=== PATIENT | male | born 1955 | race Two or more races ===

== ENCOUNTER → 2022-03-05 | Outpatient (CLI) | payer MEDICARE ==
--- NOTE | 2022-03-05 19:29 | CONS ---
CONSULTATION DATE OF SERVICE: 03/05/2022 This 66-year-old gentleman has been evaluated in [facility] for obstructive sleep apnea-hypopnea syndrome. HISTORY OF PRESENT ILLNESS/SLEEP-WAKE EVALUATION: Patient has a history of obstructive sleep apnea for more than 25 years, but results of his diagnostic sleep study and titration have been lost. At present his sleep schedule is from about 11 p.m. until 6:30 a.m. Usually no problems with falling asleep. He has loud snoring and multiple episodes of awakenings from sleep; up to 4 times. His CPAP equipment has been broken. His weight has increased by about 50 pounds compared with previous sleep testing. In the morning he wakes up tired, falling asleep during the day, has problems with concentration and irritability. Some nights he tries to use his son's CPAP unit. [place] Sleepiness Scale is around 3. He does not take any naps. PAST MEDICAL HISTORY: Positive for hypertension, diabetes mellitus, hyperlipidemia. PAST SURGICAL HISTORY: Hernia repair. MEDICATIONS: 1. Ozempic 1 mg once a week. 2. Ramipril 2.5 mg once a day. 3. Atorvastatin 20 mg once a day. 4. Metoprolol 100 mg twice a day. 5. Glyburide metformin 5/500 mg two tablets 2 times a day. 6. Levemir 20 units. 7. 1 mg once a day. SOCIAL HISTORY: Positive for smoking in the past. Alcohol consumption occasional. REVIEW OF SYSTEMS: Multiple awakenings from sleep with snoring and episodes of stopped breathing during sleep. No fevers. No double vision. No recent chest pain. No shortness of breath. No abdominal pain. No bleeding episodes. No blood in the urine. No seizure episodes. PHYSICAL EXAMINATION: GENERAL: Pleasant gentleman without distress. VITAL SIGNS: BP 146/82, HR 81, RR 18, height 5 feet 10-1/2 inches, weight 394, body mass index 41.1, temperature 97.8, oxygen saturation room air 92%. HEENT: PERRLA, EOMI, evaluation of oropharynx showed tongue protrudes midline. Extremely low position of soft palate; Mallampati IV. NECK: Supple, no JVD. Thyroid is not palpable. Neck is wide; 20 inches in circumference. LUNGS: Clear to percussion and to auscultation. Good air exchange. No wheezing or rhonchi. HEART: S1, S2 regular. No murmurs, gallops, or rubs. ABDOMEN: Obese. EXTREMITIES: No clubbing or cyanosis. VIBRATION ANALYST: Awake, alert, and oriented X3. Cranial nerves 2 to 7 intact. There is no fasciculation or atrophy. noted. No focal deficits observed. IMPRESSION: 1. Loud snoring, history of obstructive sleep apnea for 25 years, extremely low position of soft palate, Mallampati IV, wide neck, 20 inches in circumference. CPAP equipment broken. Results of diagnostic sleep study not available. Obstructive sleep apnea-hypopnea syndrome. 2. Obesity; body mass index 41.5. The patient's weight increased by more than 50 pounds compared with his weight when he did the previous sleep studies. 3. Hypertension. 4. Diabetes mellitus. 5. Hyperlipidemia. 6. Status post hernia repair. PLAN: 1. Polysomnography for evaluation of patient's breathing during sleep. 2. CPAP/BiPAP titration if sleep study confirms obstructive sleep apnea-hypopnea syndrome. 3. Preferable position during sleep on the side. 4. No driving if patient feels any sleepiness. 5. I will see patient for follow up visit to explain results of testing and following plan. Thank you very much for referring this patient for consultation. Sincerely, Colton Rodriguez MD, PhD, FAASM Diplomat of [place] [employer] Sleep Medicine Board of [place] [employer] Product Development Consultant of [facility] [place] MMODL / CURLYN: [id number] /
== END | disposition home or self-care (01) ==
LOC: SLEEP 13:52
PROVIDERS: ATTEND Internal Medicine
DX: G47.33 Obstructive sleep apnea (adult) (pediatric) (principal); E66.9 Obesity, unspecified; Z68.41 Body mass index [BMI] 40.0-44.9, adult; I10 Essential (primary) hypertension; E11.9 Type 2 diabetes mellitus without complications; E78.5 Hyperlipidemia, unspecified; Z98.890 Other specified postprocedural states
CPT/HCPCS: 99202

== ENCOUNTER → 2022-06-19 | Outpatient (CLI) | payer MEDICARE ==
--- NOTE | 2022-06-19 17:26 | P.PN ---
Subjective DATE: [] FOLLOW UP VISIT. Patient with obstructive sleep apnea hypopnea syndrome return to sleep center for follow-up visit. Recently patient had sleep study which documented obstructive sleep apnea hypopnea syndrome. Patient patient received new CPAP unit. Today is first visit after treatment with the new Pap equipment was started. Patient was able to use PAP equipment every night for the whole night. The patient does not have significant problems with the mask, PAP pressure and humidification. [place] sleepiness scale is 0. I checked information from BiPAP unit. PAP unit pressure maximal inspiratory pressure 24, minimal expiratory pressure 8, pressure support 4cm H2O. Usage is 100 % for more then 4 hours, average 8 hours per night. Leak is 15.6 l/m, which is in acceptable range. Apnea Hypopnea Index is 5.9, which is borderline. MEDICATIONS:1. Ozempic 1 mg once a week 2. Ramipril 2.5 mg once a day 3. Atorvastatin 20 mg once a day 4. Metoprolol 100 mg twice a day 5. Glyburide metformin 5500 milligrams 2 tablets twice a day 6. Levemir During physical exam: GENERAL: A pleasant patient without any distress. VITAL SIGNS: BP 142/74 [], heart rate 52[] , respiratory rate 18i, weight 292.4, temperature 97oxygen saturation at room air 92 HEENT: PERRLA, EOMI.low position of soft palate, Mallapati[4. NECK: Supple. No JVD. LUNGS: Clear to percussion and to auscultation. Good air exchange. No wheezing or rhonchi. HEART: S1, S2 regular. ABDOMEN: Soft and nontender.[] EXTREMITIES: No clubbing or cyanosis. MANUFACTURING ASSOCIATE: Awake, alert, and oriented x3. No focal deficit. Impressions: 1. Obstructive sleep apnea-hypopnea syndrome. Patient demonstrated great compliance with treatment, benefiting from treatment. 2. [ obesity 3. Hypertension 4. []. Diabetes mellitus 5. []. Hyperlipidemia 6. []. Status post hernia repair Plan: 1. Continue using PAP equipment every night for the whole night. 2. To change air filter at least 1-2 times per month. 3. PAP unit should stay lower then position of the head. 4. Advised patient to remove all remaining water from humidifier canister daily and make it dry after each usage. Refill canister with fresh distilled water before each usage. 5. Sleep hygiene with regular time in bed for at least 8 hours. 6. Precautions related to driving. No driving if feel any sleepiness. 7. I will maintain prescription for PAP supplies including mask, tube, filters. 8. Follow up visit in 6 months or earlier if patient has any problems. 9. Watching weight. Thank you very much for allowing me to participate in the management of your patient. Colton Rodriguez MD, PhD, FAASM. Diplomat of [place] [employer], Sleep Medicine Board by [place] [employer] Supervisor [employer] [facility] [place]
== END | disposition home or self-care (01) ==
LOC: SLEEP 15:55
PROVIDERS: ATTEND Internal Medicine
DX: G47.33 Obstructive sleep apnea (adult) (pediatric) (principal); E66.9 Obesity, unspecified; I10 Essential (primary) hypertension; E11.9 Type 2 diabetes mellitus without complications; E78.5 Hyperlipidemia, unspecified; Z98.890 Other specified postprocedural states
CPT/HCPCS: 99212

== ENCOUNTER 2023-07-16 11:02 | Inpatient (IN) | payer MEDICARE ==
[2023-07-16] MEDS ORDERED: methylPREDNISolone SOD SUCCI 125 MG/2 ML VIAL IV STA (11:11)
[2023-07-16 11:24] LABS: ABG Base Excess -7.1 mmol/L; ABG HCO3 21 mmol/L (21-25); ABG Oxygen Saturation 99.2 % (94-97); ABG PCO2 53 mmHg (35-45); ABG PO2 334 mmHg (83-108); ABG TCO2 22 mmol/L (19-24); Allen Test Performed? Yes
--- NOTE | 2023-07-16 11:33 | XR ---
EXAMINATION TYPE: XR chest 1V portable DATE OF EXAM: 07/16/2023 HISTORY: Shortness of breath. COMPARISON: 05/07/2023 TECHNIQUE: Single view of the chest is submitted. FINDINGS: Endotracheal tube is approximately 4.9 cm from the mary. NG tube is seen coursing into the stomach. Elevation right hemidiaphragm and right basilar opacity appear to be chronic in nature. The heart is stable. Hilar and mediastinal structures are within normal limits. Degenerative changes are seen of the dorsal spine. IMPRESSION: 1. Endotracheal tube is approximately 4.9 cm from the mary. NG tube is seen coursing into the stom ach.
[2023-07-16] MEDS ORDERED: NALOXONE 0.4 MG/ML 1 ML VIAL IV PRN (12:30)
--- NOTE | 2023-07-16 12:30 | ED ---
General Adult HPI - General Chief complaint: Cardiac Arrest/CPR Stated complaint: Cardiac Arrest Time Seen by Provider: 07/16/23 11:02 Source: EMS Mode of arrival: EMS Limitations: altered mental status, physical limitation - Related Data Home Medications Medication Instructions Recorded Confirmed Ipratropium/Albuterol Sulfate 2 puff INHALATION RT-QID PRN 03/30/15 07/16/23 [Combivent Respimat Inhaler] Pioglitazone [Actos] 45 mg PO DAILY 03/30/15 07/16/23 Rivaroxaban [Xarelto] 20 mg PO DAILY 03/30/15 07/16/23 Ipratropium-Albuterol Nebulize 1 inhalation INHALATION RT-TID 05/22/15 07/16/23 [Duoneb 0.5 mg-3 mg/3 ml Soln] Atorvastatin [Lipitor] 20 mg PO DAILY 05/02/23 07/16/23 Metoprolol Tartrate [Lopressor] 100 mg PO BID 05/02/23 07/16/23 Tirzepatide [Mounjaro] 5 mg SQ TU 05/02/23 07/16/23 glyBURIDE/METFORMIN HCL 1 tab PO BID 05/02/23 07/16/23 [Glucovance 5-500 mg] Fluticasone/Vilanterol [Breo 1 puff INHALATION RT-DAILY 07/16/23 07/16/23 Ellipta 200-25 Mcg Inhaler] Furosemide [Lasix] 20 mg PO DAILY 07/16/23 07/16/23 Potassium Chloride [Klor-Con M10] 10 meq PO DAILY 07/16/23 07/16/23 Allergies Allergy/AdvReac Type Severity Reaction Status Date / Time No Known Allergies Allergy Unverified 07/16/23 12:41 Review of Systems ROS Statement: Those systems with pertinent positive or pertinent negative responses have been documented in the HPI. ROS Other: All systems not noted in ROS Statement are negative. Past Medical History Past Medical History: Atrial Fibrillation, Asthma, Diabetes Mellitus, Hypertension, Sleep Apnea/CPAP/BIPAP Additional Past Medical History / Comment(s): Tachycardia History of Any Multi-Drug Resistant Organisms: None Reported Past Surgical History: Hernia Repair Additional Past Surgical History / Comment(s): CARDIOVERSION,YANIRA Past Anesthesia/Blood Transfusion Reactions: No Reported Reaction Past Alcohol Use History: None Reported, Rare - Past Family History Father Additional Family Medical History / Comment(s): HEART MURMUR Mother Family Medical History: No Reported History General Exam Limitations: altered mental status, physical limitation Course Vital Signs 07/16/23 07/16/23 07/16/23 11:02 11:06 11:16 Temperature 95.0 F L 95.0 F L Pulse Rate 70 Respiratory 14 Rate Blood Pressure 112/72 O2 Sat by Pulse 98 Oximetry Fraction of 100 100 Inspired Oxygen (FIO2) 07/16/23 11:38 Temperature Pulse Rate Respiratory Rate Blood Pressure O2 Sat by Pulse Oximetry Fraction of 50 Inspired Oxygen (FIO2) - Reevaluation(s) Reevaluation #1: 07/16/23 12:26 2 charts were updated on this patient. Please see previous visit also from today if charts are not completely merged together Medical Decision Making - Medical Decision Making Was pt. sent in by a medical professional or institution (, PA, CONTINUITY PERSON, urgent care, hospital, or penitentiary...) When possible be specific @ - Did you speak to anyone other than the patient for history (EMS, parent, family, police, friend...)? What history was obtained from this source @ -EMS provides history as patient is unresponsive Did you review nursing and triage notes (agree or disagree)? Why? @ -I reviewed and agree with nursing and triage notes Were old charts reviewed (outside hosp., previous admission, EMS record, old EKG, old radiological studies, urgent care reports/EKG's, penitentiary records)? Report findings @ -Previous chart reviewed previous admission with Dr. Wan Differential Diagnosis (chest pain, altered mental status, abdominal pain women, abdominal pain men, vaginal bleeding, weakness, fever, dyspnea, syncope, headache, dizziness, GI bleed, back pain, seizure, CVA, palpatations, mental health, musculoskeletal)? @ -Differential Altered Mental Status: Hypoglycemia, DKA, hypercapnia, ETOH, overdose, CO poisoning, trauma, myxedema coma, HTN encephalopathy, infection, encephalitis, psychosis, intercranial hemorrhage, hepatic encephalopathy, meningitis, CVA, this is not meant to be an all-inclusive listDifferential Dyspnea: Coronary syndrome, arrhythmia, tamponade, asthma, COPD, pulmonary embolism, pneumonia, pneumothorax, pulmonary effusion, anaphylaxis, diabetic ketoacidosis, flailed chest, pulmonary contusion, diaphragmatic rupture, anemia, neuromuscular, this is not meant to be an all-inclusive list. EKG interpreted by me (3pts min.). @ -As above X-rays interpreted by me (1pt min.). @ -Chest x-ray shows endotracheal tube and gastric tube in appropriate position CT interpreted by me (1pt min.). @ -None done U/S interpreted by me (1pt. min.). @ -None done What testing was considered but not performed or refused? (CT, X-rays, U/S, labs)? Why? @ -None What meds were considered but not given or refused? Why? @ -None Did you discuss the management of the patient with other professionals (professionals i.e. , PA, CONTINUITY PERSON, lab, RT, psych nurse, licensed social worker, hairspring setter, teacher, chief analytics officer, ed case manager)? Give summary @ -Case was discussed with Dr. Plasencia, who will consult Was smoking cessation discussed for >3mins.? @ -No Was critical care preformed (if so, how long)? @ -31 minute critical care Were there social determinants of health that impacted care today? How? (Homelessness, low income, unemployed, alcoholism, drug addiction, transportation, low edu. Level, literacy, decrease access to med. care, usp, rehab)? @ -No Was there de-escalation of care discussed even if they declined (Discuss DNR or withdrawal of care, Hospice)? DNR status @ -No What co-morbidities impacted this encounter? (DM, HTN, Smoking, COPD, CAD, Cancer, CVA, ARF, Chemo, Hep., AIDS, mental health diagnosis, sleep apnea, morbid obesity)? @ -History of asthma. History of A. fib Was patient admitted / discharged? Hospital course, mention meds given and route, prescriptions, significant lab abnormalities, going to OR and other pertinent info. @ -Patient reevaluated and on ventilator tolerating well. Vital signs have remained stable otherwise. Family is now present and is updated. They do confirm previous history. Patient will be admitted to intensive care unit on the ventilator. Patient does have history of asthma with COVID-19 infection. Undiagnosed new problem with uncertain prognosis? @ -No Drug Therapy requiring intensive monitoring for toxicity (Heparin, Nitro, Insulin, Cardizem)? @ -No Were any procedures done? @ -No Diagnosis/symptom? @ -Asthma, COVID-19, respiratory failure Acute, or Chronic, or Acute on Chronic? @ -Acute on chronic, acute, acute Uncomplicated (without systemic symptoms) or Complicated (systemic symptoms)? @ -default Side effects of treatment? @ -No Exacerbation, Progression, or Severe Exacerbation? @ -No Poses a threat to life or bodily function? How? (Chest pain, [place], [place], pneumonia, PE, COPD, DKA, ARF, appy, cholecystitis, CVA, Diverticulitis, Homicidal, Suicidal, threat to staff... and all critical care pts) @ -No - Lab Data Lab Results 07/16/23 Range/Units 11:18 Sample Site r rad ABG pH 7.20 L (7.35-7.45) ABG pCO2 53 H (35-45) mmHg ABG pO2 334 H (83-108) mmHg ABG HCO3 21 (21-25) mmol/L ABG Total CO2 22 (19-24) mmol/L ABG O2 Saturation 99.2 H (94-97) % ABG Base Excess -7.1 mmol/L John Test Yes FiO2 100 % Critical Care Time Critical Care Time: Yes Total Critical Care Time: 31 Disposition Clinical Impression: Acute respiratory failure, Asthma, COVID-19 Disposition: ADMITTED IP TO THIS HOSP Is patient prescribed a controlled substance at d/c from ED?: No Time of Disposition: 12:29
[2023-07-16] MEDS ORDERED: DEXTROSE 50% SYRINGE 50 ML IVP PRN ×4 (19:53→22:06)
[2023-07-16] MEDS ORDERED: IPRATROPIUM-ALBUTEROL 3 ML NEB INHALATION SCH (20:00)
[2023-07-16] MEDS ORDERED: METFORMIN HCL PO SCH (21:00)
[2023-07-16] MEDS ORDERED: GLYBURIDE PO SCH (21:00)
[2023-07-16 21:14] LABS: Glucose,Whole Blood 207 mg/dL (70-110)
[2023-07-16 21:15] LABS: ABG Base Excess -5.2 mmol/L; ABG HCO3 21 mmol/L (21-25); ABG Oxygen Saturation 95.3 % (94-97); ABG PCO2 42 mmHg (35-45); ABG PH 7.31 (7.35-7.45); ABG PO2 84 mmHg (83-108); ABG TCO2 22 mmol/L (19-24); Allen Test Performed? Yes
--- NOTE | 2023-07-16 21:25 | P.PCN ---
Date of Procedure: 07/16/23 Description of Procedure: Preoperative Diagnosis: cardiac arrest Postoperative Diagnosis: cardiac arrest Procedure(s) Performed: Central line, arterial line Anesthesia: local Surgeon: Aura Plasencia Estimated Blood Loss (ml): 0 Condition: critical Disposition: ICU Operative Findings: Indication: Hemodynamic monitoring. Indication: Hemodynamic monitoring/Intravenous access. A time-out was completed verifying correct patient, procedure, site, positioning, and implant(s) or special equipment if applicable. The patient was placed in a dependent position appropriate for central line placement based on the vein to be cannulated. The patients left chest was prepped and draped in sterile fashion. 1% Lidocaine was used to anesthetize the surrounding skin area. A triple lumen 9F Cordis catheter was introduced into the left subclavian vein using Seldinger technique. The catheter was threaded smoothly over the guide wire and appropriate blood return was obtained. Each lumen of the catheter was evacuated of air and flushed with sterile saline. The catheter was then sutured in place to the skin and a sterile dressing applied. Perfusion to the extremity distal to the point of catheter insertion was checked and found to be adequate. The patient tolerated the procedure well and there were no complications.
--- NOTE | 2023-07-16 21:25 | P.CNPUL ---
History of Present Illness Consult date: 07/16/23 Chief complaint: Cardiac arrest History of present illness: 68-year-old male patient, morbidly obese, known history of obstructive sleep apnea, chronic atrial fibrillation maintained on long-term and the coagulation with Xarelto in addition to history of diabetes mellitus type 2, hypertension and obesity. The patient was brought into the emergency department with cardiac arrest. The patient was at home and he was complaining of some shortness of breath. He was supposed to see his primary care physician, however he acutely became unresponsive. The patient's was there and she activated EMS. The downtime reported was approximately 7 minutes before EMS arrival. The patient was found to be in asystole and CPR was initiated. The patient was intubated. The patient received epinephrine based on the ACLS protocol. The CPR time was around 10-12 minutes and following that there was return of spontaneous circulation. Following that, the patient was brought into the emergency department. The patient EKG was consistent with A. fib with RVR. The patient's BP was 120/94. The patient was given a chest x-ray that showed no acute abnormalities. He was started on propofol which is currently running at 50 mcg/kg/m. No seizure activity has been noted. CAT scan of the brain is not done. CT angiogram of the chest has not been done. Cardiac enzymes showed a troponin of 0.136. Initial blood gas showed a pH of 7.2 with episodes of 53 and pO2 of 336. His current vent settings with an assist control of 24 with a tidal volume of 500, FiO2 is 50% with a PEEP of 5. Urine operas in order of 40-50 mL an hour. He is afebrile. He is on no pressors. No reported aspiration. The donor is currently 11.2, hemoglobin is 15 with a platelet count of 218. Normal coagulation profile. BUN is at 24 with a creatinine of 1.1. Initial lactic acid level is at 7.6. ProBNP level was 1250. Serum bicarb is at 22. Glucose at 157. Review of Systems ROS unobtainable: due to endotracheal tube Past Medical History Past Medical History: Atrial Fibrillation, Asthma, Diabetes Mellitus, Hypertension, Sleep Apnea/CPAP/BIPAP Additional Past Medical History / Comment(s): Tachycardia History of Any Multi-Drug Resistant Organisms: None Reported Past Surgical History: Hernia Repair Additional Past Surgical History / Comment(s): CARDIOVERSION,YANIRA Past Anesthesia/Blood Transfusion Reactions: No Reported Reaction Past Alcohol Use History: None Reported, Rare - Past Family History Father Additional Family Medical History / Comment(s): HEART MURMUR Mother Family Medical History: No Reported History Medications and Allergies Home Medications Medication Instructions Recorded Confirmed Type Ipratropium/Albuterol Sulfate 2 puff INHALATION RT-QID PRN 03/30/15 07/16/23 History [Combivent Respimat Inhaler] Pioglitazone [Actos] 45 mg PO DAILY 03/30/15 07/16/23 History Rivaroxaban [Xarelto] 20 mg PO DAILY 03/30/15 07/16/23 History Ipratropium-Albuterol Nebulize 1 inhalation INHALATION RT-TID 05/22/15 07/16/23 History [Duoneb 0.5 mg-3 mg/3 ml Soln] Atorvastatin [Lipitor] 20 mg PO DAILY 05/02/23 07/16/23 History Metoprolol Tartrate [Lopressor] 100 mg PO BID 05/02/23 07/16/23 History Tirzepatide [Mounjaro] 5 mg SQ TU 05/02/23 07/16/23 History glyBURIDE/METFORMIN HCL 1 tab PO BID 05/02/23 07/16/23 History [Glucovance 5-500 mg] Fluticasone/Vilanterol [Breo 1 puff INHALATION RT-DAILY 07/16/23 07/16/23 History Ellipta 200-25 Mcg Inhaler] Furosemide [Lasix] 20 mg PO DAILY 07/16/23 07/16/23 History Potassium Chloride [Klor-Con M10] 10 meq PO DAILY 07/16/23 07/16/23 History Allergies Allergy/AdvReac Type Severity Reaction Status Date / Time No Known Allergies Allergy Unverified 07/16/23 12:41 Physical Exam Vitals: Vital Signs Temp Pulse Resp BP Pulse Ox FiO2 07/16/23 19:33 90 07/16/23 19:26 50 07/16/23 19:25 88 07/16/23 19:00 98.8 F 89 22 128/91 99 07/16/23 18:00 98.8 F 88 23 108/72 99 07/16/23 17:00 98.8 F 84 22 107/64 97 07/16/23 16:00 99.0 F 85 22 119/82 99 07/16/23 15:00 98.8 F 89 24 122/80 98 50 07/16/23 14:57 50 07/16/23 14:00 98.1 F 91 12 111/74 97 07/16/23 13:45 90 12 122/74 96 07/16/23 13:30 96.1 F L 91 16 114/80 96 07/16/23 13:15 89 16 113/70 96 07/16/23 13:00 87 16 105/75 96 07/16/23 12:45 83 16 99/63 95 07/16/23 12:30 82 16 105/61 95 07/16/23 12:15 82 16 99/77 95 07/16/23 12:00 84 16 121/69 96 07/16/23 11:45 79 16 119/85 100 07/16/23 11:38 50 07/16/23 11:30 71 16 122/88 100 07/16/23 11:15 70 16 120/81 100 07/16/23 11:14 70 16 120/81 100 07/16/23 11:06 95.0 F L 07/16/23 11:02 95.0 F L 70 14 112/72 98 100 Intake and Output 07/16/23 07/16/23 07/16/23 06:59 14:59 22:59 Intake Total 6.940 147.987 Balance 6.940 147.987 Intake: Intake, IV Titration 6.940 147.987 Amount propofoL 1,000 mg In 6.940 147.987 Empty Bag 1 bag @ 15 MCG/ KG/MIN 12.247 mls/hr IV . [facility] Rx#:[id number] Other: Weight 136.078 kg Obese, body mass index of 40.7., Comfortable. No acute arrest or distress. Currently on propofol Head exam was generally normal. There was no scleral icterus or corneal arcus. Mucous membranes were moist. Neck was supple and without jugular venous distension, thyromegaly, or carotid bruits. Carotids were easily palpable bilaterally. There was no adenopathy. Lungs although the medicine the patient has scattered rhonchi heard bilaterally. Otherwise breath sounds are equal and symmetrical Heart sounds are irregular, consistent with atrial fibrillation, the heart sounds are distant, positive S1-S2 there is no significant murmurs appreciated Abdominal exam revealed normal bowel sounds. The abdomen was soft, non-tender, and without masses, organomegaly, or appreciable enlargement of the abdominal aorta. Examination of the extremities revealed easily palpable radial, femoral and pedal pulses. There was no cyanosis, clubbing or edema. Examination of the skin revealed no evidence of significant rashes, suspicious appearing nevi or other concerning lesions. Neurologically, the patient is unresponsive. Pupils are round 56 cm in size and slightly reactive to light. No nystagmus. Positive coughing reflex. Motor function cannot be assessed. Sensory cannot be assessed. Reflexes are diminished bilaterally. There are present. No Babinski. No clonus. Results - Laboratory Findings ABG ABG pH 7.20 (7.35-7.45) L 07/16/23 11:18 ABG pCO2 53 mmHg (35-45) H 07/16/23 11:18 ABG pO2 334 mmHg (83-108) H 07/16/23 11:18 ABG O2 Saturation 99.2 % (94-97) H 07/16/23 11:18 Abnormal lab findings: Abnormal Labs 07/16/23 07/16/23 11:18 15:57 ABG pH 7.20 L ABG pCO2 53 H ABG pO2 334 H ABG O2 Saturation 99.2 H Troponin I 0.136 H* - Diagnostic Findings Chest x-ray: image reviewed Assessment and Plan Plan: Acute cardiopulmonary arrest. The patient was found to be in asystole. The down time is estimated to be more than 17 minutes at least. There was return of spontaneous circulation after successful resuscitation. The patient received CPR, epinephrine and the patient was intubated on the field and was brought to the emergency department. Exact cause is not clear. Acute hypoxic/hypercapnic respiratory failure secondary to cardiac arrest Acute Covid 19 infection. The patient tested positive for Covid 19. This is his first infection and the patient has been vaccinated the past. Acute lactic acidosis secondary to above Unresponsiveness currently on sedation. Rule out underlying hypoxic encephalopathy Chronic atrial maintained on anticoagulation with xarelto, the patient receiving metoprolol for rate control on outpatient basis Morbid obesity with BMI of 40.7 Diabetes mellitus type 2 Obstructive sleep apnea, severe with a AHI of 90 and the patient has been utilizing a on auto BiPAP on outpatient basis Recent hospitalization for bilateral pneumonia, April 2023, treated and recovered Chronic bronchial asthma, maintain on Breo Ellipta on outpatient basis in addition to albuterol rescue inhaler Hypertension Plan Condition is critical at this point in time Continue vent support Repeat the blood gas Triple-lumen catheter was inserted We'll need a CAT scan of the brain without contrast Will recommend a CT angiogram of the chest Recommended to the echocardiogram Treat the patient with Decadron 6 mg IV every 24 hours Insulin sliding scale coverage Resume anti-cognition with Xarelto Albuterol neb treatments treatments [id number] Cardiology consult Neurologic consult Keep propofol Monitor troponins Monitor lactic acid level Condition is critical. We'll continue to follow. Time with Patient: Greater than 30
[2023-07-16] MEDS ORDERED: TIOTROPIUM 2.5 MCG INHALER INHALATION SCH (22:00)
[2023-07-16] MEDS: DEXAMETHASONE SOD PHOSPHATE 10 MG/ML 1 ML VIAL IVP SCH (22:02)
[2023-07-16] MEDS: ATORVASTATIN 20 MG TAB PO SCH (22:02)
--- NOTE | 2023-07-16 22:07 | CT ---
EXAMINATION TYPE: CT brain wo con CT DLP: 1179.4 mGycm, Automated exposure control for dose reduction was used. DATE OF EXAM: 07/16/2023 9:02 PM COMPARISON: CT brain 05/02/2023 CLINICAL INDICATION:Male, 68 years old with history of cardiac arrest, cardiac arrest TECHNIQUE: Brain: Multiple axial CT images of the brain were obtained without IV contrast. Coronal and sagittal reformats reviewed. FINDINGS: Brain: Extra-axial spaces: No abnormal extra-axial fluid collections. Ventricular system: Within normal limits Cerebral parenchyma: No acute intraparenchymal hemorrhage or mass effect. The horton-white junction is well differentiated. Scattered hypoattenuating areas are seen within the white matter. Cerebellum: Unremarkable. Mass effect: No evidence of midline shift. Intracranial vasculature: unremarkable Soft tissues: Normal. Calvarium/osseous structures: No depressed skull fracture. Paranasal sinuses and mastoid air cells: Mild scattered paranasal sinus disease. The mastoid air cell s are clear. Visualized orbits: Orbital contents are intact. IMPRESSION: 1. No acute intracranial process. 2. Nonspecific white matter changes, likely secondary to chronic small vessel ischemic disease.
--- NOTE | 2023-07-16 22:16 | CT ---
EXAMINATION TYPE: CT angio chest CT DLP: 1050.3 mGycm, Automated exposure control for dose reduction was used. DATE OF EXAM: 07/16/2023 9:01 PM COMPARISON: Chest radiograph 07/16/2023 CLINICAL INDICATION:Male, 68 years old with history of cardiac arrest; cardiac arrest TECHNIQUE/CONTRAST: CTA scan of the thorax is performed with IV Contrast, patient injected with 100 mL of Isovue 370, pul monary embolism protocol. MIP images are created and reviewed. FINDINGS: Pulmonary Artery: There is no evidence for a filling defect within the pulmonary vasculature to sugge st acute pulmonary embolism. The pulmonary artery is of normal size. Lungs/Pleura: No evidence of focal consolidation, pleural effusion or pneumothorax. Linear atelectasi s within the right upper lobe and right lower lobe. There are 2 nodules within the right lung base wi th the larger one measuring 2.0 cm with some punctate calcifications identified ( series 401, image 9 1). Additional 1.6 cm adjacent nodule with central coarse calcification (series 401, image 92). Right upper lobe 0.6 cm pulmonary nodule (series 406, image 36). Airway: Endotracheal tube terminates at the mary. Trace secretions identified within the distal tra eulalio. Heart: Mildly enlarged. Mild coronary artery calcifications. No pericardial effusion.. Vasculature: No evidence of aortic aneurysm. Mediastinum: No mediastinal adenopathy greater than 1 cm short axis. Calcified subcarinal lymph node. Musculoskeletal: No acute osseous abnormalities. Findings compatible with DISH. Soft Tissues: Diffuse anasarca. Lower neck: No significant findings. Upper Abdomen: Enteric tube terminates probably within the stomach.. Cholelithiasis. Mild enlarged no nspecific peripancreatic head lymph node measuring 1.0 cm. IMPRESSION: 1. No evidence of pulmonary embolism. 2. Endotracheal tube at the mary. Recommend retraction of 2 cm. 3. There are 2 adjacent nodules within the right lung base demonstrating calcifications measuring up to 2.0 cm and may represent hamartomas. Additional right upper lobe 0.6 cm pulmonary nodule. Short-te rm CT chest in 3 months is recommended. 4. Cholelithiasis. 5. Mildly enlarged nonspecific peripancreatic lymph node.
[2023-07-16 23:54] LABS: Glucose,Whole Blood 204 mg/dL (70-110)
[2023-07-16] MEDS: INSULIN ASPART (NovoLOG) 100 UNIT/ML VIAL SQ SCH (23:55)
[2023-07-16] MEDS: IPRATROPIUM-ALBUTEROL 3 ML NEB INHALATION SCH (23:57)
[2023-07-17] MEDS ORDERED: ALBUTEROL HFA INHALER INHALATION SCH
[2023-07-17] MEDS ORDERED: SODIUM CHLORIDE 0.9% 1,000 ML IV ONE ×2 (01:27→19:03)
[2023-07-17] MEDS: SODIUM CHLORIDE 0.9% 1,000 ML IV SCH ×3 (01:30→20:58)
--- NOTE | 2023-07-17 04:08 | P.PCN ---
Date of Procedure: 07/16/23 Preoperative Diagnosis: Cardiopulmonary arrest, hypotension Postoperative Diagnosis: Cardiopulmonary arrest, hypotension Procedure(s) Performed: Insertion of a right brachial arterial line Indications for Procedure: Continuous blood pressure monitoring and frequent blood draws Description of Procedure: Informed consent was obtained, and a procedural timeout was performed . The patient was placed in supine position. The right brachial region was prepared in a sterile fashion, and a sterile drape was applied. The right brachial artery was palpated, easily cannulated, and a guidewire was placed. A Cook catheter was inserted over the guidewire, and the guidewire was removed. There was good arterial blood flow, good arterial waveform, and no complications. The line was secured with using a 3-0 silk suture. This is a joint evaluation. I was present and scrubbed throughout the procedure.
[2023-07-17] MEDS: IPRATROPIUM-ALBUTEROL 3 ML NEB INHALATION SCH (04:27)
[2023-07-17 04:45] LABS: Glucose,Whole Blood 206 mg/dL (70-110)
[2023-07-17] MEDS: INSULIN ASPART (NovoLOG) 100 UNIT/ML VIAL SQ SCH ×4 (05:13→19:07)
[2023-07-17 05:45] LABS: ALT 47 U/L (4-49); AST 118 U/L (17-59); African American GFR (CKD) 30 (>60 ml/min/1.73 sqM); Albumin 3.2 g/dL (3.5-5.0); Alkaline Phosphatase 82 U/L (38-126); Anion Gap 15 mmol/L; Blood Urea Nitrogen 49 mg/dL (9-20); Calcium 8.5 mg/dL (8.4-10.2); Carbon Dioxide 21 mmol/L (22-30); Chloride 101 mmol/L (98-107); Glucose 212 mg/dL (74-99); Non-African American GFR(CKD) 26 (>60 ml/min/1.73 sqM); Sodium 137 mmol/L (137-145); Total Bilirubin 1.7 mg/dL (0.2-1.3); Total Protein 6.1 g/dL (6.3-8.2)
[2023-07-17 07:03] LABS: ABG PCO2 35 mmHg (35-45); ABG PH 7.42 (7.35-7.45); ABG PO2 88 mmHg (83-108); Allen Test Performed? Yes
[2023-07-17 07:03] LABS: Basophils % (A) 0 %; Eosinophils % (A) 0 %; HCT 44.3 % (39.0-53.0); HGB 14.4 gm/dL (13.0-17.5); Lymphocytes % (A) 6 %; MCH 31.9 pg (25.0-35.0); MCHC 32.5 g/dL (31.0-37.0); Macrocytosis Slight; Monocytes # (A) 0.7 k/uL (0-1.0); Monocytes % (A) 5 %; Neutrophils # (A) 13.8 k/uL (1.3-7.7); Neutrophils % (A) 88 %; Platelet Count 209 k/uL (150-450); RDW 15.5 % (11.5-15.5); WBC 15.7 k/uL (3.8-10.6)
[2023-07-17 07:04] LABS: ABG Base Excess -2.3 mmol/L; ABG HCO3 22 mmol/L (21-25); ABG TCO2 23 mmol/L (19-24)
[2023-07-17] MEDS ORDERED: metFORMIN 500 MG TAB PO SCH (07:30)
[2023-07-17] MEDS ORDERED: glipiZIDE 5 MG TAB PO SCH (07:30)
[2023-07-17 07:31] LABS: MCV 98.3 fL (80.0-100.0)
[2023-07-17] MEDS ORDERED: IPRATROPIUM-ALBUTEROL 3 ML NEB INHALATION SCH (08:00)
[2023-07-17] MEDS ORDERED: FORMOTEROL FUMARATE 20 MCG/2 ML NEBU INHALATION SCH (08:00)
[2023-07-17] MEDS ORDERED: BUDESONIDE 1 MG/2 ML NEBU INHALATION SCH (08:00)
--- NOTE | 2023-07-17 08:41 | XR ---
EXAMINATION TYPE: XR chest 1V DATE OF EXAM: 07/17/2023 5:41 AM COMPARISON: Chest radiographs from 07/16/2023 TECHNIQUE: XR chest 1V Frontal view of the chest. CLINICAL INDICATION:Male, 68 years old with history of dyspnea; FINDINGS: Lungs/Pleura: Airspace opacities are now projecting over the heart in the left lower aspect. There is no evidence of pleural effusion, right focal consolidation, or pneumothorax. Pulmonary vascularity: Unremarkable. Heart/mediastinum: Cardiomediastinal silhouette is unremarkable. Musculoskeletal: No acute osseous pathology. Other findings: None Lines/Tubes: Endotracheal tube with distal tip 3.3 cm above the mary. Nasogastric tube with its distal tip and side-port projecting under the diaphragm. Left internal jugular central venous catheter with distal tip at the cavoatrial junction. IMPRESSION: Left lower lung airspace opacities correlate for developing pneumonia. Stable support line and tubes.
[2023-07-17] MEDS ORDERED: PANTOPRAZOLE 40 MG/10 ML VIAL IVP SCH (09:00)
[2023-07-17] MEDS ORDERED: SODIUM CHLORIDE 0.9% 2,000 ML IV ONE (10:12)
--- NOTE | 2023-07-17 10:15 | P.PN ---
Subjective Progress Note Date: 07/17/23 68-year-old male patient, morbidly obese, known history of obstructive sleep apnea, chronic atrial fibrillation maintained on long-term and the coagulation with Xarelto in addition to history of diabetes mellitus type 2, hypertension and obesity. The patient was brought into the emergency department with cardiac arrest. The patient was at home and he was complaining of some shortness of breath. He was supposed to see his primary care physician, however he acutely became unresponsive. The patient's was there and she activated EMS. The downtime reported was approximately 7 minutes before EMS arrival. The patient was found to be in asystole and CPR was initiated. The patient was intubated. The patient received epinephrine based on the ACLS protocol. The CPR time was around 10-12 minutes and following that there was return of spontaneous circulation. Following that, the patient was brought into the emergency department. The patient EKG was consistent with A. fib with RVR. The patient's BP was 120/94. The patient was given a chest x-ray that showed no acute abnormalities. He was started on propofol which is currently running at 50 mcg/kg/m. No seizure activity has been noted. CAT scan of the brain is not done. CT angiogram of the chest has not been done. Cardiac enzy mes showed a troponin of 0.136. Initial blood gas showed a pH of 7.2 with episodes of 53 and pO2 of 336. His current vent settings with an assist control of 24 with a tidal volume of 500, FiO2 is 50% with a PEEP of 5. Urine operas in order of 40-50 mL an hour. He is afebrile. He is on no pressors. No reported aspiration. The donor is currently 11.2, hemoglobin is 15 with a platelet count of 218. Normal coagulation profile. BUN is at 24 with a creatinine of 1.1. Initial lactic acid level is at 7.6. ProBNP level was 1250. Serum bicarb is at 22. Glucose at 157. On today's evaluation of 07/17/2023, the patient is being seen in follow-up in the intensive care unit. He is post cardiac arrest. Currently is on propofol which is running at 40 mcg/kg/m. His calm and comfortable and suggests a mechanical ventilator. Neurologically, the patient underwent a CAT scan of the brain yesterday and the CAT scan of the brain showed no acute abnormalities. There was some nonspecific white matter changes likely secondary to chronic vessel ischemic change. No seizure activity has been noted. He was able to sense some painful stimulation with eye opening and leg with those. No Babins ki. No clonus no seizure activity. Pupils are round 4 mm in size, sluggishly reactive to light and the patient has a occasional cough. Repeat chest x-ray from today shows left basilar atelectasis. Orotracheal tube is in a good location. The patient also has a or G-tube in place. A CT angiogram of the chest was done yesterday and it showed no evidence of any pulmonary embolism. No evidence of any dissection. There was some nonspecific to adjacent home a nodules in the right lung base demonstrating calcification measuring up to 2 cm in size may represent a hematoma. Additional nodule measuring 6 mm in size in the right upper lobe. At this point in time, the patient is on assist-control mode of mechanical ventilation at the rate of 24, tidal volume of 500, FiO2 to 50% with a PEEP of 5. Blood gas showed a pH of 7.42 with a pCO2 of 35 and pO2 of 88. The patient has sustained an acute kidney injury. Creatinine today is at 2.41 with a BUN of 49. The patient also has a sodium level of 137, potassium is at 4, bicarb is at 21. The white cell cause of 15.7 with a hemoglobin of 14 .4. Cardiac rhythm is sinus. He is currently afebrile. He is on Decadron and this was given to him regarding his Covid 19 infection that was an incidental finding. Noted the patient has been vaccinated. This is his first infection with Covid 19. He remains on long-term and coagulation with Xarelto. Objective - Vital Signs Vital signs: Vital Signs Temp 99.1 F 07/17/23 04:00 Pulse 98 07/17/23 07:00 Resp 19 07/17/23 07:00 BP 99/54 07/17/23 07:00 Pulse Ox 97 07/17/23 07:00 FiO2 50 07/17/23 08:43 Intake & Output 07/16/23 07/17/23 07/17/23 18:59 06:59 18:59 Intake Total 90.969 1794.957 Output Total 320 Balance 90.969 1474.957 Weight 136.078 kg Intake: Intake, IV Titration 90.969 1794.957 Amount Sodium Chloride 0.9% 1, 450 000 ml @ 75 mls/hr IV . [id number] [facility] Rx#:[id number] Sodium Chloride 0.9% 1, 1000 000 ml @ 999 mls/hr IV . Q1H1M ONE Rx#:[id number] propofoL 1,000 mg In 90.969 344.957 Empty Bag 1 bag @ 15 MCG/ KG/MIN 12.247 mls/hr IV . Q8H10M [facility] Rx#:[id number] Output: Urine 320 Other: Voiding Method Indwelling Catheter ABP, PAP, CO, CI - Last Documented Arterial Blood Pressure 93/52 - Exam Obese, body mass index of 40.7., Comfortable. No acute arrest or distress. Currently on propofol Head exam was generally normal. There was no scleral icterus or corneal arcus. Mucous membranes were moist. Neck was supple and without jugular venous distension, thyromegaly, or carotid bruits. Carotids were easily palpable bilaterally. There was no adenopathy. Lungs although the medicine the patient has scattered rhonchi heard bilaterally. Otherwise breath sounds are equal and symmetrical Heart sounds are irregular, consistent with atrial fibrillation, the heart sounds are distant, positive S1-S2 there is no significant murmurs appreciated Abdominal exam revealed normal bowel sounds. The abdomen was soft, non-tender, and without masses, organomegaly, or appreciable enlargement of the abdominal aorta. Examination of the extremities revealed easily palpable radial, femoral and pedal pulses. There was no cyanosis, clubbing or edema. Examination of the skin revealed no evidence of significant rashes, suspicious appearing nevi or other concerning lesions. Neurologically, the patient is unresponsive. Pupils are round 4-5 cm in size and slightly reactive to light. No nystagmus. Positive coughing reflex. Motor function cannot be assessed. Sensory cannot be assessed. Reflexes are diminished bilaterally. There are present. No Babinski. No clonus. On karen anderson's evaluation, he is sensing painful stimulation by withdrawal. He'll occasionally open up his eyes upon stimulation. - Labs CBC & Chem 7: 07/17/23 05:03 07/17/23 05:03 Labs: Abnormal Lab Results - Last 24 Hours (Table) 07/16/23 07/16/23 07/16/23 Range/Units 11:18 15:57 21:12 WBC (3.8-10.6) k/uL Neutrophils # (1.3-7.7) k/uL ABG pH 7.20 L (7.35-7.45) ABG pCO2 53 H (35-45) mmHg ABG pO2 334 H (83-108) mmHg ABG O2 Saturation 99.2 H (94-97) % Carbon Dioxide (22-30) mmol/L BUN (9-20) mg/dL Creatinine (0.66-1.25) mg/dL Glucose (74-99) mg/dL POC Glucose (mg/dL) 207 H (70-110) mg/dL Total Bilirubin (0.2-1.3) mg/dL AST (17-59) U/L Troponin I 0.136 H* (0.000-0.034) ng/mL Total Protein (6.3-8.2) g/dL Albumin (3.5-5.0) g/dL 07/16/23 07/16/23 07/17/23 Range/Units 21:13 23:52 04:44 WBC (3.8-10.6) k/uL Neutrophils # (1.3-7.7) k/uL ABG pH 7.31 L (7.35-7.45) ABG pCO2 (35-45) mmHg ABG pO2 (83-108) mmHg ABG O2 Saturation (94-97) % Carbon Dioxide (22-30) mmol/L BUN (9-20) mg/dL Creatinine (0.66-1.25) mg/dL Glucose (74-99) mg/dL POC Glucose (mg/dL) 204 H 206 H (70-110) mg/dL Total Bilirubin (0.2-1.3) mg/dL AST (17-59) U/L Troponin I (0.000-0.034) ng/mL Total Protein (6.3-8.2) g/dL Albumin (3.5-5.0) g/dL 07/17/23 07/17/23 Range/Units 05:03 05:03 WBC 15.7 H (3.8-10.6) k/uL Neutrophils # 13.8 H (1.3-7.7) k/uL ABG pH (7.35-7.45) ABG pCO2 (35-45) mmHg ABG pO2 (83-108) mmHg ABG O2 Saturation (94-97) % Carbon Dioxide 21 L (22-30) mmol/L BUN 49 H (9-20) mg/dL Creatinine 2.41 H (0.66-1.25) mg/dL Glucose 212 H (74-99) mg/dL POC Glucose (mg/dL) (70-110) mg/dL Total Bilirubin 1.7 H (0.2-1.3) mg/dL AST 118 H (17-59) U/L Troponin I (0.000-0.034) ng/mL Total Protein 6.1 L (6.3-8.2) g/dL Albumin 3.2 L (3.5-5.0) g/dL Assessment and Plan Plan: Acute cardiopulmonary arrest. The patient was found to be in asystole. The down time is estimated to be more than 17 minutes at least. There was return of spontaneous circulation after successful resuscitation. The patient received CPR, epinephrine and the patient was intubated on the field and was brought to the emergency department. Exact cause is not clear. Acute hypoxic/hypercapnic respiratory failure secondary to cardiac arrest, chest x-ray from today showing a left basilar atelectasis/infiltrate. Acute Covid 19 infection. The patient tested positive for Covid 19. This is his first infection and the patient has been vaccinated the past. Acute lactic acidosis secondary to above, improved and there is improvement in the acid base status on the most recent blood gas Unresponsiveness currently on sedation. Rule out underlying hypoxic encephalopathy Chronic atrial maintained on anticoagulation with xarelto, the patient receiving metoprolol for rate control on outpatient basis, current cardiac rhythm is sinus Morbid obesity with BMI of 40.7 Diabetes mellitus type 2, currently on insulin sliding scale coverage Obstructive sleep apnea, severe with a AHI of 90 and the patient has been utilizing a on auto BiPAP on outpatient basis Recent hospitalization for bilateral pneumonia, April 2023, treated and recovered Chronic bronchial asthma, maintain on Breo Ellipta on outpatient basis in addition to albuterol rescue inhaler Acute kidney injury secondary to cardiac arrest and the patient's creatinine is up to 2.41 Hypertension Pulmonary nodules right upper lobe, 6 mm, 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 Check a CVP Triple-lumen catheter was inserted We'll need a CAT scan of the brain without contrast, no acute abnormalities Will recommend a CT angiogram of the chest, done yesterday showed no specific pulmonary nodules right upper lobe and a 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 Recommended to the echocardiogram Continue Decadron 6 mg IV every 24 hours Insulin sliding scale coverage IV fluids are currently running at 75 mL an hour normal saline. The patient is oliguric and he has sustained an acute kidney injury. Recommend given the pa tient 2 L of bolus of normal saline Continue Xarelto Albuterol neb treatments treatments [id number] Cardiology consult Neurologic consult Keep propofol Monitor troponins, peaked at 0.136, probably related to his cardiac arrest and CPR. Monitor lactic acid level and a most recent lactic acid level is 1.2. Condition is critical. We'll continue to follow. May potentially try to cut down the sedation and assess his mental status and later stage. Awaiting neurology evaluation. Awaiting cardiology evaluation. I noticed that the patient has increased output from his NG. Obtain flat some of the abdomen. Hold on tube feeds for now. Critical care evaluation that was done in more than 30 minutes. Time with Patient: Greater than 30
[2023-07-17] MEDS: PANTOPRAZOLE 40 MG/10 ML VIAL IV SCH (10:33)
[2023-07-17] MEDS: DEXAMETHASONE SOD PHOSPHATE 10 MG/ML 1 ML VIAL IVP SCH (10:33)
[2023-07-17] MEDS: ATORVASTATIN 20 MG TAB PO SCH (10:34)
[2023-07-17] MEDS: RIVAROXABAN 20 MG TAB PO SCH (10:34)
[2023-07-17 10:47] LABS: Glucose,Whole Blood 172 mg/dL (70-110)
[2023-07-17] MEDS: ALBUTEROL HFA INHALER INHALATION SCH ×4 (11:29→20:08)
[2023-07-17] MEDS: SYMBICORT 160-4.5 MCG INHALER INHALATION SCH ×2 (11:30→20:08)
[2023-07-17 12:24] LABS: Glucose,Whole Blood 208 mg/dL (70-110)
--- NOTE | 2023-07-17 14:57 | P.CRDCN ---
History of Present Illness Consult date: 07/17/23 History of present illness: HISTORY OF PRESENTING ILLNESS 67-year-old with PMH of type 2 diabetes, obstructive sleep apnea, hypertension, some reported history of arrhythmia. He was last seen in Hospital in May 2023 for weakness and altered mental status. This was activated to his hypoglycemia. On last admission his EKG showed atrial fibrillation and was started on Xarelto. Patient was at home complaining of some shortness of breath. He was supposed to see his primary care physician but he acutely became unresponsive and patient's called the EMS. Down time reported was approximately 7 minutes before EMS arrived. Patient was found to be in asystole and CPR was performed and patient was intubated at the scene. Patient received epinephrine based on the ACS protocol. CPR was performed for 10-12 minutes with return of spontaneous circulation. Off of that his ECG showed atrial fibrillation with RVR. On admission his troponin was 0.13, BNP was 1250, creatinine 1.1 lactate 7.6 DIAGNOSTICS EKG reveals atrial fibrillation with rapid ventricular response, no significant ST changes. CTA showed no evidence of dissection or pulmonary embolism. Chest x-ray did not show significant pulmonary congestion Home cardiac medications include Lasix 20 mg, Xarelto 20 mg, Actos 45 mg, metoprolol 100 mg twice a day, atorvastatin. PRIOR CARDIAC TESTING Echocardiogram April 2023 EF 50-55%, no major valvular abnormality REVIEW OF SYSTEMS 14 point review of system is negative except what is mentioned above in HPI. PHYSICAL EXAMINATION Vital signs reviewed. Head: Normocephalic. Eyes: Sclerae nonicteric. Neck: Brisk carotid upstroke, no jugular venous distention. Lungs: Intubated recommend support Heart: Irregularly irregular, no murmurs appreciated Abdomen: Soft nontender, positive bowel sounds no organomegaly. Extremities: No edema, intact distal pulses. Neurological: Intubated and sedated ASSESSMENT [id number] cardiac arrest Ventilatory dependent respiratory failure Acute COVID-19 infection Chronic atrial fibrillation Morbid obesity Type 2 diabetes obstructive sleep apnea PLAN Continue anticoagulation with Xarelto Continue metoprolol 100 mg twice a day as blood pressure tolerates ICU management for vent support No indication for cardiac catheterization at this time Repeat limited echocardiogram for LV function Past Medical History Past Medical History: Atrial Fibrillation, Asthma, Diabetes Mellitus, Hyperten destiny, Sleep Apnea/CPAP/BIPAP Additional Past Medical History / Comment(s): Tachycardia History of Any Multi-Drug Resistant Organisms: None Reported Past Surgical History: Hernia Repair Additional Past Surgical History / Comment(s): CARDIOVERSION,YANIRA Past Anesthesia/Blood Transfusion Reactions: No Reported Reaction Past Alcohol Use History: None Reported, Rare - Past Family History Father Additional Family Medical History / Comment(s): HEART MURMUR Mother Family Medical History: No Reported History Medications and Allergies Home Medications Medication Instructions Recorded Confirmed Type Ipratropium/Albuterol Sulfate 2 puff INHALATION RT-QID PRN 03/30/15 07/16/23 History [Combivent Respimat Inhaler] Pioglitazone [Actos] 45 mg PO DAILY 03/30/15 07/16/23 History Rivaroxaban [Xarelto] 20 mg PO DAILY 03/30/15 07/16/23 History Ipratropium-Albuterol Nebulize 1 inhalation INHALATION RT-TID 05/22/15 07/16/23 History [Duoneb 0.5 mg-3 mg/3 ml Soln] Atorvastatin [Lipitor] 20 mg PO DAILY 05/02/23 07/16/23 History Metoprolol Tartrate [Lopressor] 100 mg PO BID 05/02/23 07/16/23 History Tirzepatide [Mounjaro] 5 mg SQ TU 05/02/23 07/16/23 History glyBURIDE/METFORMIN HCL 1 tab PO BID 05/02/23 07/16/23 History [Glucovance 5-500 mg] Fluticasone/Vilanterol [Breo 1 puff INHALATION RT-DAILY 07/16/23 07/16/23 History Ellipta 200-25 Mcg Inhaler] Furosemide [Lasix] 20 mg PO DAILY 07/16/23 07/16/23 History Potassium Chloride [Klor-Con M10] 10 meq PO DAILY 07/16/23 07/16/23 History Allergies Allergy/AdvReac Type Severity Reaction Status Date / Time No Known Allergies Allergy Unverified 07/16/23 12:41 Physical Exam Vitals: Vital Signs Temp Pulse Resp BP Pulse Ox FiO2 07/17/23 12:00 100 16 91/61 99 07/17/23 11:31 50 07/17/23 11:00 95 24 83/69 100 07/17/23 10:00 92 24 97/55 100 07/17/23 09:00 93 24 91/55 99 07/17/23 08:43 50 07/17/23 08:00 98.6 F 97 24 86/52 97 50 07/17/23 07:00 98 19 99/54 97 07/17/23 06:00 95 24 123/68 99 07/17/23 05:00 93 24 113/63 97 07/17/23 04:43 93 07/17/23 04:28 50 07/17/23 04:27 92 07/17/23 04:00 99.1 F 93 24 106/62 98 50 07/17/23 03:00 92 24 108/60 99 07/17/23 02:00 88 24 109/53 98 07/17/23 01:00 101 H 24 97/56 97 07/17/23 00:21 89 07/17/23 00:05 95 07/17/23 00:00 97.5 F L 90 24 113/64 97 50 07/16/23 23:58 50 07/16/23 23:25 20 121/76 97 07/16/23 23:00 87 13 109/69 99 07/16/23 22:00 96.4 F L 90 24 109/78 98 50 07/16/23 21:45 24 50 07/16/23 21:05 50 07/16/23 20:00 90 21 132/80 100 07/16/23 19:33 90 07/16/23 19:26 50 07/16/23 19:25 88 07/16/23 19:00 98.8 F 89 22 128/91 99 07/16/23 18:00 98.8 F 88 23 108/72 99 07/16/23 17:00 98.8 F 84 22 107/64 97 07/16/23 16:00 99.0 F 85 22 119/82 99 07/16/23 15:00 98.8 F 89 24 122/80 98 50 Intake and Output 07/16/23 07/17/23 07/17/23 22:59 06:59 14:59 Intake Total 015.810 5575.549 535.513 Output Total 935 734 2952 Balance 76.437 1482.549 -824.487 Intake: IV 320 Invasive Line 2 10 Invasive Line 3 10 Sodium Chloride 0.9% 1, 300 000 ml @ 75 mls/hr IV . [id number] [facility] Rx#:[id number] Intake, IV Titration 518.494 5968.549 215.513 Amount Sodium Chloride 0.9% 1, 450 000 ml @ 75 mls/hr IV . [id number] [facility] Rx#:[id number] Sodium Chloride 0.9% 1, 1000 000 ml @ 999 mls/hr IV . Q1H1M [facility] Rx#:[id number] propofoL 1,000 mg In 236.437 192.549 215.513 Empty Bag 1 bag @ 15 MCG/ KG/MIN 12.247 mls/hr IV . Q8H10M [facility] Rx#:[id number] Oral 0 Output: Gastric Drainage 1300 Urine 160 160 60 Other: Voiding Method Indwelling Catheter Indwelling Catheter Indwelling Catheter Weight 136.078 kg ABP, PAP, CO, CI - Last 8 Hours Arterial Blood Pressure 110/53 Arterial Blood Pressure 122/55 Arterial Blood Pressure 104/50 Arterial Blood Pressure 111/52 Arterial Blood Pressure 98/54 Arterial Blood Pressure 93/52 Results 07/17/23 05:03 07/17/23 05:03 Cardiac Enzymes 07/16/23 07/17/23 Range/Units 15:57 05:03 AST 118 H (17-59) U/L Troponin I 0.136 H* (0.000-0.034) ng/mL CBC 07/17/23 Range/Units 05:03 WBC 15.7 H (3.8-10.6) k/uL RBC 4.50 (4.30-5.90) m/uL Hgb 14.4 (13.0-17.5) gm/dL Hct 44.3 (39.0-53.0) % Plt Count 209 (150-450) k/uL Comprehensive Metabolic Panel 07/17/23 Range/Units 05:03 Sodium 137 (137-145) mmol/L Potassium 4.0 (3.5-5.1) mmol/L Chloride 101 (98-107) mmol/L Carbon Dioxide 21 L (22-30) mmol/L BUN 49 H (9-20) mg/dL Creatinine 2.41 H (0.66-1.25) mg/dL Glucose 212 H (74-99) mg/dL Calcium 8.5 (8.4-10.2) mg/dL AST 118 H (17-59) U/L ALT 47 (4-49) U/L Alkaline Phosphatase 82 (38-126) U/L Total Protein 6.1 L (6.3-8.2) g/dL Albumin 3.2 L (3.5-5.0) g/dL Current Medications Generic Name Dose Route Start Last Admin Trade Name Freq PRN Reason Stop Dose Admin Albuterol Sulfate 2 puff 07/17/23 08:00 07/17/23 11:30 Albuterol Hfa Inhaler INHALATION 2 puff RT-Q4H ELIEZER Administration Atorvastatin Calcium 20 mg 07/16/23 20:00 07/17/23 10:34 Atorvastatin 20 Mg Tab PO 20 mg DAILY ELIEZER Administration Budesonide/Formoterol Fumarate 2 puff 07/17/23 08:00 07/17/23 11:30 Symbicort 160-4.5 Mcg Inhaler INHALATION 2 puff RT-BID ELIEZER Administration Dexamethasone Sodium Phosphate 6 mg 07/16/23 20:00 07/17/23 10:33 Dexamethasone Sod Phosphate 10 Mg/Ml 1 Ml Vial IVP 6 mg DAILY ELIEZER Administration Dextrose/Water 25 ml 07/16/23 22:06 Dextrose 50% Syringe 50 Ml IVP PER PROTOCOL PRN Hypoglycemia Protocol Dextrose/Water 50 ml 07/16/23 22:06 Dextrose 50% Syringe 50 Ml IVP PER PROTOCOL PRN Hypoglycemia Protocol Propofol 1,000 mg/ IV Solution 100 mls @ 12.247 mls/hr 07/16/23 11:15 07/17/23 11:58 IV 25 mcg/kg/min .Q8H10M ELIEZER 20.412 mls/hr Titration Protocol 15 MCG/KG/MIN Sodium Chloride 1,000 mls @ 75 mls/hr 07/16/23 23:00 07/17/23 10:34 Saline 0.9% IV 75 mls/hr .[id number] ELIEZER Administration Insulin Aspart 0 unit 07/16/23 22:15 07/17/23 11:21 Insulin Aspart (Novolog) 100 Unit/Ml Vial SQ 2 unit Q6H ELIEZER Administration Protocol Naloxone HCl 0.2 mg 07/16/23 12:30 Naloxone 0.4 Mg/Ml 1 Ml Vial IV Q2M PRN Opioid Reversal Pantoprazole Sodium 40 mg 07/17/23 09:00 07/17/23 10:33 Pantoprazole 40 Mg/10 Ml Vial IV 40 mg DAILY ELIEZER Administration Rivaroxaban 20 mg 07/17/23 09:00 07/17/23 10:34 Rivaroxaban 20 Mg Tab PO 20 mg DAILY ELIEZER Administration Protocol Intake and Output 07/16/23 07/17/23 07/17/23 22:59 06:59 14:59 Intake Total 076.022 8808.549 535.513 Output Total 794 019 6357 Balance 76.437 1482.549 -824.487 Intake: IV 320 Invasive Line 2 10 Invasive Line 3 10 Sodium Chloride 0.9% 1, 300 000 ml @ 75 mls/hr IV . [id number] [facility] Rx#:[id number] Intake, IV Titration 640.433 7393.549 215.513 Amount Sodium Chloride 0.9% 1, 450 000 ml @ 75 mls/hr IV . [id number] [facility] Rx#:[id number] Sodium Chloride 0.9% 1, 1000 000 ml @ 999 mls/hr IV . Q1H1M [facility] Rx#:[id number] propofoL 1,000 mg In 236.437 192.549 215.513 Empty Bag 1 bag @ 15 MCG/ KG/MIN 12.247 mls/hr IV . Q8H10M [facility] Rx#:[id number] Oral 0 Output: Gastric Drainage 1300 Urine 160 160 60 Other: Voiding Method Indwelling Catheter Indwelling Catheter Indwelling Catheter Weight 136.078 kg Patient Weight 07/18/23 06:59 Weight 136.078 kg 07/17/23 05:03 07/17/23 05:03
[2023-07-17 18:13] LABS: Glucose,Whole Blood 177 mg/dL (70-110)
[2023-07-17] MEDS: CHLORHEXIDINE GLUCONATE 15 ML CUP MUCOUS MEM SCH (20:58)
--- NOTE | 2023-07-17 23:04 | P.HPIM ---
History of Present Illness H&P Date: 07/17/23 Chief Complaint: cardiac arrest Anthony Grijalva is a 68-year-old male with PMH of atrial fibrillation, T2DM, DANE, morbid obesity who was brought to the ED with cardiac arrest. The patient was at home and he was complaining of some shortness of breath when he became unresponsive. His was present and called EMS. The downtime reported was approximately 7 minutes before EMS arrival. The patient was found to be in asystole and CPR was initiated. The patient was intubated. The patient received epinephrine based on the ACLS protocol. The CPR time was around 10-12 minutes and following that there was return of spontaneous circulation. Following that, the patient was brought into the emergency department. The patient EKG was consistent with A. fib with RVR. The patient's BP was 120/94. CXR no acute process. Cardiac enzymes showed a troponin of 0.136. Initial blood gas showed a pH of 7.2 with episodes of 53 and pO2 of 336. His WBC on admission was 11.2, hemoglobin is 15 with a platelet count of 218. Normal coagulation profile. BUN is at 24 with a creatinine of 1.1. Initial lactic acid level is at 7.6. ProBNP level was 1250. Glucose at 157. Review of Systems ROS unobtainable: due to endotracheal tube Past Medical History Past Medical History: Atrial Fibrillation, Asthma, Diabetes Mellitus, Hypertension, Sleep Apnea/CPAP/BIPAP Additional Past Medical History / Comment(s): Tachycardia History of Any Multi-Drug Resistant Organisms: None Reported Past Surgical History: Hernia Repair Additional Past Surgical History / Comment(s): CARDIOVERSION,YANIRA Past Anesthesia/Blood Transfusion Reactions: No Reported Reaction Past Alcohol Use History: None Reported, Rare - Past Family History Father Additional Family Medical History / Comment(s): HEART MURMUR Mother Family Medical History: No Reported History Medications and Allergies Home Medications Medication Instructions Recorded Confirmed Type Ipratropium/Albuterol Sulfate 2 puff INHALATION RT-QID PRN 03/30/15 07/16/23 History [Combivent Respimat Inhaler] Pioglitazone [Actos] 45 mg PO DAILY 03/30/15 07/16/23 History Rivaroxaban [Xarelto] 20 mg PO DAILY 03/30/15 07/16/23 History Ipratropium-Albuterol Nebulize 1 inhalation INHALATION RT-TID 05/22/15 07/16/23 History [Duoneb 0.5 mg-3 mg/3 ml Soln] Atorvastatin [Lipitor] 20 mg PO DAILY 05/02/23 07/16/23 History Metoprolol Tartrate [Lopressor] 100 mg PO BID 05/02/23 07/16/23 History Tirzepatide [Mounjaro] 5 mg SQ TU 05/02/23 07/16/23 History glyBURIDE/METFORMIN HCL 1 tab PO BID 05/02/23 07/16/23 History [Glucovance 5-500 mg] Fluticasone/Vilanterol [Breo 1 puff INHALATION RT-DAILY 07/16/23 07/16/23 History Ellipta 200-25 Mcg Inhaler] Furosemide [Lasix] 20 mg PO DAILY 07/16/23 07/16/23 History Potassium Chloride [Klor-Con M10] 10 meq PO DAILY 07/16/23 07/16/23 History Allergies Allergy/AdvReac Type Severity Reaction Status Date / Time No Known Allergies Allergy Unverified 07/16/23 12:41 Physical Exam Vitals: Vital Signs Temp Pulse Resp BP Pulse Ox FiO2 07/17/23 21:00 91 19 109/60 99 07/17/23 20:11 50 07/17/23 20:00 98.1 F 96 19 122/66 98 50 07/17/23 19:00 98 24 110/60 97 07/17/23 18:00 98 24 99 07/17/23 17:00 95 24 112/61 98 07/17/23 16:16 50 07/17/23 16:01 98.9 F 07/17/23 16:00 97 24 111/60 98 50 07/17/23 15:34 50 07/17/23 15:00 98 24 119/59 99 07/17/23 14:00 90 24 113/61 99 07/17/23 13:00 98 19 129/66 99 07/17/23 12:15 50 07/17/23 12:00 98.8 F 100 24 91/61 99 07/17/23 11:31 50 07/17/23 11:00 95 24 83/69 100 07/17/23 10:00 92 24 97/55 100 08/25/23 09:00 93 24 91/55 99 07/17/23 08:43 50 07/17/23 08:00 98.6 F 97 24 86/52 97 50 07/17/23 07:00 98 19 99/54 97 07/17/23 06:00 95 24 123/68 99 07/17/23 05:00 93 24 113/63 97 07/17/23 04:43 93 07/17/23 04:28 50 07/17/23 04:27 92 07/17/23 04:00 99.1 F 93 24 106/62 98 50 07/17/23 03:00 92 24 108/60 99 07/17/23 02:00 88 24 109/53 98 07/17/23 01:00 101 H 24 97/56 97 07/17/23 00:21 89 07/17/23 00:05 95 07/17/23 00:00 97.5 F L 90 24 113/64 97 50 07/16/23 23:58 50 07/16/23 23:25 20 121/76 97 07/16/23 23:00 87 13 109/69 99 07/16/23 22:00 96.4 F L 90 24 109/78 98 50 Intake and Output 07/17/23 07/17/23 07/17/23 06:59 14:59 22:59 Intake Total 2305.334 2696.794 750.297 Output Total 160 1560 355 Balance 7766.971 7166.794 395.297 Intake: IV 2586 586 .9 3cc/hr 21 21 Invasive Line 2 20 20 Invasive Line 3 20 20 Sodium Chloride 0.9% 1, 525 525 000 ml @ 75 mls/hr IV . [id number] [facility] Rx#:[id number] Sodium Chloride 0.9% 2, 2000 000 ml @ 999 mls/hr IV . Q2H1M [facility] Rx#:[id number] Intake, IV Titration 1642.549 222.794 164.297 Amount Sodium Chloride 0.9% 1, 450 000 ml @ 75 mls/hr IV . [id number] [facility] Rx#:[id number] Sodium Chloride 0.9% 1, 1000 000 ml @ 999 mls/hr IV . Q1H1M [facility] Rx#:[id number] propofoL 1,000 mg In 192.549 222.794 164.297 Empty Bag 1 bag @ 15 MCG/ KG/MIN 12.247 mls/hr IV . Q8H10M [facility] Rx#:[id number] Oral 0 Output: Gastric Drainage 1300 Urine 160 260 355 Other: Voiding Method Indwelling Catheter Indwelling Catheter Indwelling Catheter Weight 136.078 kg ABP, PAP, CO, CI - Last 8 Hours Arterial Blood Pressure 112/47 Arterial Blood Pressure 122/50 Arterial Blood Pressure 129/66 Arterial Blood Pressure 118/46 Arterial Blood Pressure 112/43 Arterial Blood Pressure 114/52 Arterial Blood Pressure 121/51 Arterial Blood Pressure 112/48 General: Intubated, sedated, elderly male HEENT: NC,AT, mmm Neck: supple, no JVD or cardiomegaly CV: Irregular, no murmur. Pulses 1+ Lungs: No wheezes or rales, intubated Abd: soft, bs+ Skin: warm and dry Neuro: sedated on propofol Results CBC & Chem 7: 07/17/23 05:03 07/17/23 05:03 Labs: Abnormal Lab Results - Last 24 Hours (Table) 07/16/23 07/17/23 07/17/23 Range/Units 23:52 04:44 05:03 WBC 15.7 H (3.8-10.6) k/uL Neutrophils # 13.8 H (1.3-7.7) k/uL Carbon Dioxide (22-30) mmol/L BUN (9-20) mg/dL Creatinine (0.66-1.25) mg/dL Glucose (74-99) mg/dL POC Glucose (mg/dL) 204 H 206 H (70-110) mg/dL Total Bilirubin (0.2-1.3) mg/dL AST (17-59) U/L Total Protein (6.3-8.2) g/dL Albumin (3.5-5.0) g/dL 07/17/23 07/17/23 07/17/23 Range/Units 05:03 10:46 12:23 WBC (3.8-10.6) k/uL Neutrophils # (1.3-7.7) k/uL Carbon Dioxide 21 L (22-30) mmol/L BUN 49 H (9-20) mg/dL Creatinine 2.41 H (0.66-1.25) mg/dL Glucose 212 H (74-99) mg/dL POC Glucose (mg/dL) 172 H 208 H (70-110) mg/dL Total Bilirubin 1.7 H (0.2-1.3) mg/dL AST 118 H (17-59) U/L Total Protein 6.1 L (6.3-8.2) g/dL Albumin 3.2 L (3.5-5.0) g/dL 07/17/23 Range/Units 18:11 WBC (3.8-10.6) k/uL Neutrophils # (1.3-7.7) k/uL Carbon Dioxide (22-30) mmol/L BUN (9-20) mg/dL Creatinine (0.66-1.25) mg/dL Glucose (74-99) mg/dL POC Glucose (mg/dL) 177 H (70-110) mg/dL Total Bilirubin (0.2-1.3) mg/dL AST (17-59) U/L Total Protein (6.3-8.2) g/dL Albumin (3.5-5.0) g/dL Microbiology - Last 24 Hours (Table) 07/16/23 11:05 Gram Stain - Preliminary Sputum Sputum Culture - Preliminary Thrombosis Risk Factor Assmnt - Choose All That Apply Each Factor Represents 1 point: Medical pt on bed rest, Obesity (BMI >25) Each Risk Factor Represents 2 Points: Age 61-74 years Thrombosis Risk Factor Assessment Total Risk Factor Score: 4 Thrombosis Risk Factor Assessment Level: Moderate Risk Assessment and Plan Plan: 1. Cardiac arrest. Continue current ICU care. Cardiology following 2. Ventilator dependent respiratory failure. Management per pulmonology 3. COVID 19. Dexamethasone 6 mg daily 4. Atrial fibrillation. Continue with metoprolol and xarelto
[2023-07-17 23:31] LABS: Glucose,Whole Blood 187 mg/dL (70-110)
--- NOTE | 2023-07-17 23:38 | EEG ---
ELECTROENCEPHALOGRAM REPORT PREAMBLE: This is a 68-year-old male with cardiac arrest. This study is performed to evaluate for encephalopathy, rule out seizures. EEG FINDINGS: This is a 21-channel digital EEG recorded with video component, utilizing 10/20 international system with referential and bipolar montages. Background consists of moderately well-developed and well regulated, mixed frequencies of 9 to 10 hertz alpha, mixed with some theta and delta activity in bihemispheric region. Background does not seem to be clearly reactive to eye opening or closing. Different stages of sleep were not seen. No focal or generalized epileptiform activity was seen. IMPRESSION: Abnormal EEG due to background slowing of moderate degree, suggestive of generalized cerebral dysfunction as can be seen with toxic metabolic encephalopathy or related to diffuse structural brain abnormality. Clinical correlation is recommended. No obvious epileptiform activity was seen. MMODL / IJN: [id number] / MTDD
[2023-07-18] MEDS: ALBUTEROL HFA INHALER INHALATION SCH ×6 (00:03→20:28)
[2023-07-18] MEDS: INSULIN ASPART (NovoLOG) 100 UNIT/ML VIAL SQ SCH ×4 (00:03→18:18)
[2023-07-18 04:24] LABS: Basophils % (A) 0 %; Eosinophils % (A) 0 %; HCT 40.1 % (39.0-53.0); HGB 13.3 gm/dL (13.0-17.5); Lymphocytes # (A) 1.1 k/uL (1.0-4.8); Lymphocytes % (A) 8 %; MCH 31.5 pg (25.0-35.0); MCHC 33.1 g/dL (31.0-37.0); MCV 95.1 fL (80.0-100.0); Monocytes # (A) 1.1 k/uL (0-1.0); Monocytes % (A) 8 %; Neutrophils # (A) 11.8 k/uL (1.3-7.7); Neutrophils % (A) 83 %; Platelet Count 180 k/uL (150-450); RBC 4.22 m/uL (4.30-5.90); RDW 15.7 % (11.5-15.5); WBC 14.2 k/uL (3.8-10.6)
[2023-07-18 04:36] LABS: African American GFR (CKD) 24 (>60 ml/min/1.73 sqM); Anion Gap 10 mmol/L; Blood Urea Nitrogen 55 mg/dL (9-20); Calcium 8.2 mg/dL (8.4-10.2); Carbon Dioxide 22 mmol/L (22-30); Chloride 106 mmol/L (98-107); Glucose 138 mg/dL (74-99); Non-African American GFR(CKD) 21 (>60 ml/min/1.73 sqM); Potassium 3.5 mmol/L (3.5-5.1); Sodium 138 mmol/L (137-145)
[2023-07-18 06:01] LABS: Glucose,Whole Blood 127 mg/dL (70-110)
[2023-07-18 06:07] LABS: ABG Base Excess 1.1 mmol/L; ABG HCO3 25 mmol/L (21-25); ABG Oxygen Saturation 96.8 % (94-97); ABG PCO2 34 mmHg (35-45); ABG PH 7.47 (7.35-7.45); ABG PO2 90 mmHg (83-108); ABG TCO2 26 mmol/L (19-24); Allen Test Performed? Yes
--- NOTE | 2023-07-18 08:46 | P.CNNES ---
History of Present Illness Consult date: 07/17/23 Requesting physician: Aura Plasencia Reason for Consult: Post cardiac arrest History of Present Illness: Patient is a 68-year-old male who was brought to the hospital by ambulance yesterday at 11:02 AM for cardiac arrest. Patient at present is intubated, sedated, not able to provide any history. As per EMS flow sheet, when they arrive patient was seated in the front passenger side of the car in cardiac arrest. EMS was called at 9:44 AM, and the estimated time of cardiac arrest was 9:40 AM. They arrived at the scene at 9:52 AM. Family mentioned that patient was having a difficult time breathing throughout the morning and they were going to take him to be seen by . Family stated that patient certainly stated that he did not feel well. They said his head fell back and he stopped breathing. 911 was called and attempted compressions with the patient in sitting position. Compressions were still being performed when EMS arrived. Patient was put in the ambulance and CPR was continued with a BVM. Frandy been put in place. Patient was in asystole on the teletypesetter monitor. Epinephrine was infused. Some clumping vomit was extracted from the tube and bagging became easily. The patient's skin color was also normalized from being cyanotic. Glucose was 95. ROSC obtained at 10:[address] head revealed no acute intracranial process. Nonspecific white matter changes, likely secondary to chronic small vessel ischemic disease. I personally reviewed CT head, agree with the findings. CTA of the chest revealed no evidence of pulmonary embolism. 2 adjacent nodules within the right lung base demonstrating calcification measuring up to 2 cm and may represent hamartomas. Additional right upper lobe 0.6 cm pulmonary nodule. Pulmonary to address this issue. Chest x-ray revealed left lower lung airspace opacities correlate for developing pneumonia. Stable support lines and tubes. EKG shows atrial fibrillation with rapid ventricular rate. Review of Systems Patient's nurse's report any more details about review of systems, and family not available. ROS unobtainable: due to endotracheal tube, due to mental status Past Medical History Past Medical History: Atrial Fibrillation, Asthma, Diabetes Mellitus, Hypertension, Sleep Apnea/CPAP/BIPAP Additional Past Medical History / Comment(s): Tachycardia History of Any Multi-Drug Resistant Organisms: None Reported Past Surgical History: Hernia Repair Additional Past Surgical History / Comment(s): CARDIOVERSION,YANIRA Past Anesthesia/Blood Transfusion Reactions: No Reported Reaction Past Alcohol Use History: None Reported, Rare - Past Family History Father Additional Family Medical History / Comment(s): HEART MURMUR Mother Family Medical History: No Reported History Medications and Allergies Home Medications Medication Instructions Recorded Confirmed Type Ipratropium/Albuterol Sulfate 2 puff INHALATION RT-QID PRN 03/30/15 07/16/23 History [Combivent Respimat Inhaler] Pioglitazone [Actos] 45 mg PO DAILY 03/30/15 07/16/23 History Rivaroxaban [Xarelto] 20 mg PO DAILY 03/30/15 07/16/23 History Ipratropium-Albuterol Nebulize 1 inhalation INHALATION RT-TID 05/22/15 07/16/23 History [Duoneb 0.5 mg-3 mg/3 ml Soln] Atorvastatin [Lipitor] 20 mg PO DAILY 05/02/23 07/16/23 History Metoprolol Tartrate [Lopressor] 100 mg PO BID 05/02/23 07/16/23 History Tirzepatide [Mounjaro] 5 mg SQ TU 05/02/23 07/16/23 History glyBURIDE/METFORMIN HCL 1 tab PO BID 05/02/23 07/16/23 History [Glucovance 5-500 mg] Fluticasone/Vilanterol [Breo 1 puff INHALATION RT-DAILY 07/16/23 07/16/23 History Ellipta 200-25 Mcg Inhaler] Furosemide [Lasix] 20 mg PO DAILY 07/16/23 07/16/23 History Potassium Chloride [Klor-Con M10] 10 meq PO DAILY 07/16/23 07/16/23 History Allergies Allergy/AdvReac Type Severity Reaction Status Date / Time No Known Allergies Allergy Unverified 07/16/23 12:41 Physical Examination - Vital Signs Vital Signs: Vital Signs Temp Pulse Resp BP Pulse Ox FiO2 07/17/23 20:11 50 07/17/23 20:00 98.1 F 96 24 122/66 98 50 07/17/23 19:00 98 24 110/60 97 07/17/23 18:00 98 24 99 07/17/23 17:00 95 24 112/61 98 08/25/23 16:16 50 07/17/23 16:01 98.9 F 07/17/23 16:00 97 24 111/60 98 50 07/17/23 15:34 50 07/17/23 15:00 98 24 119/59 99 07/17/23 14:00 90 24 113/61 99 07/17/23 13:00 98 19 129/66 99 07/17/23 12:15 50 07/17/23 12:00 98.8 F 100 24 91/61 99 07/17/23 11:31 50 07/17/23 11:00 95 24 83/69 100 07/17/23 10:00 92 24 97/55 100 07/17/23 09:00 93 24 91/55 99 07/17/23 08:43 50 07/17/23 08:00 98.6 F 97 24 86/52 97 50 07/17/23 07:00 98 19 99/54 97 07/17/23 06:00 95 24 123/68 99 07/17/23 05:00 93 24 113/63 97 07/17/23 04:43 93 07/17/23 04:28 50 07/17/23 04:27 92 07/17/23 04:00 99.1 F 93 24 106/62 98 50 07/17/23 03:00 92 24 108/60 99 07/17/23 02:00 88 24 109/53 98 07/17/23 01:00 101 H 24 97/56 97 07/17/23 00:21 89 07/17/23 00:05 95 07/17/23 00:00 97.5 F L 90 24 113/64 97 50 07/16/23 23:58 50 07/16/23 23:25 20 121/76 97 07/16/23 23:00 87 13 109/69 99 07/16/23 22:00 96.4 F L 90 24 109/78 98 50 07/16/23 21:45 24 50 07/16/23 21:05 50 Intake and Output 07/17/23 07/17/23 07/17/23 06:59 14:59 22:59 Intake Total 3189.281 1911.794 672.297 Output Total 160 1560 255 Balance 7046.215 8079.794 417.297 Intake: IV 2586 508 .9 3cc/hr 21 18 Invasive Line 2 20 20 Invasive Line 3 20 20 Sodium Chloride 0.9% 1, 525 450 000 ml @ 75 mls/hr IV . [id number] [facility] Rx#:[id number] Sodium Chloride 0.9% 2, 2000 000 ml @ 999 mls/hr IV . Q2H1M [facility] Rx#:[id number] Intake, IV Titration 1642.549 222.794 164.297 Amount Sodium Chloride 0.9% 1, 450 000 ml @ 75 mls/hr IV . [id number] [facility] Rx#:[id number] Sodium Chloride 0.9% 1, 1000 000 ml @ 999 mls/hr IV . Q1H1M [facility] Rx#:[id number] propofoL 1,000 mg In 192.549 222.794 164.297 Empty Bag 1 bag @ 15 MCG/ KG/MIN 12.247 mls/hr IV . Q8H10M [facility] Rx#:[id number] Oral 0 Output: Gastric Drainage 1300 Urine 160 260 255 Other: Voiding Method Indwelling Catheter Indwelling Catheter Indwelling Catheter Weight 136.078 kg ABP, PAP, CO, CI - Last 8 Hours Arterial Blood Pressure 122/50 Arterial Blood Pressure 129/66 Arterial Blood Pressure 118/46 Arterial Blood Pressure 112/43 Arterial Blood Pressure 114/52 Arterial Blood Pressure 121/51 Arterial Blood Pressure 112/48 Patient is a middle aged male, who is intubated, sedated. Patient on propofol 25 mcg/kg per minute. Patient is does not respond to calling his name. He does inconsistently opens his eyes to painful stimuli, but does not track. His pupils are equal, round and reactive to light, round 4 mm. Patient has conjunctival injection. Oculocephalics are absent. Corneals absent. Patient does have a gag and cough reflexes. Patient does breathe over the ventilator. On muscle strength testing, patient does not respond to painful stimuli with motor activity. Deep tendon reflexes are symmetric and almost absent and plantars are nicely withdrawal bilaterally. Sensory to touch has no response, but with painful stimuli as mentioned above. Cerebellar function cannot be assessed. Tone and bulk of muscles normal. No seizure-like activity noted. Gait deferred.. On general examination, cannot assess for carotid bruit. No murmur, S1-S2 audible. Chest is clear on consultation. Abdomen is soft nontender. No organomegaly, bowel sounds present. Patient has mild to moderate peripheral edema. Patient has hyperpigmentation of the skin and very dry skin of the legs. Per nursing report, when the sedation was held earlier during the day, patient had no clinical change. Results - Laboratory Findings CBC and BMP: 07/18/23 03:45 07/18/23 03:45 Abnormal Lab Findings: Abnormal Labs 07/16/23 07/16/23 07/16/23 11:18 15:57 21:12 WBC Neutrophils # ABG pH 7.20 L ABG pCO2 53 H ABG pO2 334 H ABG O2 Saturation 99.2 H Carbon Dioxide BUN Creatinine Glucose POC Glucose (mg/dL) 207 H Total Bilirubin AST Troponin I 0.136 H* Total Protein Albumin 07/16/23 07/16/23 07/17/23 21:13 23:52 04:44 WBC Neutrophils # ABG pH 7.31 L ABG pCO2 ABG pO2 ABG O2 Saturation Carbon Dioxide BUN Creatinine Glucose POC Glucose (mg/dL) 204 H 206 H Total Bilirubin AST Troponin I Total Protein Albumin 07/17/23 07/17/23 07/17/23 05:03 05:03 10:46 WBC 15.7 H Neutrophils # 13.8 H ABG pH ABG pCO2 ABG pO2 ABG O2 Saturation Carbon Dioxide 21 L BUN 49 H Creatinine 2.41 H Glucose 212 H POC Glucose (mg/dL) 172 H Total Bilirubin 1.7 H AST 118 H Troponin I Total Protein 6.1 L Albumin 3.2 L 07/17/23 07/17/23 12:23 18:11 WBC Neutrophils # ABG pH ABG pCO2 ABG pO2 ABG O2 Saturation Carbon Dioxide BUN Creatinine Glucose POC Glucose (mg/dL) 208 H 177 H Total Bilirubin AST Troponin I Total Protein Albumin Assessment and Plan Assessment: * Status post cardiac arrest with prolonged downtime of 30 minutes as per EMS flow sheet documentation. Patient was in asystole. * Ventilator-dependent respiratory failure due to cardiac arrest, on mechanical ventilation. * Atrial fibrillation with rapid ventricular rate * Probable aspiration pneumonia * Lactic acidosis * Acute renal failure * Diabetes type 2 * Morbid obesity * Hypertension * Pulmonary nodules. Plan: * Stat EEG was performed, which was abnormal due to background slowing of moderate degree, suggestive of generalized cerebral dysfunction as can be seen with toxic metabolic encephalopathy. Clinical correlation is recommended. No obvious epileptiform activity was seen. * Initial CT head showed no acute process. Nonspecific white matter changes. * We will perform repeat neurologic examination the morning with sedation holiday. * Patient currently on Xarelto for atrial fibrillation. * Other medical management as per IM and critical care. * Neurology will follow. Thank you for the consult.
[2023-07-18] MEDS: SYMBICORT 160-4.5 MCG INHALER INHALATION SCH ×2 (08:57→20:28)
--- NOTE | 2023-07-18 09:05 | XR ---
EXAMINATION TYPE: XR chest 1V portable DATE OF EXAM: 07/18/2023 Comparison: 07/17/2023 Clinical History: 68-year-old male Tube placement Findings: ET tube tip estimated to be 7 mm from the mary. Pull back 2 cm in reassessment follow-up. NG tube s atisfactory. Left subclavian CVC tip lower SVC. Heart borderline in size. Focal right basilar opacity . Similar lesser degree of left basilar opacity. Impression: 1. The ET tube tip is 7 mm from the mary. Pull back 2 cm and reassessed at follow-up. 2. Worsening right basilar atelectasis and/or consolidation. Correlate to exclude pneumonia. 3. Similar mild patchy opacity at the left base.
[2023-07-18] MEDS: DEXAMETHASONE SOD PHOSPHATE 10 MG/ML 1 ML VIAL IVP SCH (09:16)
[2023-07-18] MEDS: CHLORHEXIDINE GLUCONATE 15 ML CUP MUCOUS MEM SCH ×2 (09:16→20:36)
[2023-07-18] MEDS: RIVAROXABAN 20 MG TAB PO SCH (09:16)
[2023-07-18] MEDS: PANTOPRAZOLE 40 MG/10 ML VIAL IV SCH (09:16)
[2023-07-18] MEDS: ATORVASTATIN 20 MG TAB PO SCH (09:16)
[2023-07-18] MEDS ORDERED: Potassium Replacement Protocol 1 EACH MISC MISCELLANE PRN (10:56)
--- NOTE | 2023-07-18 10:59 | P.PN ---
Subjective Progress Note Date: 07/18/23 68-year-old male patient, morbidly obese, known history of obstructive sleep apnea, chronic atrial fibrillation maintained on long-term and the coagulation with Xarelto in addition to history of diabetes mellitus type 2, hypertension and obesity. The patient was brought into the emergency department with cardiac arrest. The patient was at home and he was complaining of some shortness of breath. He was supposed to see his primary care physician, however he acutely became unresponsive. The patient's was there and she activated EMS. The downtime reported was approximately 7 minutes before EMS arrival. The patient was found to be in asystole and CPR was initiated. The patient was intubated. The patient received epinephrine based on the ACLS protocol. The CPR time was around 10-12 minutes and following that there was return of spontaneous circulation. Following that, the patient was brought into the emergency department. The patient EKG was consistent with A. fib with RVR. The patient's BP was 120/94. The patient was given a chest x-ray that showed no acute abnormalities. He was started on propofol which is currently running at 50 mcg/kg/m. No seizure activity has been noted. CAT scan of the brain is not done. CT angiogram of the chest has not been done. Cardiac enzy mes showed a troponin of 0.136. Initial blood gas showed a pH of 7.2 with episodes of 53 and pO2 of 336. His current vent settings with an assist control of 24 with a tidal volume of 500, FiO2 is 50% with a PEEP of 5. Urine operas in order of 40-50 mL an hour. He is afebrile. He is on no pressors. No reported aspiration. The donor is currently 11.2, hemoglobin is 15 with a platelet count of 218. Normal coagulation profile. BUN is at 24 with a creatinine of 1.1. Initial lactic acid level is at 7.6. ProBNP level was 1250. Serum bicarb is at 22. Glucose at 157. On today's evaluation of 07/17/2023, the patient is being seen in follow-up in the intensive care unit. He is post cardiac arrest. Currently is on propofol which is running at 40 mcg/kg/m. His calm and comfortable and suggests a mechanical ventilator. Neurologically, the patient underwent a CAT scan of the brain yesterday and the CAT scan of the brain showed no acute abnormalities. There was some nonspecific white matter changes likely secondary to chronic vessel ischemic change. No seizure activity has been noted. He was able to sense some painful stimulation with eye opening and leg with those. No Babins ki. No clonus no seizure activity. Pupils are round 4 mm in size, sluggishly reactive to light and the patient has a occasional cough. Repeat chest x-ray from today shows left basilar atelectasis. Orotracheal tube is in a good location. The patient also has a or G-tube in place. A CT angiogram of the chest was done yesterday and it showed no evidence of any pulmonary embolism. No evidence of any dissection. There was some nonspecific to adjacent home a nodules in the right lung base demonstrating calcification measuring up to 2 cm in size may represent a hematoma. Additional nodule measuring 6 mm in size in the right upper lobe. At this point in time, the patient is on assist-control mode of mechanical ventilation at the rate of 24, tidal volume of 500, FiO2 to 50% with a PEEP of 5. Blood gas showed a pH of 7.42 with a pCO2 of 35 and pO2 of 88. The patient has sustained an acute kidney injury. Creatinine today is at 2.41 with a BUN of 49. The patient also has a sodium level of 137, potassium is at 4, bicarb is at 21. The white cell cause of 15.7 with a hemoglobin of 14 .4. Cardiac rhythm is sinus. He is currently afebrile. He is on Decadron and this was given to him regarding his Covid 19 infection that was an incidental finding. Noted the patient has been vaccinated. This is his first infection with Covid 19. He remains on long-term and coagulation with Xarelto. 07/18/2023, the patient is comfortable on a propofol drip which is running at 30 mcg/kg/m. His neurologic functions of been essentially unchanged. As mentioned, CAT scan of the brain showed no acute abnormalities and was consistent with some nonspecific chronic vessel ischemic change. No seizure activity has been noted and the showed diffuse slowing which could be potentially in agreement with anoxic encephalopathy. EEG was unable 2022 and it showed background slowing which was moderate degree with generalized cerebral dysfunction. Possibility of drug effect cannot be ruled out as the patient was on propofol at time of his EEG. No seizure activity has been noted. A sedation holiday is to be given for this patient today. Meanwhile, the patient has equal pupils round 3 mm in size. He is unresponsive to painful stimulation. He does occasionally do facial grimaces. He does not withdrawal. No purposeful activity at this point in time. He remains on mechanical ventilator and on assist-control mode at the rate of 24, tidal volume of 500, FiO2 is currently at 50% with a PEEP of 5. Chest x-ray showing atelectatic change in lung bases worse on the right. Orotracheal tube is in a good location. Or G-tube is also in good location. Lung volumes are small. Noted the patient was Covid 19 positive and he remains on Decadron. His blood gas shows a pH of 7.47 with a pCO2 of 34 and pO2 of 90. He is riding the mechanical ventilator at the rate of 24. His blood work shows a BUN of 55 with a creatinine of 2.9, sodium level is at 138, potassium levels at 3.5. His white cell count today is 14.2 and the hemoglobin is 13.3 and a platelet count is 180. IV fluids are in the form of normal saline at rate of 75 mL's an hour. The fluid balance over the past 24 hours has been +1.9 L. The patient is on enteral feeding and he is currently receiving vital high protein. He has no fever. The NG output has slowed down and the patient is not having any significant output from his NG tube. His cardiac rhythm remained sinus. Objective - Vital Signs Vital signs: Vital Signs Temp 98.8 F 07/18/23 08:00 Pulse 99 07/18/23 10:00 Resp 24 07/18/23 10:00 BP 144/64 07/18/23 10:00 Pulse Ox 98 07/18/23 10:00 FiO2 50 07/18/23 10:00 Intake & Output 07/17/23 07/18/23 07/18/23 18:59 06:59 18:59 Intake Total 3296.000 1152.719 421 Output Total 1775 675 192 Balance 1521.000 477.719 229 Weight 136.078 kg 137.5 kg 137.5 kg Intake: IV 2996 918 321 Invasive Line 2 30 30 Invasive Line 3 30 30 Normal Saline Pressure 36 33 21 Bag Sodium Chloride 0.9% 1, 900 825 300 000 ml @ 75 mls/hr IV . [id number] [facility] Rx#:[id number] Sodium Chloride 0.9% 2, 2000 000 ml @ 999 mls/hr IV . Q2H1M [facility] Rx#:[id number] Intake, IV Titration 300.000 234.719 100 Amount propofoL 1,000 mg In 300.000 234.719 100 Empty Bag 1 bag @ 15 MCG/ KG/MIN 12.247 mls/hr IV . Q8H10M [facility] Rx#:[id number] Oral 0 Output: Gastric Drainage 1300 Urine 475 675 192 Other: Voiding Method Indwelling Catheter Indwelling Catheter Indwelling Catheter ABP, PAP, CO, CI - Last Documented Arterial Blood Pressure 124/61 - Exam Obese, body mass index of 40.7., Comfortable. No acute arrest or distress. Currently on propofol Head exam was generally normal. There was no scleral icterus or corneal arcus. Mucous membranes were moist. Neck was supple and without jugular venous distension, thyromegaly, or carotid bruits. Carotids were easily palpable bilaterally. There was no adenopathy. Lungs although the medicine the patient has scattered rhonchi heard bilaterally. Otherwise breath sounds are equal and symmetrical Heart sounds are irregular, consistent with atrial fibrillation, the heart sounds are distant, positive S1-S2 there is no significant murmurs appreciated Abdominal exam revealed normal bowel sounds. The abdomen was soft, non-tender, and without masses, organomegaly, or appreciable enlargement of the abdominal aorta. Examination of the extremities revealed easily palpable radial, femoral and pedal pulses. There was no cyanosis, clubbing or edema. Examination of the skin revealed no evidence of significant rashes, suspicious appearing nevi or other concerning lesions. Neurologically, the patient is unresponsive. Pupils are round 4-5 cm in size and slightly reactive to light. No nystagmus. Positive coughing reflex. Motor function cannot be assessed. Sensory cannot be assessed. Reflexes are diminished bilaterally. There are present. No Babinski. No clonus. On today's evaluation, he is sensing painful stimulation by withdrawal. He'll occasionally open up his eyes upon stimulation. - Labs CBC & Chem 7: 07/18/23 03:45 07/18/23 03:45 Labs: Abnormal Lab Results - Last 24 Hours (Table) 07/17/23 07/17/23 07/17/23 Range/Units 06:00 12:23 18:11 WBC (3.8-10.6) k/uL RBC (4.30-5.90) m/uL RDW (11.5-15.5) % Neutrophils # (1.3-7.7) k/uL Monocytes # (0-1.0) k/uL ABG pH (7.35-7.45) ABG pCO2 (35-45) mmHg ABG Total CO2 (19-24) mmol/L BUN (9-20) mg/dL Creatinine (0.66-1.25) mg/dL Glucose (74-99) mg/dL POC Glucose (mg/dL) 208 H 177 H (70-110) mg/dL Hemoglobin A1c 7.1 H (<=6.0) % Calcium (8.4-10.2) mg/dL 07/17/23 07/18/23 07/18/23 Range/Units 23:30 03:45 03:45 WBC 14.2 H (3.8-10.6) k/uL RBC 4.22 L (4.30-5.90) m/uL RDW 15.7 H (11.5-15.5) % Neutrophils # 11.8 H (1.3-7.7) k/uL Monocytes # 1.1 H (0-1.0) k/uL ABG pH (7.35-7.45) ABG pCO2 (35-45) mmHg ABG Total CO2 (19-24) mmol/L BUN 55 H (9-20) mg/dL Creatinine 2.95 H (0.66-1.25) mg/dL Glucose 138 H (74-99) mg/dL POC Glucose (mg/dL) 187 H (70-110) mg/dL Hemoglobin A1c (<=6.0) % Calcium 8.2 L (8.4-10.2) mg/dL 07/18/23 07/18/23 Range/Units 05:57 05:59 WBC (3.8-10.6) k/uL RBC (4.30-5.90) m/uL RDW (11.5-15.5) % Neutrophils # (1.3-7.7) k/uL Monocytes # (0-1.0) k/uL ABG pH 7.47 H (7.35-7.45) ABG pCO2 34 L (35-45) mmHg ABG Total CO2 26 H (19-24) mmol/L BUN (9-20) mg/dL Creatinine (0.66-1.25) mg/dL Glucose (74-99) mg/dL POC Glucose (mg/dL) 127 H (70-110) mg/dL Hemoglobin A1c (<=6.0) % Calcium (8.4-10.2) mg/dL Microbiology - Last 24 Hours (Table) 07/16/23 11:05 Gram Stain - Final Sputum Sputum Culture - Final Assessment and Plan Plan: Acute cardiopulmonary arrest. The patient was found to be in asystole. The down time is estimated to be more than 17 minutes at least. There was return of spontaneous circulation after successful resuscitation. The patient received CPR, epinephrine and the patient was intubated on the field and was brought to the emergency department. Exact cause is not clear. The patient remains on propofol. CAT scan of the brain was noted. EEG was noted and showed diffuse slowing consistent with toxic metabolic encephalopathy. Consider underlying anoxic encephalopathy in addition. Acute hypoxic/hypercapnic respiratory failure secondary to cardiac arrest, chest x-ray from today showing a left basilar atelectasis/infiltrate. Repeat chest x- ray from today is also showing some basilar atelectasis on the right. Acute Covid 19 infection. The patient tested positive for Covid 19. This is his first infection and the patient has been vaccinated the past. The patient is currently on Decadron Acute lactic acidosis secondary to above, improved and there is improvement in the acid base status on the most recent blood gas Unresponsiveness currently on sedation. Rule out underlying hypoxic encephalo rudolph Chronic atrial maintained on anticoagulation with xarelto, the patient receiving metoprolol for rate control on outpatient basis, current cardiac rhythm is sinus Morbid obesity with BMI of 40.7 Diabetes mellitus type 2, currently on insulin sliding scale coverage Obstructive sleep apnea, severe with a AHI of 90 and the patient has been utilizing a on auto BiPAP on outpatient basis Recent hospitalization for bilateral pneumonia, April 2023, treated and recovered Chronic bronchial asthma, maintain on Breo Ellipta on outpatient basis in addition to albuterol rescue inhaler Acute kidney injury secondary to cardiac arrest and the patient's creatinine is up to 2.9 Hypertension Pulmonary nodules right upper lobe, 6 mm, 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 Plan Condition is critical at this point in time Continue vent support, I suggest stopping the respiratory rate is 16 Check a CVP is currently at 8 Triple-lumen catheter was inserted We'll need a CAT scan of the brain without contrast, no acute abnormalities EEG showed diffuse metabolic encephalopathy and slowing Will recommend a CT angiogram of the chest, done yesterday showed no specific pulmonary nodules right upper lobe and a 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 Echocardiogram has been done and is also still pending for now Continue Decadron 6 mg IV every 24 hours Insulin sliding scale coverage IV fluids are currently running at 75 mL an hour normal saline. This is to be continued Continue Xarelto Albuterol neb treatments treatments [id number] Cardiology consult Neurologic consult We will give the patient has sedation holiday and assess his underlying mental status Monitor troponins, peaked at 0.136, probably related to his cardiac arrest and CPR. Monitor lactic acid level and a most recent lactic acid level is 1.2. Enteral feeding will be initiated with vital high-protein Condition is critical. We'll continue to follow. Critical care evaluation that was done in more than 30 minutes. Time with Patient: Greater than 30
[2023-07-18] MEDS: POTASSIUM BICARBONATE/CIT AC 20 MEQ TABLET.EFF NG-TUBE SCH ×2 (11:38→13:52)
[2023-07-18 11:49] LABS: Glucose,Whole Blood 132 mg/dL (70-110)
--- NOTE | 2023-07-18 12:24 | P.PN ---
Wiliam Grijalva is a 68-year-old male with PMH of atrial fibrillation, T2DM, DANE, morbid obesity who was brought to the ED with cardiac arrest. The patient was at home and he was complaining of some shortness of breath when he became unresponsive. His was present and called EMS. The downtime reported was approximately 7 minutes before EMS arrival. The patient was found to be in asystole and CPR was initiated. The patient was intubated. The patient received epinephrine based on the ACLS protocol. The CPR time was around 10-12 minutes and following that there was return of spontaneous circulation. Following that, the patient was brought into the emergency department. The patient EKG was consistent with A. fib with RVR. The patient's BP was 120/94. CXR no acute process. Cardiac enzymes showed a troponin of 0.136. Initial blood gas showed a pH of 7.2 with episodes of 53 and pO2 of 336. His WBC on admission was 11.2, hemoglobin is 15 with a platelet count of 218. Normal coagulation profile. BUN is at 24 with a creatinine of 1.1. Initial lactic acid level is at 7.6. ProBNP level was 1250. Glucose at 157. Resume the care of the patient today 07/18/2023 This 68 years old male with multiple medical problems who was admitted for cardiac arrest status post CPR also the hospital with estimated downtown about 17 minutes. Currently patient is in the ICU with surgical consult consult the case including pulmonary/critical care team assistant men's lacrosse coach also neurologist evaluation for possible anoxic brain injury. Patient is developed and also by assistant men's lacrosse coach for A. fib and RVR, currently rate is controlled. He is also on home dose of Xarelto 20 mg. Patient continued with intubation and mechanical ventilation. He has mild leukocytosis of 14,000, worsening knee function with creatinine 2.9 patient nonoliguric. CTA of the chest was negative for PE but showed pulmonary nodule 0.6 cm. This currently on normal saline 75 mL/h and dexamethasone 6 mg daily for his call with infection. Active Medications Generic Name Dose Route Start Last Admin Trade Name Freq PRN Reason Stop Dose Admin Albuterol Sulfate 2 puff 07/17/23 08:00 07/18/23 11:20 Albuterol Hfa Inhaler INHALATION 2 puff RT-Q4H ELIEZER Administration Atorvastatin Calcium 20 mg 07/16/23 20:00 07/18/23 09:16 Atorvastatin 20 Mg Tab PO 20 mg DAILY ELIEZER Administration Budesonide/Formoterol Fumarate 2 puff 07/17/23 08:00 07/18/23 08:57 Symbicort 160-4.5 Mcg Inhaler INHALATION 2 puff RT-BID ELIEZER Administration Chlorhexidine Gluconate 15 ml 07/17/23 21:00 07/18/23 09:16 Chlorhexidine Gluconate 15 Ml Cup MUCOUS MEM 15 ml BID ELIEZER Administration Dexamethasone Sodium Phosphate 6 mg 07/16/23 20:00 07/18/23 09:16 Dexamethasone Sod Phosphate 10 Mg/Ml 1 Ml Vial IVP 6 mg DAILY ELIEZER Administration Dextrose/Water 25 ml 07/16/23 22:06 Dextrose 50% Syringe 50 Ml IVP PER PROTOCOL PRN Hypoglycemia Protocol Dextrose/Water 50 ml 07/16/23 22:06 Dextrose 50% Syringe 50 Ml IVP PER PROTOCOL PRN Hypoglycemia Protocol Propofol 1,000 mg/ IV Solution 100 mls @ 12.247 mls/hr 07/16/23 11:15 07/18/23 09:53 IV 30 mcg/kg/min .Q8H10M ELIEZER 24.494 mls/hr Administration Protocol 15 MCG/KG/MIN Sodium Chloride 1,000 mls @ 75 mls/hr 07/16/23 23:00 07/17/23 20:58 Saline 0.9% IV 75 mls/hr .[id number] ELIEZER Administration Insulin Aspart 0 unit 07/17/23 18:00 07/18/23 12:09 Insulin Aspart (Novolog) 100 Unit/Ml Vial SQ Not Given Q6H [facility] Protocol Miscellaneous Information 1 each 07/18/23 10:56 Potassium Replacement Protocol 1 Each Misc MISCELLANE DAILY PRN Per Protocol Protocol Naloxone HCl 0.2 mg 07/16/23 12:30 Naloxone 0.4 Mg/Ml 1 Ml Vial IV Q2M PRN Opioid Reversal Pantoprazole Sodium 40 mg 07/17/23 09:00 07/18/23 09:16 Pantoprazole 40 Mg/10 Ml Vial IV 40 mg DAILY ELIEZER Administration Rivaroxaban 20 mg 07/17/23 09:00 07/18/23 09:16 Rivaroxaban 20 Mg Tab PO 20 mg DAILY ELIEZER Administration Protocol Objective - Vital Signs Vital signs: Vital Signs Temp 97.6 F 07/18/23 12:00 Pulse 103 H 07/18/23 12:00 Resp 21 07/18/23 12:00 BP 125/74 07/18/23 12:00 Pulse Ox 96 07/18/23 12:00 FiO2 50 07/18/23 12:00 Intake & Output 07/17/23 07/18/23 07/18/23 18:59 06:59 18:59 Intake Total 3296.000 1152.719 628 Output Total 1775 675 372 Balance 1521.000 477.719 256 Weight 136.078 kg 137.5 kg 137.5 kg Intake: IV 2996 918 483 Invasive Line 2 30 30 Invasive Line 3 30 30 Normal Saline Pressure 36 33 33 Bag Sodium Chloride 0.9% 1, 900 825 450 000 ml @ 75 mls/hr IV . [id number] [facility] Rx#:[id number] Sodium Chloride 0.9% 2, 2000 000 ml @ 999 mls/hr IV . Q2H1M [facility] Rx#:[id number] Intake, IV Titration 300.000 234.719 100 Amount propofoL 1,000 mg In 300.000 234.719 100 Empty Bag 1 bag @ 15 MCG/ KG/MIN 12.247 mls/hr IV . Q8H10M [facility] Rx#:[id number] Oral 0 Tube Feeding 15 Other 30 Output: Gastric Drainage 1300 Urine 475 675 372 Other: Voiding Method Indwelling Catheter Indwelling Catheter Indwelling Catheter ABP, PAP, CO, CI - Last Documented Arterial Blood Pressure 136/66 - Exam -GENERAL: The patient is intubated, obese HEENT: Pupils are round and equally reacting to light. EOMI. No scleral icterus. No conjunctival pallor. Normocephalic, atraumatic. No pharyngeal erythema. No thyromegaly. CARDIOVASCULAR: S1 and S2 present. No murmurs, rubs, or gallops. PULMONARY: Chest is clear to auscultation, no wheezing , no crackles. ABDOMEN: Soft, nontender, nondistended, normoactive bowel sounds. No palpable organomegaly. MUSCULOSKELETAL: No joint swelling or deformity. EXTREMITIES: No cyanosis, clubbing, or pedal edema. NEUROLOGICAL: Gross neurological examination did not reveal any focal deficits. SKIN: No rashes. no petechiae. - Labs CBC & Chem 7: 07/18/23 03:45 07/18/23 03:45 Labs: Abnormal Lab Results - Last 24 Hours (Table) 07/17/23 07/17/23 07/17/23 Range/Units 06:00 12:23 18:11 WBC (3.8-10.6) k/uL RBC (4.30-5.90) m/uL RDW (11.5-15.5) % Neutrophils # (1.3-7.7) k/uL Monocytes # (0-1.0) k/uL ABG pH (7.35-7.45) ABG pCO2 (35-45) mmHg ABG Total CO2 (19-24) mmol/L BUN (9-20) mg/dL Creatinine (0.66-1.25) mg/dL Glucose (74-99) mg/dL POC Glucose (mg/dL) 208 H 177 H (70-110) mg/dL Hemoglobin A1c 7.1 H (<=6.0) % Calcium (8.4-10.2) mg/dL 07/17/23 07/18/23 07/18/23 Range/Units 23:30 03:45 03:45 WBC 14.2 H (3.8-10.6) k/uL RBC 4.22 L (4.30-5.90) m/uL RDW 15.7 H (11.5-15.5) % Neutrophils # 11.8 H (1.3-7.7) k/uL Monocytes # 1.1 H (0-1.0) k/uL ABG pH (7.35-7.45) ABG pCO2 (35-45) mmHg ABG Total CO2 (19-24) mmol/L BUN 55 H (9-20) mg/dL Creatinine 2.95 H (0.66-1.25) mg/dL Glucose 138 H (74-99) mg/dL POC Glucose (mg/dL) 187 H (70-110) mg/dL Hemoglobin A1c (<=6.0) % Calcium 8.2 L (8.4-10.2) mg/dL 07/18/23 07/18/23 07/18/23 Range/Units 05:57 05:59 11:47 WBC (3.8-10.6) k/uL RBC (4.30-5.90) m/uL RDW (11.5-15.5) % Neutrophils # (1.3-7.7) k/uL Monocytes # (0-1.0) k/uL ABG pH 7.47 H (7.35-7.45) ABG pCO2 34 L (35-45) mmHg ABG Total CO2 26 H (19-24) mmol/L BUN (9-20) mg/dL Creatinine (0.66-1.25) mg/dL Glucose (74-99) mg/dL POC Glucose (mg/dL) 127 H 132 H (70-110) mg/dL Hemoglobin A1c (<=6.0) % Calcium (8.4-10.2) mg/dL Microbiology - Last 24 Hours (Table) 07/16/23 11:05 Gram Stain - Final Sputum Sputum Culture - Final Assessment and Plan Assessment: Cardiac arrest status post CPR with downtown about 20 minutes Acute hypoxic respiratory failure requiring intubation and mechanical ventilation Altered mental status, mostly toxic/metabolic encephalopathy. Rule out anoxic brain injury. Combivent infection Chronic atrial fibrillation on blood thinner Xarelto. Mild leukocytosis Nonoliguric acute kidney injury Morbid obesity with BMI of 41.1. Plan: Continue with normal saline 75 mg/h Continue with steroids, dexamethasone Continue with sternal total Consultants on the case with pulmonary, cardiology and neurology. Labs and medication were reviewed.. Continue same treatment. Continue with symptomatic treatment. Resume home medication. Monitor labs and vitals. DVT and GI prophylaxis. Further recommendations as per clinical course of the patient DVT prophylaxis: xarelto GI Prophylaxis: Pepcid Prognosis is guarded
[2023-07-18] MEDS: SODIUM CHLORIDE 0.9% 1,000 ML IV SCH ×2 (16:06→23:21)
[2023-07-18 17:23] LABS: Glucose,Whole Blood 199 mg/dL (70-110)
--- NOTE | 2023-07-18 17:52 | CA ---
Transthoracic Echo Report Name: Anthony Grijalva Age: 68 Gender: M : 1955 Exam Date: 07/17/2023 10:17 Exam Location: [facility] Ht (in): 72 Wt (lb): 300 Ordering Physician: Aura Plasencia MD Attending/Referring Phys: Cuprous Chloride Operator Guillermo Samayoa Procedure CPT: Indications: Cardiac Arrest Cardiac Hx: Technical Quality: Technically difficult study Contrast 1: Total Dose (mL): Contrast 2: Total Dose (mL): MEASUREMENTS (Male / Female) Normal Values FINDINGS Left Ventricle Estimated LVEF is 50-55%. Wall motion abnormality could not be assessed due to technically difficult nature of the study. Lumason contrast did not enhance the quality of the study Right Ventricle Not well visualized Right Atrium Not well visualized Left Atrium Normal left atrial size. Mitral Valve Mitral valve not well visualized. No mitral regurgitation. Aortic Valve Aortic valve not well visualized. No aortic valve stenosis or regurgitation. Tricuspid Valve Tricuspid valve not well visualized. Trace TR. Pulmonic Valve Pulmonic valve not well visualized. No pulmonic regurgitation. Pericardium Not well visualized. Aorta Normal size aortic root . CONCLUSIONS Limited study Very technically difficult Estimated LVEF 50-55% by visual assessment Wall motion abnormality cannot be commented upon No significant aortic stenosis. No prior echo to compare with Previewed by: Dr Christopher Good (Electronically Signed) Final Date: 18 July 2023 17:51
[2023-07-18] MEDS: METOPROLOL TARTRATE 50 MG TAB PO SCH (20:37)
--- NOTE | 2023-07-18 21:38 | P.PN ---
Subjective Progress Note Date: 07/18/23 Subjective: Patient is intubated and sedated. Patient's family is present at bedside in detail history was obtained from them. As per the family patient had significant respiratory distress with exacerbation of his asthma prior to this event. It appears patient's arrest was mostly related to respiratory collapse. ASSESSMENT [id number] cardiac arrest Ventilatory dependent respiratory failure Acute COVID-19 infection Chronic atrial fibrillation Morbid obesity Type 2 diabetes obstructive sleep apnea PLAN Continue anticoagulation with Xarelto Continue metoprolol 100 mg twice a day as blood pressure tolerates ICU management for vent support No indication for cardiac catheterization at this time Repeat limited echocardiogram for LV function Synopsis 67-year-old with PMH of type 2 diabetes, obstructive sleep apnea, hypertension, some reported history of arrhythmia. He was last seen in Hospital in May 2023 for weakness and altered mental status. This was activated to his hypoglycemia. On last admission his EKG showed atrial fibrillation and was started on Xarelto. Patient was at home complaining of some shortness of breath. He was supposed to see his primary care physician but he acutely became unresponsive and patient's called the EMS. Down time reported was approximately 7 minutes before EMS arrived. Patient was found to be in asystole and CPR was performed and patient was intubated at the scene. Patient received epinephrine based on the ACS protocol. CPR was performed for 10-12 minutes with return of spontaneous circulation. Off of that his ECG showed atrial fibrillation with RVR. On admission his troponin was 0.13, BNP was 1250, creatinine 1.1 lactate 7.6 DIAGNOSTICS EKG reveals atrial fibrillation with rapid ventricular response, no significant ST changes. CTA showed no evidence of dissection or pulmonary embolism. Chest x-ray did not show significant pulmonary congestion Home cardiac medications include Lasix 20 mg, Xarelto 20 mg, Actos 45 mg, metoprolol 100 mg twice a day, atorvastatin. PRIOR CARDIAC TESTING Echocardiogram April 2023 EF 50-55%, no major valvular abnormality REVIEW OF SYSTEMS 14 point review of system is negative except what is mentioned above in HPI. PHYSICAL EXAMINATION Vital signs reviewed. Head: Normocephalic. Eyes: Sclerae nonicteric. Neck: Brisk carotid upstroke, no jugular venous distention. Lungs: Intubated recommend support Heart: Irregularly irregular, no murmurs appreciated Abdomen: Soft nontender, positive bowel sounds no organomegaly. Extremities: No edema, intact distal pulses. Neurological: Intubated and sedated Objective - Vital Signs Vital signs: Vital Signs Temp 98.0 F 07/18/23 16:00 Pulse 96 07/18/23 19:00 Resp 18 07/18/23 19:00 BP 126/70 07/18/23 19:00 Pulse Ox 98 07/18/23 19:00 FiO2 50 07/18/23 20:28 Intake & Output 07/18/23 07/18/23 07/19/23 06:59 18:59 06:59 Intake Total 2862.073 3375.115 93.894 Output Total 675 740 Balance 477.719 765.115 93.894 Weight 137.5 kg 137.5 kg Intake: IV 918 1050 Invasive Line 2 30 Invasive Line 3 30 Normal Saline Pressure 33 75 Bag Sodium Chloride 0.9% 1, 825 975 000 ml @ 75 mls/hr IV . [id number] [facility] Rx#:[id number] Intake, IV Titration 234.719 275.115 93.894 Amount propofoL 1,000 mg In 234.719 275.115 93.894 Empty Bag 1 bag @ 15 MCG/ KG/MIN 12.247 mls/hr IV . [id number] [facility] Rx#:[id number] Tube Feeding 120 Other 60 Output: Urine 675 740 Other: Voiding Method Indwelling Catheter Indwelling Catheter ABP, PAP, CO, CI - Last Documented Arterial Blood Pressure 100/50 - Labs CBC & Chem 7: 07/18/23 03:45 07/18/23 03:45 Labs: Abnormal Lab Results - Last 24 Hours (Table) 07/17/23 07/17/23 07/18/23 Range/Units 06:00 23:30 03:45 WBC 14.2 H (3.8-10.6) k/uL RBC 4.22 L (4.30-5.90) m/uL RDW 15.7 H (11.5-15.5) % Neutrophils # 11.8 H (1.3-7.7) k/uL Monocytes # 1.1 H (0-1.0) k/uL ABG pH (7.35-7.45) ABG pCO2 (35-45) mmHg ABG Total CO2 (19-24) mmol/L BUN (9-20) mg/dL Creatinine (0.66-1.25) mg/dL Glucose (74-99) mg/dL POC Glucose (mg/dL) 187 H (70-110) mg/dL Hemoglobin A1c 7.1 H (<=6.0) % Calcium (8.4-10.2) mg/dL 07/18/23 07/18/23 07/18/23 Range/Units 03:45 05:57 05:59 WBC (3.8-10.6) k/uL RBC (4.30-5.90) m/uL RDW (11.5-15.5) % Neutrophils # (1.3-7.7) k/uL Monocytes # (0-1.0) k/uL ABG pH 7.47 H (7.35-7.45) ABG pCO2 34 L (35-45) mmHg ABG Total CO2 26 H (19-24) mmol/L BUN 55 H (9-20) mg/dL Creatinine 2.95 H (0.66-1.25) mg/dL Glucose 138 H (74-99) mg/dL POC Glucose (mg/dL) 127 H (70-110) mg/dL Hemoglobin A1c (<=6.0) % Calcium 8.2 L (8.4-10.2) mg/dL 07/18/23 07/18/23 Range/Units 11:47 17:21 WBC (3.8-10.6) k/uL RBC (4.30-5.90) m/uL RDW (11.5-15.5) % Neutrophils # (1.3-7.7) k/uL Monocytes # (0-1.0) k/uL ABG pH (7.35-7.45) ABG pCO2 (35-45) mmHg ABG Total CO2 (19-24) mmol/L BUN (9-20) mg/dL Creatinine (0.66-1.25) mg/dL Glucose (74-99) mg/dL POC Glucose (mg/dL) 132 H 199 H (70-110) mg/dL Hemoglobin A1c (<=6.0) % Calcium (8.4-10.2) mg/dL Microbiology - Last 24 Hours (Table) 07/16/23 11:05 Gram Stain - Final Sputum Sputum Culture - Final
[2023-07-18 23:45] LABS: Glucose,Whole Blood 190 mg/dL (70-110)
[2023-07-19] MEDS: INSULIN ASPART (NovoLOG) 100 UNIT/ML VIAL SQ SCH ×4 (00:39→17:59)
[2023-07-19] MEDS: ALBUTEROL HFA INHALER INHALATION SCH ×7 (04:16→23:51)
[2023-07-19 04:57] LABS: Glucose,Whole Blood 159 mg/dL (70-110)
[2023-07-19 05:33] LABS: Basophils % (A) 0 %; Eosinophils % (A) 0 %; HCT 38.4 % (39.0-53.0); HGB 12.6 gm/dL (13.0-17.5); Lymphocytes # (A) 0.9 k/uL (1.0-4.8); Lymphocytes % (A) 8 %; MCH 31.8 pg (25.0-35.0); MCHC 32.8 g/dL (31.0-37.0); MCV 96.8 fL (80.0-100.0); Mean Platelet Volume 8.1; Monocytes # (A) 0.9 k/uL (0-1.0); Monocytes % (A) 8 %; Neutrophils # (A) 8.5 k/uL (1.3-7.7); Neutrophils % (A) 82 %; Platelet Count 188 k/uL (150-450); RBC 3.97 m/uL (4.30-5.90); RDW 15.7 % (11.5-15.5); WBC 10.5 k/uL (3.8-10.6)
[2023-07-19 05:44] LABS: African American GFR (CKD) 26 (>60 ml/min/1.73 sqM); Anion Gap 8 mmol/L; Blood Urea Nitrogen 56 mg/dL (9-20); Calcium 8.1 mg/dL (8.4-10.2); Carbon Dioxide 26 mmol/L (22-30); Chloride 106 mmol/L (98-107); Glucose 156 mg/dL (74-99); Non-African American GFR(CKD) 22 (>60 ml/min/1.73 sqM); Sodium 140 mmol/L (137-145)
[2023-07-19 05:56] LABS: Glucose,Whole Blood 155 mg/dL (70-110)
[2023-07-19 06:06] LABS: ABG Base Excess 1.6 mmol/L; ABG HCO3 27 mmol/L (21-25); ABG Oxygen Saturation 97.4 % (94-97); ABG PCO2 44 mmHg (35-45); ABG PH 7.39 (7.35-7.45); ABG PO2 103 mmHg (83-108); ABG TCO2 28 mmol/L (19-24); Allen Test Performed? Yes
--- NOTE | 2023-07-19 07:46 | XR ---
EXAMINATION TYPE: XR chest 1V portable DATE OF EXAM: 07/19/2023 COMPARISON: 07/18/2023 HISTORY: SOB, Follow Up FINDINGS: Endotracheal tube demonstrates its distal tip 2.7 centimeters from the mary. The NG tube is seen co ursing into the stomach. Left-sided subclavian central venous line unchanged in position. No change in bibasilar opacities. Stable appearance of the cardio-mediastinal structures at this time. Pleural effusion unchanged. IMPRESSION: 1. Stable portable chest. Clinical correlation and follow up until resolution is recommended.
[2023-07-19] MEDS: METOPROLOL TARTRATE 50 MG TAB PO SCH ×2 (08:37→20:01)
[2023-07-19] MEDS: PANTOPRAZOLE 40 MG/10 ML VIAL IV SCH (08:37)
[2023-07-19] MEDS: DEXAMETHASONE SOD PHOSPHATE 10 MG/ML 1 ML VIAL IVP SCH (08:37)
[2023-07-19] MEDS: CHLORHEXIDINE GLUCONATE 15 ML CUP MUCOUS MEM SCH ×2 (08:37→20:01)
[2023-07-19] MEDS: RIVAROXABAN 20 MG TAB PO SCH (08:37)
[2023-07-19] MEDS: ATORVASTATIN 20 MG TAB PO SCH (08:37)
[2023-07-19] MEDS: SYMBICORT 160-4.5 MCG INHALER INHALATION SCH ×2 (08:40→20:01)
--- NOTE | 2023-07-19 09:18 | P.PN ---
Subjective Progress Note Date: 07/19/23 68-year-old male patient, morbidly obese, known history of obstructive sleep apnea, chronic atrial fibrillation maintained on long-term and the coagulation with Xarelto in addition to history of diabetes mellitus type 2, hypertension and obesity. The patient was brought into the emergency department with cardiac arrest. The patient was at home and he was complaining of some shortness of breath. He was supposed to see his primary care physician, however he acutely became unresponsive. The patient's was there and she activated EMS. The downtime reported was approximately 7 minutes before EMS arrival. The patient was found to be in asystole and CPR was initiated. The patient was intubated. The patient received epinephrine based on the ACLS protocol. The CPR time was around 10-12 minutes and following that there was return of spontaneous circulation. Following that, the patient was brought into the emergency department. The patient EKG was consistent with A. fib with RVR. The patient's BP was 120/94. The patient was given a chest x-ray that showed no acute abnormalities. He was started on propofol which is currently running at 50 mcg/kg/m. No seizure activity has been noted. CAT scan of the brain is not done. CT angiogram of the chest has not been done. Cardiac enzy mes showed a troponin of 0.136. Initial blood gas showed a pH of 7.2 with episodes of 53 and pO2 of 336. His current vent settings with an assist control of 24 with a tidal volume of 500, FiO2 is 50% with a PEEP of 5. Urine operas in order of 40-50 mL an hour. He is afebrile. He is on no pressors. No reported aspiration. The donor is currently 11.2, hemoglobin is 15 with a platelet count of 218. Normal coagulation profile. BUN is at 24 with a creatinine of 1.1. Initial lactic acid level is at 7.6. ProBNP level was 1250. Serum bicarb is at 22. Glucose at 157. On today's evaluation of 07/17/2023, the patient is being seen in follow-up in the intensive care unit. He is post cardiac arrest. Currently is on propofol which is running at 40 mcg/kg/m. His calm and comfortable and suggests a mechanical ventilator. Neurologically, the patient underwent a CAT scan of the brain yesterday and the CAT scan of the brain showed no acute abnormalities. There was some nonspecific white matter changes likely secondary to chronic vessel ischemic change. No seizure activity has been noted. He was able to sense some painful stimulation with eye opening and leg with those. No Babins ki. No clonus no seizure activity. Pupils are round 4 mm in size, sluggishly reactive to light and the patient has a occasional cough. Repeat chest x-ray from today shows left basilar atelectasis. Orotracheal tube is in a good location. The patient also has a or G-tube in place. A CT angiogram of the chest was done yesterday and it showed no evidence of any pulmonary embolism. No evidence of any dissection. There was some nonspecific to adjacent home a nodules in the right lung base demonstrating calcification measuring up to 2 cm in size may represent a hematoma. Additional nodule measuring 6 mm in size in the right upper lobe. At this point in time, the patient is on assist-control mode of mechanical ventilation at the rate of 24, tidal volume of 500, FiO2 to 50% with a PEEP of 5. Blood gas showed a pH of 7.42 with a pCO2 of 35 and pO2 of 88. The patient has sustained an acute kidney injury. Creatinine today is at 2.41 with a BUN of 49. The patient also has a sodium level of 137, potassium is at 4, bicarb is at 21. The white cell cause of 15.7 with a hemoglobin of 14 .4. Cardiac rhythm is sinus. He is currently afebrile. He is on Decadron and this was given to him regarding his Covid 19 infection that was an incidental finding. Noted the patient has been vaccinated. This is his first infection with Covid 19. He remains on long-term and coagulation with Xarelto. 07/18/2023, the patient is comfortable on a propofol drip which is running at 30 mcg/kg/m. His neurologic functions of been essentially unchanged. As mentioned, CAT scan of the brain showed no acute abnormalities and was consistent with some nonspecific chronic vessel ischemic change. No seizure activity has been noted and the showed diffuse slowing which could be potentially in agreement with anoxic encephalopathy. EEG was unable 2022 and it showed background slowing which was moderate degree with generalized cerebral dysfunction. Possibility of drug effect cannot be ruled out as the patient was on propofol at time of his EEG. No seizure activity has been noted. A sedation holiday is to be given for this patient today. Meanwhile, the patient has equal pupils round 3 mm in size. He is unresponsive to painful stimulation. He does occasionally do facial grimaces. He does not withdrawal. No purposeful activity at this point in time. He remains on mechanical ventilator and on assist-control mode at the rate of 24, tidal volume of 500, FiO2 is currently at 50% with a PEEP of 5. Chest x-ray showing atelectatic change in lung bases worse on the right. Orotracheal tube is in a good location. Or G-tube is also in good location. Lung volumes are small. Noted the patient was Covid 19 positive and he remains on Decadron. His blood gas shows a pH of 7.47 with a pCO2 of 34 and pO2 of 90. He is riding the mechanical ventilator at the rate of 24. His blood work shows a BUN of 55 with a creatinine of 2.9, sodium level is at 138, potassium levels at 3.5. His white cell count today is 14.2 and the hemoglobin is 13.3 and a platelet count is 180. IV fluids are in the form of normal saline at rate of 75 mL's an hour. The fluid balance over the past 24 hours has been +1.9 L. The patient is on enteral feeding and he is currently receiving vital high protein. He has no fever. The NG output has slowed down and the patient is not having any significant output from his NG tube. His cardiac rhythm remained sinus. 07/19/2023, the patient was taken off sedation. He is tracking. He was able to wiggle his toes upon demand. His profoundly weak. He opens his eyes spontaneously. No nystagmus. Pupils are equal and reactive to light. No seizure activity has been noted. The patient was earlier on propofol at a dose of 75 mcg/kg/m and currently is off sedation. He remains on a mechanical ventilator, assist control mode at the rate of 24, tidal volume of 500, FiO2 is down to 40% with a PEEP of 5. Is chest x-ray showing lower lobe infiltrates bilaterally. Lung volumes are small. Orotracheal tube is in a good location. The patient also has a or G-tube in place. In terms of his blood gas, the patient has a pH of 7.39 with a pCO2 of 44 and pO2 of 103. He does have respiratory secretions are being suctioned. White cell cause of 10.5 with a hemoglobin 12.6 and a platelet count of 188. Sodium is at 140, potassium is at 4, chloride 16 and a bicarb is 26. He did sustain an acute kidney injury and the creatinine is improved compared to yesterday's down to 2.7. BUN is 56. Potassium levels of 4.0. Fluid balance over the past 24 hours is +1.7 L. The patient remains on bronchodilators. The patient remains on Decadron 6 mg IV every 24 hours. He is on long-term anticoagulation with Xarelto. His cardiac rhythm is sinus. Echocardiogram done on 07/17/2023 shows a preserved LV function. He is afebrile. He is on no pressors. No other significant events overnight. Feeding is in the form of vital high-protein which is currently at goal. Objective - Vital Signs Vital signs: Vital Signs Temp 98.5 F 07/19/23 08:00 Pulse 77 07/19/23 09:00 Resp 22 07/19/23 09:00 BP 145/79 07/19/23 09:00 Pulse Ox 97 07/19/23 09:00 FiO2 50 07/19/23 09:00 Intake & Output 07/18/23 07/19/23 07/19/23 18:59 06:59 18:59 Intake Total 4340.033 4161.825 408 Output Total 740 665 200 Balance 765.115 960.825 208 Weight 137.5 kg 136.8 kg Intake: IV 1050 891 243 Normal Saline Pressure 75 66 18 Bag Sodium Chloride 0.9% 1, 975 825 225 000 ml @ 75 mls/hr IV . [id number] [facility] Rx#:[id number] Intake, IV Titration 275.115 269.825 Amount propofoL 1,000 mg In 275.115 269.825 Empty Bag 1 bag @ 15 MCG/ KG/MIN 12.247 mls/hr IV . [id number] [facility] Rx#:[id number] Tube Feeding 120 345 135 Other 60 120 30 Output: Urine 740 665 200 Other: Voiding Method Indwelling Catheter Indwelling Catheter Indwelling Catheter ABP, PAP, CO, CI - Last Documented Arterial Blood Pressure 150/63 - Exam Obese, body mass index of 40.7., Comfortable. No acute arrest or distress. Currently on propofol Head exam was generally normal. There was no scleral icterus or corneal arcus. Mucous membranes were moist. Neck was supple and without jugular venous distension, thyromegaly, or carotid bruits. Carotids were easily palpable bilaterally. There was no adenopathy. Lungs although the medicine the patient has scattered rhonchi heard bilaterally. Otherwise breath sounds are equal and symmetrical Heart sounds are irregular, consistent with atrial fibrillation, the heart sounds are distant, positive S1-S2 there is no significant murmurs appreciated Abdominal exam revealed normal bowel sounds. The abdomen was soft, non-tender, and without masses, organomegaly, or appreciable enlargement of the abdominal aorta. Examination of the extremities revealed easily palpable radial, femoral and pedal pulses. There was no cyanosis, clubbing or edema. Examination of the skin revealed no evidence of significant rashes, suspicious appearing nevi or other concerning lesions. Neurologically, the patient is unresponsive. Pupils are round 4-5 cm in size and slightly reactive to light. No nystagmus. Positive coughing reflex. Motor function cannot be assessed. Sensory cannot be assessed. Reflexes are diminished bilaterally. There are present. No Babinski. No clonus. On today's evaluation, he is sensing painful stimulation by withdrawal. He'll occasionally open up his eyes upon stimulation. - Labs CBC & Chem 7: 07/19/23 05:20 07/19/23 05:20 Labs: Abnormal Lab Results - Last 24 Hours (Table) 07/18/23 07/18/23 07/18/23 Range/Units 11:47 17:21 23:44 RBC (4.30-5.90) m/uL Hgb (13.0-17.5) gm/dL Hct (39.0-53.0) % RDW (11.5-15.5) % Neutrophils # (1.3-7.7) k/uL Lymphocytes # (1.0-4.8) k/uL ABG HCO3 (21-25) mmol/L ABG Total CO2 (19-24) mmol/L ABG O2 Saturation (94-97) % BUN (9-20) mg/dL Creatinine (0.66-1.25) mg/dL Glucose (74-99) mg/dL POC Glucose (mg/dL) 132 H 199 H 190 H (70-110) mg/dL Calcium (8.4-10.2) mg/dL 07/19/23 07/19/23 07/19/23 Range/Units 04:53 05:20 05:20 RBC 3.97 L (4.30-5.90) m/uL Hgb 12.6 L (13.0-17.5) gm/dL Hct 38.4 L (39.0-53.0) % RDW 15.7 H (11.5-15.5) % Neutrophils # 8.5 H (1.3-7.7) k/uL Lymphocytes # 0.9 L (1.0-4.8) k/uL ABG HCO3 (21-25) mmol/L ABG Total CO2 (19-24) mmol/L ABG O2 Saturation (94-97) % BUN 56 H (9-20) mg/dL Creatinine 2.77 H (0.66-1.25) mg/dL Glucose 156 H (74-99) mg/dL POC Glucose (mg/dL) 159 H (70-110) mg/dL Calcium 8.1 L (8.4-10.2) mg/dL 07/19/23 07/19/23 Range/Units 05:55 05:55 RBC (4.30-5.90) m/uL Hgb (13.0-17.5) gm/dL Hct (39.0-53.0) % RDW (11.5-15.5) % Neutrophils # (1.3-7.7) k/uL Lymphocytes # (1.0-4.8) k/uL ABG HCO3 27 H (21-25) mmol/L ABG Total CO2 28 H (19-24) mmol/L ABG O2 Saturation 97.4 H (94-97) % BUN (9-20) mg/dL Creatinine (0.66-1.25) mg/dL Glucose (74-99) mg/dL POC Glucose (mg/dL) 155 H (70-110) mg/dL Calcium (8.4-10.2) mg/dL Microbiology - Last 24 Hours (Table) 07/16/23 11:05 Gram Stain - Final Sputum Sputum Culture - Final Assessment and Plan Plan: Acute cardiopulmonary arrest. The patient was found to be in asystole. The down time is estimated to be more than 17 minutes at least. There was return of spontaneous circulation after successful resuscitation. The patient received CPR, epinephrine and the patient was intubated on the field and was brought to the emergency department. Exact cause is not clear. The patient remains on p ropofol. CAT scan of the brain was noted. EEG was noted and showed diffuse slowing consistent with toxic metabolic encephalopathy. Consider underlying anoxic encephalopathy in addition. Acute hypoxic/hypercapnic respiratory failure secondary to cardiac arrest, chest x-ray from today showing a left basilar atelectasis/infiltrate. Repeat chest x- ray from today is also showing some basilar atelectasis on the right. Acute Covid 19 infection. The patient tested positive for Covid 19. This is his first infection and the patient has been vaccinated the past. The patient is currently on Decadron Acute lactic acidosis secondary to above, improved and there is improvement in the acid base status on the most recent blood gas Unresponsiveness currently on sedation. Rule out underlying hypoxic encephalopathy Chronic atrial maintained on anticoagulation with xarelto, the patient receiving metoprolol for rate control on outpatient basis, current cardiac rhythm is sinus Morbid obesity with BMI of 40.7 Diabetes mellitus type 2, currently on insulin sliding scale coverage Obstructive sleep apnea, severe with a AHI of 90 and the patient has been utilizing a on auto BiPAP on outpatient basis Recent hospitalization for bilateral pneumonia, April 2023, treated and recovered Chronic bronchial asthma, maintain on Breo Ellipta on outpatient basis in addition to albuterol rescue inhaler Acute kidney injury secondary to cardiac arrest and the patient's creatinine is up to 2.9, X improving and creatinine today is down to 2.7 and urine output is adequate Hypertension Pulmonary nodules right upper lobe, 6 mm, 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 Plan Keep the patient off sedation Check weaning parameters Give the patient trial of pressure support mode of mechanical ventilation with a PSV of 7 and a PEEP of 5 and obtain a subsequent blood gases in one hour Condition is critical at this point in time CAT scan of the brain without contrast, no acute abnormalities EEG showed diffuse metabolic encephalopathy and slowing CT angiogram of the chest, done yesterday showed no specific pulmonary nodules right upper lobe and a 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 Echocardiogram has been done and is also still pending for now Continue Decadron 6 mg IV every 24 hours Insulin sliding scale coverage IV fluids normal saline at 75 mL an hour Continue Xarelto Albuterol neb treatments treatments [id number] Cardiology consult appreciated, echo is within normal Neurologic consult, appreciated Monitor troponins, peaked at 0.136, probably related to his cardiac arrest and CPR. Monitor lactic acid level and a most recent lactic acid level is 1.2. Monitor renal function Enteral feeding will be initiated with vital high-protein Condition is critical. We'll continue to follow. Critical care evaluation that was done in more than 30 minutes. Time with Patient: Greater than 30
[2023-07-19 10:49] LABS: ABG Base Excess 1.1 mmol/L; ABG HCO3 26 mmol/L (21-25); ABG Oxygen Saturation 97.5 % (94-97); ABG PCO2 42 mmHg (35-45); ABG PO2 108 mmHg (83-108); ABG TCO2 27 mmol/L (19-24); Allen Test Performed? Yes
--- NOTE | 2023-07-19 10:53 | P.PN ---
Subjective Progress Note Date: 07/18/23 Patient was seen for a follow-up. Patient's was present, who has been to the patient for 50 years. Patient currently on propofol 30 mcg/kg per minute. Objective - Vital Signs Vital signs: Vital Signs Temp 98.5 F 07/19/23 08:00 Pulse 80 07/19/23 10:00 Resp 22 07/19/23 10:00 BP 137/79 07/19/23 10:00 Pulse Ox 97 07/19/23 10:00 FiO2 40 07/19/23 09:34 Intake & Output 07/18/23 07/19/23 07/19/23 18:59 06:59 18:59 Intake Total 3933.078 4131.825 589 Output Total 740 665 325 Balance 765.115 960.825 264 Weight 137.5 kg 136.8 kg Intake: IV 1050 891 324 Normal Saline Pressure 75 66 24 Bag Sodium Chloride 0.9% 1, 975 825 300 000 ml @ 75 mls/hr IV . [id number] [facility] Rx#:[id number] Intake, IV Titration 275.115 269.825 100 Amount propofoL 1,000 mg In 275.115 269.825 100 Empty Bag 1 bag @ 15 MCG/ KG/MIN 12.247 mls/hr IV . [id number] [facility] Rx#:[id number] Tube Feeding 120 345 135 Other 60 120 30 Output: Urine 740 665 325 Other: Voiding Method Indwelling Catheter Indwelling Catheter Indwelling Catheter ABP, PAP, CO, CI - Last Documented Arterial Blood Pressure 156/65 - Exam Patient is intubated, sedated. With sedation holiday, patient response was better. He is breathing over the ventilator, he again cough has improved. Pupils are equal, round and reacting. Oculocephalics are present. Corneals present. Patient is much better responding to plantar stimulation, with blood drawn normal of bilateral lower limbs. He grimaces with pain. No seizure-like activity noted. Rest of the examination is unchanged. - Labs CBC & Chem 7: 07/19/23 05:20 07/19/23 05:20 Labs: Abnormal Lab Results - Last 24 Hours (Table) 07/18/23 07/18/23 07/18/23 Range/Units 11:47 17:21 23:44 RBC (4.30-5.90) m/uL Hgb (13.0-17.5) gm/dL Hct (39.0-53.0) % RDW (11.5-15.5) % Neutrophils # (1.3-7.7) k/uL Lymphocytes # (1.0-4.8) k/uL ABG HCO3 (21-25) mmol/L ABG Total CO2 (19-24) mmol/L ABG O2 Saturation (94-97) % BUN (9-20) mg/dL Creatinine (0.66-1.25) mg/dL Glucose (74-99) mg/dL POC Glucose (mg/dL) 132 H 199 H 190 H (70-110) mg/dL Calcium (8.4-10.2) mg/dL 07/19/23 07/19/23 07/19/23 Range/Units 04:53 05:20 05:20 RBC 3.97 L (4.30-5.90) m/uL Hgb 12.6 L (13.0-17.5) gm/dL Hct 38.4 L (39.0-53.0) % RDW 15.7 H (11.5-15.5) % Neutrophils # 8.5 H (1.3-7.7) k/uL Lymphocytes # 0.9 L (1.0-4.8) k/uL ABG HCO3 (21-25) mmol/L ABG Total CO2 (19-24) mmol/L ABG O2 Saturation (94-97) % BUN 56 H (9-20) mg/dL Creatinine 2.77 H (0.66-1.25) mg/dL Glucose 156 H (74-99) mg/dL POC Glucose (mg/dL) 159 H (70-110) mg/dL Calcium 8.1 L (8.4-10.2) mg/dL 07/19/23 07/19/23 Range/Units 05:55 05:55 RBC (4.30-5.90) m/uL Hgb (13.0-17.5) gm/dL Hct (39.0-53.0) % RDW (11.5-15.5) % Neutrophils # (1.3-7.7) k/uL Lymphocytes # (1.0-4.8) k/uL ABG HCO3 27 H (21-25) mmol/L ABG Total CO2 28 H (19-24) mmol/L ABG O2 Saturation 97.4 H (94-97) % BUN (9-20) mg/dL Creatinine (0.66-1.25) mg/dL Glucose (74-99) mg/dL POC Glucose (mg/dL) 155 H (70-110) mg/dL Calcium (8.4-10.2) mg/dL Microbiology - Last 24 Hours (Table) 07/16/23 11:05 Gram Stain - Final Sputum Sputum Culture - Final Assessment and Plan Assessment: * Status post cardiac arrest with prolonged downtime of 30 minutes as per EMS flow sheet documentation. Patient was in asystole. * Ventilator-dependent respiratory failure due to cardiac arrest, on mechanical ventilation. * Atrial fibrillation with rapid ventricular rate * Probable aspiration pneumonia * Lactic acidosis * Acute renal failure * Diabetes type 2 * Morbid obesity * Hypertension * Pulmonary nodules. Plan: * EEG 07/17/2023, was abnormal due to background slowing of moderate degree, suggestive of generalized cerebral dysfunction as can be seen with toxic metabolic encephalopathy. Clinical correlation is recommended. No obvious epileptiform activity was seen. * Initial CT head showed no acute process. Nonspecific white matter changes. * Patient's neurological examination has improved as compared to yesterday. * Patient currently on Xarelto for atrial fibrillation. * Other medical management as per IM and critical care. * Neurology will continue to follow. Discussed with patient's in detail. * Dr. Vlad Feliz Will resume neurology service from Thursday.
--- NOTE | 2023-07-19 11:36 | P.PN ---
Wiliam Grijalva is a 68-year-old male with PMH of atrial fibrillation, T2DM, DANE, morbid obesity who was brought to the ED with cardiac arrest. The patient was at home and he was complaining of some shortness of breath when he became unresponsive. His was present and called EMS. The downtime reported was approximately 7 minutes before EMS arrival. The patient was found to be in asystole and CPR was initiated. The patient was intubated. The patient received epinephrine based on the ACLS protocol. The CPR time was around 10-12 minutes and following that there was return of spontaneous circulation. Following that, the patient was brought into the emergency department. The patient EKG was consistent with A. fib with RVR. The patient's BP was 120/94. CXR no acute process. Cardiac enzymes showed a troponin of 0.136. Initial blood gas showed a pH of 7.2 with episodes of 53 and pO2 of 336. His WBC on admission was 11.2, hemoglobin is 15 with a platelet count of 218. Normal coagulation profile. BUN is at 24 with a creatinine of 1.1. Initial lactic acid level is at 7.6. ProBNP level was 1250. Glucose at 157. Resume the care of the patient today 07/18/2023 This 68 years old male with multiple medical problems who was admitted for cardiac arrest status post CPR also the hospital with estimated downtown about 17 minutes. Currently patient is in the ICU with surgical consult consult the case including pulmonary/critical care team parking lot manager also neurologist evaluation for possible anoxic brain injury. Patient is developed and also by parking lot manager for A. fib and RVR, currently rate is controlled. He is also on home dose of Xarelto 20 mg. Patient continued with intubation and mechanical ventilation. He has mild leukocytosis of 14,000, worsening knee function with creatinine 2.9 patient nonoliguric. CTA of the chest was negative for PE but showed pulmonary nodule 0.6 cm. This currently on normal saline 75 mL/h and dexamethasone 6 mg daily for his call with infection. 06/18/2023 Patient remains in the ICU intubated, he underwent sedation holiday and he started waking up, he could open his eyes spontaneously and move his toes. However he is very weak. His vitals and labs are stable and improving, he is afebrile, FiO2 of 50%. Leukocytosis came back to normal at 10.5. Creatinine is trending down slightly and slowly 2.9 down to 2.7 while he is in normal saline 75 mL/h. He is kept on dexamethasone 6 mg also he is on home dose of Xarelto. Objective - Vital Signs Vital signs: Vital Signs Temp 98.5 F 07/19/23 08:00 Pulse 80 07/19/23 10:00 Resp 22 07/19/23 10:00 BP 137/79 07/19/23 10:00 Pulse Ox 97 07/19/23 10:00 FiO2 40 07/19/23 11:20 Intake & Output 07/18/23 07/19/23 07/19/23 18:59 06:59 18:59 Intake Total 0629.481 2548.825 589 Output Total 740 665 325 Balance 765.115 960.825 264 Weight 137.5 kg 136.8 kg Intake: IV 1050 891 324 Normal Saline Pressure 75 66 24 Bag Sodium Chloride 0.9% 1, 975 825 300 000 ml @ 75 mls/hr IV . [id number] [facility] Rx#:[id number] Intake, IV Titration 275.115 269.825 100 Amount propofoL 1,000 mg In 275.115 269.825 100 Empty Bag 1 bag @ 15 MCG/ KG/MIN 12.247 mls/hr IV . [id number] [facility] Rx#:[id number] Tube Feeding 120 345 135 Other 60 120 30 Output: Urine 740 665 325 Other: Voiding Method Indwelling Catheter Indwelling Catheter Indwelling Catheter ABP, PAP, CO, CI - Last Documented Arterial Blood Pressure 156/65 - Exam -GENERAL: The patient is intubated, obese HEENT: Pupils are round and equally reacting to light. EOMI. No scleral icterus. No conjunctival pallor. Normocephalic, atraumatic. No pharyngeal erythema. No thyromegaly. CARDIOVASCULAR: S1 and S2 present. No murmurs, rubs, or gallops. PULMONARY: Chest is clear to auscultation, no wheezing , no crackles. ABDOMEN: Soft, nontender, nondistended, normoactive bowel sounds. No palpable organomegaly. MUSCULOSKELETAL: No joint swelling or deformity. EXTREMITIES: No cyanosis, clubbing, or pedal edema. NEUROLOGICAL: Gross neurological examination did not reveal any focal deficits. SKIN: No rashes. no petechiae. - Labs CBC & Chem 7: 07/19/23 05:20 07/19/23 05:20 Labs: Abnormal Lab Results - Last 24 Hours (Table) 07/18/23 07/18/23 07/18/23 Range/Units 11:47 17:21 23:44 RBC (4.30-5.90) m/uL Hgb (13.0-17.5) gm/dL Hct (39.0-53.0) % RDW (11.5-15.5) % Neutrophils # (1.3-7.7) k/uL Lymphocytes # (1.0-4.8) k/uL ABG HCO3 (21-25) mmol/L ABG Total CO2 (19-24) mmol/L ABG O2 Saturation (94-97) % BUN (9-20) mg/dL Creatinine (0.66-1.25) mg/dL Glucose (74-99) mg/dL POC Glucose (mg/dL) 132 H 199 H 190 H (70-110) mg/dL Calcium (8.4-10.2) mg/dL 07/19/23 07/19/23 07/19/23 Range/Units 04:53 05:20 05:20 RBC 3.97 L (4.30-5.90) m/uL Hgb 12.6 L (13.0-17.5) gm/dL Hct 38.4 L (39.0-53.0) % RDW 15.7 H (11.5-15.5) % Neutrophils # 8.5 H (1.3-7.7) k/uL Lymphocytes # 0.9 L (1.0-4.8) k/uL ABG HCO3 (21-25) mmol/L ABG Total CO2 (19-24) mmol/L ABG O2 Saturation (94-97) % BUN 56 H (9-20) mg/dL Creatinine 2.77 H (0.66-1.25) mg/dL Glucose 156 H (74-99) mg/dL POC Glucose (mg/dL) 159 H (70-110) mg/dL Calcium 8.1 L (8.4-10.2) mg/dL 07/19/23 07/19/23 07/19/23 Range/Units 05:55 05:55 10:47 RBC (4.30-5.90) m/uL Hgb (13.0-17.5) gm/dL Hct (39.0-53.0) % RDW (11.5-15.5) % Neutrophils # (1.3-7.7) k/uL Lymphocytes # (1.0-4.8) k/uL ABG HCO3 27 H 26 H (21-25) mmol/L ABG Total CO2 28 H 27 H (19-24) mmol/L ABG O2 Saturation 97.4 H 97.5 H (94-97) % BUN (9-20) mg/dL Creatinine (0.66-1.25) mg/dL Glucose (74-99) mg/dL POC Glucose (mg/dL) 155 H (70-110) mg/dL Calcium (8.4-10.2) mg/dL Microbiology - Last 24 Hours (Table) 07/16/23 11:05 Gram Stain - Final Sputum Sputum Culture - Final Assessment and Plan Assessment: Cardiac arrest status post CPR with downtown about 20 minutes Acute hypoxic respiratory failure requiring intubation and mechanical ventilation Altered mental status, mostly toxic/metabolic encephalopathy. Rule out anoxic brain injury. Combivent infection Chronic atrial fibrillation on blood thinner Xarelto. Mild leukocytosis Nonoliguric acute kidney injury Morbid obesity with BMI of 41.1. Plan: Continue with normal saline 75 mg/h Continue with steroids, dexamethasone Continue with Xarelto Consultants on the case with pulmonary, cardiology and neurology. Labs and medication were reviewed.. Continue same treatment. Continue with symptomatic treatment. Resume home medication. Monitor labs and vitals. DVT and GI prophylaxis. Further recommendations as per clinical course of the patient DVT prophylaxis: xarelto GI Prophylaxis: Pepcid Prognosis is guarded
[2023-07-19 12:17] LABS: Glucose,Whole Blood 164 mg/dL (70-110)
[2023-07-19 17:53] LABS: Glucose,Whole Blood 221 mg/dL (70-110)
[2023-07-19] MEDS: SODIUM CHLORIDE 0.9% 1,000 ML IV SCH (17:58)
--- NOTE | 2023-07-19 19:04 | P.PN ---
Subjective Progress Note Date: 07/19/23 Subjective: Patient is intubated and sedated. As per the family patient had significant respiratory distress with exacerbation of his asthma prior to this event. It appears patient's arrest was mostly related to respiratory collapse. He is currently in normal sinus rhythm. He is hemodynamic stable ASSESSMENT Ane-nq-tsszsgyh cardiac arrest Ventilatory dependent respiratory failure Acute COVID-19 infection Paroxysmal atrial fibrillation, currently in normal sinus rhythm Morbid obesity Type 2 diabetes obstructive sleep apnea PLAN Continue anticoagulation with Xarelto Continue metoprolol 100 mg twice a day as blood pressure tolerates ICU management for vent support No indication for cardiac catheterization at this time Repeat limited echocardiogram for LV function Synopsis 67-year-old with PMH of type 2 diabetes, obstructive sleep apnea, hypertension, some reported history of arrhythmia. He was last seen in Hospital in May 2023 for weakness and altered mental status. This was activated to his hypoglycemia. On last admission his EKG showed atrial fibrillation and was started on Xarelto. Patient was at home complaining of some shortness of breath. He was supposed to see his primary care physician but he acutely became unresponsive and patient's called the EMS. Down time reported was approximately 7 minutes before EMS arrived. Patient was found to be in asystole and CPR was performed and patient was intubated at the scene. Patient received epinephrine based on the ACS protocol. CPR was performed for 10-12 minutes with return of spontaneous circulation. Off of that his ECG showed atrial fibrillation with RVR. On admission his troponin was 0.13, BNP was 1250, creatinine 1.1 lactate 7.6 DIAGNOSTICS EKG reveals atrial fibrillation with rapid ventricular response, no significant ST changes. CTA showed no evidence of dissection or pulmonary embolism. Chest x-ray did not show significant pulmonary congestion Home cardiac medications include Lasix 20 mg, Xarelto 20 mg, Actos 45 mg, metoprolol 100 mg twice a day, atorvastatin. PRIOR CARDIAC TESTING Echocardiogram April 2023 EF 50-55%, no major valvular abnormality REVIEW OF SYSTEMS 14 point review of system is negative except what is mentioned above in HPI. PHYSICAL EXAMINATION Vital signs reviewed. Head: Normocephalic. Eyes: Sclerae nonicteric. Neck: Brisk carotid upstroke, no jugular venous distention. Lungs: Intubated recommend support Heart: Irregularly irregular, no murmurs appreciated Abdomen: Soft nontender, positive bowel sounds no organomegaly. Extremities: No edema, intact distal pulses. Neurological: Intubated and sedated Objective - Vital Signs Vital signs: Vital Signs Temp 98.9 F 07/19/23 16:00 Pulse 78 07/19/23 19:00 Resp 18 07/19/23 19:00 BP 120/64 07/19/23 19:00 Pulse Ox 94 L 07/19/23 19:00 FiO2 50 07/19/23 19:00 Intake & Output 07/19/23 07/19/23 07/20/23 06:59 18:59 06:59 Intake Total 6979.617 6468 Output Total 665 1038 Balance 960.825 580 Weight 136.8 kg Intake: IV 891 1053 Normal Saline Pressure 66 78 Bag Sodium Chloride 0.9% 1, 825 975 000 ml @ 75 mls/hr IV . [id number] [facility] Rx#:[id number] Intake, IV Titration 269.825 100 Amount propofoL 1,000 mg In 269.825 100 Empty Bag 1 bag @ 15 MCG/ KG/MIN 12.247 mls/hr IV . Q8H10M [facility] Rx#:[id number] Tube Feeding 345 405 Other 120 60 Output: Urine 665 1038 Other: Voiding Method Indwelling Catheter Indwelling Catheter ABP, PAP, CO, CI - Last Documented Arterial Blood Pressure 106/52 - Labs CBC & Chem 7: 07/19/23 05:20 07/19/23 05:20 Labs: Abnormal Lab Results - Last 24 Hours (Table) 07/18/23 07/19/23 07/19/23 Range/Units 23:44 04:53 05:20 RBC 3.97 L (4.30-5.90) m/uL Hgb 12.6 L (13.0-17.5) gm/dL Hct 38.4 L (39.0-53.0) % RDW 15.7 H (11.5-15.5) % Neutrophils # 8.5 H (1.3-7.7) k/uL Lymphocytes # 0.9 L (1.0-4.8) k/uL ABG HCO3 (21-25) mmol/L ABG Total CO2 (19-24) mmol/L ABG O2 Saturation (94-97) % BUN (9-20) mg/dL Creatinine (0.66-1.25) mg/dL Glucose (74-99) mg/dL POC Glucose (mg/dL) 190 H 159 H (70-110) mg/dL Calcium (8.4-10.2) mg/dL 07/19/23 07/19/23 07/19/23 Range/Units 05:20 05:55 05:55 RBC (4.30-5.90) m/uL Hgb (13.0-17.5) gm/dL Hct (39.0-53.0) % RDW (11.5-15.5) % Neutrophils # (1.3-7.7) k/uL Lymphocytes # (1.0-4.8) k/uL ABG HCO3 27 H (21-25) mmol/L ABG Total CO2 28 H (19-24) mmol/L ABG O2 Saturation 97.4 H (94-97) % BUN 56 H (9-20) mg/dL Creatinine 2.77 H (0.66-1.25) mg/dL Glucose 156 H (74-99) mg/dL POC Glucose (mg/dL) 155 H (70-110) mg/dL Calcium 8.1 L (8.4-10.2) mg/dL 07/19/23 07/19/23 07/19/23 Range/Units 10:47 12:15 17:52 RBC (4.30-5.90) m/uL Hgb (13.0-17.5) gm/dL Hct (39.0-53.0) % RDW (11.5-15.5) % Neutrophils # (1.3-7.7) k/uL Lymphocytes # (1.0-4.8) k/uL ABG HCO3 26 H (21-25) mmol/L ABG Total CO2 27 H (19-24) mmol/L ABG O2 Saturation 97.5 H (94-97) % BUN (9-20) mg/dL Creatinine (0.66-1.25) mg/dL Glucose (74-99) mg/dL POC Glucose (mg/dL) 164 H 221 H (70-110) mg/dL Calcium (8.4-10.2) mg/dL
--- NOTE | 2023-07-19 19:38 | P.PN ---
Subjective Progress Note Date: 07/19/23 Patient was seen for a follow-up. Patient currently on propofol 15 mcg/kg per minute. Per nursing report, with the sedation decreased, patient has tracked her a couple times, and moved his foot on command. No seizure-like activity noted. He does facial grimace on any painful stimulus. Objective - Vital Signs Vital signs: Vital Signs Temp 98.9 F 07/19/23 16:00 Pulse 78 07/19/23 19:00 Resp 18 07/19/23 19:00 BP 120/64 07/19/23 19:00 Pulse Ox 94 L 07/19/23 19:00 FiO2 50 07/19/23 19:00 Intake & Output 07/19/23 07/19/23 07/20/23 06:59 18:59 06:59 Intake Total 6119.312 7761 Output Total 665 1038 Balance 960.825 580 Weight 136.8 kg Intake: IV 891 1053 Normal Saline Pressure 66 78 Bag Sodium Chloride 0.9% 1, 825 975 000 ml @ 75 mls/hr IV . [id number] [facility] Rx#:[id number] Intake, IV Titration 269.825 100 Amount propofoL 1,000 mg In 269.825 100 Empty Bag 1 bag @ 15 MCG/ KG/MIN 12.247 mls/hr IV . Q8H10M [facility] Rx#:[id number] Tube Feeding 345 405 Other 120 60 Output: Urine 665 1038 Other: Voiding Method Indwelling Catheter Indwelling Catheter ABP, PAP, CO, CI - Last Documented Arterial Blood Pressure 106/52 - Exam Patient is intubated, sedated on propofol 15 mcg/kg per minute. With sedation holiday, patient response was better. He is breathing over the ventilator, he again cough has improved. Pupils are equal, round and reacting. Oculocephalics are present. Corneals present. Patient is much better responding to plantar stimulation, with blood drawn normal of bilateral lower limbs. He grimaces with pain. No seizure-like activity noted. Rest of the examination is unchanged. - Labs CBC & Chem 7: 07/19/23 05:20 07/19/23 05:20 Labs: Abnormal Lab Results - Last 24 Hours (Table) 07/18/23 07/19/23 07/19/23 Range/Units 23:44 04:53 05:20 RBC 3.97 L (4.30-5.90) m/uL Hgb 12.6 L (13.0-17.5) gm/dL Hct 38.4 L (39.0-53.0) % RDW 15.7 H (11.5-15.5) % Neutrophils # 8.5 H (1.3-7.7) k/uL Lymphocytes # 0.9 L (1.0-4.8) k/uL ABG HCO3 (21-25) mmol/L ABG Total CO2 (19-24) mmol/L ABG O2 Saturation (94-97) % BUN (9-20) mg/dL Creatinine (0.66-1.25) mg/dL Glucose (74-99) mg/dL POC Glucose (mg/dL) 190 H 159 H (70-110) mg/dL Calcium (8.4-10.2) mg/dL 07/19/23 07/19/23 07/19/23 Range/Units 05:20 05:55 05:55 RBC (4.30-5.90) m/uL Hgb (13.0-17.5) gm/dL Hct (39.0-53.0) % RDW (11.5-15.5) % Neutrophils # (1.3-7.7) k/uL Lymphocytes # (1.0-4.8) k/uL ABG HCO3 27 H (21-25) mmol/L ABG Total CO2 28 H (19-24) mmol/L ABG O2 Saturation 97.4 H (94-97) % BUN 56 H (9-20) mg/dL Creatinine 2.77 H (0.66-1.25) mg/dL Glucose 156 H (74-99) mg/dL POC Glucose (mg/dL) 155 H (70-110) mg/dL Calcium 8.1 L (8.4-10.2) mg/dL 07/19/23 07/19/23 07/19/23 Range/Units 10:47 12:15 17:52 RBC (4.30-5.90) m/uL Hgb (13.0-17.5) gm/dL Hct (39.0-53.0) % RDW (11.5-15.5) % Neutrophils # (1.3-7.7) k/uL Lymphocytes # (1.0-4.8) k/uL ABG HCO3 26 H (21-25) mmol/L ABG Total CO2 27 H (19-24) mmol/L ABG O2 Saturation 97.5 H (94-97) % BUN (9-20) mg/dL Creatinine (0.66-1.25) mg/dL Glucose (74-99) mg/dL POC Glucose (mg/dL) 164 H 221 H (70-110) mg/dL Calcium (8.4-10.2) mg/dL Assessment and Plan Assessment: * Status post cardiac arrest with prolonged downtime of 30 minutes as per EMS flow sheet documentation. Patient was in asystole. * Ventilator-dependent respiratory failure due to cardiac arrest, on mechanical ventilation. * Atrial fibrillation with rapid ventricular rate * Probable aspiration pneumonia * Lactic acidosis * Acute renal failure * Diabetes type 2 * Morbid obesity * Hypertension * Pulmonary nodules. Plan: * EEG 07/17/2023, was abnormal due to background slowing of moderate degree, suggestive of generalized cerebral dysfunction as can be seen with toxic metabolic encephalopathy. Clinical correlation is recommended. No obvious epileptiform activity was seen. * Initial CT head showed no acute process. Nonspecific white matter changes. * Patient's neurological examination has improved as compared to yesterday. * Patient currently on Xarelto for atrial fibrillation. * Other medical management as per IM and critical care. * Dr. Vlad Feliz Will resume neurology service from Thursday.
[2023-07-19 23:50] LABS: Glucose,Whole Blood 176 mg/dL (70-110)
[2023-07-20 01:15] LABS: Magnesium 2.3 mg/dL (1.6-2.3); Potassium 3.9 mmol/L (3.5-5.1)
[2023-07-20] MEDS: ALBUTEROL HFA INHALER INHALATION SCH ×6 (04:01→23:55)
[2023-07-20 05:30] LABS: Basophils % (A) 0 %; Eosinophils % (A) 0 %; HGB 12.1 gm/dL (13.0-17.5); Lymphocytes # (A) 1.2 k/uL (1.0-4.8); Lymphocytes % (A) 15 %; MCH 31.9 pg (25.0-35.0); MCHC 32.7 g/dL (31.0-37.0); MCV 97.6 fL (80.0-100.0); Mean Platelet Volume 8.4; Monocytes # (A) 0.8 k/uL (0-1.0); Monocytes % (A) 9 %; Neutrophils # (A) 6.1 k/uL (1.3-7.7); Neutrophils % (A) 73 %; Platelet Count 173 k/uL (150-450); RBC 3.79 m/uL (4.30-5.90); RDW 15.5 % (11.5-15.5); WBC 8.4 k/uL (3.8-10.6)
[2023-07-20] MEDS: INSULIN ASPART (NovoLOG) 100 UNIT/ML VIAL SQ SCH ×5 (05:39→23:02)
[2023-07-20 05:43] LABS: African American GFR (CKD) 32 (>60 ml/min/1.73 sqM); Anion Gap 4 mmol/L; Blood Urea Nitrogen 57 mg/dL (9-20); Calcium 7.9 mg/dL (8.4-10.2); Carbon Dioxide 27 mmol/L (22-30); Chloride 110 mmol/L (98-107); Glucose 135 mg/dL (74-99); Non-African American GFR(CKD) 28 (>60 ml/min/1.73 sqM); Potassium 3.9 mmol/L (3.5-5.1); Sodium 141 mmol/L (137-145)
[2023-07-20 06:06] LABS: ABG Base Excess 2.4 mmol/L; ABG HCO3 27 mmol/L (21-25); ABG Oxygen Saturation 96.4 % (94-97); ABG PCO2 42 mmHg (35-45); ABG PH 7.41 (7.35-7.45); ABG PO2 84 mmHg (83-108); ABG TCO2 28 mmol/L (19-24); Allen Test Performed? Yes
--- NOTE | 2023-07-20 07:24 | XR ---
EXAMINATION TYPE: XR chest 1V portable DATE OF EXAM: 07/20/2023 5:19 AM COMPARISON: Chest radiographs from 07/19/2023 TECHNIQUE: XR chest 1V portable Frontal view of the chest. CLINICAL INDICATION:Male, 68 years old with history of Tube placement; FINDINGS: Lungs/Pleura: There is no evidence of pleural effusion, focal consolidation, or pneumothorax. Pulmonary vascularity: Unremarkable. Heart/mediastinum: Cardiomediastinal silhouette is unremarkable. Musculoskeletal: No acute osseous pathology. Other findings: None Lines/Tubes: Endotracheal tube with distal tip 3.2 cm above the mary. Nasogastric tube with its distal tip and side-port projecting under the diaphragm. Left central venous catheter with distal tip at the cavoatrial junction. IMPRESSION: 1. Endotracheal and nasogastric tubes in appropriate position. 2. Left central venous catheter with tip in appropriate position. 3. Low lung volumes with a generalized hazy appearance which could represent atelectasis versus pulm onary edema correlate with serum BNP.
--- NOTE | 2023-07-20 07:35 | P.PN ---
Subjective Progress Note Date: 07/20/23 PROGRESS NOTE The patient is a 15-year-old male who presented with respiratory distress, respiratory arrest and cardiac arrest requiring CPR. He is intubated and sedated. He has a history of paroxysmal atrial fibrillation and he is in sinus mechanism at this time, anticoagulated. His urinary output is being. There is no evidence of malignant arrhythmia. Patient tested positive for COVID infection. He has a history of diabetes, hypertension. His echocardiogram showed an ejection fraction of 50-55%. Medications: Lipitor 20 mg daily, Decadron, Lopressor 50 mg twice a day, Xarelto 20 mg daily PHYSICAL EXAMINATION: Blood pressure 111/50 heart rate 80, intubated and sedated LUNGS: Clear to auscultation HEART: Regular rate and rhythm, S1, S2. No S3. No systolic murmur ABDOMEN: Soft, positive bowel sounds, no organomegaly EXTREMETIES: +1 edema with chronic skin changes LAB: Hemoglobin 12.1, BUN 57, creatinine 2.32 IMPRESSION: 1. Status post respiratory arrest, probably worsened by the infection 2. Paroxysmal atrial fibrillation, maintaining sinus mechanism, anticoagulated 3. Acute renal injury, improving 4. History of hyperlipidemia PLAN: 1. Attempt to wean and extubate 2. Follow renal functions and if needed adjust the dose of anticoagulation 3. Continue beta winsome 4. Depending on his progress further recommendations will be made Objective - Vital Signs Vital signs: Vital Signs Temp 97.3 F L 07/20/23 04:00 Pulse 81 07/20/23 07:00 Resp 18 07/20/23 07:00 BP 111/56 07/20/23 07:00 Pulse Ox 95 07/20/23 07:00 FiO2 50 07/20/23 07:00 Intake & Output 07/19/23 07/20/23 07/20/23 18:59 06:59 18:59 Intake Total 1618 1697.134 Output Total 1038 685 Balance 580 1012.134 Weight 136.4 kg Intake: IV 1053 972 Normal Saline Pressure 78 72 Bag Sodium Chloride 0.9% 1, 975 900 000 ml @ 75 mls/hr IV . [id number] [facility] Rx#:[id number] Intake, IV Titration 100 185.134 Amount propofoL 1,000 mg In 100 185.134 Empty Bag 1 bag @ 15 MCG/ KG/MIN 12.247 mls/hr IV . Q8H10M [facility] Rx#:[id number] Tube Feeding 405 540 Other 60 Output: Urine 1038 685 Other: Voiding Method Indwelling Catheter Indwelling Catheter ABP, PAP, CO, CI - Last Documented Arterial Blood Pressure 124/49 - Labs CBC & Chem 7: 07/20/23 05:15 07/20/23 05:15 Labs: Abnormal Lab Results - Last 24 Hours (Table) 07/19/23 07/19/23 07/19/23 Range/Units 10:47 12:15 17:52 RBC (4.30-5.90) m/uL Hgb (13.0-17.5) gm/dL Hct (39.0-53.0) % ABG HCO3 26 H (21-25) mmol/L ABG Total CO2 27 H (19-24) mmol/L ABG O2 Saturation 97.5 H (94-97) % Chloride (98-107) mmol/L BUN (9-20) mg/dL Creatinine (0.66-1.25) mg/dL Glucose (74-99) mg/dL POC Glucose (mg/dL) 164 H 221 H (70-110) mg/dL Calcium (8.4-10.2) mg/dL 07/19/23 07/20/23 07/20/23 Range/Units 23:48 05:15 05:15 RBC 3.79 L (4.30-5.90) m/uL Hgb 12.1 L (13.0-17.5) gm/dL Hct 37.0 L (39.0-53.0) % ABG HCO3 (21-25) mmol/L ABG Total CO2 (19-24) mmol/L ABG O2 Saturation (94-97) % Chloride 110 H (98-107) mmol/L BUN 57 H (9-20) mg/dL Creatinine 2.32 H (0.66-1.25) mg/dL Glucose 135 H (74-99) mg/dL POC Glucose (mg/dL) 176 H (70-110) mg/dL Calcium 7.9 L (8.4-10.2) mg/dL 07/20/23 Range/Units 06:01 RBC (4.30-5.90) m/uL Hgb (13.0-17.5) gm/dL Hct (39.0-53.0) % ABG HCO3 27 H (21-25) mmol/L ABG Total CO2 28 H (19-24) mmol/L ABG O2 Saturation (94-97) % Chloride (98-107) mmol/L BUN (9-20) mg/dL Creatinine (0.66-1.25) mg/dL Glucose (74-99) mg/dL POC Glucose (mg/dL) (70-110) mg/dL Calcium (8.4-10.2) mg/dL
[2023-07-20] MEDS: SYMBICORT 160-4.5 MCG INHALER INHALATION SCH ×2 (08:42→21:04)
[2023-07-20] MEDS: CHLORHEXIDINE GLUCONATE 15 ML CUP MUCOUS MEM SCH ×2 (08:45→20:01)
[2023-07-20] MEDS: SODIUM CHLORIDE 0.9% 1,000 ML IV SCH ×2 (08:45→23:03)
[2023-07-20] MEDS: PANTOPRAZOLE 40 MG/10 ML VIAL IV SCH (08:46)
[2023-07-20] MEDS: DEXAMETHASONE SOD PHOSPHATE 10 MG/ML 1 ML VIAL IVP SCH (08:46)
[2023-07-20] MEDS: RIVAROXABAN 20 MG TAB PO SCH (08:46)
[2023-07-20] MEDS: METOPROLOL TARTRATE 50 MG TAB PO SCH ×2 (08:46→20:01)
[2023-07-20] MEDS: ATORVASTATIN 20 MG TAB PO SCH (08:46)
[2023-07-20] MEDS: DEXMEDETOMIDINE/0.9% NACL(PMX) 400 MCG in EMPTY BAG 1 BAG IV SCH (11:00)
[2023-07-20 11:44] LABS: Glucose,Whole Blood 177 mg/dL (70-110)
--- NOTE | 2023-07-20 12:33 | P.PN ---
Subjective Progress Note Date: 07/20/23 Principal diagnosis: Acute cardiopulmonary arrest/asystole 68-year-old male patient, morbidly obese, known history of obstructive sleep apnea, chronic atrial fibrillation maintained on long-term and the coagulation with Xarelto in addition to history of diabetes mellitus type 2, hypertension and obesity. The patient was brought into the emergency department with cardiac arrest. The patient was at home and he was complaining of some shortness of breath. He was supposed to see his primary care physician, however he acutely became unresponsive. The patient's was there and she activated EMS. The downtime reported was approximately 7 minutes before EMS arrival. The patient was found to be in asystole and CPR was initiated. The patient was intubated. The patient received epinephrine based on the ACLS protocol. The CPR time was around 10-12 minutes and following that there was return of spontaneous circulation. Following that, the patient was brought into the emergency department. The patient EKG was consistent with A. fib with RVR. The patient's BP was 120/94. The patient was given a chest x-ray that showed no acute abnormalities. He was started on propofol which is currently running at 50 mcg/kg/m. No seizure activity has been noted. CAT scan of the brain is not done. CT angiogram of the chest has not been done. Cardiac enzymes showed a troponin of 0.136. Initial blood gas showed a pH of 7.2 with episodes of 53 and pO2 of 336. His current vent settings with an assist control of 24 with a tidal volume of 500, FiO2 is 50% with a PEEP of 5. Urine operas in order of 40-50 mL an hour. He is afebrile. He is on no pressors. No reported aspiration. The donor is currently 11.2, hemoglobin is 15 with a platelet count of 218. Normal coagulation profile. BUN is at 24 with a creatinine of 1.1. Initial lactic acid level is at 7.6. ProBNP level was 1250. Serum bicarb is at 22. Glucose at 157. 07/19/2023, the patient was taken off sedation. He is tracking. He was able to wiggle his toes upon demand. His profoundly weak. He opens his eyes spontaneously. No nystagmus. Pupils are equal and reactive to light. No seizure activity has been noted. The patient was earlier on propofol at a dose of 75 mcg/kg/m and currently is off sedation. He remains on a mechanical ventilator, assist control mode at the rate of 24, tidal volume of 500, FiO2 is down to 40% with a PEEP of 5. Is chest x-ray showing lower lobe infiltrates bilaterally. Lung volumes are small. Orotracheal tube is in a good location. The patient also has a or G-tube in place. In terms of his blood gas, the patient has a pH of 7.39 with a pCO2 of 44 and pO2 of 103. He does have respiratory secretions are being suctioned. White cell cause of 10.5 with a hemoglobin 12.6 and a platelet count of 188. Sodium is at 140, potassium is at 4, chloride 16 and a bicarb is 26. He did sustain an acute kidney injury and the creatinine is improved compared to yesterday's down to 2.7. BUN is 56. Potassium levels of 4.0. Fluid balance over the past 24 hours is +1.7 L. The patient remains on bronchodilators. The patient remains on Decadron 6 mg IV ev caridad 24 hours. He is on long-term anticoagulation with Xarelto. His cardiac rhythm is sinus. Echocardiogram done on 07/17/2023 shows a preserved LV function. He is afebrile. He is on no pressors. No other significant events overnight. Feeding is in the form of vital high-protein which is currently at goal. Reevaluated today on 07/20/2023, asymptomatic clinically ventilated, he is on assist control rate of 16 tidal volume 500 FiO2 40% and PEEP of 5, ABG showed a pO2 of 84 pCO2 42 pH of 7.41. Patient is now in sinus rhythm, he converted from atrial fibrillation. CT of the brain was negative EEG was normal. Patient remains on propofol at 15 mcg/kg/m IV fluids 75 mL an hour vital HPI 25 mL per hour yesterday the patient went on CPAP from 9:15 till 2 PM, however he was noted to get more shortness of breath at the end of the day, and he had to be placed back on assist control mode of mechanical ventilation. Surprisingly the patient Downs time was about 20 minutes patient arrested in the car on 07/12/2023. Echocardiogram showed good LV function with ejection fraction of 50- 55%. My plan today is to place the patient on Precedex, off propofol, and give him a trial of pressure support of 10 and CPAP. According to the note from yesterday, patient was appropriate and he was following instructions yesterday WBC count today is 8.4 hemoglobin is 12.1. Basic metabolic profile is normal however his renal profile is abnormal. BUN of 57 creatinine 2.32 chest x-ray showed endotracheal tube in proper position low lung volumes with generalized hazy appearance, could represent mostly atelectasis. Doubt pulmonary edema patient is tolerating enteral feeding vital HPI 45 mL per hour. Objective - Vital Signs Vital signs: Vital Signs Temp 97.3 F L 07/20/23 04:00 Pulse 81 07/20/23 07:00 Resp 18 07/20/23 07:00 BP 111/56 07/20/23 07:00 Pulse Ox 95 07/20/23 07:00 FiO2 40 07/20/23 12:00 Intake & Output 07/19/23 07/20/23 07/20/23 18:59 06:59 18:59 Intake Total 1618 1697.134 91.010 Output Total 1038 685 Balance 580 1012.134 91.010 Weight 136.4 kg 136.4 kg Intake: IV 1053 972 Normal Saline Pressure 78 72 Bag Sodium Chloride 0.9% 1, 975 900 000 ml @ 75 mls/hr IV . [id number] [facility] Rx#:[id number] Intake, IV Titration 100 185.134 91.010 Amount Dexmedetomidine/0.9% NaCl 12.561 (Pmx) 400 mcg In Empty Bag 1 bag @ 0.2 MCG/KG/HR 6.82 mls/hr IV .[id number] [facility] Rx#:[id number] propofoL 1,000 mg In 100 185.134 78.449 Empty Bag 1 bag @ 15 MCG/ KG/MIN 12.247 mls/hr IV . Q8H10M [facility] Rx#:[id number] Tube Feeding 405 540 Other 60 Output: Urine 1038 685 Other: Voiding Method Indwelling Catheter Indwelling Catheter ABP, PAP, CO, CI - Last Documented Arterial Blood Pressure 124/49 - Exam Physical Exam: Revealed a 68-year-old white male obese in no distress intubated mechanically ventilated, sedated Head: Atraumatic, normocephalic. The tracheal tube and orogastric tube are intact HEENT:[Neck is supple.] [No neck masses.] [No thyromegaly.] [No JVD.] Chest: [Diminished breath sound bilaterally no crackles or rhonchi symmetrical chest expansion.] Cardiac Exam: [Normal S1 and S2, no S3 gallop, no murmur.] Abdomen: [Obese, Soft, nontender, no megaly, no rebound, no guarding, normal bowel sounds.] Extremities: [No clubbing, no edema, no cyanosis.] Chronic venous stasis changes noted bilaterally in both lower extremities Neurological Exam: Could not be assessed patient is on propofol Psychiatric: Could not assess on propofol - Labs CBC & Chem 7: 07/20/23 05:15 07/20/23 05:15 Labs: Abnormal Lab Results - Last 24 Hours (Table) 07/19/23 07/19/23 07/20/23 Range/Units 17:52 23:48 05:15 RBC 3.79 L (4.30-5.90) m/uL Hgb 12.1 L (13.0-17.5) gm/dL Hct 37.0 L (39.0-53.0) % ABG HCO3 (21-25) mmol/L ABG Total CO2 (19-24) mmol/L Chloride (98-107) mmol/L BUN (9-20) mg/dL Creatinine (0.66-1.25) mg/dL Glucose (74-99) mg/dL POC Glucose (mg/dL) 221 H 176 H (70-110) mg/dL Calcium (8.4-10.2) mg/dL 07/20/23 07/20/23 07/20/23 Range/Units 05:15 06:01 11:42 RBC (4.30-5.90) m/uL Hgb (13.0-17.5) gm/dL Hct (39.0-53.0) % ABG HCO3 27 H (21-25) mmol/L ABG Total CO2 28 H (19-24) mmol/L Chloride 110 H (98-107) mmol/L BUN 57 H (9-20) mg/dL Creatinine 2.32 H (0.66-1.25) mg/dL Glucose 135 H (74-99) mg/dL POC Glucose (mg/dL) 177 H (70-110) mg/dL Calcium 7.9 L (8.4-10.2) mg/dL Assessment and Plan Assessment: Impression: Acute hypoxic and hypercapnic respiratory failure secondary to cardiac arrest/prolonged downtime about 20 minutes. Acute COVID-19 infection, incidental finding, Chronic atrial fibrillation Morbid obesity BMI of 40.7 Type 2 diabetes currently on sliding scale coverage Obstructive sleep apnea syndrome with index of 90 Recent hospitalization for bilateral pneumonia Chronic bronchial asthma Acute kidney injury secondary to cardiac arrest Nonspecific pulmonary nodules Benign essential hypertension Possible mild anoxic brain injury and hypoxic encephalopathy Recommendation: Continue ventilatory support Sedation holiday again today and consider trial of weaning the patient is appropriate will use pressure support and CPAP. Continue Decadron. Continue insulin sliding scale coverage Continue Xarelto Continue GI and DVT prophylaxis Continue to monitor renal status/renal profile Continue nutritional support/enteral feeding with vital HP Patient remains critically ill Critical care time is over 30 minutes We will continue to follow Time with Patient: Greater than 30
--- NOTE | 2023-07-20 16:17 | CT ---
EXAMINATION TYPE: CT brain wo con DATE OF EXAM: 07/20/2023 COMPARISON: 07/16/2023 HISTORY: ams CT DLP: 1232.[address] of the brain was performed. The ventricles, basal cisterns and sulci overlying the cerebral convexities demonstrate mild enlargem ent. Focal decreased attenuation right cerebellar hemisphere could reflect acute ischemic insult. Cor relate with MRI. There is no evidence for intracranial hemorrhage or sulcal effacement. There is decreased attenuation about the periventricular white matter and deep white matter of both c erebral hemispheres, compatible with chronic small vessel ischemia. Differential diagnosis does inclu de demyelination. No mass effects are seen.No midline shift. Osseous calvarium is intact. If symptoms persist consider MRI. IMPRESSION: 1.Focal decreased attenuation right cerebellar hemisphere could reflect acute ischemic insult. Correl ate with MRI. 2. Age related atrophic and chronic small vessel ischemic change.
[2023-07-20 18:15] LABS: Glucose,Whole Blood 226 mg/dL (70-110)
--- NOTE | 2023-07-20 19:44 | US ---
EXAMINATION TYPE: US carotid duplex BILAT DATE OF EXAM: 07/20/2023 COMPARISON: NONE CLINICAL INDICATION: Male, 68 years old with history of stroke; stroke. ICU pt on vent TECHNIQUE: Carotid duplex ultrasound examination. Indirect Doppler criteria was utilized. 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 No plaque seen IMPRESSION: 1. Less than 50% stenosis of the bilateral carotid bifurcations. 2. The right vertebral artery is not visualized. Criteria for Assigning % of Stenosis / Diameter reduction (Estimation based on the indirect measurements of the internal carotid artery velocities (ICA PSV). 1. Normal (no stenosis)=ICA PSV < 125 cm/s: ratio < 2.0: ICA EDV<40 cm/s. 2. Less than 50% stenosis=ICA PSV < 125 cm/s: ratio < 2.0: ICA EDV<40 cm/s. 3. 50 to 69% stenosis=ICA PSV of 125 to 230 cm/s: ration 2.0 ? 4.0: ICA EDV 40-100 cm/s. 4. Greater than 70% stenosis to near occlusion= ICA PSV > 230 cm/s: ratio > 4.0: ICA EDV > 100 cm/s. 5. Near occlusion= ICA PSV velocities may be low or undetectable: variable ratio and ICA EDV. 6. Total occlusion=unable to detect flow.
--- NOTE | 2023-07-20 19:50 | P.PN ---
Subjective Progress Note Date: 07/20/23 I'm seeing the patient for the first time during this admission. Please refer to Dr. Cottrell's note for further details. Seems the patient had a cardiac arrest with prolonged downtime of 30 minutes and he was in asystole. Today according to the nurse she continues to be intubated on a ventilator and is on IV propofol and Precedex. Sedation was being weaned down today but was not following commands as a result the CT head was reported as focal decreased attenuation in the right cerebellar hemisphere could reflect acute ischemic insult. Pressure reviewed the CT and I felt was questionable since the CT of the head is not the best study for posterior circulation the region. Objective - Vital Signs Vital signs: Vital Signs Temp 99.0 F 07/20/23 17:00 Pulse 63 07/20/23 19:00 Resp 16 07/20/23 19:00 BP 117/71 07/20/23 18:00 Pulse Ox 97 07/20/23 19:00 FiO2 50 07/20/23 17:00 Intake & Output 07/20/23 07/20/23 07/21/23 06:59 18:59 06:59 Intake Total 0250.580 9258.103 Output Total 685 893 Balance 1012.134 179.103 Weight 136.4 kg 136.4 kg Intake: IV 972 972 Normal Saline Pressure 72 72 Bag Sodium Chloride 0.9% 1, 900 900 000 ml @ 75 mls/hr IV . [id number] [facility] Rx#:[id number] Intake, IV Titration 185.134 100.103 Amount Dexmedetomidine/0.9% NaCl 21.654 (Pmx) 400 mcg In Empty Bag 1 bag @ 0.2 MCG/KG/HR 6.82 mls/hr IV .[id number] [facility] Rx#:[id number] propofoL 1,000 mg In 185.134 78.449 Empty Bag 1 bag @ 15 MCG/ KG/MIN 12.247 mls/hr IV . Q8H10M [facility] Rx#:[id number] Tube Feeding 540 Output: Urine 685 893 Other: Voiding Method Indwelling Catheter Indwelling Catheter ABP, PAP, CO, CI - Last Documented Arterial Blood Pressure 119/45 - Exam General the patient is lying and is not in acute distress Long is a intubated on a ventilator Neuro: Painful stimuli the patient opens his eyes and tracks. He was a wiggling his toes. Goals are round equal and reactive to light. No facial weakness. Patient has edema in all extremities. - Labs CBC & Chem 7: 07/20/23 05:15 07/20/23 05:15 Labs: Abnormal Lab Results - Last 24 Hours (Table) 07/19/23 07/20/23 07/20/23 Range/Units 23:48 05:15 05:15 RBC 3.79 L (4.30-5.90) m/uL Hgb 12.1 L (13.0-17.5) gm/dL Hct 37.0 L (39.0-53.0) % ABG HCO3 (21-25) mmol/L ABG Total CO2 (19-24) mmol/L Chloride 110 H (98-107) mmol/L BUN 57 H (9-20) mg/dL Creatinine 2.32 H (0.66-1.25) mg/dL Glucose 135 H (74-99) mg/dL POC Glucose (mg/dL) 176 H (70-110) mg/dL Calcium 7.9 L (8.4-10.2) mg/dL 07/20/23 07/20/23 07/20/23 Range/Units 06:01 11:42 18:13 RBC (4.30-5.90) m/uL Hgb (13.0-17.5) gm/dL Hct (39.0-53.0) % ABG HCO3 27 H (21-25) mmol/L ABG Total CO2 28 H (19-24) mmol/L Chloride (98-107) mmol/L BUN (9-20) mg/dL Creatinine (0.66-1.25) mg/dL Glucose (74-99) mg/dL POC Glucose (mg/dL) 177 H 226 H (70-110) mg/dL Calcium (8.4-10.2) mg/dL Assessment and Plan Assessment: * Status post cardiac arrest with prolonged downtime of 30 minutes as per EMS flow sheet documentation. Patient was in asystole. * Altered mental status due to sedation effect as well as anoxic encephalopathy. CT of the head was reported as focal attenuation in the right cerebellar hemisphere but I felt was questionable and the CT head is not the best study to evaluate posterior circulation region. On examination the patient the open his eyes to painful stimuli and was following the few simple commands and was wiggling the toes and was tracking. * Ventilator-dependent respiratory failure due to cardiac arrest, on mechanical ventilation. * Atrial fibrillation with rapid ventricular rate * Probable aspiration pneumonia * Lactic acidosis * Acute renal failure * Diabetes type 2 * Morbid obesity * Hypertension * Pulmonary nodules. Plan: * EEG 07/17/2023, was reported as abnormal due to background slowing of moderate degree, suggestive of generalized cerebral dysfunction as can be seen with toxic metabolic encephalopathy. Clinical correlation is recommended. No obvious epileptiform activity was seen. * Initial CT head showed no acute process. Nonspecific white matter changes. Repeated that CT of the head is reported as the focal attenuation the right cerebellar which I feel is questionable and is not the best study. We'll consider MRI the brain once the patient is extubated for better evaluation * I ordered carotid duplex * With painful stimuli the patient was opening his eyes tracking and wiggling toes. * Patient currently on Xarelto for atrial fibrillation. * Other medical management as per IM and critical care. The plan was discussed with the patient's ICU nurse We'll continue to follow. Time with Patient: Less than 30
[2023-07-20 22:49] LABS: Glucose,Whole Blood 178 mg/dL (70-110)
[2023-07-21] MEDS: ALBUTEROL HFA INHALER INHALATION SCH ×5 (03:04→20:25)
[2023-07-21 03:22] LABS: Chol/HDL Ratio 2.31 Ratio; LDL Cholesterol,Calculated 25.4 mg/dL (0.0-131.0)
[2023-07-21 03:28] LABS: Basophils % (A) 0 %; Eosinophils # (A) 0.1 k/uL (0-0.7); Eosinophils % (A) 1 %; HCT 39.3 % (39.0-53.0); HGB 12.6 gm/dL (13.0-17.5); Lymphocytes # (A) 1.4 k/uL (1.0-4.8); Lymphocytes % (A) 15 %; MCH 31.8 pg (25.0-35.0); MCV 99.4 fL (80.0-100.0); Macrocytosis Slight; Mean Platelet Volume 8.4; Monocytes % (A) 10 %; Neutrophils # (A) 6.6 k/uL (1.3-7.7); Neutrophils % (A) 71 %; Platelet Count 170 k/uL (150-450); RBC 3.96 m/uL (4.30-5.90); RDW 15.5 % (11.5-15.5); WBC 9.4 k/uL (3.8-10.6)
[2023-07-21 03:33] LABS: African American GFR (CKD) 40 (>60 ml/min/1.73 sqM); Anion Gap 5 mmol/L; Blood Urea Nitrogen 57 mg/dL (9-20); Calcium 8.1 mg/dL (8.4-10.2); Carbon Dioxide 25 mmol/L (22-30); Chloride 113 mmol/L (98-107); Glucose 138 mg/dL (74-99); Non-African American GFR(CKD) 35 (>60 ml/min/1.73 sqM); Sodium 143 mmol/L (137-145)
[2023-07-21 05:45] LABS: Glucose,Whole Blood 130 mg/dL (70-110)
[2023-07-21] MEDS: INSULIN ASPART (NovoLOG) 100 UNIT/ML VIAL SQ SCH ×4 (05:47→23:21)
[2023-07-21 05:56] LABS: ABG Base Excess 1.9 mmol/L; ABG HCO3 27 mmol/L (21-25); ABG Oxygen Saturation 97.4 % (94-97); ABG PCO2 43 mmHg (35-45); ABG PO2 96 mmHg (83-108); ABG TCO2 28 mmol/L (19-24); Allen Test Performed? Yes
[2023-07-21] MEDS: RIVAROXABAN 15 MG TAB PO SCH (06:44)
--- NOTE | 2023-07-21 07:18 | XR ---
EXAMINATION TYPE: XR chest 1V portable DATE OF EXAM: 07/21/2023 COMPARISON: 07/20/2023 HISTORY: SOB, Follow Up FINDINGS: Indwelling tubes and catheters are unchanged. Increased density right lower lobe may reflect underlying atelectasis, effusion and/or infiltrate. Le ft medial basilar infiltrate or atelectasis is unchanged. Stable appearance of the cardio-mediastinal structures at this time. IMPRESSION: 1. Stable portable chest. Clinical correlation and follow up until resolution is recommended.
--- NOTE | 2023-07-21 07:47 | P.PN ---
Subjective Progress Note Date: 07/21/23 PROGRESS NOTE The patient is a 68-year-old male who presented with respiratory distress, respiratory arrest and cardiac arrest requiring CPR. He is intubated and sedated. He has a history of paroxysmal atrial fibrillation and he is in sinus mechanism at this time, anticoagulated. His urinary output is being. There is no evidence of malignant arrhythmia. Patient tested positive for COVID infection. He has a history of diabetes, hypertension. His echocardiogram showed an ejection fraction of 50-55%. July 21: The patient remains intubated and sedated, in sinus mechanism. Blood pressure is stable. His urine output has been good. There is no evidence of ventricular ectopic activity. Hemodynamically he stable. He continues to be anticoagulated. Medications: Lipitor 20 mg daily, Decadron, Lopressor 50 mg twice a day, Xarelto 15 mg daily PHYSICAL EXAMINATION: Blood pressure 114/86 heart rate 67, intubated and sedated LUNGS: Clear to auscultation HEART: Regular rate and rhythm, S1, S2. No S3. No systolic murmur ABDOMEN: Soft, positive bowel sounds, no organomegaly EXTREMETIES: +1 edema with chronic skin changes LAB: Hemoglobin 12.6, BUN 57, creatinine 1.90, potassium 4.0 IMPRESSION: 1. Status post respiratory arrest, probably worsened by the infection 2. Paroxysmal atrial fibrillation, maintaining sinus mechanism, anticoagulated 3. Acute renal injury, improving 4. History of hyperlipidemia PLAN: 1. Attempt to wean and extubate 2. Follow renal functions 3. Depending on the renal function tomorrow chest the dose of anticoagulation Objective - Vital Signs Vital signs: Vital Signs Temp 97.7 F 07/21/23 04:00 Pulse 67 07/21/23 07:00 Resp 16 07/21/23 07:00 BP 114/86 07/21/23 07:00 Pulse Ox 98 07/21/23 07:00 FiO2 40 07/21/23 04:00 Intake & Output 07/20/23 07/21/23 07/21/23 18:59 06:59 18:59 Intake Total 5668.599 4852 120 Output Total 893 835 100 Balance 179.103 455 20 Weight 136.4 kg 141.4 kg Intake: IV 972 600 75 Normal Saline Pressure 72 Bag Sodium Chloride 0.9% 1, 900 600 75 000 ml @ 75 mls/hr IV . [id number] [facility] Rx#:[id number] Intake, IV Titration 100.103 225 Amount Dexmedetomidine/0.9% NaCl 21.654 (Pmx) 400 mcg In Empty Bag 1 bag @ 0.2 MCG/KG/HR 6.82 mls/hr IV .[id number] [facility] Rx#:[id number] Sodium Chloride 0.9% 1, 225 000 ml @ 75 mls/hr IV . [id number] [facility] Rx#:[id number] propofoL 1,000 mg In 78.449 Empty Bag 1 bag @ 15 MCG/ KG/MIN 12.247 mls/hr IV . [id number] [facility] Rx#:[id number] Tube Feeding 405 45 Other 60 Output: Urine 893 835 100 Other: Voiding Method Indwelling Catheter Indwelling Catheter ABP, PAP, CO, CI - Last Documented Arterial Blood Pressure 127/50 - Labs CBC & Chem 7: 07/21/23 03:20 07/21/23 03:20 Labs: Abnormal Lab Results - Last 24 Hours (Table) 07/20/23 07/20/23 07/20/23 Range/Units 11:42 16:45 18:13 RBC (4.30-5.90) m/uL Hgb (13.0-17.5) gm/dL ABG HCO3 (21-25) mmol/L ABG Total CO2 (19-24) mmol/L ABG O2 Saturation (94-97) % Chloride (98-107) mmol/L BUN (9-20) mg/dL Creatinine (0.66-1.25) mg/dL Glucose (74-99) mg/dL POC Glucose (mg/dL) 177 H 226 H (70-110) mg/dL Calcium (8.4-10.2) mg/dL HDL Cholesterol 35.00 L (40.00-60.00) mg/dL 07/20/23 07/21/23 07/21/23 Range/Units 22:48 03:20 03:20 RBC 3.96 L (4.30-5.90) m/uL Hgb 12.6 L (13.0-17.5) gm/dL ABG HCO3 (21-25) mmol/L ABG Total CO2 (19-24) mmol/L ABG O2 Saturation (94-97) % Chloride 113 H (98-107) mmol/L BUN 57 H (9-20) mg/dL Creatinine 1.90 H (0.66-1.25) mg/dL Glucose 138 H (74-99) mg/dL POC Glucose (mg/dL) 178 H (70-110) mg/dL Calcium 8.1 L (8.4-10.2) mg/dL HDL Cholesterol (40.00-60.00) mg/dL 07/21/23 07/21/23 Range/Units 05:44 05:52 RBC (4.30-5.90) m/uL Hgb (13.0-17.5) gm/dL ABG HCO3 27 H (21-25) mmol/L ABG Total CO2 28 H (19-24) mmol/L ABG O2 Saturation 97.4 H (94-97) % Chloride (98-107) mmol/L BUN (9-20) mg/dL Creatinine (0.66-1.25) mg/dL Glucose (74-99) mg/dL POC Glucose (mg/dL) 130 H (70-110) mg/dL Calcium (8.4-10.2) mg/dL HDL Cholesterol (40.00-60.00) mg/dL
[2023-07-21] MEDS: DEXMEDETOMIDINE/0.9% NACL(PMX) 400 MCG in EMPTY BAG 1 BAG IV SCH ×2 (08:13→16:43)
[2023-07-21] MEDS: CHLORHEXIDINE GLUCONATE 15 ML CUP MUCOUS MEM SCH ×2 (08:17→21:07)
[2023-07-21] MEDS: DEXAMETHASONE SOD PHOSPHATE 10 MG/ML 1 ML VIAL IVP SCH (08:18)
[2023-07-21] MEDS: SODIUM CHLORIDE 0.9% 1,000 ML IV SCH (08:18)
[2023-07-21] MEDS: METOPROLOL TARTRATE 50 MG TAB PO SCH ×2 (08:18→21:07)
[2023-07-21] MEDS: ATORVASTATIN 20 MG TAB PO SCH (08:18)
[2023-07-21] MEDS: PANTOPRAZOLE 40 MG/10 ML VIAL IV SCH (08:18)
[2023-07-21] MEDS: SYMBICORT 160-4.5 MCG INHALER INHALATION SCH ×2 (08:34→20:25)
[2023-07-21] MEDS ORDERED: FUROSEMIDE 10 MG/ML 4 ML VIAL IV STA (09:32)
[2023-07-21 11:17] LABS: Glucose,Whole Blood 175 mg/dL (70-110)
--- NOTE | 2023-07-21 12:48 | P.PN ---
Subjective Progress Note Date: 07/21/23 Principal diagnosis: Acute cardiopulmonary arrest/asystole 68-year-old male patient, morbidly obese, known history of obstructive sleep apnea, chronic atrial fibrillation maintained on long-term and the coagulation with Xarelto in addition to history of diabetes mellitus type 2, hypertension and obesity. The patient was brought into the emergency department with cardiac arrest. The patient was at home and he was complaining of some shortness of breath. He was supposed to see his primary care physician, however he acutely became unresponsive. The patient's was there and she activated EMS. The downtime reported was approximately 7 minutes before EMS arrival. The patient was found to be in asystole and CPR was initiated. The patient was intubated. The patient received epinephrine based on the ACLS protocol. The CPR time was around 10-12 minutes and following that there was return of spontaneous circulation. Following that, the patient was brought into the emergency department. The patient EKG was consistent with A. fib with RVR. The patient's BP was 120/94. The patient was given a chest x-ray that showed no acute abnormalities. He was started on propofol which is currently running at 50 mcg/kg/m. No seizure activity has been noted. CAT scan of the brain is not done. CT angiogram of the chest has not been done. Cardiac enzymes showed a troponin of 0.136. Initial blood gas showed a pH of 7.2 with episodes of 53 and pO2 of 336. His current vent settings with an assist control of 24 with a tidal volume of 500, FiO2 is 50% with a PEEP of 5. Urine operas in order of 40-50 mL an hour. He is afebrile. He is on no pressors. No reported aspiration. The donor is currently 11.2, hemoglobin is 15 with a platelet count of 218. Normal coagulation profile. BUN is at 24 with a creatinine of 1.1. Initial lactic acid level is at 7.6. ProBNP level was 1250. Serum bicarb is at 22. Glucose at 157. 07/19/2023, the patient was taken off sedation. He is tracking. He was able to wiggle his toes upon demand. His profoundly weak. He opens his eyes spontaneously. No nystagmus. Pupils are equal and reactive to light. No seizure activity has been noted. The patient was earlier on propofol at a dose of 75 mcg/kg/m and currently is off sedation. He remains on a mechanical ventilator, assist control mode at the rate of 24, tidal volume of 500, FiO2 is down to 40% with a PEEP of 5. Is chest x-ray showing lower lobe infiltrates bilaterally. Lung volumes are small. Orotracheal tube is in a good location. The patient also has a or G-tube in place. In terms of his blood gas, the patient has a pH of 7.39 with a pCO2 of 44 and pO2 of 103. He does have respiratory secretions are being suctioned. White cell cause of 10.5 with a hemoglobin 12.6 and a platelet count of 188. Sodium is at 140, potassium is at 4, chloride 16 and a bicarb is 26. He did sustain an acute kidney injury and the creatinine is improved compared to yesterday's down to 2.7. BUN is 56. Potassium levels of 4.0. Fluid balance over the past 24 hours is +1.7 L. The patient remains on bronchodilators. The patient remains on Decadron 6 mg IV ev caridad 24 hours. He is on long-term anticoagulation with Xarelto. His cardiac rhythm is sinus. Echocardiogram done on 07/17/2023 shows a preserved LV function. He is afebrile. He is on no pressors. No other significant events overnight. Feeding is in the form of vital high-protein which is currently at goal. Reevaluated today on 07/20/2023, asymptomatic clinically ventilated, he is on assist control rate of 16 tidal volume 500 FiO2 40% and PEEP of 5, ABG showed a pO2 of 84 pCO2 42 pH of 7.41. Patient is now in sinus rhythm, he converted from atrial fibrillation. CT of the brain was negative EEG was normal. Patient remains on propofol at 15 mcg/kg/m IV fluids 75 mL an hour vital HPI 25 mL per hour yesterday the patient went on CPAP from 9:15 till 2 PM, however he was noted to get more shortness of breath at the end of the day, and he had to be placed back on assist control mode of mechanical ventilation. Surprisingly the patient Downs time was about 20 minutes patient arrested in the car on 07/12/2023. Echocardiogram showed good LV function with ejection fraction of 50- 55%. My plan today is to place the patient on Precedex, off propofol, and give him a trial of pressure support of 10 and CPAP. According to the note from yesterday, patient was appropriate and he was following instructions yesterday WBC count today is 8.4 hemoglobin is 12.1. Basic metabolic profile is normal however his renal profile is abnormal. BUN of 57 creatinine 2.32 chest x-ray showed endotracheal tube in proper position low lung volumes with generalized hazy appearance, could represent mostly atelectasis. Doubt pulmonary edema patient is tolerating enteral feeding vital HPI 45 mL per hour. Reevaluated today on 07/21/2023, patient remains in the ICU intubated and mechanically ventilated, his mental status seems to be waxing and waning, he is again not responding to any stimuli, sedation on assist control rate of 16 tidal volume 500 FiO2 40% and PEEP of 5 ABG showed a pO2 of 96 pCO2 43 pH of 7.40 hence no changes were made in his vent settings. Repeat CT of the brain showed questionable new acute ischemic event. Chest x-ray continues to show moderate right-sided pleural effusion with atelectasis of the right lower lobe. WBC count is 9.4 hemoglobin is 12.6 electrolytes are normal renal profile showed a BUN of 57 creatinine 1.90. Patient is not requiring any pressors he is on nutritional support/enteral feeding. Considering the patient's neurological status, I'm not planning any further trials of weaning today, patient is not ready for weaning. Being evaluated by neurology again for his worsening neurological status and mental status. EEG showed moderate degree of g eneralized cerebral dysfunction with toxic metabolic encephalopathy, carotid Doppler is basically unremarkable. Objective - Vital Signs Vital signs: Vital Signs Temp 99.0 F 07/21/23 08:00 Pulse 71 07/21/23 08:00 Resp 16 07/21/23 08:00 BP 114/86 07/21/23 08:00 Pulse Ox 99 07/21/23 08:00 FiO2 40 07/21/23 12:04 Intake & Output 07/20/23 07/21/23 07/21/23 18:59 06:59 18:59 Intake Total 9175.853 2393 201 Output Total 893 835 200 Balance 179.103 455 1 Weight 136.4 kg 141.4 kg Intake: IV 972 600 156 Normal Saline Pressure 72 6 Bag Sodium Chloride 0.9% 1, 900 600 150 000 ml @ 75 mls/hr IV . [id number] [facility] Rx#:[id number] Intake, IV Titration 100.103 225 Amount Dexmedetomidine/0.9% NaCl 21.654 (Pmx) 400 mcg In Empty Bag 1 bag @ 0.2 MCG/KG/HR 6.82 mls/hr IV .[id number] [facility] Rx#:[id number] Sodium Chloride 0.9% 1, 225 000 ml @ 75 mls/hr IV . [id number] [facility] Rx#:[id number] propofoL 1,000 mg In 78.449 Empty Bag 1 bag @ 15 MCG/ KG/MIN 12.247 mls/hr IV . [id number] [facility] Rx#:[id number] Tube Feeding 405 45 Other 60 Output: Urine 893 835 200 Other: Voiding Method Indwelling Catheter Indwelling Catheter Indwelling Catheter ABP, PAP, CO, CI - Last Documented Arterial Blood Pressure 139/56 - Exam Physical Exam: Revealed a 68-year-old white male obese in no distress intubated mechanically ventilated, off sedation Head: Atraumatic, normocephalic. The tracheal tube and orogastric tube are intact HEENT:[Neck is supple.] [No neck masses.] [No thyromegaly.] [No JVD.] Chest: [Diminished breath sound bilaterally no crackles or rhonchi symmetrical chest expansion.] Cardiac Exam: [Normal S1 and S2, no S3 gallop, no murmur.] Abdomen: [Obese, Soft, nontender, no megaly, no rebound, no guarding, normal bowel sounds.] Extremities: [No clubbing, no edema, no cyanosis.] Chronic venous stasis changes noted bilaterally in both lower extremities Neurological Exam: Opens eyes and responds to deep painful stimuli does not follow any other instructions Psychiatric: Could not assess , mostly because of his neurological status - Labs CBC & Chem 7: 07/21/23 03:20 07/21/23 03:20 Labs: Abnormal Lab Results - Last 24 Hours (Table) 07/20/23 07/20/23 07/20/23 Range/Units 16:45 18:13 22:48 RBC (4.30-5.90) m/uL Hgb (13.0-17.5) gm/dL ABG HCO3 (21-25) mmol/L ABG Total CO2 (19-24) mmol/L ABG O2 Saturation (94-97) % Chloride (98-107) mmol/L BUN (9-20) mg/dL Creatinine (0.66-1.25) mg/dL Glucose (74-99) mg/dL POC Glucose (mg/dL) 226 H 178 H (70-110) mg/dL Calcium (8.4-10.2) mg/dL HDL Cholesterol 35.00 L (40.00-60.00) mg/dL 07/21/23 07/21/23 07/21/23 Range/Units 03:20 03:20 05:44 RBC 3.96 L (4.30-5.90) m/uL Hgb 12.6 L (13.0-17.5) gm/dL ABG HCO3 (21-25) mmol/L ABG Total CO2 (19-24) mmol/L ABG O2 Saturation (94-97) % Chloride 113 H (98-107) mmol/L BUN 57 H (9-20) mg/dL Creatinine 1.90 H (0.66-1.25) mg/dL Glucose 138 H (74-99) mg/dL POC Glucose (mg/dL) 130 H (70-110) mg/dL Calcium 8.1 L (8.4-10.2) mg/dL HDL Cholesterol (40.00-60.00) mg/dL 07/21/23 07/21/23 Range/Units 05:52 11:16 RBC (4.30-5.90) m/uL Hgb (13.0-17.5) gm/dL ABG HCO3 27 H (21-25) mmol/L ABG Total CO2 28 H (19-24) mmol/L ABG O2 Saturation 97.4 H (94-97) % Chloride (98-107) mmol/L BUN (9-20) mg/dL Creatinine (0.66-1.25) mg/dL Glucose (74-99) mg/dL POC Glucose (mg/dL) 175 H (70-110) mg/dL Calcium (8.4-10.2) mg/dL HDL Cholesterol (40.00-60.00) mg/dL Assessment and Plan Assessment: Impression: Acute hypoxic and hypercapnic respiratory failure secondary to cardiac arrest/prolonged downtime about 20 minutes. Acute COVID-19 infection, incidental finding, Chronic atrial fibrillation, on anticoagulation Morbid obesity BMI of 40.7 Type 2 diabetes currently on sliding scale coverage Obstructive sleep apnea syndrome with index of 90 Recent hospitalization for bilateral pneumonia Chronic bronchial asthma Acute kidney injury secondary to cardiac arrest Nonspecific pulmonary nodules Benign essential hypertension anoxic brain injury and hypoxic encephalopathy Recommendation: Continue ventilatory support Keep sedation hold Continue Decadron. Continue insulin sliding scale coverage Continue Xarelto Continue GI and DVT prophylaxis Continue to monitor renal status/renal profile EEG report was noted and reviewed. Continue nutritional support/enteral feeding with vital HP Patient remains critically ill Critical care time is over 30 minutes Time with Patient: Greater than 30
--- NOTE | 2023-07-21 15:00 | P.PN ---
Subjective Progress Note Date: 07/21/23 So 68-year-old gentleman admitted with acute hypoxic and hypercapnic respiratory failure secondary to cardiac arrest, prolonged downtime reported at 20-30 minutes, anoxic brain injury, hypoxic encephalopathy, acute COVID-19 infection and multiple other medical issues. Remains vent dependent, FiO2 50%/+5 of PEEP. Sedation remains on hold. Chest x-ray reporting increased density right lower lobe may reflect underlying atelectasis, effusion and/or infiltrate, left medial basilar infiltrate/atelectasis unchanged .telemetry sinus,no pressor support at this time .Staff reports patient was following commands and tracking with his eyes yesterday. Repeat Brain CT performed yesterday reported no evidence for intracranial hemorrhage or sulcal effacement, no mass effects, no midline shift, osseous calvarium is intact, focal decreased attenuation right cerebellar hemisphere could reflect acute ischemic insult, correlate with MRI, age-related atrophic and chronic small vessel ischemic change. EEG reported abnormal due to background slowing of moderate degree, suggestive of generalized cerebral dysfun ction seen with toxic metabolic encephalopathy or related to diffuse structural brain abnormality, no obvious epileptiform activity seen. Carotid Doppler reported less than 50% stenosis of bilateral carotid bifurcations, right vertebral artery not visualized. Receiving OT tube feedings of vital high protein. Anticoagulated on Xarelto, continues on Decadron. BUN remains at 57, Creatinine trending down, currently 1.9. Objective - Vital Signs Vital signs: Vital Signs Temp 99.0 F 07/21/23 12:00 Pulse 70 07/21/23 13:00 Resp 21 07/21/23 13:00 BP 114/70 07/21/23 13:00 Pulse Ox 95 07/21/23 13:00 FiO2 40 07/21/23 12:04 Intake & Output 07/20/23 07/21/23 07/21/23 18:59 06:59 18:59 Intake Total 4164.491 3606 606 Output Total 413 869 6446 Balance 179.103 455 -414 Weight 136.4 kg 141.4 kg Intake: IV 972 600 561 Normal Saline Pressure 72 36 Bag Sodium Chloride 0.9% 1, 900 600 525 000 ml @ 75 mls/hr IV . [id number] [facility] Rx#:[id number] Intake, IV Titration 100.103 225 Amount Dexmedetomidine/0.9% NaCl 21.654 (Pmx) 400 mcg In Empty Bag 1 bag @ 0.2 MCG/KG/HR 6.82 mls/hr IV .[id number] [facility] Rx#:[id number] Sodium Chloride 0.9% 1, 225 000 ml @ 75 mls/hr IV . [id number] [facility] Rx#:[id number] propofoL 1,000 mg In 78.449 Empty Bag 1 bag @ 15 MCG/ KG/MIN 12.247 mls/hr IV . [id number] [facility] Rx#:[id number] Tube Feeding 405 45 Other 60 Output: Urine 679 244 5858 Other: Voiding Method Indwelling Catheter Indwelling Catheter Indwelling Catheter ABP, PAP, CO, CI - Last Documented Arterial Blood Pressure 105/44 - Exam PHYSICAL EXAM: VITAL SIGNS: [As above] GENERAL: Intubated, off sedation, no acute distress HEENT: Normocephalic NECK: Supple No JVD. CARDIOVASCULAR: S1, S2 regular.No murmur RESPIRATION: Equal air entry ,Breath sounds diminished in the bases. No rhonchi or crackles. No bronchial breathing. ABDOMEN: Obese, Soft, No guarding. no masses palpable. Bowel sounds heard. LEGS: No edema. no swelling. Chronic venous stasis changes noted of bilateral lower extremities. PSYCHIATRY/NERVOUS SYSTEM: Limited exam :Cannot assess at this time secondary to his current neuro status. Skin: Warm and dry, no rash noted. - Labs CBC & Chem 7: 07/21/23 03:20 07/21/23 03:20 Labs: Abnormal Lab Results - Last 24 Hours (Table) 07/20/23 07/20/23 07/20/23 Range/Units 16:45 18:13 22:48 RBC (4.30-5.90) m/uL Hgb (13.0-17.5) gm/dL ABG HCO3 (21-25) mmol/L ABG Total CO2 (19-24) mmol/L ABG O2 Saturation (94-97) % Chloride (98-107) mmol/L BUN (9-20) mg/dL Creatinine (0.66-1.25) mg/dL Glucose (74-99) mg/dL POC Glucose (mg/dL) 226 H 178 H (70-110) mg/dL Calcium (8.4-10.2) mg/dL HDL Cholesterol 35.00 L (40.00-60.00) mg/dL 07/21/23 07/21/23 07/21/23 Range/Units 03:20 03:20 05:44 RBC 3.96 L (4.30-5.90) m/uL Hgb 12.6 L (13.0-17.5) gm/dL ABG HCO3 (21-25) mmol/L ABG Total CO2 (19-24) mmol/L ABG O2 Saturation (94-97) % Chloride 113 H (98-107) mmol/L BUN 57 H (9-20) mg/dL Creatinine 1.90 H (0.66-1.25) mg/dL Glucose 138 H (74-99) mg/dL POC Glucose (mg/dL) 130 H (70-110) mg/dL Calcium 8.1 L (8.4-10.2) mg/dL HDL Cholesterol (40.00-60.00) mg/dL 07/21/23 07/21/23 Range/Units 05:52 11:16 RBC (4.30-5.90) m/uL Hgb (13.0-17.5) gm/dL ABG HCO3 27 H (21-25) mmol/L ABG Total CO2 28 H (19-24) mmol/L ABG O2 Saturation 97.4 H (94-97) % Chloride (98-107) mmol/L BUN (9-20) mg/dL Creatinine (0.66-1.25) mg/dL Glucose (74-99) mg/dL POC Glucose (mg/dL) 175 H (70-110) mg/dL Calcium (8.4-10.2) mg/dL HDL Cholesterol (40.00-60.00) mg/dL Assessment and Plan Assessment: Acute hypoxic and hypercapnic respiratory failure secondary to cardiac arrest/pr olonged downtime, intubated in the field, in a patient with recent hospitalization for bilateral pneumonia 05/02/23. Acute COVID-19 infection Anoxic brain injury with hypoxic encephalopathy Nonspecific pulmonary nodules reported per CT Chronic bronchial asthma Mildly enlarged nonspecific peripancreatic lymph node reported per CT Cholelithiasis Acute renal injury secondary to cardiac arrest, improving Diabetes mellitus Chronic Paroxysmal atrial fibrillation, currently sinus Hypertension Hyperlipidemia Morbid obesity, BMI 42 Obstructive sleep apnea Plan: Continue on current medication regime ,monitoring and symptomatic treatment. GI prophylaxis in place. Anticoagulated on Xarelto. Maintained on IV Decadron -ICU management as per polarity tester. Prognosis guarded given multiple medical issues. Following with multiple consults. The impression and plan of care has been dictated as directed. : I performed a history and examination of this patient, discussed the same with the dictator. I agree with the dictator's note ,documented as a scribe. Any additional findings or plans will be noted.
--- NOTE | 2023-07-21 16:31 | P.PN ---
Subjective Progress Note Date: 07/21/23 I personally the patient and per nurse he is about the same. I saw his and son who were at bedside and feel he is opening his eye and feel doing better today compared to yesterday. Objective - Vital Signs Vital signs: Vital Signs Temp 98.7 F 07/21/23 16:00 Pulse 64 07/21/23 16:00 Resp 16 07/21/23 16:00 BP 114/70 07/21/23 13:00 Pulse Ox 97 07/21/23 16:00 FiO2 40 07/21/23 16:00 Intake & Output 07/20/23 07/21/23 07/21/23 18:59 06:59 18:59 Intake Total 6270.031 3230 849 Output Total 347 999 3769 Balance 179.103 455 -501 Weight 136.4 kg 141.4 kg 141.4 kg Intake: IV 972 600 804 Normal Saline Pressure 72 54 Bag Sodium Chloride 0.9% 1, 900 600 750 000 ml @ 75 mls/hr IV . [id number] [facility] Rx#:[id number] Intake, IV Titration 100.103 225 Amount Dexmedetomidine/0.9% NaCl 21.654 (Pmx) 400 mcg In Empty Bag 1 bag @ 0.2 MCG/KG/HR 6.82 mls/hr IV .[id number] [facility] Rx#:[id number] Sodium Chloride 0.9% 1, 225 000 ml @ 75 mls/hr IV . [id number] [facility] Rx#:[id number] propofoL 1,000 mg In 78.449 Empty Bag 1 bag @ 15 MCG/ KG/MIN 12.247 mls/hr IV . [id number] [facility] Rx#:[id number] Tube Feeding 405 45 Other 60 Output: Urine 961 178 2977 Other: Voiding Method Indwelling Catheter Indwelling Catheter Indwelling Catheter ABP, PAP, CO, CI - Last Documented Arterial Blood Pressure 118/47 - Exam General the patient is lying and is not in acute distress Long is a intubated on a ventilator Neuro: Opens his eyes spontaneously and tracks. Goals are round equal and reactive to light. No facial weakness. Patient has edema in all extremities. - Labs CBC & Chem 7: 07/21/23 03:20 07/21/23 03:20 Labs: Abnormal Lab Results - Last 24 Hours (Table) 07/20/23 07/20/23 07/20/23 Range/Units 16:45 18:13 22:48 RBC (4.30-5.90) m/uL Hgb (13.0-17.5) gm/dL ABG HCO3 (21-25) mmol/L ABG Total CO2 (19-24) mmol/L ABG O2 Saturation (94-97) % Chloride (98-107) mmol/L BUN (9-20) mg/dL Creatinine (0.66-1.25) mg/dL Glucose (74-99) mg/dL POC Glucose (mg/dL) 226 H 178 H (70-110) mg/dL Calcium (8.4-10.2) mg/dL HDL Cholesterol 35.00 L (40.00-60.00) mg/dL 07/21/23 07/21/23 07/21/23 Range/Units 03:20 03:20 05:44 RBC 3.96 L (4.30-5.90) m/uL Hgb 12.6 L (13.0-17.5) gm/dL ABG HCO3 (21-25) mmol/L ABG Total CO2 (19-24) mmol/L ABG O2 Saturation (94-97) % Chloride 113 H (98-107) mmol/L BUN 57 H (9-20) mg/dL Creatinine 1.90 H (0.66-1.25) mg/dL Glucose 138 H (74-99) mg/dL POC Glucose (mg/dL) 130 H (70-110) mg/dL Calcium 8.1 L (8.4-10.2) mg/dL HDL Cholesterol (40.00-60.00) mg/dL 07/21/23 07/21/23 Range/Units 05:52 11:16 RBC (4.30-5.90) m/uL Hgb (13.0-17.5) gm/dL ABG HCO3 27 H (21-25) mmol/L ABG Total CO2 28 H (19-24) mmol/L ABG O2 Saturation 97.4 H (94-97) % Chloride (98-107) mmol/L BUN (9-20) mg/dL Creatinine (0.66-1.25) mg/dL Glucose (74-99) mg/dL POC Glucose (mg/dL) 175 H (70-110) mg/dL Calcium (8.4-10.2) mg/dL HDL Cholesterol (40.00-60.00) mg/dL Assessment and Plan Assessment: * Status post cardiac arrest with prolonged downtime of 30 minutes as per EMS f low sheet documentation. Patient was in asystole. * Altered mental status due to sedation effect as well as anoxic encephalopathy. CT of the head was reported as focal attenuation in the right cerebellar hemisphere but I felt was questionable and the CT head is not the best study to evaluate posterior circulation region. On examination the patient the open his eyes to painful stimuli and was following the few simple commands and was wiggling the toes and was tracking. * Ventilator-dependent respiratory failure due to cardiac arrest, on mechanical ventilation. * Atrial fibrillation with rapid ventricular rate * Probable aspiration pneumonia * Lactic acidosis * Acute renal failure * Diabetes type 2 * Morbid obesity * Hypertension * Pulmonary nodules. Plan: * EEG 07/17/2023, was reported as abnormal due to background slowing of moderate degree, suggestive of generalized cerebral dysfunction as can be seen with toxic metabolic encephalopathy. Clinical correlation is recommended. No obvious epileptiform activity was seen. * Initial CT head showed no acute process. Nonspecific white matter changes. Repeated that CT of the head is reported as the focal attenuation the right cerebellar which I feel is questionable and is not the best study. We'll consider MRI the brain once the patient is extubated for better evaluation and not extubated then will get a repeat CT head by tomorrow for comparison. * Carotid duplex: <50% stenosis of the bilateral carotid bifurcations. The right vertebral artery is not visualized. * With painful stimuli the patient was opening his eyes tracking and wiggling toes. * Patient currently on Xarelto for atrial fibrillation. * Other medical management as per IM and critical care. The plan was discussed with the patient's family members ( and son) who are at bedside. We'll continue to follow. Time with Patient: Less than 30
[2023-07-21 17:21] LABS: Glucose,Whole Blood 235 mg/dL (70-110)
[2023-07-21 22:29] LABS: Glucose,Whole Blood 195 mg/dL (70-110)
[2023-07-22] MEDS: ALBUTEROL HFA INHALER INHALATION SCH ×6 (00:15→20:48)
[2023-07-22] MEDS: SODIUM CHLORIDE 0.9% 1,000 ML IV SCH ×3 (03:02→14:41)
[2023-07-22 03:31] LABS: Basophils % (A) 0 %; Eosinophils # (A) 0.1 k/uL (0-0.7); Eosinophils % (A) 1 %; HCT 37.9 % (39.0-53.0); HGB 12.3 gm/dL (13.0-17.5); Lymphocytes # (A) 1.6 k/uL (1.0-4.8); Lymphocytes % (A) 16 %; MCHC 32.5 g/dL (31.0-37.0); MCV 98.5 fL (80.0-100.0); Macrocytosis Slight; Mean Platelet Volume 8.3; Monocytes % (A) 9 %; Neutrophils # (A) 7.4 k/uL (1.3-7.7); Neutrophils % (A) 72 %; Platelet Count 179 k/uL (150-450); RBC 3.84 m/uL (4.30-5.90); RDW 15.3 % (11.5-15.5); WBC 10.3 k/uL (3.8-10.6)
[2023-07-22 03:41] LABS: African American GFR (CKD) 47 (>60 ml/min/1.73 sqM); Anion Gap 2 mmol/L; Blood Urea Nitrogen 58 mg/dL (9-20); Calcium 8.2 mg/dL (8.4-10.2); Carbon Dioxide 28 mmol/L (22-30); Chloride 113 mmol/L (98-107); Glucose 155 mg/dL (74-99); Non-African American GFR(CKD) 41 (>60 ml/min/1.73 sqM); Potassium 3.7 mmol/L (3.5-5.1); Sodium 143 mmol/L (137-145)
[2023-07-22] MEDS ORDERED: Potassium Replacement Protocol 1 EACH MISC MISCELLANE PRN (03:57)
[2023-07-22] MEDS ORDERED: POTASSIUM BICARBONATE/CIT AC 20 MEQ TABLET.EFF NG-TUBE SCH (04:00)
[2023-07-22 05:21] LABS: Glucose,Whole Blood 148 mg/dL (70-110)
[2023-07-22 06:12] LABS: ABG Base Excess 2.2 mmol/L; ABG HCO3 27 mmol/L (21-25); ABG Oxygen Saturation 97.3 % (94-97); ABG PCO2 43 mmHg (35-45); ABG PO2 95 mmHg (83-108); ABG TCO2 28 mmol/L (19-24)
[2023-07-22] MEDS: INSULIN ASPART (NovoLOG) 100 UNIT/ML VIAL SQ SCH ×3 (06:12→18:07)
[2023-07-22] MEDS: RIVAROXABAN 15 MG TAB PO SCH (06:26)
--- NOTE | 2023-07-22 07:38 | P.PN ---
Subjective Progress Note Date: 07/22/23 PROGRESS NOTE The patient is a 68-year-old male who presented with respiratory distress, respiratory arrest and cardiac arrest requiring CPR. He is intubated and sedated. He has a history of paroxysmal atrial fibrillation and he is in sinus mechanism at this time, anticoagulated. His urinary output is being. There is no evidence of malignant arrhythmia. Patient tested positive for COVID infection. He has a history of diabetes, hypertension. His echocardiogram showed an ejection fraction of 50-55%. July 21: The patient remains intubated and sedated, in sinus mechanism. Blood pressure is stable. His urine output has been good. There is no evidence of ventricular ectopic activity. Hemodynamically he stable. He continues to be anticoagulated. July 22: The patient remains intubated, he is not following commands or showing neurological response off sedation. He continues to be in sinus mechanism without any episodes of atrial fibrillation or ventricular ectopic activity. Hemodynamically he stable. His renal function are improving. Medications: Lipitor 20 mg daily, Decadron, Lopressor 50 mg twice a day, Xarelto 15 mg daily PHYSICAL EXAMINATION: Blood pressure 111/50 heart rate 70, intubated LUNGS: Clear to auscultation HEART: Regular rate and rhythm, S1, S2. No S3. No systolic murmur ABDOMEN: Soft, positive bowel sounds, no organomegaly EXTREMETIES: +1 edema with chronic skin changes LAB: Hemoglobin 12.3, BUN 58, creatinine 1.67, potassium 3.7 IMPRESSION: 1. Status post respiratory arrest, probably worsened by the infection 2. Paroxysmal atrial fibrillation, maintaining sinus mechanism, anticoagulated 3. Acute renal injury, improving 4. History of hyperlipidemia PLAN: 1. Attempt to wean and extubate 2. Follow renal functions 3. Change anticoagulation to Xarelto 20 mg daily 4. We will see him on as-needed basis, please feel free to call us for any qu estion Objective - Vital Signs Vital signs: Vital Signs Temp 98.5 F 07/22/23 04:00 Pulse 77 07/22/23 07:00 Resp 15 07/22/23 07:00 BP 111/55 07/22/23 07:00 Pulse Ox 96 07/22/23 07:00 FiO2 40 07/22/23 04:34 Intake & Output 07/21/23 07/22/23 07/22/23 18:59 06:59 18:59 Intake Total 1092 1570 140 Output Total 1525 1130 75 Balance -433 440 65 Weight 141.4 kg 137.212 kg Intake: IV 1047 750 75 Normal Saline Pressure 72 Bag Sodium Chloride 0.9% 1, 975 750 75 000 ml @ 75 mls/hr IV . [id number] [facility] Rx#:[id number] Intake, IV Titration 75 Amount Sodium Chloride 0.9% 1, 75 000 ml @ 75 mls/hr IV . [id number] [facility] Rx#:[id number] Tube Feeding 45 685 65 Other 60 Output: Urine 1525 1130 75 Other: Voiding Method Indwelling Catheter Indwelling Catheter ABP, PAP, CO, CI - Last Documented Arterial Blood Pressure 124/50 - Labs CBC & Chem 7: 07/22/23 03:15 07/22/23 03:15 Labs: Abnormal Lab Results - Last 24 Hours (Table) 07/21/23 07/21/23 07/21/23 Range/Units 11:16 17:19 22:27 RBC (4.30-5.90) m/uL Hgb (13.0-17.5) gm/dL Hct (39.0-53.0) % ABG HCO3 (21-25) mmol/L ABG Total CO2 (19-24) mmol/L ABG O2 Saturation (94-97) % Chloride (98-107) mmol/L BUN (9-20) mg/dL Creatinine (0.66-1.25) mg/dL Glucose (74-99) mg/dL POC Glucose (mg/dL) 175 H 235 H 195 H (70-110) mg/dL Calcium (8.4-10.2) mg/dL 07/22/23 07/22/23 07/22/23 Range/Units 03:15 03:15 05:04 RBC 3.84 L (4.30-5.90) m/uL Hgb 12.3 L (13.0-17.5) gm/dL Hct 37.9 L (39.0-53.0) % ABG HCO3 27 H (21-25) mmol/L ABG Total CO2 28 H (19-24) mmol/L ABG O2 Saturation 97.3 H (94-97) % Chloride 113 H (98-107) mmol/L BUN 58 H (9-20) mg/dL Creatinine 1.67 H (0.66-1.25) mg/dL Glucose 155 H (74-99) mg/dL POC Glucose (mg/dL) (70-110) mg/dL Calcium 8.2 L (8.4-10.2) mg/dL 07/22/23 Range/Units 05:21 RBC (4.30-5.90) m/uL Hgb (13.0-17.5) gm/dL Hct (39.0-53.0) % ABG HCO3 (21-25) mmol/L ABG Total CO2 (19-24) mmol/L ABG O2 Saturation (94-97) % Chloride (98-107) mmol/L BUN (9-20) mg/dL Creatinine (0.66-1.25) mg/dL Glucose (74-99) mg/dL POC Glucose (mg/dL) 148 H (70-110) mg/dL Calcium (8.4-10.2) mg/dL
--- NOTE | 2023-07-22 08:04 | XR ---
EXAMINATION TYPE: XR chest 1V portable DATE OF EXAM: 07/22/2023 Comparison: 07/21/2023 Clinical History: 68-year-old male mechanical ventilation Findings: ET tube tip is satisfactory. NG tube courses below the diaphragm. Right heart margin obscured by lauro cent parenchymal opacity. There is a moderate right pleural effusion. Impression: Overall stable exam with a moderate right pleural effusion with underlying atelectasis and/or consoli dation.
[2023-07-22] MEDS: METOPROLOL TARTRATE 50 MG TAB PO SCH ×2 (08:37→20:40)
[2023-07-22] MEDS: ATORVASTATIN 20 MG TAB PO SCH (08:37)
[2023-07-22] MEDS: DEXAMETHASONE SOD PHOSPHATE 10 MG/ML 1 ML VIAL IVP SCH (08:37)
[2023-07-22] MEDS: PANTOPRAZOLE 40 MG/10 ML VIAL IV SCH (08:37)
[2023-07-22] MEDS: CHLORHEXIDINE GLUCONATE 15 ML CUP MUCOUS MEM SCH ×2 (08:37→20:40)
[2023-07-22] MEDS ORDERED: FUROSEMIDE 10 MG/ML 2 ML VIAL IV ONE (09:24)
[2023-07-22] MEDS: SYMBICORT 160-4.5 MCG INHALER INHALATION SCH ×2 (11:12→20:48)
[2023-07-22 11:33] LABS: Glucose,Whole Blood 237 mg/dL (70-110)
--- NOTE | 2023-07-22 11:52 | P.PN ---
Subjective Progress Note Date: 07/22/23 Principal diagnosis: Acute cardiopulmonary arrest/asystole 68-year-old male patient, morbidly obese, known history of obstructive sleep apnea, chronic atrial fibrillation maintained on long-term and the coagulation with Xarelto in addition to history of diabetes mellitus type 2, hypertension and obesity. The patient was brought into the emergency department with cardiac arrest. The patient was at home and he was complaining of some shortness of breath. He was supposed to see his primary care physician, however he acutely became unresponsive. The patient's was there and she activated EMS. The downtime reported was approximately 7 minutes before EMS arrival. The patient was found to be in asystole and CPR was initiated. The patient was intubated. The patient received epinephrine based on the ACLS protocol. The CPR time was around 10-12 minutes and following that there was return of spontaneous circulation. Following that, the patient was brought into the emergency department. The patient EKG was consistent with A. fib with RVR. The patient's BP was 120/94. The patient was given a chest x-ray that showed no acute abnormalities. He was started on propofol which is currently running at 50 mcg/kg/m. No seizure activity has been noted. CAT scan of the brain is not done. CT angiogram of the chest has not been done. Cardiac enzymes showed a troponin of 0.136. Initial blood gas showed a pH of 7.2 with episodes of 53 and pO2 of 336. His current vent settings with an assist control of 24 with a tidal volume of 500, FiO2 is 50% with a PEEP of 5. Urine operas in order of 40-50 mL an hour. He is afebrile. He is on no pressors. No reported aspiration. The donor is currently 11.2, hemoglobin is 15 with a platelet count of 218. Normal coagulation profile. BUN is at 24 with a creatinine of 1.1. Initial lactic acid level is at 7.6. ProBNP level was 1250. Serum bicarb is at 22. Glucose at 157. 07/19/2023, the patient was taken off sedation. He is tracking. He was able to wiggle his toes upon demand. His profoundly weak. He opens his eyes spontaneously. No nystagmus. Pupils are equal and reactive to light. No seizure activity has been noted. The patient was earlier on propofol at a dose of 75 mcg/kg/m and currently is off sedation. He remains on a mechanical ventilator, assist control mode at the rate of 24, tidal volume of 500, FiO2 is down to 40% with a PEEP of 5. Is chest x-ray showing lower lobe infiltrates bilaterally. Lung volumes are small. Orotracheal tube is in a good location. The patient also has a or G-tube in place. In terms of his blood gas, the patient has a pH of 7.39 with a pCO2 of 44 and pO2 of 103. He does have respiratory secretions are being suctioned. White cell cause of 10.5 with a hemoglobin 12.6 and a platelet count of 188. Sodium is at 140, potassium is at 4, chloride 16 and a bicarb is 26. He did sustain an acute kidney injury and the creatinine is improved compared to yesterday's down to 2.7. BUN is 56. Potassium levels of 4.0. Fluid balance over the past 24 hours is +1.7 L. The patient remains on bronchodilators. The patient remains on Decadron 6 mg IV ev caridad 24 hours. He is on long-term anticoagulation with Xarelto. His cardiac rhythm is sinus. Echocardiogram done on 07/17/2023 shows a preserved LV function. He is afebrile. He is on no pressors. No other significant events overnight. Feeding is in the form of vital high-protein which is currently at goal. Reevaluated today on 07/20/2023, asymptomatic clinically ventilated, he is on assist control rate of 16 tidal volume 500 FiO2 40% and PEEP of 5, ABG showed a pO2 of 84 pCO2 42 pH of 7.41. Patient is now in sinus rhythm, he converted from atrial fibrillation. CT of the brain was negative EEG was normal. Patient remains on propofol at 15 mcg/kg/m IV fluids 75 mL an hour vital HPI 25 mL per hour yesterday the patient went on CPAP from 9:15 till 2 PM, however he was noted to get more shortness of breath at the end of the day, and he had to be placed back on assist control mode of mechanical ventilation. Surprisingly the patient Downs time was about 20 minutes patient arrested in the car on 07/12/2023. Echocardiogram showed good LV function with ejection fraction of 50- 55%. My plan today is to place the patient on Precedex, off propofol, and give him a trial of pressure support of 10 and CPAP. According to the note from yesterday, patient was appropriate and he was following instructions yesterday WBC count today is 8.4 hemoglobin is 12.1. Basic metabolic profile is normal however his renal profile is abnormal. BUN of 57 creatinine 2.32 chest x-ray showed endotracheal tube in proper position low lung volumes with generalized hazy appearance, could represent mostly atelectasis. Doubt pulmonary edema patient is tolerating enteral feeding vital HPI 45 mL per hour. Reevaluated today on 07/21/2023, patient remains in the ICU intubated and mechanically ventilated, his mental status seems to be waxing and waning, he is again not responding to any stimuli, sedation on assist control rate of 16 tidal volume 500 FiO2 40% and PEEP of 5 ABG showed a pO2 of 96 pCO2 43 pH of 7.40 hence no changes were made in his vent settings. Repeat CT of the brain showed questionable new acute ischemic event. Chest x-ray continues to show moderate right-sided pleural effusion with atelectasis of the right lower lobe. WBC count is 9.4 hemoglobin is 12.6 electrolytes are normal renal profile showed a BUN of 57 creatinine 1.90. Patient is not requiring any pressors he is on nutritional support/enteral feeding. Considering the patient's neurological status, I'm not planning any further trials of weaning today, patient is not ready for weaning. Being evaluated by neurology again for his worsening neurological status and mental status. EEG showed moderate degree of g eneralized cerebral dysfunction with toxic metabolic encephalopathy, carotid Doppler is basically unremarkable. Reevaluated today on 07/22/2023, patient remains in the ICU intubated and mechanically ventilated, with waxing and waning mental status, today the patient opens eyes only but does not track and does not follow any instructions. Patient is on assist control rate of 16 tidal volume 500 FiO2 40% and PEEP of 5 ABG showed a pO2 of 95 pCO2 43 pH of 7.43 chest x-ray continues to show evidence of moderate right-sided pleural effusion and atelectasis and/or consolidation. Hence more Lasix will be given since he responded better with the Lasix yesterday and the effusion seems to be a bit smaller compared to yesterday PA and sputum cultures remain negative so far. W scan is 10.3 hemoglobin 12.3, basic metabolic profile is normal BUN is 58 creatinine 1.67, improving. Again his mental status is waxing and waning today seems to be poor in spite of holding sedation now for the last few days remains off any sedation Objective - Vital Signs Vital signs: Vital Signs Temp 98.5 F 07/22/23 08:00 Pulse 75 07/22/23 11:00 Resp 27 H 07/22/23 11:00 BP 141/72 07/22/23 11:00 Pulse Ox 95 07/22/23 11:00 FiO2 40 07/22/23 11:12 Intake & Output 07/21/23 07/22/23 07/22/23 18:59 06:59 18:59 Intake Total 1092 1570 776 Output Total 1525 1130 885 Balance -433 440 -109 Weight 141.4 kg 137.212 kg Intake: IV 1047 750 375 Normal Saline Pressure 72 Bag Sodium Chloride 0.9% 1, 975 750 375 000 ml @ 75 mls/hr IV . [id number] [facility] Rx#:[id number] Intake, IV Titration 75 Amount Sodium Chloride 0.9% 1, 75 000 ml @ 75 mls/hr IV . [id number] [facility] Rx#:[id number] Tube Feeding 45 685 341 Other 60 60 Output: Urine 1525 1130 885 Other: Voiding Method Indwelling Catheter Indwelling Catheter Indwelling Catheter ABP, PAP, CO, CI - Last Documented Arterial Blood Pressure 134/61 - Exam Physical Exam: Revealed a 68-year-old white male obese in no distress intubated mechanically ventilated, off sedation, opens eyes but does not follow any instructions Head: Atraumatic, normocephalic. The tracheal tube and orogastric tube are intact HEENT:[Neck is supple.] [No neck masses.] [No thyromegaly.] [No JVD.] Chest: [Diminished breath sound bilaterally no crackles or rhonchi symmetrical chest expansion.] Cardiac Exam: [Normal S1 and S2, no S3 gallop, no murmur.] Abdomen: [Obese, Soft, nontender, no megaly, no rebound, no guarding, normal bowel sounds.] Extremities: [No clubbing, no edema, no cyanosis.] Chronic venous stasis changes noted bilaterally in both lower extremities Neurological Exam: Opens eyes, does not follow any instructions Psychiatric: Could not assess , mostly because of his neurological status - Labs CBC & Chem 7: 07/22/23 03:15 07/22/23 03:15 Labs: Abnormal Lab Results - Last 24 Hours (Table) 07/21/23 07/21/23 07/22/23 Range/Units 17:19 22:27 03:15 RBC (4.30-5.90) m/uL Hgb (13.0-17.5) gm/dL Hct (39.0-53.0) % ABG HCO3 (21-25) mmol/L ABG Total CO2 (19-24) mmol/L ABG O2 Saturation (94-97) % Chloride 113 H (98-107) mmol/L BUN 58 H (9-20) mg/dL Creatinine 1.67 H (0.66-1.25) mg/dL Glucose 155 H (74-99) mg/dL POC Glucose (mg/dL) 235 H 195 H (70-110) mg/dL Calcium 8.2 L (8.4-10.2) mg/dL 07/22/23 07/22/23 07/22/23 Range/Units 03:15 05:04 05:21 RBC 3.84 L (4.30-5.90) m/uL Hgb 12.3 L (13.0-17.5) gm/dL Hct 37.9 L (39.0-53.0) % ABG HCO3 27 H (21-25) mmol/L ABG Total CO2 28 H (19-24) mmol/L ABG O2 Saturation 97.3 H (94-97) % Chloride (98-107) mmol/L BUN (9-20) mg/dL Creatinine (0.66-1.25) mg/dL Glucose (74-99) mg/dL POC Glucose (mg/dL) 148 H (70-110) mg/dL Calcium (8.4-10.2) mg/dL 07/22/23 Range/Units 11:32 RBC (4.30-5.90) m/uL Hgb (13.0-17.5) gm/dL Hct (39.0-53.0) % ABG HCO3 (21-25) mmol/L ABG Total CO2 (19-24) mmol/L ABG O2 Saturation (94-97) % Chloride (98-107) mmol/L BUN (9-20) mg/dL Creatinine (0.66-1.25) mg/dL Glucose (74-99) mg/dL POC Glucose (mg/dL) 237 H (70-110) mg/dL Calcium (8.4-10.2) mg/dL Microbiology - Last 24 Hours (Table) 07/21/23 16:40 Gram Stain - Preliminary Sputum Assessment and Plan Assessment: Impression: Acute hypoxic and hypercapnic respiratory failure secondary to cardiac arrest/prolonged downtime about 20 minutes. Acute COVID-19 infection, incidental finding, Chronic atrial fibrillation, on anticoagulation Morbid obesity BMI of 40.7 Type 2 diabetes currently on sliding scale coverage Obstructive sleep apnea syndrome with index of 90 Recent hospitalization for bilateral pneumonia Chronic bronchial asthma Acute kidney injury secondary to cardiac arrest Nonspecific pulmonary nodules Benign essential hypertension anoxic brain injury and hypoxic encephalopathy Recommendation: Continue ventilatory support Continue to hold sedation Continue Decadron. Continue insulin sliding scale coverage Continue Xarelto Continue GI and DVT prophylaxis Gentle diuresis today, Lasix will be given Continue nutritional support/enteral feeding with vital HP Patient remains critically ill not quite ready for any weaning because of his neurological status May have to consider tracheostomy and PEG tube placement next week if no significant neurological improvement noted in the next few days. Critical care time is over 30 minutes Time with Patient: Greater than 30
--- NOTE | 2023-07-22 13:38 | P.PN ---
Subjective Progress Note Date: 07/22/23 I am following-up seeing the patient and per his he will open his eyes to voice and she feels that she is responding to her. Objective - Vital Signs Vital signs: Vital Signs Temp 98.6 F 07/22/23 12:00 Pulse 78 07/22/23 13:00 Resp 16 07/22/23 13:00 BP 129/81 07/22/23 13:00 Pulse Ox 94 L 07/22/23 13:00 FiO2 40 07/22/23 12:00 Intake & Output 07/21/23 07/22/23 07/22/23 18:59 06:59 18:59 Intake Total 1092 1570 1112 Output Total 1525 1130 1310 Balance -433 440 -198 Weight 141.4 kg 137.212 kg Intake: IV 1047 750 543 Normal Saline Pressure 72 18 Bag Sodium Chloride 0.9% 1, 975 750 525 000 ml @ 75 mls/hr IV . [id number] [facility] Rx#:[id number] Intake, IV Titration 75 Amount Sodium Chloride 0.9% 1, 75 000 ml @ 75 mls/hr IV . [id number] [facility] Rx#:[id number] Tube Feeding 45 685 479 Other 60 90 Output: Urine 1525 1130 1310 Other: Voiding Method Indwelling Catheter Indwelling Catheter Indwelling Catheter ABP, PAP, CO, CI - Last Documented Arterial Blood Pressure 107/45 - Exam General the patient is lying and is not in acute distress Long is a intubated on a ventilator Neuro: Opens his eyes spontaneously and tracks. Does not follow commands or verbalizing. Pupils are round equal and reactive to light. No facial weakness. Patient has edema in all extremities. - Labs CBC & Chem 7: 07/22/23 03:15 07/22/23 03:15 Labs: Abnormal Lab Results - Last 24 Hours (Table) 07/21/23 07/21/23 07/22/23 Range/Units 17:19 22:27 03:15 RBC (4.30-5.90) m/uL Hgb (13.0-17.5) gm/dL Hct (39.0-53.0) % ABG HCO3 (21-25) mmol/L ABG Total CO2 (19-24) mmol/L ABG O2 Saturation (94-97) % Chloride (98-107) mmol/L BUN (9-20) mg/dL Creatinine (0.66-1.25) mg/dL Glucose (74-99) mg/dL POC Glucose (mg/dL) 235 H 195 H (70-110) mg/dL Calcium (8.4-10.2) mg/dL Procalcitonin 0.29 H (0.02-0.09) ng/mL 07/22/23 07/22/23 07/22/23 Range/Units 03:15 03:15 05:04 RBC 3.84 L (4.30-5.90) m/uL Hgb 12.3 L (13.0-17.5) gm/dL Hct 37.9 L (39.0-53.0) % ABG HCO3 27 H (21-25) mmol/L ABG Total CO2 28 H (19-24) mmol/L ABG O2 Saturation 97.3 H (94-97) % Chloride 113 H (98-107) mmol/L BUN 58 H (9-20) mg/dL Creatinine 1.67 H (0.66-1.25) mg/dL Glucose 155 H (74-99) mg/dL POC Glucose (mg/dL) (70-110) mg/dL Calcium 8.2 L (8.4-10.2) mg/dL Procalcitonin (0.02-0.09) ng/mL 07/22/23 07/22/23 Range/Units 05:21 11:32 RBC (4.30-5.90) m/uL Hgb (13.0-17.5) gm/dL Hct (39.0-53.0) % ABG HCO3 (21-25) mmol/L ABG Total CO2 (19-24) mmol/L ABG O2 Saturation (94-97) % Chloride (98-107) mmol/L BUN (9-20) mg/dL Creatinine (0.66-1.25) mg/dL Glucose (74-99) mg/dL POC Glucose (mg/dL) 148 H 237 H (70-110) mg/dL Calcium (8.4-10.2) mg/dL Procalcitonin (0.02-0.09) ng/mL Microbiology - Last 24 Hours (Table) 07/21/23 16:40 Gram Stain - Preliminary Sputum Sputum Culture - Preliminary Gram Neg Bacilli Assessment and Plan Assessment: * Status post cardiac arrest with prolonged downtime of 30 minutes as per EMS flow sheet documentation. Patient was in asystole. * Altered mental status due to sedation effect as well as anoxic encephalopathy. CT of the head was reported as focal attenuation in the right cerebellar hemisphere but I felt was questionable and the CT head is not the best study to evaluate posterior circulation region. On examination the patient the open his eyes to painful stimuli and was following the few simple commands and was wiggling the toes and was tracking. * Ventilator-dependent respiratory failure due to cardiac arrest, on mechanical ventilation. * Atrial fibrillation with rapid ventricular rate * Probable aspiration pneumonia * Lactic acidosis * Acute renal failure * Diabetes type 2 * Morbid obesity * Hypertension * Pulmonary nodules. Plan: * EEG 07/17/2023, was reported as abnormal due to background slowing of moderate degree, suggestive of generalized cerebral dysfunction as can be seen with toxic metabolic encephalopathy. Clinical correlation is recommended. No obvious epileptiform activity was seen. * Initial CT head showed no acute process. Nonspecific white matter changes. Repeated that CT of the head is reported as the focal attenuation the right cerebellar which I feel is questionable and is not the best study. I will get repeat CT head for comparison to rule out any actual changes that was seen on last CT vs artifact. He cannot have MRI Brain since on ventilator and is not MRI compatible. * Carotid duplex: <50% stenosis of the bilateral carotid bifurcations. The right vertebral artery is not visualized. * With painful stimuli the patient was opening his eyes tracking and wiggling toes. * Patient currently on Xarelto for atrial fibrillation. * Other medical management as per IM and critical care. The plan was discussed with the patient's and his nurse. We'll continue to follow. Time with Patient: Less than 30
--- NOTE | 2023-07-22 17:19 | P.PN ---
Subjective Progress Note Date: 07/22/23 So 68-year-old gentleman admitted with acute hypoxic and hypercapnic respiratory failure secondary to cardiac arrest, prolonged downtime reported at 20-30 minutes, anoxic brain injury, hypoxic encephalopathy, acute COVID-19 infection and multiple other medical issues. Remains vent dependent, FiO2 50%/+5 of PEEP. Sedation remains on hold. Chest x-ray reporting increased density right lower lobe may reflect underlying atelectasis, effusion and/or infiltrate, left medial basilar infiltrate/atelectasis unchanged .telemetry sinus,no pressor support at this time .Staff reports patient was following commands and tracking with his eyes yesterday. Repeat Brain CT performed yesterday reported no evidence for intracranial hemorrhage or sulcal effacement, no mass effects, no midline shift, osseous calvarium is intact, focal decreased attenuation right cerebellar hemisphere could reflect acute ischemic insult, correlate with MRI, age-related atrophic and chronic small vessel ischemic change. EEG reported abnormal due to background slowing of moderate degree, suggestive of generalized cerebral dysfun ction seen with toxic metabolic encephalopathy or related to diffuse structural brain abnormality, no obvious epileptiform activity seen. Carotid Doppler reported less than 50% stenosis of bilateral carotid bifurcations, right vertebral artery not visualized. Receiving OT tube feedings of vital high protein. Anticoagulated on Xarelto, continues on Decadron. BUN remains at 57, Creatinine trending down, currently 1.9. 07/22/2023 remains vent dependent on 40% FiO2 +5 of PEEP. Remains off of se dation. Patient spontaneously opens eyes, questionable tracking reported per staff . Tolerating tube feeds at goal, with minimal to no residuals. Chest x- ray reporting moderate pleural effusion with underlying atelectasis and/or consolidation , received Lasix. Creatinine improving decreased to 1.67. Afebrile, normal WBC Objective - Vital Signs Vital signs: Vital Signs Temp 98.5 F 07/22/23 08:00 Pulse 75 07/22/23 11:00 Resp 27 H 07/22/23 11:00 BP 141/72 07/22/23 11:00 Pulse Ox 95 07/22/23 11:00 FiO2 40 07/22/23 11:12 Intake & Output 07/21/23 07/22/23 07/22/23 18:59 06:59 18:59 Intake Total 1092 1570 776 Output Total 1525 1130 885 Balance -433 440 -109 Weight 141.4 kg 137.212 kg Intake: IV 1047 750 375 Normal Saline Pressure 72 Bag Sodium Chloride 0.9% 1, 975 750 375 000 ml @ 75 mls/hr IV . [id number] [facility] Rx#:[id number] Intake, IV Titration 75 Amount Sodium Chloride 0.9% 1, 75 000 ml @ 75 mls/hr IV . [id number] [facility] Rx#:[id number] Tube Feeding 45 685 341 Other 60 60 Output: Urine 1525 1130 885 Other: Voiding Method Indwelling Catheter Indwelling Catheter Indwelling Catheter ABP, PAP, CO, CI - Last Documented Arterial Blood Pressure 134/61 - Exam PHYSICAL EXAM: Limited in a patient with COVID-19, updated by sales secretary,coming out of the patient's room. VITAL SIGNS: [As above] GENERAL: Intubated, off sedation, no acute distress CARDIOVASCULAR: S1, S2 regular. NERVOUS SYSTEM: Limited exam, spontaneously opens eyes - Labs CBC & Chem 7: 07/22/23 03:15 07/22/23 14:53 Labs: Abnormal Lab Results - Last 24 Hours (Table) 07/21/23 07/21/23 07/21/23 Range/Units 11:16 17:19 22:27 RBC (4.30-5.90) m/uL Hgb (13.0-17.5) gm/dL Hct (39.0-53.0) % ABG HCO3 (21-25) mmol/L ABG Total CO2 (19-24) mmol/L ABG O2 Saturation (94-97) % Chloride (98-107) mmol/L BUN (9-20) mg/dL Creatinine (0.66-1.25) mg/dL Glucose (74-99) mg/dL POC Glucose (mg/dL) 175 H 235 H 195 H (70-110) mg/dL Calcium (8.4-10.2) mg/dL 07/22/23 07/22/23 07/22/23 Range/Units 03:15 03:15 05:04 RBC 3.84 L (4.30-5.90) m/uL Hgb 12.3 L (13.0-17.5) gm/dL Hct 37.9 L (39.0-53.0) % ABG HCO3 27 H (21-25) mmol/L ABG Total CO2 28 H (19-24) mmol/L ABG O2 Saturation 97.3 H (94-97) % Chloride 113 H (98-107) mmol/L BUN 58 H (9-20) mg/dL Creatinine 1.67 H (0.66-1.25) mg/dL Glucose 155 H (74-99) mg/dL POC Glucose (mg/dL) (70-110) mg/dL Calcium 8.2 L (8.4-10.2) mg/dL 07/22/23 Range/Units 05:21 RBC (4.30-5.90) m/uL Hgb (13.0-17.5) gm/dL Hct (39.0-53.0) % ABG HCO3 (21-25) mmol/L ABG Total CO2 (19-24) mmol/L ABG O2 Saturation (94-97) % Chloride (98-107) mmol/L BUN (9-20) mg/dL Creatinine (0.66-1.25) mg/dL Glucose (74-99) mg/dL POC Glucose (mg/dL) 148 H (70-110) mg/dL Calcium (8.4-10.2) mg/dL Microbiology - Last 24 Hours (Table) 07/21/23 16:40 Gram Stain - Preliminary Sputum Assessment and Plan Assessment: Acute hypoxic and hypercapnic respiratory failure secondary to cardiac arrest/prolonged downtime, intubated in the field, in a patient with recent hospitalization for bilateral pneumonia 05/02/23. Acute COVID-19 infection Anoxic brain injury with hypoxic encephalopathy, neurology following Nonspecific pulmonary nodules reported per CT Chronic bronchial asthma Mildly enlarged nonspecific peripancreatic lymph node reported per CT Cholelithiasis Acute renal injury secondary to cardiac arrest, improving Diabetes mellitus Chronic Paroxysmal atrial fibrillation, currently sinus Hypertension Hyperlipidemia Morbid obesity, BMI 42 Obstructive sleep apnea Plan: Continue on current medication regime ,monitoring and symptomatic treatment. Continues on IV Decadron. Anticoagulated on Xarelto. Sputum culture pending. ICU management as per sales secretary. Potential tracheostomy and PEG next week discussed as per sales secretary.brain CT pending.Prognosis guarded given multiple medical issues. Following with multiple consults. The impression and plan of care has been dictated as directed. : I performed a history and examination of this patient, discussed the same with the dictator. I agree with the dictator's note ,documented as a scribe. Any additional findings or plans will be noted.
--- NOTE | 2023-07-22 17:44 | CT ---
EXAMINATION TYPE: CT brain wo con DATE OF EXAM: 07/22/2023 COMPARISON: 07/20/2023 HISTORY: 68-year-old male hypoattenuation on initial CT, cerebellar region, confusion, AMS TECHNIQUE: Examination was done in axial plane without intravenous contrast. Coronal and sagittal r econstructions performed. CT DLP: 2296.4 mGycm Automated exposure control for dose reduction was used. FINDINGS: Motion limited exam. There is no evidence of acute intracranial hemorrhage, acute ischemic changes, mass, mass-effect, or extra-axial fluid collection. There is no effacement of cerebral sulci or basa l subarachnoid cisterns. There is no hydrocephalus. There is no midline shift. Ruano-white matter d istinction is preserved. Mild patchy periventricular white matter hypodensities. The previous right cerebellar hypodensity is not as pronounced as on current exam. Moderate mucosal thickening throughout the ethmoid air cells, right sphenoid sinus, and right maxilla ry sinus. Fluid within the right-sided mastoid air cells and middle ear cavities. Orbits and globes are intact. IMPRESSION: 1. Mild patchy burden of chronic small vessel ischemic disease. No acute intracranial abnormality see n. The previous hypodensity in the right cerebellar hemisphere is not as pronounced as on prior study and may have been artifactual. MRI if clinically indicated. 2. Moderate chronic ethmoid and right sphenoid sinus disease. 3. Fluid throughout the right mastoid air cells and right middle ear cavity. Correlate to exclude roland mastoiditis.
[2023-07-22 18:01] LABS: Glucose,Whole Blood 242 mg/dL (70-110)
[2023-07-23 00:05] LABS: Glucose,Whole Blood 179 mg/dL (70-110)
[2023-07-23] MEDS: PIPERACILLIN-TAZOBACTAM 3.375 GM in SODIUM CHLORIDE 0.9% 100 ML IVPB SCH ×3 (00:26→15:39)
[2023-07-23] MEDS: INSULIN ASPART (NovoLOG) 100 UNIT/ML VIAL SQ SCH ×4 (00:26→18:03)
[2023-07-23] MEDS: ALBUTEROL HFA INHALER INHALATION SCH ×7 (00:40→23:37)
[2023-07-23] MEDS: SODIUM CHLORIDE 0.9% 1,000 ML IV SCH ×2 (04:17→21:23)
[2023-07-23 04:52] LABS: Basophils % (A) 0 %; Eosinophils # (A) 0.2 k/uL (0-0.7); Eosinophils % (A) 2 %; HCT 37.1 % (39.0-53.0); HGB 12.3 gm/dL (13.0-17.5); Lymphocytes # (A) 1.4 k/uL (1.0-4.8); Lymphocytes % (A) 12 %; MCH 32.7 pg (25.0-35.0); MCHC 33.2 g/dL (31.0-37.0); MCV 98.6 fL (80.0-100.0); Mean Platelet Volume 8.5; Monocytes # (A) 0.8 k/uL (0-1.0); Monocytes % (A) 7 %; Neutrophils # (A) 9.3 k/uL (1.3-7.7); Neutrophils % (A) 79 %; Platelet Count 163 k/uL (150-450); RBC 3.77 m/uL (4.30-5.90); RDW 15.2 % (11.5-15.5); WBC 11.9 k/uL (3.8-10.6)
[2023-07-23 05:13] LABS: African American GFR (CKD) 64 (>60 ml/min/1.73 sqM); Anion Gap 4 mmol/L; Blood Urea Nitrogen 55 mg/dL (9-20); Calcium 8.2 mg/dL (8.4-10.2); Carbon Dioxide 27 mmol/L (22-30); Chloride 113 mmol/L (98-107); Glucose 199 mg/dL (74-99); Magnesium 1.9 mg/dL (1.6-2.3); Non-African American GFR(CKD) 55 (>60 ml/min/1.73 sqM); Potassium 3.8 mmol/L (3.5-5.1); Sodium 144 mmol/L (137-145)
[2023-07-23] MEDS ORDERED: Magnesium Replacement Protocol 1 EACH MISC MISCELLANE PRN (05:25)
[2023-07-23] MEDS ORDERED: MAGNESIUM SULFATE-D5W PMX 1 GM in DEXTROSE/WATER 1 100ML.BAG IVPB ONE (05:25)
[2023-07-23 05:49] LABS: Glucose,Whole Blood 194 mg/dL (70-110)
[2023-07-23] MEDS ORDERED: POTASSIUM BICARBONATE/CIT AC 20 MEQ TABLET.EFF NG-TUBE SCH (06:00)
[2023-07-23 06:41] LABS: ABG Base Excess 2.7 mmol/L; ABG HCO3 27 mmol/L (21-25); ABG Oxygen Saturation 96.8 % (94-97); ABG PCO2 43 mmHg (35-45); ABG PH 7.41 (7.35-7.45); ABG PO2 87 mmHg (83-108); ABG TCO2 29 mmol/L (19-24); Allen Test Performed? Yes
--- NOTE | 2023-07-23 07:06 | XR ---
EXAMINATION TYPE: XR chest 1V portable DATE OF EXAM: 07/23/2023 5:06 AM COMPARISON: Chest radiographs from 07/22/2023 TECHNIQUE: XR chest 1V portable Portable AP radiograph of the chest. CLINICAL INDICATION:Male, 68 years old with history of mechanical ventilation; FINDINGS: Lungs/Pleura: No pneumothorax or focal consolidation. Elevation the right hemidiaphragm redemonstrate d. Small right pleural effusion. Pulmonary vascularity: Unremarkable. Heart/mediastinum: Cardiomediastinal silhouette is enlarged and stable. Musculoskeletal: No acute osseous pathology. Other findings: None Lines/Tubes: Endotracheal and NG tubes are in stable position. Left subclavian approach central venous catheter is in stable position. IMPRESSION: 1. Stable support lines and tubes. 2. Small right pleural effusion.
[2023-07-23] MEDS ORDERED: RIVAROXABAN 20 MG TAB PO SCH ×2 (07:30→17:30)
[2023-07-23] MEDS: ATORVASTATIN 20 MG TAB PO SCH (08:33)
[2023-07-23] MEDS: PANTOPRAZOLE 40 MG/10 ML VIAL IV SCH (08:33)
[2023-07-23] MEDS: METOPROLOL TARTRATE 50 MG TAB PO SCH ×2 (08:33→20:59)
[2023-07-23] MEDS: CHLORHEXIDINE GLUCONATE 15 ML CUP MUCOUS MEM SCH ×2 (08:33→20:59)
[2023-07-23] MEDS: DEXAMETHASONE SOD PHOSPHATE 10 MG/ML 1 ML VIAL IVP SCH (08:34)
[2023-07-23] MEDS: FUROSEMIDE 10 MG/ML 4 ML VIAL IV SCH ×2 (08:34→20:59)
[2023-07-23] MEDS: SYMBICORT 160-4.5 MCG INHALER INHALATION SCH ×2 (09:32→21:05)
--- NOTE | 2023-07-23 12:18 | P.PN ---
Subjective Progress Note Date: 07/23/23 I am following-up patient and per the ICU nurse, he is about the same. He would open his eyes and track but not following commands. He continues to be intubated and on ventilator. Objective - Vital Signs Vital signs: Vital Signs Temp 98.5 F 07/23/23 08:00 Pulse 78 07/23/23 09:00 Resp 16 07/23/23 09:00 BP 114/72 07/23/23 09:00 Pulse Ox 95 07/23/23 09:00 FiO2 40 07/23/23 11:50 Intake & Output 07/22/23 07/23/23 07/23/23 18:59 06:59 18:59 Intake Total 1877 2204 516 Output Total 1710 1170 245 Balance 167 1034 271 Weight 140.1 kg Intake: IV 933 1136 249 Magnesium Sulfate-D5w Pmx 100 1 gm In Dextrose/Water 1 100ml.bag @ 100 mls/hr IVPB ONCE ONE Rx#: [id number] Normal Saline Pressure 33 36 9 Bag Piperacillin-Tazobactam 3 100 25 .375 gm In Sodium Chloride 0.9% 100 ml @ 25 mls/hr IVPB Q8HR [facility] Rx# :[id number] Sodium Chloride 0.9% 1, 900 900 215 000 ml @ 75 mls/hr IV . [id number] [facility] Rx#:[id number] Tube Feeding 824 828 207 Other 120 240 60 Output: Urine 1710 1170 245 Other: Voiding Method Indwelling Catheter Indwelling Catheter Indwelling Catheter ABP, PAP, CO, CI - Last Documented Arterial Blood Pressure 124/53 - Exam General the patient is lying and is not in acute distress Long is a intubated on a ventilator Neuro: Drowsy but is awakeable to painful stimuli. Opens his eyes spontaneously and tracks. Does not follow commands or verbalizing. Pupils are round equal and reactive to light. No facial weakness. Patient has edema in all extremities. - Labs CBC & Chem 7: 07/23/23 04:43 07/23/23 04:43 Labs: Abnormal Lab Results - Last 24 Hours (Table) 07/22/23 07/22/23 07/23/23 Range/Units 03:15 17:59 00:02 WBC (3.8-10.6) k/uL RBC (4.30-5.90) m/uL Hgb (13.0-17.5) gm/dL Hct (39.0-53.0) % Neutrophils # (1.3-7.7) k/uL ABG HCO3 (21-25) mmol/L ABG Total CO2 (19-24) mmol/L Chloride (98-107) mmol/L BUN (9-20) mg/dL Creatinine (0.66-1.25) mg/dL Glucose (74-99) mg/dL POC Glucose (mg/dL) 242 H 179 H (70-110) mg/dL Calcium (8.4-10.2) mg/dL Procalcitonin 0.29 H (0.02-0.09) ng/mL 07/23/23 07/23/23 07/23/23 Range/Units 04:43 04:43 05:47 WBC 11.9 H (3.8-10.6) k/uL RBC 3.77 L (4.30-5.90) m/uL Hgb 12.3 L (13.0-17.5) gm/dL Hct 37.1 L (39.0-53.0) % Neutrophils # 9.3 H (1.3-7.7) k/uL ABG HCO3 (21-25) mmol/L ABG Total CO2 (19-24) mmol/L Chloride 113 H (98-107) mmol/L BUN 55 H (9-20) mg/dL Creatinine 1.30 H (0.66-1.25) mg/dL Glucose 199 H (74-99) mg/dL POC Glucose (mg/dL) 194 H (70-110) mg/dL Calcium 8.2 L (8.4-10.2) mg/dL Procalcitonin (0.02-0.09) ng/mL 07/23/23 Range/Units 06:36 WBC (3.8-10.6) k/uL RBC (4.30-5.90) m/uL Hgb (13.0-17.5) gm/dL Hct (39.0-53.0) % Neutrophils # (1.3-7.7) k/uL ABG HCO3 27 H (21-25) mmol/L ABG Total CO2 29 H (19-24) mmol/L Chloride (98-107) mmol/L BUN (9-20) mg/dL Creatinine (0.66-1.25) mg/dL Glucose (74-99) mg/dL POC Glucose (mg/dL) (70-110) mg/dL Calcium (8.4-10.2) mg/dL Procalcitonin (0.02-0.09) ng/mL Microbiology - Last 24 Hours (Table) 07/21/23 16:40 Gram Stain - Final Sputum Sputum Culture - Final Escherichia coli Methicillin resist S. aureus Assessment and Plan Assessment: * Status post cardiac arrest with prolonged downtime of 30 minutes as per EMS flow sheet documentation. Patient was in asystole. * Altered mental status anoxic encephalopathy. * On CT head on 07/20/23 reported as focal attenuation in the right cerebellar hemisphere and on repeat CT head yesterday awas felt it was more artifact. * Ventilator-dependent respiratory failure due to cardiac arrest, on mechanical ventilation. * Atrial fibrillation with rapid ventricular rate * Probable aspiration pneumonia * Lactic acidosis * Acute renal failure * Diabetes type 2 * Morbid obesity * Hypertension * Pulmonary nodules. Plan: * EEG 07/17/2023, was reported as abnormal due to background slowing of moderate degree, suggestive of generalized cerebral dysfunction as can be seen with toxic metabolic encephalopathy. Clinical correlation is recommended. No obvious epileptiform activity was seen. * On CT head on 07/20/23 reported as focal attenuation in the right cerebellar hemisphere and on repeat CT head yesterday awas felt it was more artifact. He cannot have MRI Brain since on ventilator and is not MRI compatible. * Carotid duplex: <50% stenosis of the bilateral carotid bifurcations. The right vertebral artery is not visualized. * With painful stimuli the patient was opening his eyes tracking and wiggling toes. * Patient currently on Xarelto for atrial fibrillation. * Pending Trach and PEG next week. * Other medical management as per IM and critical care. The plan was discussed with his nurse. We'll continue to follow sporadically. Time with Patient: Less than 30
[2023-07-23 12:25] LABS: Glucose,Whole Blood 304 mg/dL (70-110)
[2023-07-23] MEDS ORDERED: VANCOMYCIN IV PER PHARMACY 1 EACH MISC MISCELLANE PRN (13:56)
--- NOTE | 2023-07-23 14:04 | P.PN ---
Subjective Progress Note Date: 07/23/23 Principal diagnosis: Acute cardiopulmonary arrest/asystole 68-year-old male patient, morbidly obese, known history of obstructive sleep apnea, chronic atrial fibrillation maintained on long-term and the coagulation with Xarelto in addition to history of diabetes mellitus type 2, hypertension and obesity. The patient was brought into the emergency department with cardiac arrest. The patient was at home and he was complaining of some shortness of breath. He was supposed to see his primary care physician, however he acutely became unresponsive. The patient's was there and she activated EMS. The downtime reported was approximately 7 minutes before EMS arrival. The patient was found to be in asystole and CPR was initiated. The patient was intubated. The patient received epinephrine based on the ACLS protocol. The CPR time was around 10-12 minutes and following that there was return of spontaneous circulation. Following that, the patient was brought into the emergency department. The patient EKG was consistent with A. fib with RVR. The patient's BP was 120/94. The patient was given a chest x-ray that showed no acute abnormalities. He was started on propofol which is currently running at 50 mcg/kg/m. No seizure activity has been noted. CAT scan of the brain is not done. CT angiogram of the chest has not been done. Cardiac enzymes showed a troponin of 0.136. Initial blood gas showed a pH of 7.2 with episodes of 53 and pO2 of 336. His current vent settings with an assist control of 24 with a tidal volume of 500, FiO2 is 50% with a PEEP of 5. Urine operas in order of 40-50 mL an hour. He is afebrile. He is on no pressors. No reported aspiration. The donor is currently 11.2, hemoglobin is 15 with a platelet count of 218. Normal coagulation profile. BUN is at 24 with a creatinine of 1.1. Initial lactic acid level is at 7.6. ProBNP level was 1250. Serum bicarb is at 22. Glucose at 157. 07/19/2023, the patient was taken off sedation. He is tracking. He was able to wiggle his toes upon demand. His profoundly weak. He opens his eyes spontaneously. No nystagmus. Pupils are equal and reactive to light. No seizure activity has been noted. The patient was earlier on propofol at a dose of 75 mcg/kg/m and currently is off sedation. He remains on a mechanical ventilator, assist control mode at the rate of 24, tidal volume of 500, FiO2 is down to 40% with a PEEP of 5. Is chest x-ray showing lower lobe infiltrates bilaterally. Lung volumes are small. Orotracheal tube is in a good location. The patient also has a or G-tube in place. In terms of his blood gas, the patient has a pH of 7.39 with a pCO2 of 44 and pO2 of 103. He does have respiratory secretions are being suctioned. White cell cause of 10.5 with a hemoglobin 12.6 and a platelet count of 188. Sodium is at 140, potassium is at 4, chloride 16 and a bicarb is 26. He did sustain an acute kidney injury and the creatinine is improved compared to yesterday's down to 2.7. BUN is 56. Potassium levels of 4.0. Fluid balance over the past 24 hours is +1.7 L. The patient remains on bronchodilators. The patient remains on Decadron 6 mg IV ev caridad 24 hours. He is on long-term anticoagulation with Xarelto. His cardiac rhythm is sinus. Echocardiogram done on 07/17/2023 shows a preserved LV function. He is afebrile. He is on no pressors. No other significant events overnight. Feeding is in the form of vital high-protein which is currently at goal. Reevaluated today on 07/20/2023, asymptomatic clinically ventilated, he is on assist control rate of 16 tidal volume 500 FiO2 40% and PEEP of 5, ABG showed a pO2 of 84 pCO2 42 pH of 7.41. Patient is now in sinus rhythm, he converted from atrial fibrillation. CT of the brain was negative EEG was normal. Patient remains on propofol at 15 mcg/kg/m IV fluids 75 mL an hour vital HPI 25 mL per hour yesterday the patient went on CPAP from 9:15 till 2 PM, however he was noted to get more shortness of breath at the end of the day, and he had to be placed back on assist control mode of mechanical ventilation. Surprisingly the patient Downs time was about 20 minutes patient arrested in the car on 07/12/2023. Echocardiogram showed good LV function with ejection fraction of 50- 55%. My plan today is to place the patient on Precedex, off propofol, and give him a trial of pressure support of 10 and CPAP. According to the note from yesterday, patient was appropriate and he was following instructions yesterday WBC count today is 8.4 hemoglobin is 12.1. Basic metabolic profile is normal however his renal profile is abnormal. BUN of 57 creatinine 2.32 chest x-ray showed endotracheal tube in proper position low lung volumes with generalized hazy appearance, could represent mostly atelectasis. Doubt pulmonary edema patient is tolerating enteral feeding vital HPI 45 mL per hour. Reevaluated today on 07/21/2023, patient remains in the ICU intubated and mechanically ventilated, his mental status seems to be waxing and waning, he is again not responding to any stimuli, sedation on assist control rate of 16 tidal volume 500 FiO2 40% and PEEP of 5 ABG showed a pO2 of 96 pCO2 43 pH of 7.40 hence no changes were made in his vent settings. Repeat CT of the brain showed questionable new acute ischemic event. Chest x-ray continues to show moderate right-sided pleural effusion with atelectasis of the right lower lobe. WBC count is 9.4 hemoglobin is 12.6 electrolytes are normal renal profile showed a BUN of 57 creatinine 1.90. Patient is not requiring any pressors he is on nutritional support/enteral feeding. Considering the patient's neurological status, I'm not planning any further trials of weaning today, patient is not ready for weaning. Being evaluated by neurology again for his worsening neurological status and mental status. EEG showed moderate degree of g eneralized cerebral dysfunction with toxic metabolic encephalopathy, carotid Doppler is basically unremarkable. Reevaluated today on 07/22/2023, patient remains in the ICU intubated and mechanically ventilated, with waxing and waning mental status, today the patient opens eyes only but does not track and does not follow any instructions. Patient is on assist control rate of 16 tidal volume 500 FiO2 40% and PEEP of 5 ABG showed a pO2 of 95 pCO2 43 pH of 7.43 chest x-ray continues to show evidence of moderate right-sided pleural effusion and atelectasis and/or consolidation. Hence more Lasix will be given since he responded better with the Lasix yesterday and the effusion seems to be a bit smaller compared to yesterday PA and sputum cultures remain negative so far. W scan is 10.3 hemoglobin 12.3, basic metabolic profile is normal BUN is 58 creatinine 1.67, improving. Again his mental status is waxing and waning today seems to be poor in spite of holding sedation now for the last few days remains off any sedation Reevaluated today on 07/23/2023, patient remains in the ICU, intubated and mechanically ventilated. Patient remains about the same as far as his mental status, he opens his eyes but does not follow any instructions and does not seem to track. He is on assist control rate of 16 tidal volume 500 FiO2 40% and PEEP of 5 ABG showed a pO2 of 87 pCO2 43 pH of 7.41. Remains on Zosyn empirically, however considering the sputum now is showing MRSA, I will add vancomycin to this patient. Sputum came back positive for E. coli and MRSA. Patient is still on enteral feeding receiving vital HPI at 69 mL/h IV fluid is at 75 mL per hour. Patient has been intermittently receiving Lasix. He was intubated on 07/16, today I was about to consult surgery for possible tracheostomy and PEG tube placement, however the stated to the nurses that she he would have never wanted to be on long-term mechanical ventilation. Hence we will plan to continue present supportive care measures until next week or the next few days and no improvement noted then we could consider comfort care measures and terminal weaning. WBC count today is 11.9, hemoglobin 12.3 left lites are cristian l BUN is 55 creatinine 1.30, steadily improving. Objective - Vital Signs Vital signs: Vital Signs Temp 98.3 F 07/23/23 12:00 Pulse 76 07/23/23 13:00 Resp 19 07/23/23 13:00 BP 114/72 07/23/23 09:00 Pulse Ox 93 L 07/23/23 13:00 FiO2 40 07/23/23 12:00 Intake & Output 07/22/23 07/23/23 07/23/23 18:59 06:59 18:59 Intake Total 1877 2204 1179 Output Total 1710 1170 1805 Balance 167 1034 -626 Weight 140.1 kg Intake: IV 933 1136 606 Magnesium Sulfate-D5w Pmx 100 1 gm In Dextrose/Water 1 100ml.bag @ 100 mls/hr IVPB ONCE ONE Rx#: [id number] Normal Saline Pressure 33 36 21 Bag Piperacillin-Tazobactam 3 100 100 .375 gm In Sodium Chloride 0.9% 100 ml @ 25 mls/hr IVPB Q8HR [facility] Rx# :[id number] Sodium Chloride 0.9% 1, 900 900 485 000 ml @ 75 mls/hr IV . [id number] [facility] Rx#:[id number] Tube Feeding 824 828 483 Other 120 240 90 Output: Urine 1710 1170 1805 Other: Voiding Method Indwelling Catheter Indwelling Catheter Indwelling Catheter ABP, PAP, CO, CI - Last Documented Arterial Blood Pressure 121/55 - Exam Physical Exam: Revealed a 68-year-old white male obese in no distress intubated mechanically ventilated, remains off sedation, opens eyes but does not follow any instructions. Head: Atraumatic, normocephalic. The tracheal tube and orogastric tube are intact HEENT:[Neck is supple.] [No neck masses.] [No thyromegaly.] [No JVD.] Chest: [Diminished breath sound bilaterally no crackles or rhonchi symmetrical chest expansion.] Cardiac Exam: [Normal S1 and S2, no S3 gallop, no murmur.] Abdomen: [Obese, Soft, nontender, no megaly, no rebound, no guarding, normal bowel sounds.] Extremities: [No clubbing, no edema, no cyanosis.] Chronic venous stasis changes noted bilaterally in both lower extremities Neurological Exam: Opens eyes, does not follow any instructions Psychiatric: Could not assess - Labs CBC & Chem 7: 07/23/23 04:43 07/23/23 12:52 Labs: Abnormal Lab Results - Last 24 Hours (Table) 07/22/23 07/23/23 07/23/23 Range/Units 17:59 00:02 04:43 WBC 11.9 H (3.8-10.6) k/uL RBC 3.77 L (4.30-5.90) m/uL Hgb 12.3 L (13.0-17.5) gm/dL Hct 37.1 L (39.0-53.0) % Neutrophils # 9.3 H (1.3-7.7) k/uL ABG HCO3 (21-25) mmol/L ABG Total CO2 (19-24) mmol/L Chloride (98-107) mmol/L BUN (9-20) mg/dL Creatinine (0.66-1.25) mg/dL Glucose (74-99) mg/dL POC Glucose (mg/dL) 242 H 179 H (70-110) mg/dL Calcium (8.4-10.2) mg/dL 07/23/23 07/23/23 07/23/23 Range/Units 04:43 05:47 06:36 WBC (3.8-10.6) k/uL RBC (4.30-5.90) m/uL Hgb (13.0-17.5) gm/dL Hct (39.0-53.0) % Neutrophils # (1.3-7.7) k/uL ABG HCO3 27 H (21-25) mmol/L ABG Total CO2 29 H (19-24) mmol/L Chloride 113 H (98-107) mmol/L BUN 55 H (9-20) mg/dL Creatinine 1.30 H (0.66-1.25) mg/dL Glucose 199 H (74-99) mg/dL POC Glucose (mg/dL) 194 H (70-110) mg/dL Calcium 8.2 L (8.4-10.2) mg/dL 07/23/23 Range/Units 12:24 WBC (3.8-10.6) k/uL RBC (4.30-5.90) m/uL Hgb (13.0-17.5) gm/dL Hct (39.0-53.0) % Neutrophils # (1.3-7.7) k/uL ABG HCO3 (21-25) mmol/L ABG Total CO2 (19-24) mmol/L Chloride (98-107) mmol/L BUN (9-20) mg/dL Creatinine (0.66-1.25) mg/dL Glucose (74-99) mg/dL POC Glucose (mg/dL) 304 H (70-110) mg/dL Calcium (8.4-10.2) mg/dL Microbiology - Last 24 Hours (Table) 07/21/23 16:40 Gram Stain - Final Sputum Sputum Culture - Final Escherichia coli Methicillin resist S. aureus Assessment and Plan Assessment: Impression: Acute hypoxic and hypercapnic respiratory failure secondary to cardiac arrest/prolonged downtime about 20 minutes. Acute COVID-19 infection, incidental finding, Chronic atrial fibrillation, on anticoagulation Morbid obesity BMI of 40.7 Type 2 diabetes currently on sliding scale coverage Obstructive sleep apnea syndrome with index of 90 Recent hospitalization for bilateral pneumonia Chronic bronchial asthma Acute kidney injury secondary to cardiac arrest Nonspecific pulmonary nodules Benign essential hypertension anoxic brain injury and hypoxic encephalopathy Recommendation: Continue ventilatory support, I was considering referral to surgery for trach and PEG however prefers not to do so, and will discuss CODE STATUS and possibly comfort care measures in the next couple of days. Continue to hold sedation Continue Decadron. Continue insulin sliding scale coverage Continue Xarelto Continue GI and DVT prophylaxis Continue intermittent diuresis Continue nutritional support/enteral feeding with vital HP Patient remains critically ill not quite ready for any weaning because of his neurological status, declined trach and PEG Critical care time is over 30 minutes Time with Patient: Greater than 30
--- NOTE | 2023-07-23 14:41 | P.GSCN ---
History of Present Illness Consult date: 07/23/23 History of present illness: CHIEF COMPLAINT: Cardiopulmonary arrest HISTORY OF PRESENT ILLNESS: This is a 68-year-old male who presented to the emergency room with cardiac arrest and had been complaining of shortness of breath. He has a history of atrial fibrillation and on Xarelto. Patient currently in the ICU on mechanical ventilation. Also, had incidental finding to be Covid 19 positive. Surgical service has been consulted for possible tracheostomy and PEG tube placement. PAST MEDICAL HISTORY: Atrial Fibrillation, Asthma, Diabetes Mellitus, Hypertension, Sleep Apnea/CPAP/BIPAP, morbid obesity PAST SURGICAL HISTORY: See below MEDICATIONS: See below ALLERGIES: See below SOCIAL HISTORY: No illicit drug use. REVIEW OF SYSTEMS: CONSTITUTIONAL: Denies fever or chills. HEENT: Denies blurred vision, vision changes, or eye pain. Denies hemoptysis CARDIOVASCULAR: Denies chest pain or pressure. RESPIRATORY: No shortness of breath. GASTROINTESTINAL: See HPI for pertinent findings HEMATOLOGIC: Denies bleeding disorders. GENITOURINARY: Denies any blood in urine or increased urinary frequency. SKIN: Denies pruitis. Denies rash. PHYSICAL EXAM: VITAL SIGNS: Reviewed GENERAL: Well-developed in no acute distress. ABDOMEN: Soft. Obese. Nondistended. Nontender NEUROLOGIC: Sedated and on mechanical ventilation LABORATORY DATA: WBC 11.9 Hgb 12.3 platelets 163 Sodium 144 potassium 4.6 creatinine 1.30 Albumin 3.2 IMAGING: ASSESSMENT: 1. Acute hypoxic respiratory failure secondary to cardiac arrest 2. Moderate protein calorie malnutrition 3. COVID-19 positive PLAN: -Patient's has declined tracheostomy and PEG tube placement. She reports that her would not want these procedures completed. Agree with resuming patient's Xarelto since there are no plans for tracheostomy and PEG tube placement. Thank you for this consultation. Physician Project Manager [employer] note has been reviewed by physician. Signing provider agrees with the documented findings, assessment, and plan of care. Past Medical History Past Medical History: Atrial Fibrillation, Asthma, Diabetes Mellitus, Hypertens ion, Sleep Apnea/CPAP/BIPAP Additional Past Medical History / Comment(s): Tachycardia History of Any Multi-Drug Resistant Organisms: None Reported Past Surgical History: Hernia Repair Additional Past Surgical History / Comment(s): CARDIOVERSION,YANIRA Past Anesthesia/Blood Transfusion Reactions: No Reported Reaction Past Alcohol Use History: None Reported, Rare - Past Family History Father Additional Family Medical History / Comment(s): HEART MURMUR Mother Family Medical History: No Reported History Medications and Allergies Home Medications Medication Instructions Recorded Confirmed Type Ipratropium/Albuterol Sulfate 2 puff INHALATION RT-QID PRN 03/30/15 07/16/23 History [Combivent Respimat Inhaler] Pioglitazone [Actos] 45 mg PO DAILY 03/30/15 07/16/23 History Rivaroxaban [Xarelto] 20 mg PO DAILY 03/30/15 07/16/23 History Ipratropium-Albuterol Nebulize 1 inhalation INHALATION RT-TID 05/22/15 07/16/23 History [Duoneb 0.5 mg-3 mg/3 ml Soln] Atorvastatin [Lipitor] 20 mg PO DAILY 05/02/23 07/16/23 History Metoprolol Tartrate [Lopressor] 100 mg PO BID 05/02/23 07/16/23 History Tirzepatide [Mounjaro] 5 mg SQ TU 05/02/23 07/16/23 History glyBURIDE/METFORMIN HCL 1 tab PO BID 05/02/23 07/16/23 History [Glucovance 5-500 mg] Fluticasone/Vilanterol [Breo 1 puff INHALATION RT-DAILY 07/16/23 07/16/23 History Ellipta 200-25 Mcg Inhaler] Furosemide [Lasix] 20 mg PO DAILY 07/16/23 07/16/23 History Potassium Chloride [Klor-Con M10] 10 meq PO DAILY 07/16/23 07/16/23 History Allergies Allergy/AdvReac Type Severity Reaction Status Date / Time No Known Allergies Allergy Unverified 07/16/23 12:41 Surgical - Exam Vital Signs Temp Pulse Resp BP Pulse Ox FiO2 95.0 F L 70 14 112/72 98 100 07/16/23 11:02 07/16/23 11:02 07/16/23 11:02 07/16/23 11:02 07/16/23 11:02 07/16/23 11:02 Results - Labs 07/23/23 04:43 07/23/23 12:52 Abnormal Lab Results - Last 24 Hours (Table) 07/22/23 07/22/23 07/22/23 Range/Units 03:15 11:32 17:59 WBC (3.8-10.6) k/uL RBC (4.30-5.90) m/uL Hgb (13.0-17.5) gm/dL Hct (39.0-53.0) % Neutrophils # (1.3-7.7) k/uL ABG HCO3 (21-25) mmol/L ABG Total CO2 (19-24) mmol/L Chloride (98-107) mmol/L BUN (9-20) mg/dL Creatinine (0.66-1.25) mg/dL Glucose (74-99) mg/dL POC Glucose (mg/dL) 237 H 242 H (70-110) mg/dL Calcium (8.4-10.2) mg/dL Procalcitonin 0.29 H (0.02-0.09) ng/mL 07/23/23 07/23/23 07/23/23 Range/Units 00:02 04:43 04:43 WBC 11.9 H (3.8-10.6) k/uL RBC 3.77 L (4.30-5.90) m/uL Hgb 12.3 L (13.0-17.5) gm/dL Hct 37.1 L (39.0-53.0) % Neutrophils # 9.3 H (1.3-7.7) k/uL ABG HCO3 (21-25) mmol/L ABG Total CO2 (19-24) mmol/L Chloride 113 H (98-107) mmol/L BUN 55 H (9-20) mg/dL Creatinine 1.30 H (0.66-1.25) mg/dL Glucose 199 H (74-99) mg/dL POC Glucose (mg/dL) 179 H (70-110) mg/dL Calcium 8.2 L (8.4-10.2) mg/dL Procalcitonin (0.02-0.09) ng/mL 07/23/23 07/23/23 Range/Units 05:47 06:36 WBC (3.8-10.6) k/uL RBC (4.30-5.90) m/uL Hgb (13.0-17.5) gm/dL Hct (39.0-53.0) % Neutrophils # (1.3-7.7) k/uL ABG HCO3 27 H (21-25) mmol/L ABG Total CO2 29 H (19-24) mmol/L Chloride (98-107) mmol/L BUN (9-20) mg/dL Creatinine (0.66-1.25) mg/dL Glucose (74-99) mg/dL POC Glucose (mg/dL) 194 H (70-110) mg/dL Calcium (8.4-10.2) mg/dL Procalcitonin (0.02-0.09) ng/mL Microbiology - Last 24 Hours (Table) 07/21/23 16:40 Gram Stain - Final Sputum Sputum Culture - Final Escherichia coli Methicillin resist S. aureus Diabetes panel 07/22/23 07/23/23 Range/Units 14:53 04:43 Sodium 144 (137-145) mmol/L Potassium 4.4 3.8 (3.5-5.1) mmol/L Chloride 113 H (98-107) mmol/L Carbon Dioxide 27 (22-30) mmol/L BUN 55 H (9-20) mg/dL Creatinine 1.30 H (0.66-1.25) mg/dL Glucose 199 H (74-99) mg/dL Calcium 8.2 L (8.4-10.2) mg/dL Calcium panel 07/23/23 Range/Units 04:43 Calcium 8.2 L (8.4-10.2) mg/dL Pituitary panel 07/22/23 07/23/23 Range/Units 14:53 04:43 Sodium 144 (137-145) mmol/L Potassium 4.4 3.8 (3.5-5.1) mmol/L Chloride 113 H (98-107) mmol/L Carbon Dioxide 27 (22-30) mmol/L BUN 55 H (9-20) mg/dL Creatinine 1.30 H (0.66-1.25) mg/dL Glucose 199 H (74-99) mg/dL Calcium 8.2 L (8.4-10.2) mg/dL Adrenal panel 07/22/23 07/23/23 Range/Units 14:53 04:43 Sodium 144 (137-145) mmol/L Potassium 4.4 3.8 (3.5-5.1) mmol/L Chloride 113 H (98-107) mmol/L Carbon Dioxide 27 (22-30) mmol/L BUN 55 H (9-20) mg/dL Creatinine 1.30 H (0.66-1.25) mg/dL Glucose 199 H (74-99) mg/dL Calcium 8.2 L (8.4-10.2) mg/dL
[2023-07-23] MEDS ORDERED: VANCOMYCIN 2,500 MG in SODIUM CHLORIDE 0.9% 500 ML 500 ML IVPB ONE (15:00)
--- NOTE | 2023-07-23 16:05 | P.PN ---
Subjective Progress Note Date: 07/23/23 So 68-year-old gentleman admitted with acute hypoxic and hypercapnic respiratory failure secondary to cardiac arrest, prolonged downtime reported at 20-30 minutes, anoxic brain injury, hypoxic encephalopathy, acute COVID-19 infection and multiple other medical issues. Remains vent dependent, FiO2 50%/+5 of PEEP. Sedation remains on hold. Chest x-ray reporting increased density right lower lobe may reflect underlying atelectasis, effusion and/or infiltrate, left medial basilar infiltrate/atelectasis unchanged .telemetry sinus,no pressor support at this time .Staff reports patient was following commands and tracking with his eyes yesterday. Repeat Brain CT performed yesterday reported no evidence for intracranial hemorrhage or sulcal effacement, no mass effects, no midline shift, osseous calvarium is intact, focal decreased attenuation right cerebellar hemisphere could reflect acute ischemic insult, correlate with MRI, age-related atrophic and chronic small vessel ischemic change. EEG reported abnormal due to background slowing of moderate degree, suggestive of generalized cerebral dysfun ction seen with toxic metabolic encephalopathy or related to diffuse structural brain abnormality, no obvious epileptiform activity seen. Carotid Doppler reported less than 50% stenosis of bilateral carotid bifurcations, right vertebral artery not visualized. Receiving OT tube feedings of vital high protein. Anticoagulated on Xarelto, continues on Decadron. BUN remains at 57, Creatinine trending down, currently 1.9. 07/22/2023 remains vent dependent on 40% FiO2 +5 of PEEP. Remains off of se dation. Patient spontaneously opens eyes, questionable tracking reported per staff . Tolerating tube feeds at goal, with minimal to no residuals. Chest x- ray reporting moderate pleural effusion with underlying atelectasis and/or consolidation , received Lasix. Creatinine improving decreased to 1.67. Afebrile, normal WBC. 07/23/2023 vent dependent, FiO2 40%/+5 of PEEP. Chest x-ray reporting small right pleural effusion .Sputum culture reporting MRSA , E. coli , vancomycin added in addition to Zosyn for antibiotic coverage. Creatinine improving, decreased to 1.3. T-max 99.3, WBC 11.9. Pro-calcitonin 0.29. Brain CT repeated yesterday, results noted including reporting of previous hypodensity in the right cerebellar hemisphere not as pronounced as on prior study. Objective - Vital Signs Vital signs: Vital Signs Temp 98.3 F 07/23/23 12:00 Pulse 84 07/23/23 14:00 Resp 16 07/23/23 14:00 BP 114/72 07/23/23 09:00 Pulse Ox 94 L 07/23/23 14:00 FiO2 40 07/23/23 12:00 Intake & Output 07/22/23 07/23/23 07/23/23 18:59 06:59 18:59 Intake Total 1877 2204 1179 Output Total 1710 1170 1805 Balance 167 1034 -626 Weight 140.1 kg Intake: IV 933 1136 606 Magnesium Sulfate-D5w Pmx 100 1 gm In Dextrose/Water 1 100ml.bag @ 100 mls/hr IVPB ONCE ONE Rx#: [id number] Normal Saline Pressure 33 36 21 Bag Piperacillin-Tazobactam 3 100 100 .375 gm In Sodium Chloride 0.9% 100 ml @ 25 mls/hr IVPB Q8HR [facility] Rx# :[id number] Sodium Chloride 0.9% 1, 900 900 485 000 ml @ 75 mls/hr IV . [id number] [facility] Rx#:[id number] Tube Feeding 824 828 483 Other 120 240 90 Output: Urine 1710 1170 1805 Other: Voiding Method Indwelling Catheter Indwelling Catheter Indwelling Catheter ABP, PAP, CO, CI - Last Documented Arterial Blood Pressure 130/58 - Exam PHYSICAL EXAM: Limited exam completed in a patient with COVID-19. VITAL SIGNS: [As above] GENERAL: Intubated, off sedation, no acute distress CARDIOVASCULAR: S1, S2 regular. - Labs CBC & Chem 7: 07/23/23 04:43 07/23/23 12:52 Labs: Abnormal Lab Results - Last 24 Hours (Table) 07/22/23 07/23/23 07/23/23 Range/Units 17:59 00:02 04:43 WBC 11.9 H (3.8-10.6) k/uL RBC 3.77 L (4.30-5.90) m/uL Hgb 12.3 L (13.0-17.5) gm/dL Hct 37.1 L (39.0-53.0) % Neutrophils # 9.3 H (1.3-7.7) k/uL ABG HCO3 (21-25) mmol/L ABG Total CO2 (19-24) mmol/L Chloride (98-107) mmol/L BUN (9-20) mg/dL Creatinine (0.66-1.25) mg/dL Glucose (74-99) mg/dL POC Glucose (mg/dL) 242 H 179 H (70-110) mg/dL Calcium (8.4-10.2) mg/dL 07/23/23 07/23/23 07/23/23 Range/Units 04:43 05:47 06:36 WBC (3.8-10.6) k/uL RBC (4.30-5.90) m/uL Hgb (13.0-17.5) gm/dL Hct (39.0-53.0) % Neutrophils # (1.3-7.7) k/uL ABG HCO3 27 H (21-25) mmol/L ABG Total CO2 29 H (19-24) mmol/L Chloride 113 H (98-107) mmol/L BUN 55 H (9-20) mg/dL Creatinine 1.30 H (0.66-1.25) mg/dL Glucose 199 H (74-99) mg/dL POC Glucose (mg/dL) 194 H (70-110) mg/dL Calcium 8.2 L (8.4-10.2) mg/dL 07/23/23 Range/Units 12:24 WBC (3.8-10.6) k/uL RBC (4.30-5.90) m/uL Hgb (13.0-17.5) gm/dL Hct (39.0-53.0) % Neutrophils # (1.3-7.7) k/uL ABG HCO3 (21-25) mmol/L ABG Total CO2 (19-24) mmol/L Chloride (98-107) mmol/L BUN (9-20) mg/dL Creatinine (0.66-1.25) mg/dL Glucose (74-99) mg/dL POC Glucose (mg/dL) 304 H (70-110) mg/dL Calcium (8.4-10.2) mg/dL Microbiology - Last 24 Hours (Table) 07/21/23 16:40 Gram Stain - Final Sputum Sputum Culture - Final Escherichia coli Methicillin resist S. aureus Assessment and Plan Assessment: Acute hypoxic and hypercapnic respiratory failure secondary to cardiac arrest/prolonged downtime, intubated in the field, in a patient with recent hospitalization for bilateral pneumonia 05/02/23. Acute COVID-19 infection. Sputum positive for E. coli and MRSA Anoxic brain injury with hypoxic encephalopathy, neurology following Nonspecific pulmonary nodules reported per CT Chronic bronchial asthma Mildly enlarged nonspecific peripancreatic lymph node reported per CT Cholelithiasis Acute renal injury secondary to cardiac arrest, improving Diabetes mellitus Chronic Paroxysmal atrial fibrillation, currently sinus Hypertension Hyperlipidemia Morbid obesity, BMI 42 Obstructive sleep apnea Plan: Continue on current medication regime ,monitoring and symptomatic treatment. Vancomycin added to antibiotic regimen .post monitoring of renal function with repeat labs ordered for a.m. Continues on IV Decadron. Anticoagulated on Xarelto. ICU management as per fine hairer. declined tracheostomy and PEG, CODE STATUS being discussed.maintain supportive care .Prognosis guarded given multiple medical issues. The impression and plan of care has been dictated as directed. : I performed a history and examination of this patient, discussed the same with the dictator. I agree with the dictator's note ,documented as a scribe. Any additional findings or plans will be noted.
[2023-07-23 17:59] LABS: Glucose,Whole Blood 278 mg/dL (70-110)
[2023-07-23 23:19] LABS: Glucose,Whole Blood 229 mg/dL (70-110)
[2023-07-24] MEDS: PIPERACILLIN-TAZOBACTAM 3.375 GM in SODIUM CHLORIDE 0.9% 100 ML IVPB SCH ×4 (00:28→23:32)
[2023-07-24] MEDS: INSULIN ASPART (NovoLOG) 100 UNIT/ML VIAL SQ SCH ×5 (00:33→23:40)
[2023-07-24] MEDS: ALBUTEROL HFA INHALER INHALATION SCH ×6 (04:01→23:34)
[2023-07-24 04:19] LABS: African American GFR (CKD) 62 (>60 ml/min/1.73 sqM); Anion Gap 3 mmol/L; Blood Urea Nitrogen 54 mg/dL (9-20); Calcium 8.2 mg/dL (8.4-10.2); Carbon Dioxide 30 mmol/L (22-30); Chloride 110 mmol/L (98-107); Glucose 206 mg/dL (74-99); Magnesium 1.7 mg/dL (1.6-2.3); Non-African American GFR(CKD) 54 (>60 ml/min/1.73 sqM); Potassium 3.5 mmol/L (3.5-5.1); Sodium 143 mmol/L (137-145)
[2023-07-24 05:15] LABS: Glucose,Whole Blood 185 mg/dL (70-110)
[2023-07-24] MEDS ORDERED: MAGNESIUM SULFATE-D5W PMX 1 GM in DEXTROSE/WATER 1 100ML.BAG IVPB ONE ×2 (05:24→19:53)
[2023-07-24] MEDS: POTASSIUM BICARBONATE/CIT AC 20 MEQ TABLET.EFF NG-TUBE SCH ×2 (05:52→06:59)
[2023-07-24] MEDS: VANCOMYCIN 2,500 MG in SODIUM CHLORIDE 0.9% 500 ML 500 ML IVPB SCH ×2 (05:53→23:32)
[2023-07-24 06:29] LABS: ABG HCO3 30 mmol/L (21-25); ABG Oxygen Saturation 96.8 % (94-97); ABG PCO2 47 mmHg (35-45); ABG PH 7.42 (7.35-7.45); ABG PO2 88 mmHg (83-108); ABG TCO2 32 mmol/L (19-24); Allen Test Performed? Yes
[2023-07-24] MEDS: RIVAROXABAN 20 MG TAB PO SCH (06:59)
[2023-07-24] MEDS: SYMBICORT 160-4.5 MCG INHALER INHALATION SCH ×2 (08:38→20:35)
[2023-07-24] MEDS: ATORVASTATIN 20 MG TAB PO SCH (08:52)
[2023-07-24] MEDS: DEXAMETHASONE SOD PHOSPHATE 10 MG/ML 1 ML VIAL IVP SCH (08:52)
[2023-07-24] MEDS: FUROSEMIDE 10 MG/ML 4 ML VIAL IV SCH ×2 (08:52→19:35)
[2023-07-24] MEDS: CHLORHEXIDINE GLUCONATE 15 ML CUP MUCOUS MEM SCH ×2 (08:52→19:35)
[2023-07-24] MEDS: PANTOPRAZOLE 40 MG/10 ML VIAL IV SCH (08:55)
[2023-07-24] MEDS: METOPROLOL TARTRATE 50 MG TAB PO SCH ×2 (08:55→19:35)
[2023-07-24] MEDS: DOCUSATE ORAL SOLN 100 MG/10 ML CUP PO SCH (09:28)
--- NOTE | 2023-07-24 11:19 | P.PN ---
Subjective Progress Note Date: 07/24/23 CHIEF COMPLAINT: Cardiopulmonary arrest HISTORY OF PRESENT ILLNESS: Patient remains in the ICU on mechanical ventilation with history of cardiopulmonary arrest. Surgical service consulted for possible tracheostomy and PEG tube placement. Patient's family has declined tracheostomy and PEG tube placement PHYSICAL EXAM: VITAL SIGNS: Reviewed. GENERAL: no acute distress. ABDOMEN: Soft. NEUROLOGIC: Intubated and sedated ASSESSMENT: 1. Acute hypoxic respiratory failure secondary to cardiac arrest 2. Moderate protein calorie malnutrition 3. COVID-19 positive PLAN: -Patient's has declined tracheostomy and PEG tube placement. She reports that her would not want these procedures completed. -Surgical service will sign off. Please call with any questions or concerns. Physician Pattern Hand note has been reviewed by physician. Signing provider agrees with the documented findings, assessment, and plan of care. Objective - Vital Signs Vital signs: Vital Signs Temp 98.7 F 07/24/23 08:00 Pulse 75 07/24/23 09:00 Resp 19 07/24/23 09:00 BP 103/61 07/24/23 09:00 Pulse Ox 97 07/24/23 09:00 FiO2 40 07/24/23 08:39 Intake & Output 07/23/23 07/24/23 07/24/23 18:59 06:59 18:59 Intake Total 2344 2529 219 Output Total 2851974 235 Balance -511 554 -16 Weight 137.2 kg Intake: IV 1396 1611 81 Magnesium Sulfate-D5w Pmx 100 1 gm In Dextrose/Water 1 100ml.bag @ 100 mls/hr IVPB ONCE ONE Rx#: [id number] Normal Saline Pressure 36 36 6 Bag Piperacillin-Tazobactam 3 150 150 .375 gm In Sodium Chloride 0.9% 100 ml @ 25 mls/hr IVPB Q8HR [facility] Rx# :[id number] Sodium Chloride 0.9% 1, 710 825 75 000 ml @ 75 mls/hr IV . [id number] [facility] Rx#:[id number] Vancomycin 2,500 mg In 500 500 Sodium Chloride 0.9% 500 ml 500 ml @ 167 mls/hr IVPB ONCE ONE Rx#: [id number] Tube Feeding 828 828 138 Other 120 90 Output: Urine 2855 1975 235 Other: Voiding Method Indwelling Catheter Indwelling Catheter ABP, PAP, CO, CI - Last Documented Arterial Blood Pressure 137/61 - Labs CBC & Chem 7: 07/23/23 04:43 07/24/23 04:00 Labs: Abnormal Lab Results - Last 24 Hours (Table) 07/23/23 07/23/23 07/23/23 Range/Units 12:24 17:56 23:18 ABG pCO2 (35-45) mmHg ABG HCO3 (21-25) mmol/L ABG Total CO2 (19-24) mmol/L Chloride (98-107) mmol/L BUN (9-20) mg/dL Creatinine (0.66-1.25) mg/dL Glucose (74-99) mg/dL POC Glucose (mg/dL) 304 H 278 H 229 H (70-110) mg/dL Calcium (8.4-10.2) mg/dL 07/24/23 07/24/23 07/24/23 Range/Units 04:00 05:14 06:25 ABG pCO2 47 H (35-45) mmHg ABG HCO3 30 H (21-25) mmol/L ABG Total CO2 32 H (19-24) mmol/L Chloride 110 H (98-107) mmol/L BUN 54 H (9-20) mg/dL Creatinine 1.34 H (0.66-1.25) mg/dL Glucose 206 H (74-99) mg/dL POC Glucose (mg/dL) 185 H (70-110) mg/dL Calcium 8.2 L (8.4-10.2) mg/dL Microbiology - Last 24 Hours (Table) 07/21/23 16:40 Gram Stain - Final Sputum Sputum Culture - Final Escherichia coli Methicillin resist S. aureus
--- NOTE | 2023-07-24 12:34 | P.PN ---
Subjective Progress Note Date: 07/24/23 Principal diagnosis: Acute cardiopulmonary arrest/asystole 68-year-old male patient, morbidly obese, known history of obstructive sleep apnea, chronic atrial fibrillation maintained on long-term and the coagulation with Xarelto in addition to history of diabetes mellitus type 2, hypertension and obesity. The patient was brought into the emergency department with cardiac arrest. The patient was at home and he was complaining of some shortness of breath. He was supposed to see his primary care physician, however he acutely became unresponsive. The patient's was there and she activated EMS. The downtime reported was approximately 7 minutes before EMS arrival. The patient was found to be in asystole and CPR was initiated. The patient was intubated. The patient received epinephrine based on the ACLS protocol. The CPR time was around 10-12 minutes and following that there was return of spontaneous circulation. Following that, the patient was brought into the emergency department. The patient EKG was consistent with A. fib with RVR. The patient's BP was 120/94. The patient was given a chest x-ray that showed no acute abnormalities. He was started on propofol which is currently running at 50 mcg/kg/m. No seizure activity has been noted. CAT scan of the brain is not done. CT angiogram of the chest has not been done. Cardiac enzymes showed a troponin of 0.136. Initial blood gas showed a pH of 7.2 with episodes of 53 and pO2 of 336. His current vent settings with an assist control of 24 with a tidal volume of 500, FiO2 is 50% with a PEEP of 5. Urine operas in order of 40-50 mL an hour. He is afebrile. He is on no pressors. No reported aspiration. The donor is currently 11.2, hemoglobin is 15 with a platelet count of 218. Normal coagulation profile. BUN is at 24 with a creatinine of 1.1. Initial lactic acid level is at 7.6. ProBNP level was 1250. Serum bicarb is at 22. Glucose at 157. 07/19/2023, the patient was taken off sedation. He is tracking. He was able to wiggle his toes upon demand. His profoundly weak. He opens his eyes spontaneously. No nystagmus. Pupils are equal and reactive to light. No seizure activity has been noted. The patient was earlier on propofol at a dose of 75 mcg/kg/m and currently is off sedation. He remains on a mechanical ventilator, assist control mode at the rate of 24, tidal volume of 500, FiO2 is down to 40% with a PEEP of 5. Is chest x-ray showing lower lobe infiltrates bilaterally. Lung volumes are small. Orotracheal tube is in a good location. The patient also has a or G-tube in place. In terms of his blood gas, the patient has a pH of 7.39 with a pCO2 of 44 and pO2 of 103. He does have respiratory secretions are being suctioned. White cell cause of 10.5 with a hemoglobin 12.6 and a platelet count of 188. Sodium is at 140, potassium is at 4, chloride 16 and a bicarb is 26. He did sustain an acute kidney injury and the creatinine is improved compared to yesterday's down to 2.7. BUN is 56. Potassium levels of 4.0. Fluid balance over the past 24 hours is +1.7 L. The patient remains on bronchodilators. The patient remains on Decadron 6 mg IV ev caridad 24 hours. He is on long-term anticoagulation with Xarelto. His cardiac rhythm is sinus. Echocardiogram done on 07/17/2023 shows a preserved LV function. He is afebrile. He is on no pressors. No other significant events overnight. Feeding is in the form of vital high-protein which is currently at goal. Reevaluated today on 07/20/2023, asymptomatic clinically ventilated, he is on assist control rate of 16 tidal volume 500 FiO2 40% and PEEP of 5, ABG showed a pO2 of 84 pCO2 42 pH of 7.41. Patient is now in sinus rhythm, he converted from atrial fibrillation. CT of the brain was negative EEG was normal. Patient remains on propofol at 15 mcg/kg/m IV fluids 75 mL an hour vital HPI 25 mL per hour yesterday the patient went on CPAP from 9:15 till 2 PM, however he was noted to get more shortness of breath at the end of the day, and he had to be placed back on assist control mode of mechanical ventilation. Surprisingly the patient Downs time was about 20 minutes patient arrested in the car on 07/12/2023. Echocardiogram showed good LV function with ejection fraction of 50- 55%. My plan today is to place the patient on Precedex, off propofol, and give him a trial of pressure support of 10 and CPAP. According to the note from yesterday, patient was appropriate and he was following instructions yesterday WBC count today is 8.4 hemoglobin is 12.1. Basic metabolic profile is normal however his renal profile is abnormal. BUN of 57 creatinine 2.32 chest x-ray showed endotracheal tube in proper position low lung volumes with generalized hazy appearance, could represent mostly atelectasis. Doubt pulmonary edema patient is tolerating enteral feeding vital HPI 45 mL per hour. Reevaluated today on 07/21/2023, patient remains in the ICU intubated and mechanically ventilated, his mental status seems to be waxing and waning, he is again not responding to any stimuli, sedation on assist control rate of 16 tidal volume 500 FiO2 40% and PEEP of 5 ABG showed a pO2 of 96 pCO2 43 pH of 7.40 hence no changes were made in his vent settings. Repeat CT of the brain showed questionable new acute ischemic event. Chest x-ray continues to show moderate right-sided pleural effusion with atelectasis of the right lower lobe. WBC count is 9.4 hemoglobin is 12.6 electrolytes are normal renal profile showed a BUN of 57 creatinine 1.90. Patient is not requiring any pressors he is on nutritional support/enteral feeding. Considering the patient's neurological status, I'm not planning any further trials of weaning today, patient is not ready for weaning. Being evaluated by neurology again for his worsening neurological status and mental status. EEG showed moderate degree of g eneralized cerebral dysfunction with toxic metabolic encephalopathy, carotid Doppler is basically unremarkable. Reevaluated today on 07/22/2023, patient remains in the ICU intubated and mechanically ventilated, with waxing and waning mental status, today the patient opens eyes only but does not track and does not follow any instructions. Patient is on assist control rate of 16 tidal volume 500 FiO2 40% and PEEP of 5 ABG showed a pO2 of 95 pCO2 43 pH of 7.43 chest x-ray continues to show evidence of moderate right-sided pleural effusion and atelectasis and/or consolidation. Hence more Lasix will be given since he responded better with the Lasix yesterday and the effusion seems to be a bit smaller compared to yesterday PA and sputum cultures remain negative so far. W scan is 10.3 hemoglobin 12.3, basic metabolic profile is normal BUN is 58 creatinine 1.67, improving. Again his mental status is waxing and waning today seems to be poor in spite of holding sedation now for the last few days remains off any sedation Reevaluated today on 07/23/2023, patient remains in the ICU, intubated and mechanically ventilated. Patient remains about the same as far as his mental status, he opens his eyes but does not follow any instructions and does not seem to track. He is on assist control rate of 16 tidal volume 500 FiO2 40% and PEEP of 5 ABG showed a pO2 of 87 pCO2 43 pH of 7.41. Remains on Zosyn empirically, however considering the sputum now is showing MRSA, I will add vancomycin to this patient. Sputum came back positive for E. coli and MRSA. Patient is still on enteral feeding receiving vital HPI at 69 mL/h IV fluid is at 75 mL per hour. Patient has been intermittently receiving Lasix. He was intubated on 07/16, today I was about to consult surgery for possible tracheostomy and PEG tube placement, however the stated to the nurses that she he would have never wanted to be on long-term mechanical ventilation. Hence we will plan to continue present supportive care measures until next week or the next few days and no improvement noted then we could consider comfort care measures and terminal weaning. WBC count today is 11.9, hemoglobin 12.3 left lites are cristian l BUN is 55 creatinine 1.30, steadily improving. Reevaluated today on 07/24/2023, patient remains in the ICU, intubated and mechanically ventilated. His mental status is waxing and waning, today the p atient is opening his eyes on verbal commands, however unable to wiggle toes or squeezing hands, apparently he was doing this earlier when the nurse was examining him. Patient again has waxing and waning mental status. Remains on tidal volume of 500 FiO2 40% rate of 16 PEEP of 5 and that is an assist-control mode of mechanical ventilation. ABG showed a pO2 of 88 pCO2 47 pH of 7.42 with IV fluids at KVO he is still on Zosyn and vancomycin for E. coli and MRSA in the sputum. Remains on vital AF at 69 mL/h and IV fluid at 75 mL per hour. Patient is receiving Lasix 40 mg IV push twice a day today I will give the patient a trial of pressure support of 10 and 5 he is not quite ready for extubation but will try a weaning trial with pressure support and CPAP labs were reviewed, renal profile showed a BUN of 54 creatinine 1.3, basically about the same compared to yesterday improved compared to the last few days. No chest x-ray was done, last chest x-ray showed improved right-sided pleural effusion and minimal right basilar atelectasis no evidence of significant change Objective - Vital Signs Vital signs: Vital Signs Temp 98.7 F 07/24/23 08:00 Pulse 75 07/24/23 09:00 Resp 19 07/24/23 09:00 BP 103/61 07/24/23 09:00 Pulse Ox 97 07/24/23 09:00 FiO2 40 07/24/23 08:39 Intake & Output 07/23/23 07/24/23 07/24/23 18:59 06:59 18:59 Intake Total 2344 2529 219 Output Total 2855 1975 235 Balance -511 554 -16 Weight 137.2 kg 137.2 kg Intake: IV 1396 1611 81 Magnesium Sulfate-D5w Pmx 100 1 gm In Dextrose/Water 1 100ml.bag @ 100 mls/hr IVPB ONCE ONE Rx#: [id number] Normal Saline Pressure 36 36 6 Bag Piperacillin-Tazobactam 3 150 150 .375 gm In Sodium Chloride 0.9% 100 ml @ 25 mls/hr IVPB Q8HR [facility] Rx# :[id number] Sodium Chloride 0.9% 1, 710 825 75 000 ml @ 75 mls/hr IV . [id number] [facility] Rx#:[id number] Vancomycin 2,500 mg In 500 500 Sodium Chloride 0.9% 500 ml 500 ml @ 167 mls/hr IVPB ONCE ONE Rx#: [id number] Tube Feeding 828 828 138 Other 120 90 Output: Urine 2855 1975 235 Other: Voiding Method Indwelling Catheter Indwelling Catheter ABP, PAP, CO, CI - Last Documented Arterial Blood Pressure 137/61 - Exam Physical Exam: Revealed a 68-year-old white male obese in no distress intubated mechanically ventilated, remains off sedation, opens eyes and follows very simple instructions but does not seem to be consistent. Head: Atraumatic, normocephalic. The tracheal tube and orogastric tube are intact HEENT:[Neck is supple.] [No neck masses.] [No thyromegaly.] [No JVD.] Chest: [Diminished breath sound bilaterally no crackles or rhonchi symmetrical chest expansion.] Cardiac Exam: [Normal S1 and S2, no S3 gallop, no murmur.] Abdomen: [Obese, Soft, nontender, no megaly, no rebound, no guarding, normal bowel sounds.] Extremities: [No clubbing, no edema, no cyanosis.] Chronic venous stasis changes noted bilaterally in both lower extremities Neurological Exam: Opens eyes, intermittently follows instructions and most often he does not. Psychiatric: Could not assess - Labs CBC & Chem 7: 07/23/23 04:43 07/24/23 04:00 Labs: Abnormal Lab Results - Last 24 Hours (Table) 07/23/23 07/23/23 07/24/23 Range/Units 17:56 23:18 04:00 ABG pCO2 (35-45) mmHg ABG HCO3 (21-25) mmol/L ABG Total CO2 (19-24) mmol/L Chloride 110 H (98-107) mmol/L BUN 54 H (9-20) mg/dL Creatinine 1.34 H (0.66-1.25) mg/dL Glucose 206 H (74-99) mg/dL POC Glucose (mg/dL) 278 H 229 H (70-110) mg/dL Calcium 8.2 L (8.4-10.2) mg/dL 07/24/23 07/24/23 Range/Units 05:14 06:25 ABG pCO2 47 H (35-45) mmHg ABG HCO3 30 H (21-25) mmol/L ABG Total CO2 32 H (19-24) mmol/L Chloride (98-107) mmol/L BUN (9-20) mg/dL Creatinine (0.66-1.25) mg/dL Glucose (74-99) mg/dL POC Glucose (mg/dL) 185 H (70-110) mg/dL Calcium (8.4-10.2) mg/dL Microbiology - Last 24 Hours (Table) 07/21/23 16:40 Gram Stain - Final Sputum Sputum Culture - Final Escherichia coli Methicillin resist S. aureus Assessment and Plan Assessment: Impression: Acute hypoxic and hypercapnic respiratory failure secondary to cardiac arrest/prolonged downtime about 20 minutes. Acute COVID-19 infection, incidental finding, Chronic atrial fibrillation, on anticoagulation Morbid obesity BMI of 40.7 Type 2 diabetes currently on sliding scale coverage Obstructive sleep apnea syndrome with index of 90 Recent hospitalization for bilateral pneumonia Chronic bronchial asthma Acute kidney injury secondary to cardiac arrest Nonspecific pulmonary nodules Benign essential hypertension anoxic brain injury and hypoxic encephalopathy Recommendation: Continue ventilatory support, however I will go ahead and give the patient a trial on pressure support of 10 and CPAP of 5. Continue to hold sedation Continue Decadron. Continue insulin sliding scale coverage Continue Xarelto Continue diuretics Continue GI and DVT prophylaxis Continue nutritional support/enteral feeding with vital HP Patient remains critically ill Family/ against the idea of trach and PEG, hence we'll continue to follow supportive care measures and will decide in the next few days on CODE STATUS and possibly comfort care if no major changes noted Critical care time is over 30 minutes Time with Patient: Greater than 30
[2023-07-24 12:57] LABS: Glucose,Whole Blood 261 mg/dL (70-110)
[2023-07-24] MEDS: HYDROmorphone 1 MG/ML 1 ML SYRINGE IVP PRN (13:26)
--- NOTE | 2023-07-24 13:29 | P.PN ---
Subjective Progress Note Date: 07/24/23 So 68-year-old gentleman admitted with acute hypoxic and hypercapnic respiratory failure secondary to cardiac arrest, prolonged downtime reported at 20-30 minutes, anoxic brain injury, hypoxic encephalopathy, acute COVID-19 infection and multiple other medical issues. Remains vent dependent, FiO2 50%/+5 of PEEP. Sedation remains on hold. Chest x-ray reporting increased density right lower lobe may reflect underlying atelectasis, effusion and/or infiltrate, left medial basilar infiltrate/atelectasis unchanged .telemetry sinus,no pressor support at this time .Staff reports patient was following commands and tracking with his eyes yesterday. Repeat Brain CT performed yesterday reported no evidence for intracranial hemorrhage or sulcal effacement, no mass effects, no midline shift, osseous calvarium is intact, focal decreased attenuation right cerebellar hemisphere could reflect acute ischemic insult, correlate with MRI, age-related atrophic and chronic small vessel ischemic change. EEG reported abnormal due to background slowing of moderate degree, suggestive of generalized cerebral dysfun ction seen with toxic metabolic encephalopathy or related to diffuse structural brain abnormality, no obvious epileptiform activity seen. Carotid Doppler reported less than 50% stenosis of bilateral carotid bifurcations, right vertebral artery not visualized. Receiving OT tube feedings of vital high protein. Anticoagulated on Xarelto, continues on Decadron. BUN remains at 57, Creatinine trending down, currently 1.9. 07/22/2023 remains vent dependent on 40% FiO2 +5 of PEEP. Remains off of se dation. Patient spontaneously opens eyes, questionable tracking reported per staff . Tolerating tube feeds at goal, with minimal to no residuals. Chest x- ray reporting moderate pleural effusion with underlying atelectasis and/or consolidation , received Lasix. Creatinine improving decreased to 1.67. Afebrile, normal WBC. 07/23/2023 vent dependent, FiO2 40%/+5 of PEEP. Chest x-ray reporting small right pleural effusion .Sputum culture reporting MRSA , E. coli , vancomycin added in addition to Zosyn for antibiotic coverage. Creatinine improving, decreased to 1.3. T-max 99.3, WBC 11.9. Pro-calcitonin 0.29. Brain CT repeated yesterday, results noted including reporting of previous hypodensity in the right cerebellar hemisphere not as pronounced as on prior study. 07/24/23 sedation remains on hold , maintained on Decadron, diuretics. Anticoagulated on Xarelto. vent dependent FiO2 40%/+5 of PEEP, staff reports patient opening eyes on verbal commands. Continues on Zosyn and vancomycin. T- max 99.3. BUN 54, creatinine 1.34. Magnesium 1.7. Weaning trial pending as per pulmonary. Objective - Vital Signs Vital signs: Vital Signs Temp 98.7 F 07/24/23 08:00 Pulse 75 07/24/23 09:00 Resp 19 07/24/23 09:00 BP 103/61 07/24/23 09:00 Pulse Ox 97 07/24/23 09:00 FiO2 40 07/24/23 08:39 Intake & Output 07/23/23 07/24/23 07/24/23 18:59 06:59 18:59 Intake Total 2344 2529 219 Output Total 2855 1975 235 Balance -511 554 -16 Weight 137.2 kg Intake: IV 1396 1611 81 Magnesium Sulfate-D5w Pmx 100 1 gm In Dextrose/Water 1 100ml.bag @ 100 mls/hr IVPB ONCE ONE Rx#: [id number] Normal Saline Pressure 36 36 6 Bag Piperacillin-Tazobactam 3 150 150 .375 gm In Sodium Chloride 0.9% 100 ml @ 25 mls/hr IVPB Q8HR [facility] Rx# :[id number] Sodium Chloride 0.9% 1, 710 825 75 000 ml @ 75 mls/hr IV . [id number] [facility] Rx#:[id number] Vancomycin 2,500 mg In 500 500 Sodium Chloride 0.9% 500 ml 500 ml @ 167 mls/hr IVPB ONCE ONE Rx#: [id number] Tube Feeding 828 828 138 Other 120 90 Output: Urine 2855 1975 235 Other: Voiding Method Indwelling Catheter Indwelling Catheter ABP, PAP, CO, CI - Last Documented Arterial Blood Pressure 137/61 - Exam PHYSICAL EXAM: Limited exam completed in a patient with COVID-19. VITAL SIGNS: [As above] GENERAL: Intubated, off sedation, no acute distress CARDIOVASCULAR: S1, S2 regular. - Labs CBC & Chem 7: 07/23/23 04:43 07/24/23 04:00 Labs: Abnormal Lab Results - Last 24 Hours (Table) 07/23/23 07/23/23 07/23/23 Range/Units 12:24 17:56 23:18 ABG pCO2 (35-45) mmHg ABG HCO3 (21-25) mmol/L ABG Total CO2 (19-24) mmol/L Chloride (98-107) mmol/L BUN (9-20) mg/dL Creatinine (0.66-1.25) mg/dL Glucose (74-99) mg/dL POC Glucose (mg/dL) 304 H 278 H 229 H (70-110) mg/dL Calcium (8.4-10.2) mg/dL 07/24/23 07/24/23 07/24/23 Range/Units 04:00 05:14 06:25 ABG pCO2 47 H (35-45) mmHg ABG HCO3 30 H (21-25) mmol/L ABG Total CO2 32 H (19-24) mmol/L Chloride 110 H (98-107) mmol/L BUN 54 H (9-20) mg/dL Creatinine 1.34 H (0.66-1.25) mg/dL Glucose 206 H (74-99) mg/dL POC Glucose (mg/dL) 185 H (70-110) mg/dL Calcium 8.2 L (8.4-10.2) mg/dL Microbiology - Last 24 Hours (Table) 07/21/23 16:40 Gram Stain - Final Sputum Sputum Culture - Final Escherichia coli Methicillin resist S. aureus Assessment and Plan Assessment: Acute hypoxic and hypercapnic respiratory failure secondary to cardiac arrest/prolonged downtime, intubated in the field, in a patient with recent h ospitalization for bilateral pneumonia 05/02/23. Acute COVID-19 infection. Sputum positive for E. coli and MRSA Anoxic brain injury with hypoxic encephalopathy, neurology following Nonspecific pulmonary nodules reported per CT Chronic bronchial asthma Mildly enlarged nonspecific peripancreatic lymph node reported per CT Cholelithiasis Acute renal injury secondary to cardiac arrest, improving Diabetes mellitus Chronic Paroxysmal atrial fibrillation, currently sinus Hypertension Hyperlipidemia Morbid obesity, BMI 42 Obstructive sleep apnea Plan: Continue on current medication regime ,monitoring and symptomatic treatment. Maintained on IV Decadron, diuretics, antibiotics. Anticoagulated on Xarelto. ICU management as per employee service officer. Weaning trials as per pulmonary pending. declined tracheostomy and PEG.maintain supportive care .Prognosis guarded given multiple medical issues. The impression and plan of care has been dictated as directed. : I performed a history and examination of this patient, discussed the same with the dictator. I agree with the dictator's note ,documented as a scribe. Any additional findings or plans will be noted.
[2023-07-24 15:20] LABS: HCT 36.4 % (39.0-53.0); HGB 11.3 gm/dL (13.0-17.5); Hypochromasia Slight; MCH 31.2 pg (25.0-35.0); MCHC 31.1 g/dL (31.0-37.0); MCV 100.3 fL (80.0-100.0); Macrocytosis Slight; Mean Platelet Volume 9.2; Platelet Count 161 k/uL (150-450); RBC 3.63 m/uL (4.30-5.90); RDW 15.1 % (11.5-15.5); WBC 12.6 k/uL (3.8-10.6)
[2023-07-24 17:24] LABS: Glucose,Whole Blood 318 mg/dL (70-110)
[2023-07-24 18:06] LABS: Magnesium 1.8 mg/dL (1.6-2.3); Potassium 4.5 mmol/L (3.5-5.1)
[2023-07-24 23:38] LABS: Glucose,Whole Blood 306 mg/dL (70-110)
[2023-07-25] MEDS: HYDROmorphone 1 MG/ML 1 ML SYRINGE IVP PRN ×3 (04:05→19:59)
[2023-07-25] MEDS: ALBUTEROL HFA INHALER INHALATION SCH ×5 (04:05→19:46)
[2023-07-25 04:15] LABS: Basophils # (A) 0.1 k/uL (0-0.2); Basophils % (A) 0 %; Eosinophils # (A) 0.2 k/uL (0-0.7); Eosinophils % (A) 1 %; HGB 12.1 gm/dL (13.0-17.5); Hypochromasia Slight; Lymphocytes # (A) 1.9 k/uL (1.0-4.8); Lymphocytes % (A) 14 %; MCH 32.5 pg (25.0-35.0); MCHC 32.7 g/dL (31.0-37.0); MCV 99.4 fL (80.0-100.0); Macrocytosis Slight; Mean Platelet Volume 8.6; Monocytes # (A) 1.1 k/uL (0-1.0); Monocytes % (A) 8 %; Neutrophils % (A) 74 %; Platelet Count 180 k/uL (150-450); RBC 3.72 m/uL (4.30-5.90); RDW 15.2 % (11.5-15.5); WBC 13.4 k/uL (3.8-10.6)
[2023-07-25 04:25] LABS: African American GFR (CKD) 63 (>60 ml/min/1.73 sqM); Anion Gap 4 mmol/L; Blood Urea Nitrogen 58 mg/dL (9-20); Calcium 8.5 mg/dL (8.4-10.2); Carbon Dioxide 32 mmol/L (22-30); Chloride 107 mmol/L (98-107); Glucose 240 mg/dL (74-99); Magnesium 1.9 mg/dL (1.6-2.3); Non-African American GFR(CKD) 55 (>60 ml/min/1.73 sqM); Potassium 3.5 mmol/L (3.5-5.1); Sodium 143 mmol/L (137-145)
[2023-07-25] MEDS: SODIUM CHLORIDE 0.9% 1,000 ML IV SCH (04:31)
[2023-07-25] MEDS ORDERED: MAGNESIUM SULFATE-D5W PMX 1 GM in DEXTROSE/WATER 1 100ML.BAG IVPB ONE (04:33)
[2023-07-25] MEDS: POTASSIUM CHLORIDE ER 20 MEQ TAB.ER PO SCH ×2 (04:43→06:12)
[2023-07-25 05:54] LABS: Glucose,Whole Blood 255 mg/dL (70-110)
[2023-07-25] MEDS: RIVAROXABAN 20 MG TAB PO SCH (06:12)
[2023-07-25] MEDS: INSULIN ASPART (NovoLOG) 100 UNIT/ML VIAL SQ SCH ×4 (06:12→23:52)
[2023-07-25 06:29] LABS: ABG Base Excess 8.5 mmol/L; ABG HCO3 32 mmol/L (21-25); ABG PCO2 46 mmHg (35-45); ABG PH 7.45 (7.35-7.45); ABG PO2 93 mmHg (83-108); ABG TCO2 34 mmol/L (19-24); Allen Test Performed? Yes
[2023-07-25 06:30] LABS: ABG Oxygen Saturation 97.1 % (94-97)
--- NOTE | 2023-07-25 07:29 | XR ---
EXAMINATION TYPE: XR chest 1V portable DATE OF EXAM: 07/25/2023 5:41 AM COMPARISON: Chest radiographs from 07/23/2023 TECHNIQUE: XR chest 1V portable Portable AP radiograph of the chest. CLINICAL INDICATION:Male, 68 years old with history of COVID; FINDINGS: Lungs/Pleura: No pneumothorax or focal consolidation. Elevation of the right hemidiaphragm redemonstr ated. Small right pleural effusion. Pulmonary vascularity: Unremarkable. Heart/mediastinum: Cardiomediastinal silhouette is enlarged and stable. Musculoskeletal: No acute osseous pathology. Other findings: None Lines/Tubes: Endotracheal and NG tubes are in stable position. Left subclavian approach central venous catheter is in stable position. IMPRESSION: 1. Stable support lines and tubes. 2. Small right pleural effusion. No focal consolidation.
[2023-07-25] MEDS: SYMBICORT 160-4.5 MCG INHALER INHALATION SCH ×2 (07:45→19:46)
[2023-07-25] MEDS: PIPERACILLIN-TAZOBACTAM 3.375 GM in SODIUM CHLORIDE 0.9% 100 ML IVPB SCH ×3 (07:48→23:25)
[2023-07-25] MEDS: PANTOPRAZOLE 40 MG/10 ML VIAL IV SCH (08:34)
[2023-07-25] MEDS: DEXAMETHASONE SOD PHOSPHATE 10 MG/ML 1 ML VIAL IVP SCH (08:34)
[2023-07-25] MEDS: DOCUSATE ORAL SOLN 100 MG/10 ML CUP PO SCH (08:34)
[2023-07-25] MEDS: CHLORHEXIDINE GLUCONATE 15 ML CUP MUCOUS MEM SCH (08:34)
[2023-07-25] MEDS: FUROSEMIDE 10 MG/ML 4 ML VIAL IV SCH ×2 (08:34→20:00)
[2023-07-25] MEDS: ATORVASTATIN 20 MG TAB PO SCH (08:34)
[2023-07-25] MEDS: METOPROLOL TARTRATE 50 MG TAB PO SCH ×2 (08:34→22:16)
--- NOTE | 2023-07-25 10:49 | P.PN ---
Subjective Progress Note Date: 07/25/23 am following-up with patient and per nurse he is following few simple commands. He is on spontaneous breathing and is not on sedation. Objective - Vital Signs Vital signs: Vital Signs Temp 98.2 F 07/25/23 08:00 Pulse 77 07/25/23 10:00 Resp 18 07/25/23 10:00 BP 120/77 07/25/23 10:00 Pulse Ox 94 L 07/25/23 10:00 FiO2 40 07/25/23 09:05 Intake & Output 07/24/23 07/25/23 07/25/23 18:59 06:59 18:59 Intake Total 1111 1712 548 Output Total 2835 1645 535 Balance -1724 67 13 Weight 137.2 kg 137 kg Intake: IV 114 953 192 Magnesium Sulfate-D5w Pmx 200 1 gm In Dextrose/Water 1 100ml.bag @ 100 mls/hr IVPB ONCE ONE Rx#: [id number] Normal Saline Pressure 39 33 12 Bag Piperacillin-Tazobactam 3 100 100 .375 gm In Sodium Chloride 0.9% 100 ml @ 25 mls/hr IVPB Q8HR [facility] Rx# :[id number] Sodium Chloride 0.9% 1, 75 120 80 000 ml @ 20 mls/hr IV . Q24H [facility] Rx#:[id number] Vancomycin 2,500 mg In 500 Sodium Chloride 0.9% 500 ml 500 ml @ 167 mls/hr IVPB ONCE ONE Rx#: [id number] Intake, IV Titration 100 Amount Piperacillin-Tazobactam 3 100 .375 gm In Sodium Chloride 0.9% 100 ml @ 25 mls/hr IVPB Q8HR [facility] Rx# :[id number] Tube Feeding 897 759 276 Other 80 Output: Urine 2835 1645 535 Other: Voiding Method Indwelling Catheter Indwelling Catheter Indwelling Catheter ABP, PAP, CO, CI - Last Documented Arterial Blood Pressure 118/55 - Exam General the patient is lying and is not in acute distress Long is a intubated on a ventilator Neuro: Drowsy but is awakeable to verbal stimuli. Opens his eyes spontaneously and tracks. Is showing thumbs up and move the legs distally to commands. Pupils are round equal and reactive to light. Is tracking throughout the room. No facial weakness. Patient has edema in all extremities. Motor: Is showing thumbs up symmetrically and moves lower extremity slightly side to side. - Labs CBC & Chem 7: 07/25/23 04:00 07/25/23 09:55 Labs: Abnormal Lab Results - Last 24 Hours (Table) 07/24/23 07/24/23 07/24/23 Range/Units 09:46 12:54 17:23 WBC 12.6 H (3.8-10.6) k/uL RBC 3.63 L (4.30-5.90) m/uL Hgb 11.3 L (13.0-17.5) gm/dL Hct 36.4 L (39.0-53.0) % MCV 100.3 H (80.0-100.0) fL Neutrophils # (1.3-7.7) k/uL Monocytes # (0-1.0) k/uL ABG pCO2 (35-45) mmHg ABG HCO3 (21-25) mmol/L ABG Total CO2 (19-24) mmol/L ABG O2 Saturation (94-97) % Carbon Dioxide (22-30) mmol/L BUN (9-20) mg/dL Creatinine (0.66-1.25) mg/dL Glucose (74-99) mg/dL POC Glucose (mg/dL) 261 H 318 H (70-110) mg/dL 07/24/23 07/25/23 07/25/23 Range/Units 23:37 04:00 04:00 WBC 13.4 H (3.8-10.6) k/uL RBC 3.72 L (4.30-5.90) m/uL Hgb 12.1 L (13.0-17.5) gm/dL Hct 37.0 L (39.0-53.0) % MCV (80.0-100.0) fL Neutrophils # 10.0 H (1.3-7.7) k/uL Monocytes # 1.1 H (0-1.0) k/uL ABG pCO2 (35-45) mmHg ABG HCO3 (21-25) mmol/L ABG Total CO2 (19-24) mmol/L ABG O2 Saturation (94-97) % Carbon Dioxide 32 H (22-30) mmol/L BUN 58 H (9-20) mg/dL Creatinine 1.32 H (0.66-1.25) mg/dL Glucose 240 H (74-99) mg/dL POC Glucose (mg/dL) 306 H (70-110) mg/dL 07/25/23 07/25/23 Range/Units 05:53 06:21 WBC (3.8-10.6) k/uL RBC (4.30-5.90) m/uL Hgb (13.0-17.5) gm/dL Hct (39.0-53.0) % MCV (80.0-100.0) fL Neutrophils # (1.3-7.7) k/uL Monocytes # (0-1.0) k/uL ABG pCO2 46 H (35-45) mmHg ABG HCO3 32 H (21-25) mmol/L ABG Total CO2 34 H (19-24) mmol/L ABG O2 Saturation 97.1 H (94-97) % Carbon Dioxide (22-30) mmol/L BUN (9-20) mg/dL Creatinine (0.66-1.25) mg/dL Glucose (74-99) mg/dL POC Glucose (mg/dL) 255 H (70-110) mg/dL Assessment and Plan Assessment: * Status post cardiac arrest with prolonged downtime of 30 minutes as per EMS flow sheet documentation. Patient was in asystole. * Altered mental status anoxic encephalopathy. Is following few simple commands while off sedations. * On CT head on 07/20/23 reported as focal attenuation in the right cerebellar hemisphere and on repeat CT head yesterday awas felt it was more artifact. * Ventilator-dependent respiratory failure due to cardiac arrest, on mechanical ventilation. * Atrial fibrillation with rapid ventricular rate * Probable aspiration pneumonia * Lactic acidosis * Acute renal failure * Diabetes type 2 * Morbid obesity * Hypertension * Pulmonary nodules. Plan: * EEG 07/17/2023, was reported as abnormal due to background slowing of moderate degree, suggestive of generalized cerebral dysfunction as can be seen with toxic metabolic encephalopathy. Clinical correlation is recommended. No obvious epileptiform activity was seen. * On CT head on 07/20/23 reported as focal attenuation in the right cerebellar hemisphere and on repeat CT head yesterday awas felt it was more artifact. He cannot have MRI Brain since on ventilator and is not MRI compatible. * Carotid duplex: <50% stenosis of the bilateral carotid bifurcations. The right vertebral artery is not visualized. * Patient is following few simple commands (thumbs up and move legs side to side to commands, tracks throughout the room). * Patient currently on Xarelto for atrial fibrillation. * Pending Trach and PEG next week. * Other medical management as per IM and critical care. The plan was discussed with his nurse. We'll continue to follow sporadically. Dr. Cottrell will start neurology service tomorrow A.M. (07/26/2023). Time with Patient: Less than 30
[2023-07-25 10:57] LABS: ABG Base Excess 8.8 mmol/L; ABG HCO3 33 mmol/L (21-25); ABG PCO2 48 mmHg (35-45); ABG PH 7.44 (7.35-7.45); ABG PO2 77 mmHg (83-108); ABG TCO2 34 mmol/L (19-24)
[2023-07-25 11:00] LABS: Allen Test Performed? no
--- NOTE | 2023-07-25 11:17 | P.PN ---
Subjective Progress Note Date: 07/25/23 Principal diagnosis: Acute cardiopulmonary arrest/asystole 68-year-old male patient, morbidly obese, known history of obstructive sleep apnea, chronic atrial fibrillation maintained on long-term and the coagulation with Xarelto in addition to history of diabetes mellitus type 2, hypertension and obesity. The patient was brought into the emergency department with cardiac arrest. The patient was at home and he was complaining of some shortness of breath. He was supposed to see his primary care physician, however he acutely became unresponsive. The patient's was there and she activated EMS. The downtime reported was approximately 7 minutes before EMS arrival. The patient was found to be in asystole and CPR was initiated. The patient was intubated. The patient received epinephrine based on the ACLS protocol. The CPR time was around 10-12 minutes and following that there was return of spontaneous circulation. Following that, the patient was brought into the emergency department. The patient EKG was consistent with A. fib with RVR. The patient's BP was 120/94. The patient was given a chest x-ray that showed no acute abnormalities. He was started on propofol which is currently running at 50 mcg/kg/m. No seizure activity has been noted. CAT scan of the brain is not done. CT angiogram of the chest has not been done. Cardiac enzymes showed a troponin of 0.136. Initial blood gas showed a pH of 7.2 with episodes of 53 and pO2 of 336. His current vent settings with an assist control of 24 with a tidal volume of 500, FiO2 is 50% with a PEEP of 5. Urine operas in order of 40-50 mL an hour. He is afebrile. He is on no pressors. No reported aspiration. The donor is currently 11.2, hemoglobin is 15 with a platelet count of 218. Normal coagulation profile. BUN is at 24 with a creatinine of 1.1. Initial lactic acid level is at 7.6. ProBNP level was 1250. Serum bicarb is at 22. Glucose at 157. 07/19/2023, the patient was taken off sedation. He is tracking. He was able to wiggle his toes upon demand. His profoundly weak. He opens his eyes spontaneously. No nystagmus. Pupils are equal and reactive to light. No seizure activity has been noted. The patient was earlier on propofol at a dose of 75 mcg/kg/m and currently is off sedation. He remains on a mechanical ventilator, assist control mode at the rate of 24, tidal volume of 500, FiO2 is down to 40% with a PEEP of 5. Is chest x-ray showing lower lobe infiltrates bilaterally. Lung volumes are small. Orotracheal tube is in a good location. The patient also has a or G-tube in place. In terms of his blood gas, the patient has a pH of 7.39 with a pCO2 of 44 and pO2 of 103. He does have respiratory secretions are being suctioned. White cell cause of 10.5 with a hemoglobin 12.6 and a platelet count of 188. Sodium is at 140, potassium is at 4, chloride 16 and a bicarb is 26. He did sustain an acute kidney injury and the creatinine is improved compared to yesterday's down to 2.7. BUN is 56. Potassium levels of 4.0. Fluid balance over the past 24 hours is +1.7 L. The patient remains on bronchodilators. The patient remains on Decadron 6 mg IV ev caridad 24 hours. He is on long-term anticoagulation with Xarelto. His cardiac rhythm is sinus. Echocardiogram done on 07/17/2023 shows a preserved LV function. He is afebrile. He is on no pressors. No other significant events overnight. Feeding is in the form of vital high-protein which is currently at goal. Reevaluated today on 07/20/2023, asymptomatic clinically ventilated, he is on assist control rate of 16 tidal volume 500 FiO2 40% and PEEP of 5, ABG showed a pO2 of 84 pCO2 42 pH of 7.41. Patient is now in sinus rhythm, he converted from atrial fibrillation. CT of the brain was negative EEG was normal. Patient remains on propofol at 15 mcg/kg/m IV fluids 75 mL an hour vital HPI 25 mL per hour yesterday the patient went on CPAP from 9:15 till 2 PM, however he was noted to get more shortness of breath at the end of the day, and he had to be placed back on assist control mode of mechanical ventilation. Surprisingly the patient Downs time was about 20 minutes patient arrested in the car on 07/12/2023. Echocardiogram showed good LV function with ejection fraction of 50- 55%. My plan today is to place the patient on Precedex, off propofol, and give him a trial of pressure support of 10 and CPAP. According to the note from yesterday, patient was appropriate and he was following instructions yesterday WBC count today is 8.4 hemoglobin is 12.1. Basic metabolic profile is normal however his renal profile is abnormal. BUN of 57 creatinine 2.32 chest x-ray showed endotracheal tube in proper position low lung volumes with generalized hazy appearance, could represent mostly atelectasis. Doubt pulmonary edema patient is tolerating enteral feeding vital HPI 45 mL per hour. Reevaluated today on 07/21/2023, patient remains in the ICU intubated and mechanically ventilated, his mental status seems to be waxing and waning, he is again not responding to any stimuli, sedation on assist control rate of 16 tidal volume 500 FiO2 40% and PEEP of 5 ABG showed a pO2 of 96 pCO2 43 pH of 7.40 hence no changes were made in his vent settings. Repeat CT of the brain showed questionable new acute ischemic event. Chest x-ray continues to show moderate right-sided pleural effusion with atelectasis of the right lower lobe. WBC count is 9.4 hemoglobin is 12.6 electrolytes are normal renal profile showed a BUN of 57 creatinine 1.90. Patient is not requiring any pressors he is on nutritional support/enteral feeding. Considering the patient's neurological status, I'm not planning any further trials of weaning today, patient is not ready for weaning. Being evaluated by neurology again for his worsening neurological status and mental status. EEG showed moderate degree of g eneralized cerebral dysfunction with toxic metabolic encephalopathy, carotid Doppler is basically unremarkable. Reevaluated today on 07/22/2023, patient remains in the ICU intubated and mechanically ventilated, with waxing and waning mental status, today the patient opens eyes only but does not track and does not follow any instructions. Patient is on assist control rate of 16 tidal volume 500 FiO2 40% and PEEP of 5 ABG showed a pO2 of 95 pCO2 43 pH of 7.43 chest x-ray continues to show evidence of moderate right-sided pleural effusion and atelectasis and/or consolidation. Hence more Lasix will be given since he responded better with the Lasix yesterday and the effusion seems to be a bit smaller compared to yesterday PA and sputum cultures remain negative so far. W scan is 10.3 hemoglobin 12.3, basic metabolic profile is normal BUN is 58 creatinine 1.67, improving. Again his mental status is waxing and waning today seems to be poor in spite of holding sedation now for the last few days remains off any sedation Reevaluated today on 07/23/2023, patient remains in the ICU, intubated and mechanically ventilated. Patient remains about the same as far as his mental status, he opens his eyes but does not follow any instructions and does not seem to track. He is on assist control rate of 16 tidal volume 500 FiO2 40% and PEEP of 5 ABG showed a pO2 of 87 pCO2 43 pH of 7.41. Remains on Zosyn empirically, however considering the sputum now is showing MRSA, I will add vancomycin to this patient. Sputum came back positive for E. coli and MRSA. Patient is still on enteral feeding receiving vital HPI at 69 mL/h IV fluid is at 75 mL per hour. Patient has been intermittently receiving Lasix. He was intubated on 07/16, today I was about to consult surgery for possible tracheostomy and PEG tube placement, however the stated to the nurses that she he would have never wanted to be on long-term mechanical ventilation. Hence we will plan to continue present supportive care measures until next week or the next few days and no improvement noted then we could consider comfort care measures and terminal weaning. WBC count today is 11.9, hemoglobin 12.3 left lites are cristian l BUN is 55 creatinine 1.30, steadily improving. Reevaluated today on 07/24/2023, patient remains in the ICU, intubated and mechanically ventilated. His mental status is waxing and waning, today the p atient is opening his eyes on verbal commands, however unable to wiggle toes or squeezing hands, apparently he was doing this earlier when the nurse was examining him. Patient again has waxing and waning mental status. Remains on tidal volume of 500 FiO2 40% rate of 16 PEEP of 5 and that is an assist-control mode of mechanical ventilation. ABG showed a pO2 of 88 pCO2 47 pH of 7.42 with IV fluids at KVO he is still on Zosyn and vancomycin for E. coli and MRSA in the sputum. Remains on vital AF at 69 mL/h and IV fluid at 75 mL per hour. Patient is receiving Lasix 40 mg IV push twice a day today I will give the patient a trial of pressure support of 10 and 5 he is not quite ready for extubation but will try a weaning trial with pressure support and CPAP labs were reviewed, renal profile showed a BUN of 54 creatinine 1.3, basically about the same compared to yesterday improved compared to the last few days. No chest x-ray was done, last chest x-ray showed improved right-sided pleural effusion and minimal right basilar atelectasis no evidence of significant change Reevaluated today on 07/25/2023, patient remains in the ICU, and mechanically ventilated. However mentation-mc the patient seems to be following all instructions today, much better compared to the last few days. He remains on assist control rate of 16 tidal volume 500 FiO2 40% and PEEP of 5 ABG showed a pO2 of 93 pCO2 46 pH of 7.45. Patient remains on antibiotics in the form of Zosyn and vancomycin for E. coli and MRSA in the sputum. Patient is a negative balance in the last 24 hours 1.6 L. He is on IV fluid at KVO he has been receiving Lasix 40 mg IV push every 12 hours and continues to have a small to m oderate sized right-sided pleural effusion. Receiving vital HPI at 69 mL per hour. His IV fluid at KVO. Hence weren't planning today is give the patient a trial of pressure support and CPAP, and if tolerated with excellent gases after 2 hours, may consider extubating the patient to BiPAP. This will be decided upon in the next couple of hours. In the meantime the patient remains relatively marginal at best. Basic metabolic profile today was normal BUN is 58 creatinine 1.3, steadily improving over the last few days. CBC is relatively normal except for WBC count of 13.4. Objective - Vital Signs Vital signs: Vital Signs Temp 98.2 F 07/25/23 08:00 Pulse 77 07/25/23 10:00 Resp 18 07/25/23 10:00 BP 120/77 07/25/23 10:00 Pulse Ox 94 L 07/25/23 10:00 FiO2 40 07/25/23 10:46 Intake & Output 07/24/23 07/25/23 07/25/23 18:59 06:59 18:59 Intake Total 1111 1712 548 Output Total 2835 1645 535 Balance -1724 67 13 Weight 137.2 kg 137 kg Intake: IV 114 953 192 Magnesium Sulfate-D5w Pmx 200 1 gm In Dextrose/Water 1 100ml.bag @ 100 mls/hr IVPB ONCE ONE Rx#: [id number] Normal Saline Pressure 39 33 12 Bag Piperacillin-Tazobactam 3 100 100 .375 gm In Sodium Chloride 0.9% 100 ml @ 25 mls/hr IVPB Q8HR [facility] Rx# :[id number] Sodium Chloride 0.9% 1, 75 120 80 000 ml @ 20 mls/hr IV . Q24H [facility] Rx#:[id number] Vancomycin 2,500 mg In 500 Sodium Chloride 0.9% 500 ml 500 ml @ 167 mls/hr IVPB ONCE ONE Rx#: [id number] Intake, IV Titration 100 Amount Piperacillin-Tazobactam 3 100 .375 gm In Sodium Chloride 0.9% 100 ml @ 25 mls/hr IVPB Q8HR [facility] Rx# :[id number] Tube Feeding 317 039 276 Other 80 Output: Urine 2835 1645 535 Other: Voiding Method Indwelling Catheter Indwelling Catheter Indwelling Catheter ABP, PAP, CO, CI - Last Documented Arterial Blood Pressure 118/55 - Exam Physical Exam: Revealed a 68-year-old white male obese in no distress intubated mechanically ventilated, off sedation, following instructions much better today Head: Atraumatic, normocephalic. HEENT:[Neck is supple.] [No neck masses.] [No thyromegaly.] [No JVD.] Chest: [Diminished breath sound bilaterally no crackles or rhonchi symmetrical chest expansion.] Cardiac Exam: [Normal S1 and S2, no S3 gallop, no murmur.] Abdomen: [Obese, Soft, nontender, no megaly, no rebound, no guarding, normal bowel sounds.] Extremities: [No clubbing, no edema, no cyanosis.] Chronic venous stasis changes noted bilaterally in both lower extremities Neurological Exam: Arousable, follows instructions, seems to comprehend Psychiatric: Flat affect, normal mood, seems to have relatively normal mental status - Labs CBC & Chem 7: 07/25/23 04:00 07/25/23 09:55 Labs: Abnormal Lab Results - Last 24 Hours (Table) 07/24/23 07/24/23 07/24/23 Range/Units 09:46 12:54 17:23 WBC 12.6 H (3.8-10.6) k/uL RBC 3.63 L (4.30-5.90) m/uL Hgb 11.3 L (13.0-17.5) gm/dL Hct 36.4 L (39.0-53.0) % MCV 100.3 H (80.0-100.0) fL Neutrophils # (1.3-7.7) k/uL Monocytes # (0-1.0) k/uL ABG pCO2 (35-45) mmHg ABG pO2 (83-108) mmHg ABG HCO3 (21-25) mmol/L ABG Total CO2 (19-24) mmol/L ABG O2 Saturation (94-97) % Carbon Dioxide (22-30) mmol/L BUN (9-20) mg/dL Creatinine (0.66-1.25) mg/dL Glucose (74-99) mg/dL POC Glucose (mg/dL) 261 H 318 H (70-110) mg/dL 07/24/23 07/25/23 07/25/23 Range/Units 23:37 04:00 04:00 WBC 13.4 H (3.8-10.6) k/uL RBC 3.72 L (4.30-5.90) m/uL Hgb 12.1 L (13.0-17.5) gm/dL Hct 37.0 L (39.0-53.0) % MCV (80.0-100.0) fL Neutrophils # 10.0 H (1.3-7.7) k/uL Monocytes # 1.1 H (0-1.0) k/uL ABG pCO2 (35-45) mmHg ABG pO2 (83-108) mmHg ABG HCO3 (21-25) mmol/L ABG Total CO2 (19-24) mmol/L ABG O2 Saturation (94-97) % Carbon Dioxide 32 H (22-30) mmol/L BUN 58 H (9-20) mg/dL Creatinine 1.32 H (0.66-1.25) mg/dL Glucose 240 H (74-99) mg/dL POC Glucose (mg/dL) 306 H (70-110) mg/dL 07/25/23 07/25/23 07/25/23 Range/Units 05:53 06:21 10:55 WBC (3.8-10.6) k/uL RBC (4.30-5.90) m/uL Hgb (13.0-17.5) gm/dL Hct (39.0-53.0) % MCV (80.0-100.0) fL Neutrophils # (1.3-7.7) k/uL Monocytes # (0-1.0) k/uL ABG pCO2 46 H 48 H (35-45) mmHg ABG pO2 77 L (83-108) mmHg ABG HCO3 32 H 33 H (21-25) mmol/L ABG Total CO2 34 H 34 H (19-24) mmol/L ABG O2 Saturation 97.1 H (94-97) % Carbon Dioxide (22-30) mmol/L BUN (9-20) mg/dL Creatinine (0.66-1.25) mg/dL Glucose (74-99) mg/dL POC Glucose (mg/dL) 255 H (70-110) mg/dL Assessment and Plan Assessment: Impression: Acute hypoxic and hypercapnic respiratory failure secondary to cardiac arrest/prolonged downtime about 20 minutes. Acute COVID-19 infection, incidental finding, Chronic atrial fibrillation, on anticoagulation Morbid obesity BMI of 40.7 Type 2 diabetes currently on sliding scale coverage Obstructive sleep apnea syndrome with index of 90 Recent hospitalization for bilateral pneumonia Chronic bronchial asthma Acute kidney injury secondary to cardiac arrest Nonspecific pulmonary nodules Benign essential hypertension anoxic brain injury and hypoxic encephalopathy Recommendation: Continue ventilatory support, pressure support and CPAP again today, and if tolerated may consider weaning/extubation Continue to hold sedation Continue Decadron. Continue insulin sliding scale coverage Continue Xarelto Continue diuretics Continue GI and DVT prophylaxis Continue nutritional support/enteral feeding with vital HP Patient remains critically ill Critical care time is over 30 minutes Time with Patient: Greater than 30
[2023-07-25 11:47] LABS: Glucose,Whole Blood 244 mg/dL (70-110)
[2023-07-25] MEDS: POTASSIUM CHLORIDE 20 MEQ in WATER FOR INJECTION 1 100ML.BAG IVPB SCH ×2 (12:41→15:37)
--- NOTE | 2023-07-25 13:13 | P.PN ---
Subjective Progress Note Date: 07/25/23 68-year-old gentleman admitted with acute hypoxic and hypercapnic respiratory failure secondary to cardiac arrest, prolonged downtime reported at 20-30 minutes, anoxic brain injury, hypoxic encephalopathy, acute COVID-19 infection and multiple other medical issues. Remains vent dependent, FiO2 50%/+5 of PEEP. Sedation remains on hold. Chest x-ray reporting increased density right lower lobe may reflect underlying atelectasis, effusion and/or infiltrate, left medial basilar infiltrate/atelectasis unchanged .telemetry sinus,no pressor support at this time .Staff reports patient was following commands and tracking with his eyes yesterday. Repeat Brain CT performed yesterday reported no evidence for intracranial hemorrhage or sulcal effacement, no mass effects, no midline shift, osseous calvarium is intact, focal decreased attenuation right cerebellar hemisphere could reflect acute ischemic insult, correlate with MRI, age-related atrophic and chronic small vessel ischemic change. EEG reported abnormal due to background slowing of moderate degree, suggestive of generalized cerebral dysfunction seen with toxic metabolic encephalopathy or related to diffuse structural brain abnormality, no obvious epileptiform activity seen. Carotid Doppler reported less than 50% stenosis of bilateral carotid bifurcations, right vertebral artery not visualized. Receiving OT tube feedings of vital high protein. Anticoagulated on Xarelto, continues on Decadron. BUN remains at 57, Creatinine trending down, currently 1.9. 07/22/2023 remains vent dependent on 40% FiO2 +5 of PEEP. Remains off of justin tion. Patient spontaneously opens eyes, questionable tracking reported per staff . Tolerating tube feeds at goal, with minimal to no residuals. Chest x-ray reporting moderate pleural effusion with underlying atelectasis and/or consolidation , received Lasix. Creatinine improving decreased to 1.67. Afebrile, normal WBC. 07/23/2023 vent dependent, FiO2 40%/+5 of PEEP. Chest x-ray reporting small right pleural effusion .Sputum culture reporting MRSA , E. coli , vancomycin added in addition to Zosyn for antibiotic coverage. Creatinine improving, decreased to 1.3. T-max 99.3, WBC 11.9. Pro-calcitonin 0.29. Brain CT repeated yesterday, results noted including reporting of previous hypodensity in the right cerebellar hemisphere not as pronounced as on prior study. 07/24/23 sedation remains on hold , maintained on Decadron, diuretics. Anticoagulated on Xarelto. vent dependent FiO2 40%/+5 of PEEP, staff reports patient opening eyes on verbal commands. Continues on Zosyn and vancomycin. T- max 99.3. BUN 54, creatinine 1.34. Magnesium 1.7. Weaning trial pending as per pulmonary. 07/25. Patient seen and examined. Patient was extubated this morning, currently on BiPAP. at the bedside, discussed with in detail regarding goals of care, patient's still not sure whether she wants him to be intubated if his respiratory status worsens, says no to PEG tube and trach placement .Lab work showed WBC 13.4, hemoglobin 12.1, platelet count 180. Sodium 140, potassium 3.5, BUN 58, creatinine 1.3 to REVIEW OF SYSTEMS: Review of systems cannot be obtained patient is lethargic PHYSICAL EXAMINATION: GENERAL: The patient is lethargic, obtunded, not in any acute distress. Follows simple commands HEENT: Pupils are round and equally reacting to light. EOMI. No scleral icterus. No conjunctival pallor. Normocephalic, atraumatic. No pharyngeal erythema. No thyromegaly. CARDIOVASCULAR: S1 and S2 present. No murmurs, rubs, or gallops. PULMONARY: Diminished breath sounds bilaterally, no wheeze ABDOMEN: Soft, nontender, nondistended, normoactive bowel sounds. No palpable organomegaly. MUSCULOSKELETAL: No joint swelling or deformity. EXTREMITIES: No cyanosis, clubbing, or pedal edema. NEUROLOGICAL: Lethargic, following simple commands. Moving all extremities SKIN: No rashes. Assessment and plan Acute hypoxic and hypercapnic respiratory failure secondary to cardiac arrest/prolonged downtime, intubated in the field, in a patient with recent hospitalization for bilateral pneumonia 05/02/23. Acute COVID-19 infection. Sputum positive for E. coli and MRSA Anoxic brain injury with hypoxic encephalopathy, neurology following Nonspecific pulmonary nodules reported per CT Chronic bronchial asthma Mildly enlarged nonspecific peripancreatic lymph node reported per CT Cholelithiasis Acute renal injury secondary to cardiac arrest, improving Diabetes mellitus Chronic Paroxysmal atrial fibrillation, currently sinus Hypertension Hyperlipidemia Morbid obesity, BMI 42 Obstructive sleep apnea Monitor vital signs Monitor CBC Monitor CMP Continue BiPAP as needed Continue IV Zosyn and vancomycin Continue Decadron. Continue insulin sliding scale coverage Continue Xarelto Continue diuretics Family declined tracheostomy and PEG tube placement at this time. Critical care following Labs and medication were reviewed.. Continue same treatment. Continue with symptomatic treatment. Resume home medication. Monitor labs and vitals. DVT and GI prophylaxis. Further recommendations as per clinical course of the patient Dictation was produced using [employer] dictation software. please excuse any grammatical, word or spelling errors. Objective - Vital Signs Vital signs: Vital Signs Temp 98.8 F 07/25/23 04:00 Pulse 69 07/25/23 07:00 Resp 16 07/25/23 07:00 BP 105/68 07/25/23 07:00 Pulse Ox 95 07/25/23 07:00 FiO2 40 07/25/23 09:05 Intake & Output 07/24/23 07/25/23 07/25/23 18:59 06:59 18:59 Intake Total 1111 1712 92 Output Total 2835 1645 60 Balance -1724 67 32 Weight 137.2 kg 137 kg Intake: IV 114 953 23 Magnesium Sulfate-D5w Pmx 200 1 gm In Dextrose/Water 1 100ml.bag @ 100 mls/hr IVPB ONCE ONE Rx#: [id number] Normal Saline Pressure 39 33 3 Bag Piperacillin-Tazobactam 3 100 .375 gm In Sodium Chloride 0.9% 100 ml @ 25 mls/hr IVPB Q8HR [facility] Rx# :[id number] Sodium Chloride 0.9% 1, 75 120 20 000 ml @ 20 mls/hr IV . Q24H [facility] Rx#:[id number] Vancomycin 2,500 mg In 500 Sodium Chloride 0.9% 500 ml 500 ml @ 167 mls/hr IVPB ONCE ONE Rx#: [id number] Intake, IV Titration 100 Amount Piperacillin-Tazobactam 3 100 .375 gm In Sodium Chloride 0.9% 100 ml @ 25 mls/hr IVPB Q8HR [facility] Rx# :[id number] Tube Feeding 897 759 69 Output: Urine 2835 1645 60 Other: Voiding Method Indwelling Catheter Indwelling Catheter ABP, PAP, CO, CI - Last Documented Arterial Blood Pressure 106/48 - Labs CBC & Chem 7: 07/25/23 04:00 07/25/23 09:55 Labs: Abnormal Lab Results - Last 24 Hours (Table) 07/24/23 07/24/23 07/24/23 Range/Units 09:46 12:54 17:23 WBC 12.6 H (3.8-10.6) k/uL RBC 3.63 L (4.30-5.90) m/uL Hgb 11.3 L (13.0-17.5) gm/dL Hct 36.4 L (39.0-53.0) % MCV 100.3 H (80.0-100.0) fL Neutrophils # (1.3-7.7) k/uL Monocytes # (0-1.0) k/uL ABG pCO2 (35-45) mmHg ABG HCO3 (21-25) mmol/L ABG Total CO2 (19-24) mmol/L ABG O2 Saturation (94-97) % Carbon Dioxide (22-30) mmol/L BUN (9-20) mg/dL Creatinine (0.66-1.25) mg/dL Glucose (74-99) mg/dL POC Glucose (mg/dL) 261 H 318 H (70-110) mg/dL 07/24/23 07/25/23 07/25/23 Range/Units 23:37 04:00 04:00 WBC 13.4 H (3.8-10.6) k/uL RBC 3.72 L (4.30-5.90) m/uL Hgb 12.1 L (13.0-17.5) gm/dL Hct 37.0 L (39.0-53.0) % MCV (80.0-100.0) fL Neutrophils # 10.0 H (1.3-7.7) k/uL Monocytes # 1.1 H (0-1.0) k/uL ABG pCO2 (35-45) mmHg ABG HCO3 (21-25) mmol/L ABG Total CO2 (19-24) mmol/L ABG O2 Saturation (94-97) % Carbon Dioxide 32 H (22-30) mmol/L BUN 58 H (9-20) mg/dL Creatinine 1.32 H (0.66-1.25) mg/dL Glucose 240 H (74-99) mg/dL POC Glucose (mg/dL) 306 H (70-110) mg/dL 07/25/23 07/25/23 Range/Units 05:53 06:21 WBC (3.8-10.6) k/uL RBC (4.30-5.90) m/uL Hgb (13.0-17.5) gm/dL Hct (39.0-53.0) % MCV (80.0-100.0) fL Neutrophils # (1.3-7.7) k/uL Monocytes # (0-1.0) k/uL ABG pCO2 46 H (35-45) mmHg ABG HCO3 32 H (21-25) mmol/L ABG Total CO2 34 H (19-24) mmol/L ABG O2 Saturation 97.1 H (94-97) % Carbon Dioxide (22-30) mmol/L BUN (9-20) mg/dL Creatinine (0.66-1.25) mg/dL Glucose (74-99) mg/dL POC Glucose (mg/dL) 255 H (70-110) mg/dL
[2023-07-25] MEDS: VANCOMYCIN 2,500 MG in SODIUM CHLORIDE 0.9% 500 ML 500 ML IVPB SCH (17:32)
[2023-07-25 17:45] LABS: Glucose,Whole Blood 248 mg/dL (70-110)
--- NOTE | 2023-07-25 21:57 | XR ---
EXAMINATION TYPE: XR chest 1V portable DATE OF EXAM: 07/25/2023 9:46 PM COMPARISON: Chest radiographs from 08/12/2023 TECHNIQUE: XR chest 1V portable Frontal view of the chest. CLINICAL INDICATION:Male, 68 years old with history of Check NG Tube placement; FINDINGS: Lungs/Pleura: Elevated right diaphragm with suspected small pleural effusion. There is no evidence of pleural effusion, focal consolidation, or pneumothorax. Pulmonary vascularity: Unremarkable. Heart/mediastinum: Cardiomediastinal silhouette is unremarkable. Musculoskeletal: No acute osseous pathology. Other findings: None Lines/Tubes: Endotracheal tube not visualized from prior. Nasogastric tube with its distal tip and side-port projecting under the diaphragm. Left internal jugular central venous catheter with distal tip at the superior vena cava.. IMPRESSION: Nasogastric tube felt to be projecting over the gastric lumen
[2023-07-25 23:49] LABS: Glucose,Whole Blood 188 mg/dL (70-110)
[2023-07-26] MEDS: HYDROmorphone 1 MG/ML 1 ML SYRINGE IVP PRN ×3 (02:08→20:13)
[2023-07-26] MEDS: SODIUM CHLORIDE 0.9% 1,000 ML IV SCH (04:26)
[2023-07-26 04:30] LABS: Basophils # (A) 0.1 k/uL (0-0.2); Basophils % (A) 0 %; Eosinophils # (A) 0.2 k/uL (0-0.7); Eosinophils % (A) 2 %; HCT 37.8 % (39.0-53.0); HGB 12.3 gm/dL (13.0-17.5); Lymphocytes # (A) 1.9 k/uL (1.0-4.8); Lymphocytes % (A) 15 %; MCH 32.4 pg (25.0-35.0); MCHC 32.6 g/dL (31.0-37.0); MCV 99.2 fL (80.0-100.0); Mean Platelet Volume 8.9; Monocytes # (A) 0.9 k/uL (0-1.0); Monocytes % (A) 7 %; Neutrophils % (A) 74 %; Platelet Count 187 k/uL (150-450); RBC 3.81 m/uL (4.30-5.90); WBC 12.2 k/uL (3.8-10.6)
[2023-07-26 04:39] LABS: African American GFR (CKD) 63 (>60 ml/min/1.73 sqM); Anion Gap 4 mmol/L; Blood Urea Nitrogen 54 mg/dL (9-20); Calcium 8.9 mg/dL (8.4-10.2); Carbon Dioxide 34 mmol/L (22-30); Chloride 107 mmol/L (98-107); Glucose 227 mg/dL (74-99); Magnesium 1.7 mg/dL (1.6-2.3); Non-African American GFR(CKD) 54 (>60 ml/min/1.73 sqM); Potassium 3.7 mmol/L (3.5-5.1); Sodium 145 mmol/L (137-145)
[2023-07-26] MEDS ORDERED: MAGNESIUM SULFATE-D5W PMX 1 GM in DEXTROSE/WATER 1 100ML.BAG IVPB ONE ×2 (04:49→16:11)
[2023-07-26] MEDS ORDERED: POTASSIUM BICARBONATE/CIT AC 20 MEQ TABLET.EFF NG-TUBE SCH (05:00)
[2023-07-26 06:04] LABS: Glucose,Whole Blood 205 mg/dL (70-110)
[2023-07-26] MEDS: INSULIN ASPART (NovoLOG) 100 UNIT/ML VIAL SQ SCH ×4 (06:11→23:54)
[2023-07-26] MEDS: RIVAROXABAN 20 MG TAB PO SCH (06:31)
[2023-07-26] MEDS: PIPERACILLIN-TAZOBACTAM 3.375 GM in SODIUM CHLORIDE 0.9% 100 ML IVPB SCH ×3 (07:41→23:07)
[2023-07-26] MEDS: PANTOPRAZOLE 40 MG/10 ML VIAL IV SCH (08:29)
[2023-07-26] MEDS: ATORVASTATIN 20 MG TAB PO SCH (08:29)
[2023-07-26] MEDS: FUROSEMIDE 10 MG/ML 4 ML VIAL IV SCH ×2 (08:29→20:12)
[2023-07-26] MEDS: METOPROLOL TARTRATE 50 MG TAB PO SCH ×2 (08:29→20:12)
[2023-07-26] MEDS: DEXAMETHASONE SOD PHOSPHATE 10 MG/ML 1 ML VIAL IVP SCH (08:29)
[2023-07-26] MEDS: DOCUSATE ORAL SOLN 100 MG/10 ML CUP PO SCH (08:30)
[2023-07-26] MEDS: ALBUTEROL HFA INHALER INHALATION SCH ×5 (08:46→20:31)
[2023-07-26] MEDS: SYMBICORT 160-4.5 MCG INHALER INHALATION SCH ×2 (08:46→20:32)
--- NOTE | 2023-07-26 08:57 | US ---
EXAMINATION TYPE: US chest DATE OF EXAM: 07/26/2023 COMPARISON: CXR CLINICAL INDICATION: Male, 68 years old with history of Markings for thoracentesis by pulmonary staff ; Abnormal CXR, COVID TECHNIQUE: Targeted ultrasound of the posterior lower bilateral hemithoraces EXAM MEASUREMENTS: Right Pleural Effusion pocket size: No sizeable fluid pocket visualized Left Pleural Effusion pocket size: No sizeable fluid pocket visualized Right side not marked for possible thoracentesis outside the dept. Left side not marked for possible thoracentesis outside the dept. Pulmonologists are able to review the images in the patient?s EMR. IMPRESSIONS: No pleural effusions identified.
--- NOTE | 2023-07-26 10:44 | P.PN ---
Subjective Progress Note Date: 07/26/23 Principal diagnosis: Acute cardiopulmonary arrest/asystole 68-year-old male patient, morbidly obese, known history of obstructive sleep apnea, chronic atrial fibrillation maintained on long-term and the coagulation with Xarelto in addition to history of diabetes mellitus type 2, hypertension and obesity. The patient was brought into the emergency department with cardiac arrest. The patient was at home and he was complaining of some shortness of breath. He was supposed to see his primary care physician, however he acutely became unresponsive. The patient's was there and she activated EMS. The downtime reported was approximately 7 minutes before EMS arrival. The patient was found to be in asystole and CPR was initiated. The patient was intubated. The patient received epinephrine based on the ACLS protocol. The CPR time was around 10-12 minutes and following that there was return of spontaneous circulation. Following that, the patient was brought into the emergency department. The patient EKG was consistent with A. fib with RVR. The patient's BP was 120/94. The patient was given a chest x-ray that showed no acute abnormalities. He was started on propofol which is currently running at 50 mcg/kg/m. No seizure activity has been noted. CAT scan of the brain is not done. CT angiogram of the chest has not been done. Cardiac enzymes showed a troponin of 0.136. Initial blood gas showed a pH of 7.2 with episodes of 53 and pO2 of 336. His current vent settings with an assist control of 24 with a tidal volume of 500, FiO2 is 50% with a PEEP of 5. Urine operas in order of 40-50 mL an hour. He is afebrile. He is on no pressors. No reported aspiration. The donor is currently 11.2, hemoglobin is 15 with a platelet count of 218. Normal coagulation profile. BUN is at 24 with a creatinine of 1.1. Initial lactic acid level is at 7.6. ProBNP level was 1250. Serum bicarb is at 22. Glucose at 157. 07/19/2023, the patient was taken off sedation. He is tracking. He was able to wiggle his toes upon demand. His profoundly weak. He opens his eyes spontaneously. No nystagmus. Pupils are equal and reactive to light. No seizure activity has been noted. The patient was earlier on propofol at a dose of 75 mcg/kg/m and currently is off sedation. He remains on a mechanical ventilator, assist control mode at the rate of 24, tidal volume of 500, FiO2 is down to 40% with a PEEP of 5. Is chest x-ray showing lower lobe infiltrates bilaterally. Lung volumes are small. Orotracheal tube is in a good location. The patient also has a or G-tube in place. In terms of his blood gas, the patient has a pH of 7.39 with a pCO2 of 44 and pO2 of 103. He does have respiratory secretions are being suctioned. White cell cause of 10.5 with a hemoglobin 12.6 and a platelet count of 188. Sodium is at 140, potassium is at 4, chloride 16 and a bicarb is 26. He did sustain an acute kidney injury and the creatinine is improved compared to yesterday's down to 2.7. BUN is 56. Potassium levels of 4.0. Fluid balance over the past 24 hours is +1.7 L. The patient remains on bronchodilators. The patient remains on Decadron 6 mg IV ev caridad 24 hours. He is on long-term anticoagulation with Xarelto. His cardiac rhythm is sinus. Echocardiogram done on 07/17/2023 shows a preserved LV function. He is afebrile. He is on no pressors. No other significant events overnight. Feeding is in the form of vital high-protein which is currently at goal. Reevaluated today on 07/20/2023, asymptomatic clinically ventilated, he is on assist control rate of 16 tidal volume 500 FiO2 40% and PEEP of 5, ABG showed a pO2 of 84 pCO2 42 pH of 7.41. Patient is now in sinus rhythm, he converted from atrial fibrillation. CT of the brain was negative EEG was normal. Patient remains on propofol at 15 mcg/kg/m IV fluids 75 mL an hour vital HPI 25 mL per hour yesterday the patient went on CPAP from 9:15 till 2 PM, however he was noted to get more shortness of breath at the end of the day, and he had to be placed back on assist control mode of mechanical ventilation. Surprisingly the patient Downs time was about 20 minutes patient arrested in the car on 07/12/2023. Echocardiogram showed good LV function with ejection fraction of 50- 55%. My plan today is to place the patient on Precedex, off propofol, and give him a trial of pressure support of 10 and CPAP. According to the note from yesterday, patient was appropriate and he was following instructions yesterday WBC count today is 8.4 hemoglobin is 12.1. Basic metabolic profile is normal however his renal profile is abnormal. BUN of 57 creatinine 2.32 chest x-ray showed endotracheal tube in proper position low lung volumes with generalized hazy appearance, could represent mostly atelectasis. Doubt pulmonary edema patient is tolerating enteral feeding vital HPI 45 mL per hour. Reevaluated today on 07/21/2023, patient remains in the ICU intubated and mechanically ventilated, his mental status seems to be waxing and waning, he is again not responding to any stimuli, sedation on assist control rate of 16 tidal volume 500 FiO2 40% and PEEP of 5 ABG showed a pO2 of 96 pCO2 43 pH of 7.40 hence no changes were made in his vent settings. Repeat CT of the brain showed questionable new acute ischemic event. Chest x-ray continues to show moderate right-sided pleural effusion with atelectasis of the right lower lobe. WBC count is 9.4 hemoglobin is 12.6 electrolytes are normal renal profile showed a BUN of 57 creatinine 1.90. Patient is not requiring any pressors he is on nutritional support/enteral feeding. Considering the patient's neurological status, I'm not planning any further trials of weaning today, patient is not ready for weaning. Being evaluated by neurology again for his worsening neurological status and mental status. EEG showed moderate degree of g eneralized cerebral dysfunction with toxic metabolic encephalopathy, carotid Doppler is basically unremarkable. Reevaluated today on 07/22/2023, patient remains in the ICU intubated and mechanically ventilated, with waxing and waning mental status, today the patient opens eyes only but does not track and does not follow any instructions. Patient is on assist control rate of 16 tidal volume 500 FiO2 40% and PEEP of 5 ABG showed a pO2 of 95 pCO2 43 pH of 7.43 chest x-ray continues to show evidence of moderate right-sided pleural effusion and atelectasis and/or consolidation. Hence more Lasix will be given since he responded better with the Lasix yesterday and the effusion seems to be a bit smaller compared to yesterday PA and sputum cultures remain negative so far. W scan is 10.3 hemoglobin 12.3, basic metabolic profile is normal BUN is 58 creatinine 1.67, improving. Again his mental status is waxing and waning today seems to be poor in spite of holding sedation now for the last few days remains off any sedation Reevaluated today on 07/23/2023, patient remains in the ICU, intubated and mechanically ventilated. Patient remains about the same as far as his mental status, he opens his eyes but does not follow any instructions and does not seem to track. He is on assist control rate of 16 tidal volume 500 FiO2 40% and PEEP of 5 ABG showed a pO2 of 87 pCO2 43 pH of 7.41. Remains on Zosyn empirically, however considering the sputum now is showing MRSA, I will add vancomycin to this patient. Sputum came back positive for E. coli and MRSA. Patient is still on enteral feeding receiving vital HPI at 69 mL/h IV fluid is at 75 mL per hour. Patient has been intermittently receiving Lasix. He was intubated on 07/16, today I was about to consult surgery for possible tracheostomy and PEG tube placement, however the stated to the nurses that she he would have never wanted to be on long-term mechanical ventilation. Hence we will plan to continue present supportive care measures until next week or the next few days and no improvement noted then we could consider comfort care measures and terminal weaning. WBC count today is 11.9, hemoglobin 12.3 left lites are cristian l BUN is 55 creatinine 1.30, steadily improving. Reevaluated today on 07/24/2023, patient remains in the ICU, intubated and mechanically ventilated. His mental status is waxing and waning, today the p atient is opening his eyes on verbal commands, however unable to wiggle toes or squeezing hands, apparently he was doing this earlier when the nurse was examining him. Patient again has waxing and waning mental status. Remains on tidal volume of 500 FiO2 40% rate of 16 PEEP of 5 and that is an assist-control mode of mechanical ventilation. ABG showed a pO2 of 88 pCO2 47 pH of 7.42 with IV fluids at KVO he is still on Zosyn and vancomycin for E. coli and MRSA in the sputum. Remains on vital AF at 69 mL/h and IV fluid at 75 mL per hour. Patient is receiving Lasix 40 mg IV push twice a day today I will give the patient a trial of pressure support of 10 and 5 he is not quite ready for extubation but will try a weaning trial with pressure support and CPAP labs were reviewed, renal profile showed a BUN of 54 creatinine 1.3, basically about the same compared to yesterday improved compared to the last few days. No chest x-ray was done, last chest x-ray showed improved right-sided pleural effusion and minimal right basilar atelectasis no evidence of significant change Reevaluated today on 07/25/2023, patient remains in the ICU, and mechanically ventilated. However mentation-mc the patient seems to be following all instructions today, much better compared to the last few days. He remains on assist control rate of 16 tidal volume 500 FiO2 40% and PEEP of 5 ABG showed a pO2 of 93 pCO2 46 pH of 7.45. Patient remains on antibiotics in the form of Zosyn and vancomycin for E. coli and MRSA in the sputum. Patient is a negative balance in the last 24 hours 1.6 L. He is on IV fluid at KVO he has been receiving Lasix 40 mg IV push every 12 hours and continues to have a small to m oderate sized right-sided pleural effusion. Receiving vital HPI at 69 mL per hour. His IV fluid at KVO. Hence weren't planning today is give the patient a trial of pressure support and CPAP, and if tolerated with excellent gases after 2 hours, may consider extubating the patient to BiPAP. This will be decided upon in the next couple of hours. In the meantime the patient remains relatively marginal at best. Basic metabolic profile today was normal BUN is 58 creatinine 1.3, steadily improving over the last few days. CBC is relatively normal except for WBC count of 13.4. Reevaluated today on 08/22/2023, patient remains in the ICU, extubated 2 days ago, and he seems to tolerate the extubation well. Slight improvement in mental status, able to follow instructions, however he is developing a significant consolidation in the right lower lobe, and ultrasound failed to show significant pleural effusion for thoracentesis. Patient is not the greatest candidate for bronchoscopy at this point, his CODE STATUS has been changed to DO NOT RESUSCITATE, and he is not to be reintubated if he gets any worse. Hence we'll try with BiPAP, chest PT, bronchodilators hopefully expand his right lower lobe. In the meantime the patient remains on Zosyn and vancomycin, he is also on Lasix twice a day. His sputum has been positive for E. coli and MRSA receiving Zosyn and vancomycin, and again today am recommending this will switch her from 5 L nasal cannula to BiPAP. Continues to have a nasogastric tube in place, and he is receiving enteral feeding via the nasogastric tube. WBC count is 12.2 hemoglobin is 12.3 left lites are normal renal profile is improving creatinine is down to 1.33 Objective - Vital Signs Vital signs: Vital Signs Temp 98 F 07/26/23 08:00 Pulse 76 07/26/23 10:00 Resp 13 07/26/23 10:00 BP 123/79 07/26/23 08:00 Pulse Ox 93 L 07/26/23 10:00 FiO2 40 07/26/23 09:00 Intake & Output 07/25/23 07/26/23 07/26/23 18:59 06:59 18:59 Intake Total 1632 449 466 Output Total 1295 2150 600 Balance 337 -1701 -134 Weight 137.6 kg Intake: IV 476 449 169 Magnesium Sulfate-D5w Pmx 100 1 gm In Dextrose/Water 1 100ml.bag @ 100 mls/hr IVPB ONCE ONE Rx#: [id number] Normal Saline Pressure 36 39 9 Bag Piperacillin-Tazobactam 3 200 100 100 .375 gm In Sodium Chloride 0.9% 100 ml @ 25 mls/hr IVPB Q8HR [facility] Rx# :[id number] Sodium Chloride 0.9% 1, 240 210 60 000 ml @ 20 mls/hr IV . Q24H [facility] Rx#:[id number] Intake, IV Titration 800 Amount Piperacillin-Tazobactam 3 100 .375 gm In Sodium Chloride 0.9% 100 ml @ 25 mls/hr IVPB Q8HR [facility] Rx# :[id number] Potassium Chloride 20 meq 200 In Water For Injection 1 100ml.bag @ 50 mls/hr IVPB Q2H [facility] Rx#: [id number] Vancomycin 2,500 mg In 500 Sodium Chloride 0.9% 500 ml 500 ml @ 167 mls/hr IVPB Q18H [facility] Rx#: [id number] Tube Feeding 276 207 Other 80 90 Output: Urine 1295 2150 600 Other: Voiding Method Indwelling Catheter Indwelling Catheter Indwelling Catheter ABP, PAP, CO, CI - Last Documented Arterial Blood Pressure 156/73 - Exam Physical Exam: Revealed a 68-year-old white male obese in no distress , on 5 L nasal cannula Head: Atraumatic, normocephalic. HEENT:[Neck is supple.] [No neck masses.] [No thyromegaly.] [No JVD.] Chest: [Diminished breath mostly at the right base. no crackles or rhonchi symmetrical chest expansion.] Cardiac Exam: [Normal S1 and S2, no S3 gallop, no murmur.] Abdomen: [Obese, Soft, nontender, no megaly, no rebound, no guarding, normal bowel sounds.] Extremities: [No clubbing, no edema, no cyanosis.] Chronic venous stasis changes noted bilaterally in both lower extremities Neurological Exam: Awake, follows instructions like wiggling toes, squeezing hands, and coughing up on request. Psychiatric: Flat affect, normal mood, seems to have relatively normal mental status Musculoskeletal: No deformities and no limitation in range of motion. Skin: No rashes except for chronic venous changes noted in lower extremities. - Labs CBC & Chem 7: 07/26/23 04:20 07/26/23 04:20 Labs: Abnormal Lab Results - Last 24 Hours (Table) 07/25/23 07/25/23 07/25/23 Range/Units 10:55 11:44 17:44 WBC (3.8-10.6) k/uL RBC (4.30-5.90) m/uL Hgb (13.0-17.5) gm/dL Hct (39.0-53.0) % Neutrophils # (1.3-7.7) k/uL ABG pCO2 48 H (35-45) mmHg ABG pO2 77 L (83-108) mmHg ABG HCO3 33 H (21-25) mmol/L ABG Total CO2 34 H (19-24) mmol/L Carbon Dioxide (22-30) mmol/L BUN (9-20) mg/dL Creatinine (0.66-1.25) mg/dL Glucose (74-99) mg/dL POC Glucose (mg/dL) 244 H 248 H (70-110) mg/dL 07/25/23 07/26/23 07/26/23 Range/Units 23:47 04:20 04:20 WBC 12.2 H (3.8-10.6) k/uL RBC 3.81 L (4.30-5.90) m/uL Hgb 12.3 L (13.0-17.5) gm/dL Hct 37.8 L (39.0-53.0) % Neutrophils # 9.0 H (1.3-7.7) k/uL ABG pCO2 (35-45) mmHg ABG pO2 (83-108) mmHg ABG HCO3 (21-25) mmol/L ABG Total CO2 (19-24) mmol/L Carbon Dioxide 34 H (22-30) mmol/L BUN 54 H (9-20) mg/dL Creatinine 1.33 H (0.66-1.25) mg/dL Glucose 227 H (74-99) mg/dL POC Glucose (mg/dL) 188 H (70-110) mg/dL 07/26/23 Range/Units 06:02 WBC (3.8-10.6) k/uL RBC (4.30-5.90) m/uL Hgb (13.0-17.5) gm/dL Hct (39.0-53.0) % Neutrophils # (1.3-7.7) k/uL ABG pCO2 (35-45) mmHg ABG pO2 (83-108) mmHg ABG HCO3 (21-25) mmol/L ABG Total CO2 (19-24) mmol/L Carbon Dioxide (22-30) mmol/L BUN (9-20) mg/dL Creatinine (0.66-1.25) mg/dL Glucose (74-99) mg/dL POC Glucose (mg/dL) 205 H (70-110) mg/dL Assessment and Plan Assessment: Impression: Acute hypoxic and hypercapnic respiratory failure secondary to cardiac arrest/prolonged downtime about 20 minutes. Acute COVID-19 infection, incidental finding, Chronic atrial fibrillation, on anticoagulation Morbid obesity BMI of 40.7 Type 2 diabetes currently on sliding scale coverage Obstructive sleep apnea syndrome with index of 90 Recent hospitalization for bilateral pneumonia Chronic bronchial asthma Acute kidney injury secondary to cardiac arrest Nonspecific pulmonary nodules Benign essential hypertension anoxic brain injury and hypoxic encephalopathy Right lower lobe pneumonia/consolidation, possibly aspiration in nature. Recommendation: Continue to monitor in the ICU Continue incentive spirometry Encourage deep coughing and breathing Continue bronchodilators Chest physical therapy Continue Decadron. Continue insulin sliding scale coverage Continue Xarelto Continue diuretics Continue GI and DVT prophylaxis Continue nutritional support/enteral feeding with vital HP Ultrasound of the chest was reviewed, not enough fluid to drain from the right pleural space. Use BiPAP more frequent and add more often specially at nighttime when he sleeps considering his previous history of obstructive sleep apnea syndrome/70 Patient remains critically ill Critical care time is over 30 minutes Time with Patient: Greater than 30
[2023-07-26 11:45] LABS: Glucose,Whole Blood 364 mg/dL (70-110)
[2023-07-26] MEDS: VANCOMYCIN 2,500 MG in SODIUM CHLORIDE 0.9% 500 ML 500 ML IVPB SCH (12:05)
--- NOTE | 2023-07-26 12:07 | P.PN ---
Subjective Progress Note Date: 07/26/23 68-year-old gentleman admitted with acute hypoxic and hypercapnic respiratory failure secondary to cardiac arrest, prolonged downtime reported at 20-30 minutes, anoxic brain injury, hypoxic encephalopathy, acute COVID-19 infection and multiple other medical issues. Remains vent dependent, FiO2 50%/+5 of PEEP. Sedation remains on hold. Chest x-ray reporting increased density right lower lobe may reflect underlying atelectasis, effusion and/or infiltrate, left medial basilar infiltrate/atelectasis unchanged .telemetry sinus,no pressor support at this time .Staff reports patient was following commands and tracking with his eyes yesterday. Repeat Brain CT performed yesterday reported no evidence for intracranial hemorrhage or sulcal effacement, no mass effects, no midline shift, osseous calvarium is intact, focal decreased attenuation right cerebellar hemisphere could reflect acute ischemic insult, correlate with MRI, age-related atrophic and chronic small vessel ischemic change. EEG reported abnormal due to background slowing of moderate degree, suggestive of generalized cerebral dysfunction seen with toxic metabolic encephalopathy or related to diffuse structural brain abnormality, no obvious epileptiform activity seen. Carotid Doppler reported less than 50% stenosis of bilateral carotid bifurcations, right vertebral artery not visualized. Receiving OT tube feedings of vital high protein. Anticoagulated on Xarelto, continues on Decadron. BUN remains at 57, Creatinine trending down, currently 1.9. 07/22/2023 remains vent dependent on 40% FiO2 +5 of PEEP. Remains off of justin tion. Patient spontaneously opens eyes, questionable tracking reported per staff . Tolerating tube feeds at goal, with minimal to no residuals. Chest x-ray reporting moderate pleural effusion with underlying atelectasis and/or consolidation , received Lasix. Creatinine improving decreased to 1.67. Afebrile, normal WBC. 07/23/2023 vent dependent, FiO2 40%/+5 of PEEP. Chest x-ray reporting small right pleural effusion .Sputum culture reporting MRSA , E. coli , vancomycin added in addition to Zosyn for antibiotic coverage. Creatinine improving, decreased to 1.3. T-max 99.3, WBC 11.9. Pro-calcitonin 0.29. Brain CT repeated yesterday, results noted including reporting of previous hypodensity in the right cerebellar hemisphere not as pronounced as on prior study. 07/24/23 sedation remains on hold , maintained on Decadron, diuretics. Anticoagulated on Xarelto. vent dependent FiO2 40%/+5 of PEEP, staff reports patient opening eyes on verbal commands. Continues on Zosyn and vancomycin. T- max 99.3. BUN 54, creatinine 1.34. Magnesium 1.7. Weaning trial pending as per pulmonary. 07/25. Patient seen and examined. Patient was extubated this morning, currently on BiPAP. at the bedside, discussed with in detail regarding goals of care, patient's still not sure whether she wants him to be intubated if his respiratory status worsens, says no to PEG tube and trach placement .Lab work showed WBC 13.4, hemoglobin 12.1, platelet count 180. Sodium 140, potassium 3.5, BUN 58, creatinine 1.3 to 07/26. Patient seen and examined. Currently on BiPAP. Patient following c ommands moving all extremities. Currently nothing by mouth, waiting for speech ventilation REVIEW OF SYSTEMS: Review of systems cannot be obtained patient is lethargic PHYSICAL EXAMINATION: GENERAL: The patient is lethargic, obtunded, not in any acute distress. Follows simple commands HEENT: Pupils are round and equally reacting to light. EOMI. No scleral icterus. No conjunctival pallor. Normocephalic, atraumatic. No pharyngeal erythema. No thyromegaly. CARDIOVASCULAR: S1 and S2 present. No murmurs, rubs, or gallops. PULMONARY: Diminished breath sounds bilaterally, no wheeze ABDOMEN: Soft, nontender, nondistended, normoactive bowel sounds. No palpable organomegaly. MUSCULOSKELETAL: No joint swelling or deformity. EXTREMITIES: No cyanosis, clubbing, or pedal edema. NEUROLOGICAL: Lethargic, following simple commands. Moving all extremities SKIN: No rashes. Assessment and plan Acute hypoxic and hypercapnic respiratory failure secondary to cardiac arrest/prolonged downtime, intubated in the field, in a patient with recent hospitalization for bilateral pneumonia 05/02/23. Acute COVID-19 infection. Sputum positive for E. coli and MRSA Anoxic brain injury with hypoxic encephalopathy, neurology following Nonspecific pulmonary nodules reported per CT Chronic bronchial asthma Mildly enlarged nonspecific peripancreatic lymph node reported per CT Cholelithiasis Acute renal injury secondary to cardiac arrest, improving Diabetes mellitus Chronic Paroxysmal atrial fibrillation, currently sinus Hypertension Hyperlipidemia Morbid obesity, BMI 42 Obstructive sleep apnea Monitor vital signs Monitor CBC Monitor CMP Continue BiPAP as needed Continue IV Zosyn and vancomycin Continue IV Lasix 40 mg every 12 Continue Decadron. Continue insulin sliding scale coverage Continue Xarelto Continue diuretics Critical care following Labs and medication were reviewed.. Continue same treatment. Continue with symptomatic treatment. Resume home medication. Monitor labs and vitals. DVT and GI prophylaxis. Further recommendations as per clinical course of the patient Dictation was produced using [employer] dictation software. please excuse any grammatical, word or spelling errors. Objective - Vital Signs Vital signs: Vital Signs Temp 98 F 07/26/23 08:00 Pulse 83 07/26/23 08:00 Resp 18 07/26/23 08:00 BP 123/79 07/26/23 08:00 Pulse Ox 94 L 07/26/23 08:00 FiO2 35 07/26/23 04:17 Intake & Output 07/25/23 07/26/23 07/26/23 18:59 06:59 18:59 Intake Total 1632 449 123 Output Total 1295 2150 50 Balance 337 -1701 73 Weight 137.6 kg Intake: IV 476 449 123 Magnesium Sulfate-D5w Pmx 100 1 gm In Dextrose/Water 1 100ml.bag @ 100 mls/hr IVPB ONCE ONE Rx#: [id number] Normal Saline Pressure 36 39 3 Bag Piperacillin-Tazobactam 3 200 100 100 .375 gm In Sodium Chloride 0.9% 100 ml @ 25 mls/hr IVPB Q8HR COUNT INCLUDES THE [facility] Rx# :[id number] Sodium Chloride 0.9% 1, 240 210 20 000 ml @ 20 mls/hr IV . Q24H COUNT INCLUDES THE [facility] Rx#:[id number] Intake, IV Titration 800 Amount Piperacillin-Tazobactam 3 100 .375 gm In Sodium Chloride 0.9% 100 ml @ 25 mls/hr IVPB Q8HR COUNT INCLUDES THE [facility] Rx# :[id number] Potassium Chloride 20 meq 200 In Water For Injection 1 100ml.bag @ 50 mls/hr IVPB Q2H COUNT INCLUDES THE [facility] Rx#: [id number] Vancomycin 2,500 mg In 500 Sodium Chloride 0.9% 500 ml 500 ml @ 167 mls/hr IVPB Q18H COUNT INCLUDES THE [facility] Rx#: [id number] Tube Feeding 276 Other 80 Output: Urine 1295 2150 50 Other: Voiding Method Indwelling Catheter Indwelling Catheter Indwelling Catheter ABP, PAP, CO, CI - Last Documented Arterial Blood Pressure 139/64 - Labs CBC & Chem 7: 07/26/23 04:20 07/26/23 04:20 Labs: Abnormal Lab Results - Last 24 Hours (Table) 07/25/23 07/25/23 07/25/23 Range/Units 10:55 11:44 17:44 WBC (3.8-10.6) k/uL RBC (4.30-5.90) m/uL Hgb (13.0-17.5) gm/dL Hct (39.0-53.0) % Neutrophils # (1.3-7.7) k/uL ABG pCO2 48 H (35-45) mmHg ABG pO2 77 L (83-108) mmHg ABG HCO3 33 H (21-25) mmol/L ABG Total CO2 34 H (19-24) mmol/L Carbon Dioxide (22-30) mmol/L BUN (9-20) mg/dL Creatinine (0.66-1.25) mg/dL Glucose (74-99) mg/dL POC Glucose (mg/dL) 244 H 248 H (70-110) mg/dL 07/25/23 07/26/23 07/26/23 Range/Units 23:47 04:20 04:20 WBC 12.2 H (3.8-10.6) k/uL RBC 3.81 L (4.30-5.90) m/uL Hgb 12.3 L (13.0-17.5) gm/dL Hct 37.8 L (39.0-53.0) % Neutrophils # 9.0 H (1.3-7.7) k/uL ABG pCO2 (35-45) mmHg ABG pO2 (83-108) mmHg ABG HCO3 (21-25) mmol/L ABG Total CO2 (19-24) mmol/L Carbon Dioxide 34 H (22-30) mmol/L BUN 54 H (9-20) mg/dL Creatinine 1.33 H (0.66-1.25) mg/dL Glucose 227 H (74-99) mg/dL POC Glucose (mg/dL) 188 H (70-110) mg/dL 07/26/23 Range/Units 06:02 WBC (3.8-10.6) k/uL RBC (4.30-5.90) m/uL Hgb (13.0-17.5) gm/dL Hct (39.0-53.0) % Neutrophils # (1.3-7.7) k/uL ABG pCO2 (35-45) mmHg ABG pO2 (83-108) mmHg ABG HCO3 (21-25) mmol/L ABG Total CO2 (19-24) mmol/L Carbon Dioxide (22-30) mmol/L BUN (9-20) mg/dL Creatinine (0.66-1.25) mg/dL Glucose (74-99) mg/dL POC Glucose (mg/dL) 205 H (70-110) mg/dL
[2023-07-26 15:59] LABS: Magnesium 1.9 mg/dL (1.6-2.3); Potassium 4.1 mmol/L (3.5-5.1)
[2023-07-26 18:07] LABS: Glucose,Whole Blood 365 mg/dL (70-110)
[2023-07-26 23:25] LABS: Glucose,Whole Blood 308 mg/dL (70-110)
[2023-07-26] MEDS: INSULIN DETEMIR (LEVEMIR) 100 UNIT/ML SYR SQ SCH (23:53)
[2023-07-27] MEDS: SODIUM CHLORIDE 0.9% 1,000 ML IV SCH (04:03)
[2023-07-27] MEDS ORDERED: VANCOMYCIN TROUGH DUE 1 EACH MISC MISCELLANE ONE (05:00)
[2023-07-27 05:10] LABS: HCT 38.8 % (39.0-53.0); HGB 12.2 gm/dL (13.0-17.5); MCH 31.3 pg (25.0-35.0); MCHC 31.4 g/dL (31.0-37.0); MCV 99.5 fL (80.0-100.0); Macrocytosis Slight; Mean Platelet Volume 9.3; Platelet Count 201 k/uL (150-450); WBC 16.7 k/uL (3.8-10.6)
[2023-07-27 05:25] LABS: ALT 33 U/L (4-49); AST 24 U/L (17-59); African American GFR (CKD) 65 (>60 ml/min/1.73 sqM); Albumin 2.7 g/dL (3.5-5.0); Alkaline Phosphatase 57 U/L (38-126); Anion Gap 3 mmol/L; Blood Urea Nitrogen 53 mg/dL (9-20); Calcium 8.6 mg/dL (8.4-10.2); Carbon Dioxide 35 mmol/L (22-30); Chloride 107 mmol/L (98-107); Glucose 241 mg/dL (74-99); Magnesium 1.9 mg/dL (1.6-2.3); Non-African American GFR(CKD) 56 (>60 ml/min/1.73 sqM); Potassium 3.4 mmol/L (3.5-5.1); Sodium 145 mmol/L (137-145); Total Bilirubin 0.9 mg/dL (0.2-1.3); Total Protein 5.7 g/dL (6.3-8.2)
[2023-07-27] MEDS ORDERED: MAGNESIUM SULFATE-D5W PMX 1 GM in DEXTROSE/WATER 1 100ML.BAG IVPB ONE (05:40)
[2023-07-27] MEDS: VANCOMYCIN 2,500 MG in SODIUM CHLORIDE 0.9% 500 ML 500 ML IVPB SCH (05:42)
[2023-07-27] MEDS: POTASSIUM CHLORIDE ER 20 MEQ TAB.ER PO SCH ×2 (05:46→06:31)
[2023-07-27 06:03] LABS: Glucose,Whole Blood 223 mg/dL (70-110)
[2023-07-27] MEDS ORDERED: VANCOMYCIN IV PER PHARMACY 1 EACH MISC MISCELLANE PRN (06:20)
[2023-07-27] MEDS: INSULIN ASPART (NovoLOG) 100 UNIT/ML VIAL SQ SCH ×3 (06:31→18:10)
[2023-07-27] MEDS: RIVAROXABAN 20 MG TAB PO SCH (06:31)
[2023-07-27] MEDS: ALBUTEROL HFA INHALER INHALATION SCH ×4 (07:32→21:32)
[2023-07-27] MEDS: SYMBICORT 160-4.5 MCG INHALER INHALATION SCH ×2 (07:32→21:32)
--- NOTE | 2023-07-27 07:37 | XR ---
EXAMINATION TYPE: XR chest 1V portable DATE OF EXAM: 07/27/2023 5:44 AM COMPARISON: Chest radiographs from 07/25/2023, ultrasound chest 07/26/2023 TECHNIQUE: XR chest 1V portable Portable AP radiograph of the chest. CLINICAL INDICATION:Male, 68 years old with history of to evaluate pleural effusion; FINDINGS: Lungs/Pleura: Left lung is clear. No pneumothorax. Elevated right hemidiaphragm. Patchy airspace opac ities demonstrated in the right lung with volume loss. No sizable pleural effusion. Pulmonary vascularity: Unremarkable. Heart/mediastinum: Cardiomediastinal silhouette is stable. Musculoskeletal: No acute osseous pathology. Other findings: None Lines/Tubes: Stable left subclavian approach central venous catheter and NG tube. IMPRESSION: 1. Development of patchy airspace opacities throughout the right lung with volume loss and elevated right hemidiaphragm. Findings are concerning for pneumonia and atelectasis. 2. Stable support lines and tubes.
[2023-07-27] MEDS: PIPERACILLIN-TAZOBACTAM 3.375 GM in SODIUM CHLORIDE 0.9% 100 ML IVPB SCH ×2 (09:22→16:15)
[2023-07-27] MEDS: DEXAMETHASONE SOD PHOSPHATE 10 MG/ML 1 ML VIAL IVP SCH (09:23)
[2023-07-27] MEDS: DOCUSATE ORAL SOLN 100 MG/10 ML CUP PO SCH (09:23)
[2023-07-27] MEDS: METOPROLOL TARTRATE 50 MG TAB PO SCH ×2 (09:26→20:30)
[2023-07-27] MEDS: ATORVASTATIN 20 MG TAB PO SCH (09:26)
[2023-07-27] MEDS: PANTOPRAZOLE 40 MG/10 ML VIAL IV SCH (09:27)
[2023-07-27] MEDS: FUROSEMIDE 10 MG/ML 4 ML VIAL IV SCH ×2 (09:29→20:32)
[2023-07-27] MEDS: HYDROmorphone 1 MG/ML 1 ML SYRINGE IVP PRN ×2 (09:54→18:39)
--- NOTE | 2023-07-27 10:02 | XR ---
EXAMINATION TYPE: XR chest 1V portable DATE OF EXAM: 07/27/2023 9:49 AM COMPARISON: Chest radiographs from 07/27/2023 TECHNIQUE: XR chest 1V portable Frontal view of the chest. CLINICAL INDICATION:Male, 68 years old with history of Pneumonia, mucus plug; FINDINGS: Lungs/Pleura: Left lung is clear. No pneumothorax. Elevated right hemidiaphragm. Patchy airspace opac ities demonstrated in the right lung with volume loss. No sizable pleural effusion. Pulmonary vascularity: Unremarkable. Heart/mediastinum: Cardiomediastinal silhouette is stable. Musculoskeletal: No acute osseous pathology. Other findings: None Lines/Tubes: Stable left subclavian approach central venous catheter and NG tube. IMPRESSION: 1. Similar patchy airspace opacities throughout the right lung with volume loss and elevated right h emidiaphragm. 2. Stable support lines and tubes.
--- NOTE | 2023-07-27 11:18 | P.PN ---
Subjective Progress Note Date: 07/27/23 Principal diagnosis: Acute cardiopulmonary arrest/asystole 68-year-old male patient, morbidly obese, known history of obstructive sleep apnea, chronic atrial fibrillation maintained on long-term and the coagulation with Xarelto in addition to history of diabetes mellitus type 2, hypertension and obesity. The patient was brought into the emergency department with cardiac arrest. The patient was at home and he was complaining of some shortness of breath. He was supposed to see his primary care physician, however he acutely became unresponsive. The patient's was there and she activated EMS. The downtime reported was approximately 7 minutes before EMS arrival. The patient was found to be in asystole and CPR was initiated. The patient was intubated. The patient received epinephrine based on the ACLS protocol. The CPR time was around 10-12 minutes and following that there was return of spontaneous circulation. Following that, the patient was brought into the emergency department. The patient EKG was consistent with A. fib with RVR. The patient's BP was 120/94. The patient was given a chest x-ray that showed no acute abnormalities. He was started on propofol which is currently running at 50 mcg/kg/m. No seizure activity has been noted. CAT scan of the brain is not done. CT angiogram of the chest has not been done. Cardiac enzymes showed a troponin of 0.136. Initial blood gas showed a pH of 7.2 with episodes of 53 and pO2 of 336. His current vent settings with an assist control of 24 with a tidal volume of 500, FiO2 is 50% with a PEEP of 5. Urine operas in order of 40-50 mL an hour. He is afebrile. He is on no pressors. No reported aspiration. The donor is currently 11.2, hemoglobin is 15 with a platelet count of 218. Normal coagulation profile. BUN is at 24 with a creatinine of 1.1. Initial lactic acid level is at 7.6. ProBNP level was 1250. Serum bicarb is at 22. Glucose at 157. 07/19/2023, the patient was taken off sedation. He is tracking. He was able to wiggle his toes upon demand. His profoundly weak. He opens his eyes spontaneously. No nystagmus. Pupils are equal and reactive to light. No seizure activity has been noted. The patient was earlier on propofol at a dose of 75 mcg/kg/m and currently is off sedation. He remains on a mechanical ventilator, assist control mode at the rate of 24, tidal volume of 500, FiO2 is down to 40% with a PEEP of 5. Is chest x-ray showing lower lobe infiltrates bilaterally. Lung volumes are small. Orotracheal tube is in a good location. The patient also has a or G-tube in place. In terms of his blood gas, the patient has a pH of 7.39 with a pCO2 of 44 and pO2 of 103. He does have respiratory secretions are being suctioned. White cell cause of 10.5 with a hemoglobin 12.6 and a platelet count of 188. Sodium is at 140, potassium is at 4, chloride 16 and a bicarb is 26. He did sustain an acute kidney injury and the creatinine is improved compared to yesterday's down to 2.7. BUN is 56. Potassium levels of 4.0. Fluid balance over the past 24 hours is +1.7 L. The patient remains on bronchodilators. The patient remains on Decadron 6 mg IV ev caridad 24 hours. He is on long-term anticoagulation with Xarelto. His cardiac rhythm is sinus. Echocardiogram done on 07/17/2023 shows a preserved LV function. He is afebrile. He is on no pressors. No other significant events overnight. Feeding is in the form of vital high-protein which is currently at goal. Reevaluated today on 07/20/2023, asymptomatic clinically ventilated, he is on assist control rate of 16 tidal volume 500 FiO2 40% and PEEP of 5, ABG showed a pO2 of 84 pCO2 42 pH of 7.41. Patient is now in sinus rhythm, he converted from atrial fibrillation. CT of the brain was negative EEG was normal. Patient remains on propofol at 15 mcg/kg/m IV fluids 75 mL an hour vital HPI 25 mL per hour yesterday the patient went on CPAP from 9:15 till 2 PM, however he was noted to get more shortness of breath at the end of the day, and he had to be placed back on assist control mode of mechanical ventilation. Surprisingly the patient Downs time was about 20 minutes patient arrested in the car on 07/12/2023. Echocardiogram showed good LV function with ejection fraction of 50- 55%. My plan today is to place the patient on Precedex, off propofol, and give him a trial of pressure support of 10 and CPAP. According to the note from yesterday, patient was appropriate and he was following instructions yesterday WBC count today is 8.4 hemoglobin is 12.1. Basic metabolic profile is normal however his renal profile is abnormal. BUN of 57 creatinine 2.32 chest x-ray showed endotracheal tube in proper position low lung volumes with generalized hazy appearance, could represent mostly atelectasis. Doubt pulmonary edema patient is tolerating enteral feeding vital HPI 45 mL per hour. Reevaluated today on 07/21/2023, patient remains in the ICU intubated and mechanically ventilated, his mental status seems to be waxing and waning, he is again not responding to any stimuli, sedation on assist control rate of 16 tidal volume 500 FiO2 40% and PEEP of 5 ABG showed a pO2 of 96 pCO2 43 pH of 7.40 hence no changes were made in his vent settings. Repeat CT of the brain showed questionable new acute ischemic event. Chest x-ray continues to show moderate right-sided pleural effusion with atelectasis of the right lower lobe. WBC count is 9.4 hemoglobin is 12.6 electrolytes are normal renal profile showed a BUN of 57 creatinine 1.90. Patient is not requiring any pressors he is on nutritional support/enteral feeding. Considering the patient's neurological status, I'm not planning any further trials of weaning today, patient is not ready for weaning. Being evaluated by neurology again for his worsening neurological status and mental status. EEG showed moderate degree of g eneralized cerebral dysfunction with toxic metabolic encephalopathy, carotid Doppler is basically unremarkable. Reevaluated today on 07/22/2023, patient remains in the ICU intubated and mechanically ventilated, with waxing and waning mental status, today the patient opens eyes only but does not track and does not follow any instructions. Patient is on assist control rate of 16 tidal volume 500 FiO2 40% and PEEP of 5 ABG showed a pO2 of 95 pCO2 43 pH of 7.43 chest x-ray continues to show evidence of moderate right-sided pleural effusion and atelectasis and/or consolidation. Hence more Lasix will be given since he responded better with the Lasix yesterday and the effusion seems to be a bit smaller compared to yesterday PA and sputum cultures remain negative so far. W scan is 10.3 hemoglobin 12.3, basic metabolic profile is normal BUN is 58 creatinine 1.67, improving. Again his mental status is waxing and waning today seems to be poor in spite of holding sedation now for the last few days remains off any sedation Reevaluated today on 07/23/2023, patient remains in the ICU, intubated and mechanically ventilated. Patient remains about the same as far as his mental status, he opens his eyes but does not follow any instructions and does not seem to track. He is on assist control rate of 16 tidal volume 500 FiO2 40% and PEEP of 5 ABG showed a pO2 of 87 pCO2 43 pH of 7.41. Remains on Zosyn empirically, however considering the sputum now is showing MRSA, I will add vancomycin to this patient. Sputum came back positive for E. coli and MRSA. Patient is still on enteral feeding receiving vital HPI at 69 mL/h IV fluid is at 75 mL per hour. Patient has been intermittently receiving Lasix. He was intubated on 07/16, today I was about to consult surgery for possible tracheostomy and PEG tube placement, however the stated to the nurses that she he would have never wanted to be on long-term mechanical ventilation. Hence we will plan to continue present supportive care measures until next week or the next few days and no improvement noted then we could consider comfort care measures and terminal weaning. WBC count today is 11.9, hemoglobin 12.3 left lites are cristian l BUN is 55 creatinine 1.30, steadily improving. Reevaluated today on 07/24/2023, patient remains in the ICU, intubated and mechanically ventilated. His mental status is waxing and waning, today the p atient is opening his eyes on verbal commands, however unable to wiggle toes or squeezing hands, apparently he was doing this earlier when the nurse was examining him. Patient again has waxing and waning mental status. Remains on tidal volume of 500 FiO2 40% rate of 16 PEEP of 5 and that is an assist-control mode of mechanical ventilation. ABG showed a pO2 of 88 pCO2 47 pH of 7.42 with IV fluids at KVO he is still on Zosyn and vancomycin for E. coli and MRSA in the sputum. Remains on vital AF at 69 mL/h and IV fluid at 75 mL per hour. Patient is receiving Lasix 40 mg IV push twice a day today I will give the patient a trial of pressure support of 10 and 5 he is not quite ready for extubation but will try a weaning trial with pressure support and CPAP labs were reviewed, renal profile showed a BUN of 54 creatinine 1.3, basically about the same compared to yesterday improved compared to the last few days. No chest x-ray was done, last chest x-ray showed improved right-sided pleural effusion and minimal right basilar atelectasis no evidence of significant change Reevaluated today on 07/25/2023, patient remains in the ICU, and mechanically ventilated. However mentation-mc the patient seems to be following all instructions today, much better compared to the last few days. He remains on assist control rate of 16 tidal volume 500 FiO2 40% and PEEP of 5 ABG showed a pO2 of 93 pCO2 46 pH of 7.45. Patient remains on antibiotics in the form of Zosyn and vancomycin for E. coli and MRSA in the sputum. Patient is a negative balance in the last 24 hours 1.6 L. He is on IV fluid at KVO he has been receiving Lasix 40 mg IV push every 12 hours and continues to have a small to m oderate sized right-sided pleural effusion. Receiving vital HPI at 69 mL per hour. His IV fluid at KVO. Hence weren't planning today is give the patient a trial of pressure support and CPAP, and if tolerated with excellent gases after 2 hours, may consider extubating the patient to BiPAP. This will be decided upon in the next couple of hours. In the meantime the patient remains relatively marginal at best. Basic metabolic profile today was normal BUN is 58 creatinine 1.3, steadily improving over the last few days. CBC is relatively normal except for WBC count of 13.4. Reevaluated today on 08/22/2023, patient remains in the ICU, extubated 2 days ago, and he seems to tolerate the extubation well. Slight improvement in mental status, able to follow instructions, however he is developing a significant consolidation in the right lower lobe, and ultrasound failed to show significant pleural effusion for thoracentesis. Patient is not the greatest candidate for bronchoscopy at this point, his CODE STATUS has been changed to DO NOT RESUSCITATE, and he is not to be reintubated if he gets any worse. Hence we'll try with BiPAP, chest PT, bronchodilators hopefully expand his right lower lobe. In the meantime the patient remains on Zosyn and vancomycin, he is also on Lasix twice a day. His sputum has been positive for E. coli and MRSA receiving Zosyn and vancomycin, and again today am recommending this will switch her from 5 L nasal cannula to BiPAP. Continues to have a nasogastric tube in place, and he is receiving enteral feeding via the nasogastric tube. WBC count is 12.2 hemoglobin is 12.3 left lites are normal renal profile is improving creatinine is down to 1.33 Reevaluated today on 07/27/23, patient remains in the ICU, extubated over 3 days ago, tolerated the extubation well. Patient remains on BiPAP 06/05/50% remains on Zosyn and vancomycin and on Xarelto patient also remains on vital HPI at 69 mL per hour. His IV fluids at KVO, mental status is about the same, patient follows simple instructions, but definitely his mental status is not back to baseline. Continues to have significant component of encephalopathy. Chest x- ray today continues to show right lower lobe consolidation/atelectasis, patient may eventually require bronchoscopy to evaluate the right lower lobe, however considering the family does not want to be back on mechanical ventilation, it will be difficult to perform bronchoscopy on this patient to is marginal to begin with without considering intubation and mechanical ventilation during the bronchoscopy. His WBC count is 16.7 hemoglobin is 12.2 electrolytes are Normal BUN is 53 creatinine down to 1.28. Steadily improving Objective - Vital Signs Vital signs: Vital Signs Temp 98.4 F 07/27/23 08:00 Pulse 76 07/27/23 11:00 Resp 19 07/27/23 11:00 BP 103/67 07/27/23 11:00 Pulse Ox 96 07/27/23 11:00 FiO2 50 07/27/23 08:00 Intake & Output 07/26/23 07/27/23 07/27/23 18:59 06:59 18:59 Intake Total 1762 1336 281 Output Total 1800 3135 041 Balance -38 -439 -254 Weight 137.6 kg 136.6 kg Intake: IV 353 439 182 Magnesium Sulfate-D5w Pmx 100 1 gm In Dextrose/Water 1 100ml.bag @ 100 mls/hr IVPB ONCE ONE Rx#: [id number] Normal Saline Pressure 33 39 12 Bag Piperacillin-Tazobactam 3 100 100 100 .375 gm In Sodium Chloride 0.9% 100 ml @ 25 mls/hr IVPB Q8HR [facility] Rx# :[id number] Sodium Chloride 0.9% 1, 220 200 70 000 ml @ 20 mls/hr IV . Q24H [facility] Rx#:[id number] Intake, IV Titration 500 Amount Vancomycin 2,500 mg In 500 Sodium Chloride 0.9% 500 ml 500 ml @ 167 mls/hr IVPB Q18H [facility] Rx#: [id number] Tube Feeding 759 897 69 Other 150 30 Output: Urine 1800 1775 535 Other: Voiding Method Indwelling Catheter Indwelling Catheter Indwelling Catheter ABP, PAP, CO, CI - Last Documented Arterial Blood Pressure 101/52 - Exam Physical Exam: Revealed a 68-year-old white male obese in no distress , on BiPAP 14/6/50% Head: Atraumatic, normocephalic. HEENT:[Neck is supple.] [No neck masses.] [No thyromegaly.] [No JVD.] Chest: [Diminished breath mostly at the right base. no crackles or rhonchi symmetrical chest expansion.] Cardiac Exam: [Normal S1 and S2, no S3 gallop, no murmur.] Abdomen: [Obese, Soft, nontender, no megaly, no rebound, no guarding, normal bowel sounds.] Extremities: [No clubbing, no edema, no cyanosis.] Chronic venous stasis changes noted bilaterally in both lower extremities Neurological Exam: Awake, follows instructions like wiggling toes, squeezing hands, patient is not verbal, has not verbalized since extubation Psychiatric: Flat affect, normal mood, seems to comprehend, however I believe the patient still has some component of encephalopathy Musculoskeletal: No deformities and no limitation in range of motion. Skin: No rashes except for chronic venous changes noted in lower extremities. - Labs CBC & Chem 7: 07/27/23 05:00 07/27/23 10:03 Labs: Abnormal Lab Results - Last 24 Hours (Table) 07/26/23 07/26/23 07/26/23 Range/Units 11:43 18:05 23:23 WBC (3.8-10.6) k/uL RBC (4.30-5.90) m/uL Hgb (13.0-17.5) gm/dL Hct (39.0-53.0) % Potassium (3.5-5.1) mmol/L Carbon Dioxide (22-30) mmol/L BUN (9-20) mg/dL Creatinine (0.66-1.25) mg/dL Glucose (74-99) mg/dL POC Glucose (mg/dL) 364 H 365 H 308 H (70-110) mg/dL Total Protein (6.3-8.2) g/dL Albumin (3.5-5.0) g/dL Vancomycin Trough ug/mL 07/27/23 07/27/23 07/27/23 Range/Units 05:00 05:00 05:00 WBC 16.7 H (3.8-10.6) k/uL RBC 3.90 L (4.30-5.90) m/uL Hgb 12.2 L (13.0-17.5) gm/dL Hct 38.8 L (39.0-53.0) % Potassium 3.4 L (3.5-5.1) mmol/L Carbon Dioxide 35 H (22-30) mmol/L BUN 53 H (9-20) mg/dL Creatinine 1.28 H (0.66-1.25) mg/dL Glucose 241 H (74-99) mg/dL POC Glucose (mg/dL) (70-110) mg/dL Total Protein 5.7 L (6.3-8.2) g/dL Albumin 2.7 L (3.5-5.0) g/dL Vancomycin Trough 32.0 H* ug/mL 07/27/23 Range/Units 06:01 WBC (3.8-10.6) k/uL RBC (4.30-5.90) m/uL Hgb (13.0-17.5) gm/dL Hct (39.0-53.0) % Potassium (3.5-5.1) mmol/L Carbon Dioxide (22-30) mmol/L BUN (9-20) mg/dL Creatinine (0.66-1.25) mg/dL Glucose (74-99) mg/dL POC Glucose (mg/dL) 223 H (70-110) mg/dL Total Protein (6.3-8.2) g/dL Albumin (3.5-5.0) g/dL Vancomycin Trough ug/mL Assessment and Plan Assessment: Impression: Acute hypoxic and hypercapnic respiratory failure secondary to cardiac arrest/prolonged downtime about 20 minutes. Acute COVID-19 infection, incidental finding, Chronic atrial fibrillation, on anticoagulation Morbid obesity BMI of 40.7 Type 2 diabetes currently on sliding scale coverage Obstructive sleep apnea syndrome with index of 90 Recent hospitalization for bilateral pneumonia Chronic bronchial asthma Acute kidney injury secondary to cardiac arrest Nonspecific pulmonary nodules Benign essential hypertension anoxic brain injury and hypoxic encephalopathy Right lower lobe pneumonia/consolidation, possibly aspiration in nature. Recommendation: Continue to monitor in the ICU Continue incentive spirometry Encourage deep coughing and breathing Continue bronchodilators Chest physical therapy Continue Decadron. Continue insulin sliding scale coverage Continue Xarelto Continue diuretics Continue GI and DVT prophylaxis Continue nutritional support/enteral feeding with vital HP Ultrasound of the chest showed no effusion patient is not a great candidate for bronchoscopy and evaluation of the right lower lobe but that could be considered, however the patient may need to be intubated for such procedure Continue BiPAP, patient does have history of obstructive sleep apnea syndrome Patient remains critically ill Critical care time is over 30 minutes Time with Patient: Greater than 30
[2023-07-27 11:52] LABS: Glucose,Whole Blood 242 mg/dL (70-110)
[2023-07-27] MEDS: POTASSIUM CHLORIDE 20 MEQ in WATER FOR INJECTION 1 100ML.BAG IVPB SCH ×2 (13:01→16:15)
--- NOTE | 2023-07-27 14:39 | P.PN ---
Subjective Progress Note Date: 07/27/23 68-year-old gentleman admitted with acute hypoxic and hypercapnic respiratory failure secondary to cardiac arrest, prolonged downtime reported at 20-30 minutes, anoxic brain injury, hypoxic encephalopathy, acute COVID-19 infection and multiple other medical issues. Remains vent dependent, FiO2 50%/+5 of PEEP. Sedation remains on hold. Chest x-ray reporting increased density right lower lobe may reflect underlying atelectasis, effusion and/or infiltrate, left medial basilar infiltrate/atelectasis unchanged .telemetry sinus,no pressor support at this time .Staff reports patient was following commands and tracking with his eyes yesterday. Repeat Brain CT performed yesterday reported no evidence for intracranial hemorrhage or sulcal effacement, no mass effects, no midline shift, osseous calvarium is intact, focal decreased attenuation right cerebellar hemisphere could reflect acute ischemic insult, correlate with MRI, age-related atrophic and chronic small vessel ischemic change. EEG reported abnormal due to background slowing of moderate degree, suggestive of generalized cerebral dysfunction seen with toxic metabolic encephalopathy or related to diffuse structural brain abnormality, no obvious epileptiform activity seen. Carotid Doppler reported less than 50% stenosis of bilateral carotid bifurcations, right vertebral artery not visualized. Receiving OT tube feedings of vital high protein. Anticoagulated on Xarelto, continues on Decadron. BUN remains at 57, Creatinine trending down, currently 1.9. 07/22/2023 remains vent dependent on 40% FiO2 +5 of PEEP. Remains off of justin tion. Patient spontaneously opens eyes, questionable tracking reported per staff . Tolerating tube feeds at goal, with minimal to no residuals. Chest x-ray reporting moderate pleural effusion with underlying atelectasis and/or consolidation , received Lasix. Creatinine improving decreased to 1.67. Afebrile, normal WBC. 07/23/2023 vent dependent, FiO2 40%/+5 of PEEP. Chest x-ray reporting small right pleural effusion .Sputum culture reporting MRSA , E. coli , vancomycin added in addition to Zosyn for antibiotic coverage. Creatinine improving, decreased to 1.3. T-max 99.3, WBC 11.9. Pro-calcitonin 0.29. Brain CT repeated yesterday, results noted including reporting of previous hypodensity in the right cerebellar hemisphere not as pronounced as on prior study. 07/24/23 sedation remains on hold , maintained on Decadron, diuretics. Anticoagulated on Xarelto. vent dependent FiO2 40%/+5 of PEEP, staff reports patient opening eyes on verbal commands. Continues on Zosyn and vancomycin. T- max 99.3. BUN 54, creatinine 1.34. Magnesium 1.7. Weaning trial pending as per pulmonary. 07/25. Patient seen and examined. Patient was extubated this morning, currently on BiPAP. at the bedside, discussed with in detail regarding goals of care, patient's still not sure whether she wants him to be intubated if his respiratory status worsens, says no to PEG tube and trach placement .Lab work showed WBC 13.4, hemoglobin 12.1, platelet count 180. Sodium 140, potassium 3.5, BUN 58, creatinine 1.3 to 07/26. Patient seen and examined. Currently on BiPAP. Patient following c ommands moving all extremities. Currently nothing by mouth, waiting for speech ventilation 07/27. Patient seen and examined. Currently on BiPAP. Chest x-ray done showed patchy airspace opacities on the right lung with volume loss and elevated right hemidiaphragm. Pulmonology planning bronchoscopy for tomorrow REVIEW OF SYSTEMS: Review of systems cannot be obtained patient is lethargic PHYSICAL EXAMINATION: GENERAL: The patient is lethargic, obtunded, not in any acute distress. Follows simple commands HEENT: Pupils are round and equally reacting to light. EOMI. No scleral icterus. No conjunctival pallor. Normocephalic, atraumatic. No pharyngeal erythema. No thyromegaly. CARDIOVASCULAR: S1 and S2 present. No murmurs, rubs, or gallops. PULMONARY: Diminished breath sounds bilaterally, no wheeze ABDOMEN: Soft, nontender, nondistended, normoactive bowel sounds. No palpable organomegaly. MUSCULOSKELETAL: No joint swelling or deformity. EXTREMITIES: No cyanosis, clubbing, or pedal edema. NEUROLOGICAL: Lethargic, following simple commands. Moving all extremities SKIN: No rashes. Assessment and plan Acute hypoxic and hypercapnic respiratory failure secondary to cardiac arrest/prolonged downtime, intubated in the field, in a patient with recent hospitalization for bilateral pneumonia 05/02/23. Acute COVID-19 infection. Sputum positive for E. coli and MRSA Anoxic brain injury with hypoxic encephalopathy, neurology following Nonspecific pulmonary nodules reported per CT Chronic bronchial asthma Mildly enlarged nonspecific peripancreatic lymph node reported per CT Cholelithiasis Acute renal injury secondary to cardiac arrest, improving Diabetes mellitus Chronic Paroxysmal atrial fibrillation, currently sinus Hypertension Hyperlipidemia Morbid obesity, BMI 42 Obstructive sleep apnea Monitor vital signs Monitor CBC Monitor CMP Continue BiPAP as needed Aggressive bronchopulmonary hygiene Continue IV Zosyn and vancomycin Continue IV Lasix 40 mg every 12 Continue Decadron. Continue insulin sliding scale coverage Continue Xarelto Continue diuretics Critical care following, possible bronchoscopy tomorrow if family agreeable Labs and medication were reviewed.. Continue same treatment. Continue with symptomatic treatment. Resume home medication. Monitor labs and vitals. DVT and GI prophylaxis. Further recommendations as per clinical course of the patient Dictation was produced using [employer] dictation software. please excuse any grammatical, word or spelling errors. Objective - Vital Signs Vital signs: Vital Signs Temp 98.4 F 07/27/23 12:00 Pulse 84 07/27/23 14:00 Resp 16 07/27/23 14:00 BP 102/73 07/27/23 14:00 Pulse Ox 94 L 07/27/23 14:00 FiO2 50 07/27/23 12:00 Intake & Output 07/26/23 07/27/23 07/27/23 18:59 06:59 18:59 Intake Total 1762 1336 417 Output Total 1800 1775 835 Balance -38 -439 -418 Weight 137.6 kg 136.6 kg Intake: IV 353 439 318 Magnesium Sulfate-D5w Pmx 100 1 gm In Dextrose/Water 1 100ml.bag @ 100 mls/hr IVPB ONCE ONE Rx#: [id number] Normal Saline Pressure 33 39 18 Bag Piperacillin-Tazobactam 3 100 100 100 .375 gm In Sodium Chloride 0.9% 100 ml @ 25 mls/hr IVPB Q8HR [facility] Rx# :[id number] Potassium Chloride 20 meq 100 In Water For Injection 1 100ml.bag @ 50 mls/hr IVPB Q2H [facility] Rx#: [id number] Sodium Chloride 0.9% 1, 220 200 100 000 ml @ 20 mls/hr IV . Q24H [facility] Rx#:[id number] Intake, IV Titration 500 Amount Vancomycin 2,500 mg In 500 Sodium Chloride 0.9% 500 ml 500 ml @ 167 mls/hr IVPB Q18H [facility] Rx#: [id number] Tube Feeding 759 897 69 Other 150 30 Output: Urine 1800 6365 835 Other: Voiding Method Indwelling Catheter Indwelling Catheter Indwelling Catheter ABP, PAP, CO, CI - Last Documented Arterial Blood Pressure 107/61 - Labs CBC & Chem 7: 07/27/23 05:00 07/27/23 10:03 Labs: Abnormal Lab Results - Last 24 Hours (Table) 07/26/23 07/26/23 07/27/23 Range/Units 18:05 23:23 05:00 WBC (3.8-10.6) k/uL RBC (4.30-5.90) m/uL Hgb (13.0-17.5) gm/dL Hct (39.0-53.0) % Potassium 3.4 L (3.5-5.1) mmol/L Carbon Dioxide 35 H (22-30) mmol/L BUN 53 H (9-20) mg/dL Creatinine 1.28 H (0.66-1.25) mg/dL Glucose 241 H (74-99) mg/dL POC Glucose (mg/dL) 365 H 308 H (70-110) mg/dL Total Protein 5.7 L (6.3-8.2) g/dL Albumin 2.7 L (3.5-5.0) g/dL Vancomycin Trough ug/mL 07/27/23 07/27/23 07/27/23 Range/Units 05:00 05:00 06:01 WBC 16.7 H (3.8-10.6) k/uL RBC 3.90 L (4.30-5.90) m/uL Hgb 12.2 L (13.0-17.5) gm/dL Hct 38.8 L (39.0-53.0) % Potassium (3.5-5.1) mmol/L Carbon Dioxide (22-30) mmol/L BUN (9-20) mg/dL Creatinine (0.66-1.25) mg/dL Glucose (74-99) mg/dL POC Glucose (mg/dL) 223 H (70-110) mg/dL Total Protein (6.3-8.2) g/dL Albumin (3.5-5.0) g/dL Vancomycin Trough 32.0 H* ug/mL 07/27/23 Range/Units 11:50 WBC (3.8-10.6) k/uL RBC (4.30-5.90) m/uL Hgb (13.0-17.5) gm/dL Hct (39.0-53.0) % Potassium (3.5-5.1) mmol/L Carbon Dioxide (22-30) mmol/L BUN (9-20) mg/dL Creatinine (0.66-1.25) mg/dL Glucose (74-99) mg/dL POC Glucose (mg/dL) 242 H (70-110) mg/dL Total Protein (6.3-8.2) g/dL Albumin (3.5-5.0) g/dL Vancomycin Trough ug/mL
[2023-07-27 17:42] LABS: Glucose,Whole Blood 254 mg/dL (70-110)
--- NOTE | 2023-07-27 18:37 | XR ---
EXAMINATION TYPE: XR chest 1V portable DATE OF EXAM: 07/27/2023 6:26 PM COMPARISON: Chest radiographs from same day radiographs. TECHNIQUE: XR chest 1V portable Frontal view of the chest. CLINICAL INDICATION:Male, 68 years old with history of [place] tube placement; FINDINGS: Lungs/Pleura: Left lung is clear. No pneumothorax. Elevated right hemidiaphragm. Patchy airspace opac ities demonstrated in the right lung with volume loss. No sizable pleural effusion. Pulmonary vascularity: Unremarkable. Heart/mediastinum: Cardiomediastinal silhouette is stable. Musculoskeletal: No acute osseous pathology. Other findings: None Lines/Tubes: Stable left subclavian approach central venous catheter and NG tube. Nasogastric tube with distal tip and side-port projecting over the gastric lumen. IMPRESSION: 1. Nasogastric tube in appropriate position. 2. Similar right-sided pleural effusion with associated atelectasis.
[2023-07-27 20:05] LABS: Glucose,Whole Blood 236 mg/dL (70-110)
[2023-07-27] MEDS: INSULIN DETEMIR (LEVEMIR) 100 UNIT/ML SYR SQ SCH (20:30)
[2023-07-27] MEDS: DEXMEDETOMIDINE/0.9% NACL(PMX) 400 MCG in EMPTY BAG 1 BAG IV SCH (22:53)
[2023-07-28] MEDS: HYDROmorphone 1 MG/ML 1 ML SYRINGE IVP PRN
[2023-07-28 01:09] LABS: Glucose,Whole Blood 276 mg/dL (70-110)
[2023-07-28 01:33] LABS: ABG Base Excess 13.9 mmol/L; ABG HCO3 39 mmol/L (21-25); ABG PCO2 60 mmHg (35-45); ABG PH 7.41 (7.35-7.45); ABG TCO2 40 mmol/L (19-24); Allen Test Performed? Yes
[2023-07-28 01:38] LABS: ABG Oxygen Saturation 82.6 % (94-97); ABG PO2 49 mmHg (83-108)
[2023-07-28] MEDS ORDERED: propofoL 100 ML IV ONE (01:43)
[2023-07-28] MEDS ORDERED: SUCCINYLCHOLINE CHLORIDE 200 MG/10 ML VIAL IV ONE ×2 (01:55)
[2023-07-28] MEDS: INSULIN ASPART (NovoLOG) 100 UNIT/ML VIAL SQ SCH ×4 (02:26→18:25)
[2023-07-28] MEDS: PIPERACILLIN-TAZOBACTAM 3.375 GM in SODIUM CHLORIDE 0.9% 100 ML IVPB SCH ×3 (02:26→15:31)
[2023-07-28 02:31] LABS: ABG Base Excess 11.7 mmol/L; ABG HCO3 36 mmol/L (21-25); ABG PCO2 55 mmHg (35-45); ABG PH 7.43 (7.35-7.45); ABG PO2 65 mmHg (83-108); ABG TCO2 38 mmol/L (19-24); Allen Test Performed? Yes
[2023-07-28 02:32] LABS: ABG Oxygen Saturation 91.9 % (94-97)
[2023-07-28] MEDS ORDERED: SODIUM CHLORIDE 0.9% 1,000 ML IV ONE (02:46)
--- NOTE | 2023-07-28 02:54 | XR ---
EXAM: XR Chest, 1 View CLINICAL HISTORY: ITS.REASON XR Reason: Tube placement TECHNIQUE: Frontal view of the chest. COMPARISON: No relevant prior studies available. FINDINGS: Lungs: See below. Pleural space: Large left pleural effusion. Endotracheal tube is seen with its tip at the mary. This should be pulled back several centimeters. Esophageal catheter is present the tip of which is not seen on this exam but the catheter extends below the left hemidiaphragm. Left- sided PICC line with its tip at the cavoatrial junction. Right lower lobe infiltrate. Compressive atelectasis left lower lobe. Cardiomegaly. No pneumothorax. Heart: See above. Mediastinum: Unremarkable. Bones/joints: Unremarkable. IMPRESSION: 1. Endotracheal tube is seen at the mary. This should be pulled back several centimeters. Remaining support devices are appropriately positioned as visualized. 2. Bilateral pleural effusions left greater than right with right lower lobe atelectasis likely infectious or inflammatory etiology.
[2023-07-28 04:15] LABS: African American GFR (CKD) 69 (>60 ml/min/1.73 sqM); Anion Gap 4 mmol/L; Blood Urea Nitrogen 53 mg/dL (9-20); Calcium 8.7 mg/dL (8.4-10.2); Carbon Dioxide 34 mmol/L (22-30); Chloride 106 mmol/L (98-107); Glucose 293 mg/dL (74-99); Magnesium 1.8 mg/dL (1.6-2.3); Non-African American GFR(CKD) 60 (>60 ml/min/1.73 sqM); Potassium 3.9 mmol/L (3.5-5.1); Sodium 144 mmol/L (137-145)
[2023-07-28] MEDS: NOREPINEPHRINE 4 MG in SODIUM CHLORIDE 0.9% 250 ML IV SCH ×2 (04:17→20:29)
[2023-07-28] MEDS ORDERED: MAGNESIUM SULFATE-D5W PMX 1 GM in DEXTROSE/WATER 1 100ML.BAG IVPB ONE (04:30)
[2023-07-28] MEDS ORDERED: Magnesium Replacement Protocol 1 EACH MISC MISCELLANE PRN (04:30)
[2023-07-28] MEDS ORDERED: Potassium Replacement Protocol 1 EACH MISC MISCELLANE PRN (04:37)
[2023-07-28] MEDS: SODIUM CHLORIDE 0.9% 1,000 ML IV SCH (04:43)
[2023-07-28] MEDS ORDERED: POTASSIUM BICARBONATE/CIT AC 20 MEQ TABLET.EFF NG-TUBE SCH ×2 (05:00→22:00)
[2023-07-28 05:19] LABS: Glucose,Whole Blood 286 mg/dL (70-110)
[2023-07-28 05:41] LABS: HCT 38.9 % (39.0-53.0); HGB 12.1 gm/dL (13.0-17.5); Hypochromasia Slight; MCH 31.6 pg (25.0-35.0); MCHC 31.1 g/dL (31.0-37.0); MCV 101.8 fL (80.0-100.0); Macrocytosis Slight; Platelet Count 211 k/uL (150-450); RBC 3.82 m/uL (4.30-5.90); RDW 14.9 % (11.5-15.5); WBC 20.5 k/uL (3.8-10.6)
[2023-07-28 06:37] LABS: Lymphocytes # (M) 3.08 k/uL (1.0-4.8); Monocytes # (M) 0.62 k/uL (0-1.0); Neutrophils # (M) 16.81 k/uL (1.3-7.7); Neutrophils % (M) 82 %; Nucleated Red Blood Cells 0 /100 WBC (0-0); Total Cells Counted 100
[2023-07-28 06:37] LABS: ABG Base Excess 11.2 mmol/L; ABG HCO3 34 mmol/L (21-25); ABG PCO2 43 mmHg (35-45); ABG PH 7.51 (7.35-7.45); ABG PO2 258 mmHg (83-108); ABG TCO2 36 mmol/L (19-24); Allen Test Performed? Yes
[2023-07-28 06:39] LABS: ABG Oxygen Saturation 99.3 % (94-97)
[2023-07-28] MEDS: SYMBICORT 160-4.5 MCG INHALER INHALATION SCH ×2 (07:53→20:52)
[2023-07-28] MEDS: ALBUTEROL HFA INHALER INHALATION SCH ×4 (07:53→20:52)
[2023-07-28] MEDS: RIVAROXABAN 20 MG TAB PO SCH (08:02)
[2023-07-28] MEDS: DEXAMETHASONE SOD PHOSPHATE 10 MG/ML 1 ML VIAL IVP SCH (08:03)
[2023-07-28] MEDS: PANTOPRAZOLE 40 MG/10 ML VIAL IV SCH (08:03)
[2023-07-28] MEDS: FUROSEMIDE 10 MG/ML 4 ML VIAL IV SCH ×2 (08:04→21:14)
[2023-07-28] MEDS: ATORVASTATIN 20 MG TAB PO SCH (08:04)
[2023-07-28] MEDS: METOPROLOL TARTRATE 50 MG TAB PO SCH ×2 (08:04→20:34)
[2023-07-28] MEDS: DOCUSATE ORAL SOLN 100 MG/10 ML CUP PO SCH (08:04)
[2023-07-28] MEDS ORDERED: VANCOMYCIN 2,000 MG in SODIUM CHLORIDE 0.9% 500 ML 500 ML IVPB ONE (11:00)
[2023-07-28 11:52] LABS: Glucose,Whole Blood 271 mg/dL (70-110)
--- NOTE | 2023-07-28 12:17 | P.PN ---
Subjective Progress Note Date: 07/28/23 Principal diagnosis: Respiratory failure. Reevaluated today on 07/24/2023, patient remains in the ICU, intubated and mechanically ventilated. His mental status is waxing and waning, today the patient is opening his eyes on verbal commands, however unable to wiggle toes or squeezing hands, apparently he was doing this earlier when the nurse was examining him. Patient again has waxing and waning mental status. Remains on tidal volume of 500 FiO2 40% rate of 16 PEEP of 5 and that is an assist-control mode of mechanical ventilation. ABG showed a pO2 of 88 pCO2 47 pH of 7.42 with IV fluids at KVO he is still on Zosyn and vancomycin for E. coli and MRSA in the sputum. Remains on vital AF at 69 mL/h and IV fluid at 75 mL per hour. Patient is receiving Lasix 40 mg IV push twice a day today I will give the patient a trial of pressure support of 10 and 5 he is not quite ready for extubation but will try a weaning trial with pressure support and CPAP labs were reviewed, r enal profile showed a BUN of 54 creatinine 1.3, basically about the same compared to yesterday improved compared to the last few days. No chest x-ray was done, last chest x-ray showed improved right-sided pleural effusion and minimal right basilar atelectasis no evidence of significant change Reevaluated today on 07/25/2023, patient remains in the ICU, and mechanically ventilated. However mentation-mc the patient seems to be following all instructions today, much better compared to the last few days. He remains on assist control rate of 16 tidal volume 500 FiO2 40% and PEEP of 5 ABG showed a pO2 of 93 pCO2 46 pH of 7.45. Patient remains on antibiotics in the form of Zosyn and vancomycin for E. coli and MRSA in the sputum. Patient is a negative balance in the last 24 hours 1.6 L. He is on IV fluid at KVO he has been receiving Lasix 40 mg IV push every 12 hours and continues to have a small to moderate sized right-sided pleural effusion. Receiving vital HPI at 69 mL per hour. His IV fluid at KVO. Hence weren't planning today is give the patient a trial of pressure support and CPAP, and if tolerated with excellent gases after 2 hours, may consider extubating the patient to BiPAP. This will be decided upon in the next couple of hours. In the meantime the patient remains r elatively marginal at best. Basic metabolic profile today was normal BUN is 58 creatinine 1.3, steadily improving over the last few days. CBC is relatively normal except for WBC count of 13.4. Reevaluated today on 08/22/2023, patient remains in the ICU, extubated 2 days ago, and he seems to tolerate the extubation well. Slight improvement in mental status, able to follow instructions, however he is developing a significant consolidation in the right lower lobe, and ultrasound failed to show significant pleural effusion for thoracentesis. Patient is not the greatest candidate for bronchoscopy at this point, his CODE STATUS has been changed to DO NOT RESUSCITATE, and he is not to be reintubated if he gets any worse. Hence we'll try with BiPAP, chest PT, bronchodilators hopefully expand his right lower lobe. In the meantime the patient remains on Zosyn and vancomycin, he is also on [place] six twice a day. His sputum has been positive for E. coli and MRSA receiving Zosyn and vancomycin, and again today am recommending this will switch her from 5 L nasal cannula to BiPAP. Continues to have a nasogastric tube in place, and he is receiving enteral feeding via the nasogastric tube. WBC count is 12.2 hemoglobin is 12.3 left lites are normal renal profile is improving creatinine is down to 1.33 Reevaluated today on 07/27/23, patient remains in the ICU, extubated over 3 days ago, tolerated the extubation well. Patient remains on BiPAP 14//50% remains on Zosyn and vancomycin and on Xarelto patient also remains on vital HPI at 69 mL per hour. His IV fluids at KVO, mental status is about the same, patient follows simple instructions, but definitely his mental status is not back to baseline. Continues to have significant component of encephalopathy. Chest x- ray today continues to show right lower lobe consolidation/atelectasis, patient may eventually require bronchoscopy to evaluate the right lower lobe, however considering the family does not want to be back on mechanical ventilation, it will be difficult to perform bronchoscopy on this patient to is marginal to begin with without considering intubation and mechanical ventilation during the bronchoscopy. His WBC count is 16.7 hemoglobin is 12.2 electrolytes are Normal BUN is 53 creatinine down to 1.28. Steadily improving Progress note dated 07/28/2023. This is a 68-year-old male who had an initial cardiac arrest. The patient was initially admitted on July 16, for respiratory failure, and was intubated on the same day, July 16. He was extubated on July 25, but unfortunately last night, he was reintubated, for worsening respiratory failure. He remains on mechanical ventilator, with assist control mode, rate 20, tidal volume 500, FiO2 50%, PEEP of 10. Blood gases show a PaO2 of 258, pCO2 43, and a pH is 7.51. This blood gases were done in the 100%. The patient was reduced on the 70%, and further down to 50%, other respiratory therapist. The patient's getting saline at 20 mL an hour, norepinephrine at 3.4 mcg/m, and propofol at 25 mcg/kg/m. 2 feedings have not yet been started. I did asked the nurses to resume that today. His neurologic status is very poor, and was very poor, acco rding to the nurses, which I have spoken to today. White count 20.5, hemoglobin 12.1, hematocrit 38.9, with a normal platelet count. Sodium 144, potassium 3.9, chlorides 106, CO2 34, BUN 53, creatinine 1.22. Glucose is 271. Sputum shows evidence of Escherichia coli, and methicillin-resistant staph aureus. Currently, he is on Zosyn and vancomycin. Chest x-ray shows bilateral pleural effusions, with some lower lobe atelectasis or infiltrates. Objective - Vital Signs Vital signs: Vital Signs Temp 98.4 F 07/28/23 08:00 Pulse 79 07/28/23 11:00 Resp 20 07/28/23 11:00 BP 103/64 07/28/23 11:00 Pulse Ox 98 07/28/23 11:00 FiO2 50 07/28/23 10:59 Intake & Output 07/27/23 07/28/23 07/28/23 18:59 06:59 18:59 Intake Total 702 1698.010 358.771 Output Total 1335 1585 685 Balance -633 113.010 -326.229 Weight 136.4 kg Intake: IV 603 1196 215 Normal Saline Pressure 33 36 15 Bag Piperacillin-Tazobactam 3 200 100 .375 gm In Sodium Chloride 0.9% 100 ml @ 25 mls/hr IVPB Q8HR [facility] Rx# :[id number] Potassium Chloride 20 meq 200 In Water For Injection 1 100ml.bag @ 50 mls/hr IVPB Q2H [facility] Rx#: [id number] Sodium Chloride 0.9% 1, 170 160 100 000 ml @ 20 mls/hr IV . Q24H [facility] Rx#:[id number] Sodium Chloride 0.9% 1, 1000 000 ml @ 999 mls/hr IV . Q1H1M [facility] Rx#:[id number] Intake, IV Titration 19.010 143.771 Amount Dexmedetomidine/0.9% NaCl 6.716 (Pmx) 400 mcg In Empty Bag 1 bag @ 0.2 MCG/KG/HR 6.83 mls/hr IV .[id number] [facility] Rx#:[id number] propofoL 1,000 mg In 12.294 143.771 Empty Bag 1 bag @ 15 MCG/ KG/MIN 12.294 mls/hr IV . Q8H9M [facility] Rx#:[id number] Oral 276 Tube Feeding 69 207 0 Other 30 Output: Urine 1335 1585 685 Other: Voiding Method Indwelling Catheter Indwelling Catheter Indwelling Catheter ABP, PAP, CO, CI - Last Documented Arterial Blood Pressure 102/53 - Exam No acute distress, sedated, with an orally placed endotracheal tube and NG tube. HEENT examination is grossly unremarkable. Neck supple. Full range of motion. No adenopathy thyromegaly or neck vein distention. Cardiovascular examination reveals regular rhythm rate. S1-S2 normal. No S3 or S4. No discernible murmur noted. Heart sounds are distant. Heart rate 79 bpm. Lungs reveal scattered bilateral rhonchi. Breath sounds are equal bilaterally. No crackles. Saturations are 98%. Abdomen soft, without bowel sounds. No masses. Extremities are intact. No cyanosis clubbing or edema. Skin is without rash or lesion. Neurologic examination cannot be adequately assessed. - Labs CBC & Chem 7: 07/28/23 03:50 07/28/23 03:50 Labs: Abnormal Lab Results - Last 24 Hours (Table) 07/27/23 07/27/23 07/28/23 Range/Units 17:40 20:04 01:06 WBC (3.8-10.6) k/uL RBC (4.30-5.90) m/uL Hgb (13.0-17.5) gm/dL Hct (39.0-53.0) % MCV (80.0-100.0) fL Neutrophils # (Manual) (1.3-7.7) k/uL ABG pH (7.35-7.45) ABG pCO2 (35-45) mmHg ABG pO2 (83-108) mmHg ABG HCO3 (21-25) mmol/L ABG Total CO2 (19-24) mmol/L ABG O2 Saturation (94-97) % Carbon Dioxide (22-30) mmol/L BUN (9-20) mg/dL Glucose (74-99) mg/dL POC Glucose (mg/dL) 254 H 236 H 276 H (70-110) mg/dL 07/28/23 07/28/23 07/28/23 Range/Units 01:29 02:26 03:50 WBC (3.8-10.6) k/uL RBC (4.30-5.90) m/uL Hgb (13.0-17.5) gm/dL Hct (39.0-53.0) % MCV (80.0-100.0) fL Neutrophils # (Manual) (1.3-7.7) k/uL ABG pH (7.35-7.45) ABG pCO2 60 H 55 H (35-45) mmHg ABG pO2 49 L* 65 L (83-108) mmHg ABG HCO3 39 H 36 H (21-25) mmol/L ABG Total CO2 40 H 38 H (19-24) mmol/L ABG O2 Saturation 82.6 L 91.9 L (94-97) % Carbon Dioxide 34 H (22-30) mmol/L BUN 53 H (9-20) mg/dL Glucose 293 H (74-99) mg/dL POC Glucose (mg/dL) (70-110) mg/dL 07/28/23 07/28/23 07/28/23 Range/Units 03:50 05:17 06:33 WBC 20.5 H (3.8-10.6) k/uL RBC 3.82 L (4.30-5.90) m/uL Hgb 12.1 L (13.0-17.5) gm/dL Hct 38.9 L (39.0-53.0) % MCV 101.8 H (80.0-100.0) fL Neutrophils # (Manual) 16.81 H (1.3-7.7) k/uL ABG pH 7.51 H (7.35-7.45) ABG pCO2 (35-45) mmHg ABG pO2 258 H (83-108) mmHg ABG HCO3 34 H (21-25) mmol/L ABG Total CO2 36 H (19-24) mmol/L ABG O2 Saturation 99.3 H (94-97) % Carbon Dioxide (22-30) mmol/L BUN (9-20) mg/dL Glucose (74-99) mg/dL POC Glucose (mg/dL) 286 H (70-110) mg/dL 07/28/23 Range/Units 11:50 WBC (3.8-10.6) k/uL RBC (4.30-5.90) m/uL Hgb (13.0-17.5) gm/dL Hct (39.0-53.0) % MCV (80.0-100.0) fL Neutrophils # (Manual) (1.3-7.7) k/uL ABG pH (7.35-7.45) ABG pCO2 (35-45) mmHg ABG pO2 (83-108) mmHg ABG HCO3 (21-25) mmol/L ABG Total CO2 (19-24) mmol/L ABG O2 Saturation (94-97) % Carbon Dioxide (22-30) mmol/L BUN (9-20) mg/dL Glucose (74-99) mg/dL POC Glucose (mg/dL) 271 H (70-110) mg/dL Assessment and Plan Assessment: Acute hypoxemic and hypercapnic respiratory failure, secondary to cardiac arrest, with a prolonged downtime, with initial intubation, on July 16, and extubation on July 25, and then reintubation on July 28, for worsening respiratory status. Acute coronavirus infection. Chronic atrial fibrillation. Morbid obesity. Type 2 diabetes mellitus. Obstructive sleep apnea syndrome. Recent hospitalization for bilateral pneumonia. Chronic bronchial asthma. Acute kidney injury, secondary to cardiac arrest. Nonspecific pulmonary nodules. Benign essential hypertension. Anoxic brain injury with hypoxemic encephalopathy. Right lower lobe pneumonia/consolidation, secondary to Escherichia coli, and methicillin-resistant staph aureus. Plan: Plan dated 07/28/2023. The patient was made a DO NOT RESUSCITATE, based on a conversation that I had with his , Vani. In addition, we will resume tube feedings. Unfortunately, for worsening respiratory status, the patient was reintubated on July 28, having been extubated, on July 25. Currently he is on norepinephrine, and propofol. I had a long talk with the patient's , Vani. She was going to talk to the family members about further CODE STATUS changes, including the possibility of comfort care, versus, tracheostomy and PEG tube placement. Labs, x-rays, medications are reviewed. The patient's overall prognosis remains very poor. We will continue to follow and make recommenda tions along the way. Time with Patient: Greater than 30
[2023-07-28] MEDS: DEXMEDETOMIDINE/0.9% NACL(PMX) 400 MCG in EMPTY BAG 1 BAG IV SCH (13:43)
--- NOTE | 2023-07-28 13:50 | P.PN ---
Subjective Progress Note Date: 07/28/23 So 68-year-old gentleman admitted with acute hypoxic and hypercapnic respiratory failure secondary to cardiac arrest, prolonged downtime reported at 20-30 minutes, anoxic brain injury, hypoxic encephalopathy, acute COVID-19 infection and multiple other medical issues. Remains vent dependent, FiO2 50%/+5 of PEEP. Sedation remains on hold. Chest x-ray reporting increased density right lower lobe may reflect underlying atelectasis, effusion and/or infiltrate, left medial basilar infiltrate/atelectasis unchanged .telemetry sinus,no pressor support at this time .Staff reports patient was following commands and tracking with his eyes yesterday. Repeat Brain CT performed yesterday reported no evidence for intracranial hemorrhage or sulcal effacement, no mass effects, no midline shift, osseous calvarium is intact, focal decreased attenuation right cerebellar hemisphere could reflect acute ischemic insult, correlate with MRI, age-related atrophic and chronic small vessel ischemic change. EEG reported abnormal due to background slowing of moderate degree, suggestive of generalized cerebral dysfun ction seen with toxic metabolic encephalopathy or related to diffuse structural brain abnormality, no obvious epileptiform activity seen. Carotid Doppler reported less than 50% stenosis of bilateral carotid bifurcations, right vertebral artery not visualized. Receiving OT tube feedings of vital high protein. Anticoagulated on Xarelto, continues on Decadron. BUN remains at 57, Creatinine trending down, currently 1.9. 07/22/2023 remains vent dependent on 40% FiO2 +5 of PEEP. Remains off of se dation. Patient spontaneously opens eyes, questionable tracking reported per staff . Tolerating tube feeds at goal, with minimal to no residuals. Chest x- ray reporting moderate pleural effusion with underlying atelectasis and/or consolidation , received Lasix. Creatinine improving decreased to 1.67. Afebrile, normal WBC. 07/23/2023 vent dependent, FiO2 40%/+5 of PEEP. Chest x-ray reporting small right pleural effusion .Sputum culture reporting MRSA , E. coli , vancomycin added in addition to Zosyn for antibiotic coverage. Creatinine improving, decreased to 1.3. T-max 99.3, WBC 11.9. Pro-calcitonin 0.29. Brain CT repeated yesterday, results noted including reporting of previous hypodensity in the right cerebellar hemisphere not as pronounced as on prior study. 07/24/23 sedation remains on hold , maintained on Decadron, diuretics. Anticoagulated on Xarelto. vent dependent FiO2 40%/+5 of PEEP, staff reports patient opening eyes on verbal commands. Continues on Zosyn and vancomycin. T- max 99.3. BUN 54, creatinine 1.34. Magnesium 1.7. Weaning trial pending as per pulmonary. 07/28/23 worsening respiratory failure, reintubated per 's request. Vent dependent, FiO2 50%/+10 of PEEP. Sedated on diprovan, continues on norepinephrine. Maintained on Zosyn and vancomycin, sputum culture reported E. coli, MRSA. Chest x-ray reporting bilateral pleural effusions left greater than right with right lower lobe atelectasis likely infectious or inflammatory etiology. Objective - Vital Signs Vital signs: Vital Signs Temp 97.8 F 07/28/23 00:00 Pulse 76 07/28/23 07:00 Resp 20 07/28/23 07:00 BP 111/63 07/28/23 07:00 Pulse Ox 100 07/28/23 07:00 FiO2 50 07/28/23 07:46 Intake & Output 07/27/23 07/28/23 07/28/23 18:59 06:59 18:59 Intake Total 702 1698.010 86.177 Output Total 1335 1585 60 Balance -633 113.010 26.177 Weight 136.4 kg Intake: IV 603 1196 23 Normal Saline Pressure 33 36 3 Bag Piperacillin-Tazobactam 3 200 .375 gm In Sodium Chloride 0.9% 100 ml @ 25 mls/hr IVPB Q8HR [facility] Rx# :[id number] Potassium Chloride 20 meq 200 In Water For Injection 1 100ml.bag @ 50 mls/hr IVPB Q2H [facility] Rx#: [id number] Sodium Chloride 0.9% 1, 170 160 20 000 ml @ 20 mls/hr IV . Q24H [facility] Rx#:[id number] Sodium Chloride 0.9% 1, 1000 000 ml @ 999 mls/hr IV . Q1H1M [facility] Rx#:[id number] Intake, IV Titration 19.010 63.177 Amount Dexmedetomidine/0.9% NaCl 6.716 (Pmx) 400 mcg In Empty Bag 1 bag @ 0.2 MCG/KG/HR 6.83 mls/hr IV .[id number] [facility] Rx#:[id number] propofoL 1,000 mg In 12.294 63.177 Empty Bag 1 bag @ 15 MCG/ KG/MIN 12.294 mls/hr IV . Q8H9M [facility] Rx#:[id number] Oral 276 Tube Feeding 69 207 0 Other 30 Output: Urine 1335 1585 60 Other: Voiding Method Indwelling Catheter Indwelling Catheter ABP, PAP, CO, CI - Last Documented Arterial Blood Pressure 101/54 - Exam PHYSICAL EXAM: Limited exam completed in a patient with COVID-19. VITAL SIGNS: [As above] GENERAL: Intubated, sedated CARDIOVASCULAR: S1, S2 regular. - Labs CBC & Chem 7: 07/28/23 03:50 07/28/23 03:50 Labs: Abnormal Lab Results - Last 24 Hours (Table) 07/27/23 07/27/23 07/27/23 Range/Units 11:50 17:40 20:04 WBC (3.8-10.6) k/uL RBC (4.30-5.90) m/uL Hgb (13.0-17.5) gm/dL Hct (39.0-53.0) % MCV (80.0-100.0) fL Neutrophils # (Manual) (1.3-7.7) k/uL ABG pH (7.35-7.45) ABG pCO2 (35-45) mmHg ABG pO2 (83-108) mmHg ABG HCO3 (21-25) mmol/L ABG Total CO2 (19-24) mmol/L ABG O2 Saturation (94-97) % Carbon Dioxide (22-30) mmol/L BUN (9-20) mg/dL Glucose (74-99) mg/dL POC Glucose (mg/dL) 242 H 254 H 236 H (70-110) mg/dL 07/28/23 07/28/23 07/28/23 Range/Units 01:06 01:29 02:26 WBC (3.8-10.6) k/uL RBC (4.30-5.90) m/uL Hgb (13.0-17.5) gm/dL Hct (39.0-53.0) % MCV (80.0-100.0) fL Neutrophils # (Manual) (1.3-7.7) k/uL ABG pH (7.35-7.45) ABG pCO2 60 H 55 H (35-45) mmHg ABG pO2 49 L* 65 L (83-108) mmHg ABG HCO3 39 H 36 H (21-25) mmol/L ABG Total CO2 40 H 38 H (19-24) mmol/L ABG O2 Saturation 82.6 L 91.9 L (94-97) % Carbon Dioxide (22-30) mmol/L BUN (9-20) mg/dL Glucose (74-99) mg/dL POC Glucose (mg/dL) 276 H (70-110) mg/dL 07/28/23 07/28/23 07/28/23 Range/Units 03:50 03:50 05:17 WBC 20.5 H (3.8-10.6) k/uL RBC 3.82 L (4.30-5.90) m/uL Hgb 12.1 L (13.0-17.5) gm/dL Hct 38.9 L (39.0-53.0) % MCV 101.8 H (80.0-100.0) fL Neutrophils # (Manual) 16.81 H (1.3-7.7) k/uL ABG pH (7.35-7.45) ABG pCO2 (35-45) mmHg ABG pO2 (83-108) mmHg ABG HCO3 (21-25) mmol/L ABG Total CO2 (19-24) mmol/L ABG O2 Saturation (94-97) % Carbon Dioxide 34 H (22-30) mmol/L BUN 53 H (9-20) mg/dL Glucose 293 H (74-99) mg/dL POC Glucose (mg/dL) 286 H (70-110) mg/dL 07/28/23 Range/Units 06:33 WBC (3.8-10.6) k/uL RBC (4.30-5.90) m/uL Hgb (13.0-17.5) gm/dL Hct (39.0-53.0) % MCV (80.0-100.0) fL Neutrophils # (Manual) (1.3-7.7) k/uL ABG pH 7.51 H (7.35-7.45) ABG pCO2 (35-45) mmHg ABG pO2 258 H (83-108) mmHg ABG HCO3 34 H (21-25) mmol/L ABG Total CO2 36 H (19-24) mmol/L ABG O2 Saturation 99.3 H (94-97) % Carbon Dioxide (22-30) mmol/L BUN (9-20) mg/dL Glucose (74-99) mg/dL POC Glucose (mg/dL) (70-110) mg/dL Assessment and Plan Assessment: Acute hypoxic and hypercapnic respiratory failure secondary to cardiac arrest/prolonged downtime, intubated in the field, in a patient with recent ho spitalization for bilateral pneumonia 05/02/23. Re-intubated. Acute COVID-19 infection. Sputum positive for E. coli and MRSA Anoxic brain injury with hypoxic encephalopathy, neurology following Nonspecific pulmonary nodules reported per CT Chronic bronchial asthma Mildly enlarged nonspecific peripancreatic lymph node reported per CT Cholelithiasis Acute renal injury secondary to cardiac arrest, improving Diabetes mellitus Chronic Paroxysmal atrial fibrillation, currently sinus Hypertension Hyperlipidemia Morbid obesity, BMI 42 Obstructive sleep apnea Plan: Continue on current medication regime ,monitoring and symptomatic treatment. Maintained on IV Decadron, diuretics, antibiotics. Anticoagulated on Xarelto. ICU management as per hack saw operator. previously declined tracheostomy and PEG.Comfort care discussed between hack saw operator and .ICU management as per hack saw operator.maintain supportive care .Prognosis guarded given multiple medical issues. The impression and plan of care has been dictated as directed. : I performed a history and examination of this patient, discussed the same with the dictator. I agree with the dictator's note ,documented as a scribe. Any ad ditional findings or plans will be noted.
[2023-07-28 18:21] LABS: Glucose,Whole Blood 346 mg/dL (70-110)
--- NOTE | 2023-07-28 18:21 | P.PN ---
Subjective Progress Note Date: 07/27/23 Patient was seen for a follow-up. Patient was last seen 07/19/2023. Subsequently Dr. Feliz was covering neurology service. Please refer to his note for details. Patient now has been extubated. Patient's was also present today. Patient is quite alert and awake. He is slightly tremulous, mildly encephalopathic. Objective - Vital Signs Vital signs: Vital Signs Temp 98.4 F 07/27/23 12:00 Pulse 84 07/27/23 14:00 Resp 16 07/27/23 14:00 BP 102/73 07/27/23 14:00 Pulse Ox 94 L 07/27/23 14:00 FiO2 50 07/27/23 12:00 Intake & Output 07/26/23 07/27/23 07/27/23 18:59 06:59 18:59 Intake Total 1762 1336 417 Output Total 1800 1775 835 Balance -38 -439 -418 Weight 137.6 kg 136.6 kg Intake: IV 353 439 318 Magnesium Sulfate-D5w Pmx 100 1 gm In Dextrose/Water 1 100ml.bag @ 100 mls/hr IVPB [facility] Rx#: [id number] Normal Saline Pressure 33 39 18 Bag Piperacillin-Tazobactam 3 100 100 100 .375 gm In Sodium Chloride 0.9% 100 ml @ 25 mls/hr IVPB Q8HR [facility] Rx# :[id number] Potassium Chloride 20 meq 100 In Water For Injection 1 100ml.bag @ 50 mls/hr IVPB Q2H [facility] Rx#: [id number] Sodium Chloride 0.9% 1, 220 200 100 000 ml @ 20 mls/hr IV . Q24H [facility] Rx#:[id number] Intake, IV Titration 500 Amount Vancomycin 2,500 mg In 500 Sodium Chloride 0.9% 500 ml 500 ml @ 167 mls/hr IVPB Q18H [facility] Rx#: [id number] Tube Feeding 759 897 69 Other 150 30 Output: Urine 1800 1775 835 Other: Voiding Method Indwelling Catheter Indwelling Catheter Indwelling Catheter ABP, PAP, CO, CI - Last Documented Arterial Blood Pressure 107/61 - Exam Patient is now extubated, has a nonrebreather mask. Patient is trying to pull the lines and the mask out. He is alert and awake. Pupils are equal, round and reacting. Patient following directions. He was able to point to the window and was able to point to the ceiling. 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 He was able to lift his right leg better than the left. He has peripheral edema. - Labs CBC & Chem 7: 07/28/23 03:50 07/28/23 03:50 Labs: Abnormal Lab Results - Last 24 Hours (Table) 07/26/23 07/26/23 07/27/23 Range/Units 18:05 23:23 05:00 WBC (3.8-10.6) k/uL RBC (4.30-5.90) m/uL Hgb (13.0-17.5) gm/dL Hct (39.0-53.0) % Potassium 3.4 L (3.5-5.1) mmol/L Carbon Dioxide 35 H (22-30) mmol/L BUN 53 H (9-20) mg/dL Creatinine 1.28 H (0.66-1.25) mg/dL Glucose 241 H (74-99) mg/dL POC Glucose (mg/dL) 365 H 308 H (70-110) mg/dL Total Protein 5.7 L (6.3-8.2) g/dL Albumin 2.7 L (3.5-5.0) g/dL Vancomycin Trough ug/mL 07/27/23 07/27/23 07/27/23 Range/Units 05:00 05:00 06:01 WBC 16.7 H (3.8-10.6) k/uL RBC 3.90 L (4.30-5.90) m/uL Hgb 12.2 L (13.0-17.5) gm/dL Hct 38.8 L (39.0-53.0) % Potassium (3.5-5.1) mmol/L Carbon Dioxide (22-30) mmol/L BUN (9-20) mg/dL Creatinine (0.66-1.25) mg/dL Glucose (74-99) mg/dL POC Glucose (mg/dL) 223 H (70-110) mg/dL Total Protein (6.3-8.2) g/dL Albumin (3.5-5.0) g/dL Vancomycin Trough 32.0 H* ug/mL 07/27/23 Range/Units 11:50 WBC (3.8-10.6) k/uL RBC (4.30-5.90) m/uL Hgb (13.0-17.5) gm/dL Hct (39.0-53.0) % Potassium (3.5-5.1) mmol/L Carbon Dioxide (22-30) mmol/L BUN (9-20) mg/dL Creatinine (0.66-1.25) mg/dL Glucose (74-99) mg/dL POC Glucose (mg/dL) 242 H (70-110) mg/dL Total Protein (6.3-8.2) g/dL Albumin (3.5-5.0) g/dL Vancomycin Trough ug/mL Assessment and Plan Assessment: * Status post cardiac arrest with prolonged downtime of 30 minutes as per EMS flow sheet documentation. Patient was in asystole. * Acute respiratory failure, Status post extubation 07/25/2023. * Anoxic encephalopathy, but patient significantly improving. * Covid-19 infection. * Atrial fibrillation with rapid ventricular rate * Probable aspiration pneumonia * Lactic acidosis * Acute renal failure * Diabetes type 2 * Morbid obesity * Hypertension * Pulmonary nodules. * Obstructive sleep apnea Plan: * Patient has been extubated on 07/25/2023. Patient is doing much better, as per examination. Patient continues to be sick from medical standpoint. * EEG 07/17/2023, was abnormal due to background slowing of moderate degree, suggestive of generalized cerebral dysfunction as can be seen with toxic metabolic encephalopathy. Clinical correlation is recommended. No obvious epileptiform activity was seen. * Initial CT head showed no acute process. Nonspecific white matter changes. * Patient's neurological examination has much improved as compared to examination last week. * Patient currently on Xarelto for atrial fibrillation. * Other medical management as per IM and critical care. * Neurology will follow.
--- NOTE | 2023-07-28 18:25 | P.PN ---
Subjective Progress Note Date: 07/28/23 07/28/2023: Patient was seen for a follow-up. Patient apparently decompensated overnight and was intubated. Patient currently sedated on propofol 25 mcg/kg per minute. Examination limited. Patient's was also present, who mentioned that patient was overall doing better neurologically. 07/27/2023: Patient was seen for a follow-up. Patient was last seen 07/19/2023. Subsequently Dr. Feliz was covering neurology service. Please refer to his note for details. Patient now has been extubated since 07/25/2023. Patient's was also present today. Patient is quite alert and awake. He is slightly tremulous, mildly encephalopathic. Objective - Vital Signs Vital signs: Vital Signs Temp 98.9 F 07/28/23 12:00 Pulse 76 07/28/23 15:00 Resp 20 07/28/23 15:00 BP 124/74 07/28/23 14:00 Pulse Ox 99 07/28/23 15:00 FiO2 50 07/28/23 14:48 Intake & Output 07/27/23 07/28/23 07/28/23 18:59 06:59 18:59 Intake Total 702 6979.281 0624.486 Output Total 1335 1585 1130 Balance -633 113.010 53.486 Weight 136.4 kg 136.4 kg Intake: IV 603 1196 767 Normal Saline Pressure 33 36 27 Bag Piperacillin-Tazobactam 3 200 100 .375 gm In Sodium Chloride 0.9% 100 ml @ 25 mls/hr IVPB Q8HR [facility] Rx# :[id number] Potassium Chloride 20 meq 200 In Water For Injection 1 100ml.bag @ 50 mls/hr IVPB Q2H [facility] Rx#: [id number] Sodium Chloride 0.9% 1, 170 160 140 000 ml @ 20 mls/hr IV . Q24H [facility] Rx#:[id number] Sodium Chloride 0.9% 1, 1000 000 ml @ 999 mls/hr IV . Q1H1M [facility] Rx#:[id number] Vancomycin 2,000 mg In 500 Sodium Chloride 0.9% 500 ml 500 ml @ 167 mls/hr IVPB ONCE [facility] Rx#: [id number] Intake, IV Titration 19.010 215.486 Amount Dexmedetomidine/0.9% NaCl 6.716 (Pmx) 400 mcg In Empty Bag 1 bag @ 0.2 MCG/KG/HR 6.83 mls/hr IV .[id number] [facility] Rx#:[id number] propofoL 1,000 mg In 12.294 215.486 Empty Bag 1 bag @ 15 MCG/ KG/MIN 12.294 mls/hr IV . Q8H9M [facility] Rx#:[id number] Oral 276 Tube Feeding 69 207 201 Other 30 Output: Urine 1335 1585 1130 Other: Voiding Method Indwelling Catheter Indwelling Catheter Indwelling Catheter ABP, PAP, CO, CI - Last Documented Arterial Blood Pressure 125/58 - Exam Patient is now re-intubated, sedated on propofol 25 g per program per minute. Detail examination deferred. Pupils are equal, round and reacting. He has peripheral edema. - Labs CBC & Chem 7: 07/28/23 03:50 07/28/23 03:50 Labs: Abnormal Lab Results - Last 24 Hours (Table) 07/27/23 07/27/23 07/28/23 Range/Units 17:40 20:04 01:06 WBC (3.8-10.6) k/uL RBC (4.30-5.90) m/uL Hgb (13.0-17.5) gm/dL Hct (39.0-53.0) % MCV (80.0-100.0) fL Neutrophils # (Manual) (1.3-7.7) k/uL ABG pH (7.35-7.45) ABG pCO2 (35-45) mmHg ABG pO2 (83-108) mmHg ABG HCO3 (21-25) mmol/L ABG Total CO2 (19-24) mmol/L ABG O2 Saturation (94-97) % Carbon Dioxide (22-30) mmol/L BUN (9-20) mg/dL Glucose (74-99) mg/dL POC Glucose (mg/dL) 254 H 236 H 276 H (70-110) mg/dL 07/28/23 07/28/23 07/28/23 Range/Units 01:29 02:26 03:50 WBC (3.8-10.6) k/uL RBC (4.30-5.90) m/uL Hgb (13.0-17.5) gm/dL Hct (39.0-53.0) % MCV (80.0-100.0) fL Neutrophils # (Manual) (1.3-7.7) k/uL ABG pH (7.35-7.45) ABG pCO2 60 H 55 H (35-45) mmHg ABG pO2 49 L* 65 L (83-108) mmHg ABG HCO3 39 H 36 H (21-25) mmol/L ABG Total CO2 40 H 38 H (19-24) mmol/L ABG O2 Saturation 82.6 L 91.9 L (94-97) % Carbon Dioxide 34 H (22-30) mmol/L BUN 53 H (9-20) mg/dL Glucose 293 H (74-99) mg/dL POC Glucose (mg/dL) (70-110) mg/dL 07/28/23 07/28/23 07/28/23 Range/Units 03:50 05:17 06:33 WBC 20.5 H (3.8-10.6) k/uL RBC 3.82 L (4.30-5.90) m/uL Hgb 12.1 L (13.0-17.5) gm/dL Hct 38.9 L (39.0-53.0) % MCV 101.8 H (80.0-100.0) fL Neutrophils # (Manual) 16.81 H (1.3-7.7) k/uL ABG pH 7.51 H (7.35-7.45) ABG pCO2 (35-45) mmHg ABG pO2 258 H (83-108) mmHg ABG HCO3 34 H (21-25) mmol/L ABG Total CO2 36 H (19-24) mmol/L ABG O2 Saturation 99.3 H (94-97) % Carbon Dioxide (22-30) mmol/L BUN (9-20) mg/dL Glucose (74-99) mg/dL POC Glucose (mg/dL) 286 H (70-110) mg/dL 07/28/23 Range/Units 11:50 WBC (3.8-10.6) k/uL RBC (4.30-5.90) m/uL Hgb (13.0-17.5) gm/dL Hct (39.0-53.0) % MCV (80.0-100.0) fL Neutrophils # (Manual) (1.3-7.7) k/uL ABG pH (7.35-7.45) ABG pCO2 (35-45) mmHg ABG pO2 (83-108) mmHg ABG HCO3 (21-25) mmol/L ABG Total CO2 (19-24) mmol/L ABG O2 Saturation (94-97) % Carbon Dioxide (22-30) mmol/L BUN (9-20) mg/dL Glucose (74-99) mg/dL POC Glucose (mg/dL) 271 H (70-110) mg/dL Microbiology - Last 24 Hours (Table) 07/28/23 04:15 Gram Stain - Preliminary Sputum Assessment and Plan Assessment: * Status post cardiac arrest with prolonged downtime of 30 minutes as per EMS flow sheet documentation. Patient was in asystole. * Ventilator-dependent respiratory failure due to cardiac arrest, status post extubation 07/25/2023 and then reintubation 07/28/2023. * Anoxic encephalopathy from previous cardiac arrest, but patient was clinically improving. * Atrial fibrillation with rapid ventricular rate * Covid-19 infection. * Atrial fibrillation with rapid ventricular rate * Probable aspiration pneumonia * Lactic acidosis * Acute renal failure * Diabetes type 2 * Morbid obesity * Hypertension * Pulmonary nodules. * Obstructive sleep apnea Plan: * Patient was extubated 07/25/2023, but now reintubated as of early this morning. Examination limited because of being on sedation. * EEG 07/17/2023, was abnormal due to background slowing of moderate degree, suggestive of generalized cerebral dysfunction as can be seen with toxic m etabolic encephalopathy. Clinical correlation is recommended. No obvious epileptiform activity was seen. * Initial CT head showed no acute process. Nonspecific white matter changes. * Patient's neurological status was improving gradually. * Patient currently on Xarelto for atrial fibrillation. * Other medical management as per IM and critical care. * Discussed with nursing staff and patient's in detail.
[2023-07-28] MEDS: INSULIN DETEMIR (LEVEMIR) 100 UNIT/ML SYR SQ SCH (20:35)
[2023-07-28] MEDS: CHLORHEXIDINE GLUCONATE 15 ML CUP MUCOUS MEM SCH (20:35)
[2023-07-28 23:39] LABS: Glucose,Whole Blood 354 mg/dL (70-110)
[2023-07-29] MEDS: PIPERACILLIN-TAZOBACTAM 3.375 GM in SODIUM CHLORIDE 0.9% 100 ML IVPB SCH ×4 (00:01→23:52)
[2023-07-29] MEDS: INSULIN ASPART (NovoLOG) 100 UNIT/ML VIAL SQ SCH ×5 (00:01→23:52)
[2023-07-29] MEDS: DEXMEDETOMIDINE/0.9% NACL(PMX) 400 MCG in EMPTY BAG 1 BAG IV SCH (04:11)
[2023-07-29 04:20] LABS: Glucose,Whole Blood 269 mg/dL (70-110)
[2023-07-29] MEDS: SODIUM CHLORIDE 0.9% 1,000 ML IV SCH (04:20)
[2023-07-29 04:47] LABS: Basophils # (A) 0.1 k/uL (0-0.2); Basophils % (A) 0 %; Eosinophils # (A) 0.2 k/uL (0-0.7); Eosinophils % (A) 1 %; HCT 36.4 % (39.0-53.0); HGB 11.7 gm/dL (13.0-17.5); Lymphocytes # (A) 2.7 k/uL (1.0-4.8); Lymphocytes % (A) 14 %; MCH 31.6 pg (25.0-35.0); MCHC 32.1 g/dL (31.0-37.0); MCV 98.4 fL (80.0-100.0); Mean Platelet Volume 8.9; Monocytes # (A) 0.9 k/uL (0-1.0); Monocytes % (A) 5 %; Neutrophils # (A) 15.4 k/uL (1.3-7.7); Neutrophils % (A) 79 %; Platelet Count 201 k/uL (150-450); WBC 19.5 k/uL (3.8-10.6)
[2023-07-29 04:59] LABS: African American GFR (CKD) 54 (>60 ml/min/1.73 sqM); Anion Gap 4 mmol/L; Blood Urea Nitrogen 56 mg/dL (9-20); Calcium 8.9 mg/dL (8.4-10.2); Carbon Dioxide 35 mmol/L (22-30); Chloride 106 mmol/L (98-107); Glucose 291 mg/dL (74-99); Magnesium 1.9 mg/dL (1.6-2.3); Non-African American GFR(CKD) 47 (>60 ml/min/1.73 sqM); Potassium 3.4 mmol/L (3.5-5.1); Sodium 145 mmol/L (137-145)
[2023-07-29] MEDS: POTASSIUM BICARBONATE/CIT AC 20 MEQ TABLET.EFF NG-TUBE SCH ×2 (05:42→06:36)
[2023-07-29] MEDS ORDERED: MAGNESIUM SULFATE-D5W PMX 1 GM in DEXTROSE/WATER 1 100ML.BAG IVPB ONE (05:49)
[2023-07-29 06:13] LABS: ABG Base Excess 11.8 mmol/L; ABG HCO3 35 mmol/L (21-25); ABG PCO2 43 mmHg (35-45); ABG PH 7.52 (7.35-7.45); ABG PO2 101 mmHg (83-108); ABG TCO2 36 mmol/L (19-24); Allen Test Performed? Yes
[2023-07-29] MEDS: NOREPINEPHRINE 4 MG in SODIUM CHLORIDE 0.9% 250 ML IV SCH (06:36)
[2023-07-29] MEDS: RIVAROXABAN 20 MG TAB PO SCH (06:53)
[2023-07-29] MEDS: FUROSEMIDE 10 MG/ML 4 ML VIAL IV SCH ×2 (07:45→21:16)
[2023-07-29] MEDS: CHLORHEXIDINE GLUCONATE 15 ML CUP MUCOUS MEM SCH (07:46)
[2023-07-29] MEDS: PANTOPRAZOLE 40 MG/10 ML VIAL IV SCH (07:46)
[2023-07-29] MEDS: ATORVASTATIN 20 MG TAB PO SCH (07:47)
[2023-07-29] MEDS: METOPROLOL TARTRATE 50 MG TAB PO SCH ×2 (07:47→21:17)
[2023-07-29] MEDS: DEXAMETHASONE SOD PHOSPHATE 10 MG/ML 1 ML VIAL IVP SCH (07:47)
[2023-07-29] MEDS: DOCUSATE ORAL SOLN 100 MG/10 ML CUP PO SCH (07:48)
--- NOTE | 2023-07-29 08:10 | XR ---
EXAMINATION TYPE: XR chest 1V portable DATE OF EXAM: 07/29/2023 COMPARISON: 07/28/2023 INDICATION: Right lung consolidation TECHNIQUE: Single frontal view of the chest is obtained. FINDINGS: The heart size is normal. The pulmonary vasculature is normal. Previous right lower lobe infiltrate appears to be resolving. Atelectasis and pneumonia remain within the differential. Continued follow-up is recommended. A left pleural effusion has essentially resolv ed. Previous left lower lobe infiltrate appears resolved Endotracheal tube tip is above the mary. Left central venous catheter tip is within the superior ve na cava region. Nasogastric tube transverses the thorax with tip in the left upper quadrant of the ab domen. IMPRESSION: 1. Improving bibasilar infiltrates. Continued follow-up right lower lobe infiltrate recommended. 2. Lines and catheters discussed above.
[2023-07-29] MEDS: ALBUTEROL HFA INHALER INHALATION SCH ×4 (08:36→20:20)
[2023-07-29] MEDS: SYMBICORT 160-4.5 MCG INHALER INHALATION SCH ×2 (08:37→20:20)
--- NOTE | 2023-07-29 11:23 | P.PN ---
Subjective Progress Note Date: 07/29/23 Principal diagnosis: Respiratory failure. Reevaluated today on 07/24/2023, patient remains in the ICU, intubated and mechanically ventilated. His mental status is waxing and waning, today the patient is opening his eyes on verbal commands, however unable to wiggle toes or squeezing hands, apparently he was doing this earlier when the nurse was examining him. Patient again has waxing and waning mental status. Remains on tidal volume of 500 FiO2 40% rate of 16 PEEP of 5 and that is an assist-control mode of mechanical ventilation. ABG showed a pO2 of 88 pCO2 47 pH of 7.42 with IV fluids at KVO he is still on Zosyn and vancomycin for E. coli and MRSA in the sputum. Remains on vital AF at 69 mL/h and IV fluid at 75 mL per hour. Patient is receiving Lasix 40 mg IV push twice a day today I will give the patient a trial of pressure support of 10 and 5 he is not quite ready for extubation but will try a weaning trial with pressure support and CPAP labs were reviewed, r enal profile showed a BUN of 54 creatinine 1.3, basically about the same compared to yesterday improved compared to the last few days. No chest x-ray was done, last chest x-ray showed improved right-sided pleural effusion and minimal right basilar atelectasis no evidence of significant change Reevaluated today on 07/25/2023, patient remains in the ICU, and mechanically ventilated. However mentation-mc the patient seems to be following all instructions today, much better compared to the last few days. He remains on assist control rate of 16 tidal volume 500 FiO2 40% and PEEP of 5 ABG showed a pO2 of 93 pCO2 46 pH of 7.45. Patient remains on antibiotics in the form of Zosyn and vancomycin for E. coli and MRSA in the sputum. Patient is a negative balance in the last 24 hours 1.6 L. He is on IV fluid at KVO he has been receiving Lasix 40 mg IV push every 12 hours and continues to have a small to moderate sized right-sided pleural effusion. Receiving vital HPI at 69 mL per hour. His IV fluid at KVO. Hence weren't planning today is give the patient a trial of pressure support and CPAP, and if tolerated with excellent gases after 2 hours, may consider extubating the patient to BiPAP. This will be decided upon in the next couple of hours. In the meantime the patient remains r elatively marginal at best. Basic metabolic profile today was normal BUN is 58 creatinine 1.3, steadily improving over the last few days. CBC is relatively normal except for WBC count of 13.4. Reevaluated today on 08/22/2023, patient remains in the ICU, extubated 2 days ago, and he seems to tolerate the extubation well. Slight improvement in mental status, able to follow instructions, however he is developing a significant consolidation in the right lower lobe, and ultrasound failed to show significant pleural effusion for thoracentesis. Patient is not the greatest candidate for bronchoscopy at this point, his CODE STATUS has been changed to DO NOT RESUSCITATE, and he is not to be reintubated if he gets any worse. Hence we'll try with BiPAP, chest PT, bronchodilators hopefully expand his right lower lobe. In the meantime the patient remains on Zosyn and vancomycin, he is also on [place] six twice a day. His sputum has been positive for E. coli and MRSA receiving Zosyn and vancomycin, and again today am recommending this will switch her from 5 L nasal cannula to BiPAP. Continues to have a nasogastric tube in place, and he is receiving enteral feeding via the nasogastric tube. WBC count is 12.2 hemoglobin is 12.3 left lites are normal renal profile is improving creatinine is down to 1.33 Reevaluated today on 07/27/23, patient remains in the ICU, extubated over 3 days ago, tolerated the extubation well. Patient remains on BiPAP 14//50% remains on Zosyn and vancomycin and on Xarelto patient also remains on vital HPI at 69 mL per hour. His IV fluids at KVO, mental status is about the same, patient follows simple instructions, but definitely his mental status is not back to baseline. Continues to have significant component of encephalopathy. Chest x- ray today continues to show right lower lobe consolidation/atelectasis, patient may eventually require bronchoscopy to evaluate the right lower lobe, however considering the family does not want to be back on mechanical ventilation, it will be difficult to perform bronchoscopy on this patient to is marginal to begin with without considering intubation and mechanical ventilation during the bronchoscopy. His WBC count is 16.7 hemoglobin is 12.2 electrolytes are Normal BUN is 53 creatinine down to 1.28. Steadily improving Progress note dated 07/28/2023. This is a 68-year-old male who had an initial cardiac arrest. The patient was initially admitted on July 16, for respiratory failure, and was intubated on the same day, July 16. He was extubated on July 25, but unfortunately last night, he was reintubated, for worsening respiratory failure. He remains on mechanical ventilator, with assist control mode, rate 20, tidal volume 500, FiO2 50%, PEEP of 10. Blood gases show a PaO2 of 258, pCO2 43, and a pH is 7.51. This blood gases were done in the 100%. The patient was reduced on the 70%, and further down to 50%, other respiratory therapist. The patient's getting saline at 20 mL an hour, norepinephrine at 3.4 mcg/m, and propofol at 25 mcg/kg/m. 2 feedings have not yet been started. I did asked the nurses to resume that today. His neurologic status is very poor, and was very poor, acco rding to the nurses, which I have spoken to today. White count 20.5, hemoglobin 12.1, hematocrit 38.9, with a normal platelet count. Sodium 144, potassium 3.9, chlorides 106, CO2 34, BUN 53, creatinine 1.22. Glucose is 271. Sputum shows evidence of Escherichia coli, and methicillin-resistant staph aureus. Currently, he is on Zosyn and vancomycin. Chest x-ray shows bilateral pleural effusions, with some lower lobe atelectasis or infiltrates. Progress note dated 07/29/2023. 68-year-old male, that is post cardiac arrest. The patient was initially admitted to the hospital on July 16 for respiratory failure, and was intubated on the same day, July 16. He was extubated successfully on July 25, but, was reintubated on July 28, for respiratory failure. The patient was on the ventilator this morning, awake and alert, The patient's ventilator settings include a assist control mode, rate 20, tidal volume 500, FiO2 50%, and PEEP of 10. Blood gases showed a pO2 of 101, pCO2 43, and a pH is 7.52. The patient is currently on saline at 20 mL an hour, and both propofol, and norepinephrine, have been turned off. The patient had a set a weaning parameters, on pressure support of 10 and CPAP of 5, that were excellent, including a very low rapid shallow breathing index, and adequate minute volume, and a positive cuff leak. That reason, the patient will be extubated. We confirm with the , that the patient would not require need reintubation, regardless of how he does this time. White count 19.5, hemoglobin 11.7, hematocrit 36.4, and platelet count is normal. Sodium 145, potassium 3.4, chlorides 106, CO2 35, BUN 56, and creatinine 1.49. Chest x-ray shows improving bibasilar infiltrates. Sputum was positive for both Escherichia coli, and, methicillin-resistant staph aureus. Objective - Vital Signs Vital signs: Vital Signs Temp 99.1 F 07/29/23 08:00 Pulse 89 07/29/23 11:00 Resp 26 H 07/29/23 11:00 BP 121/108 07/29/23 11:00 Pulse Ox 95 07/29/23 11:00 FiO2 50 07/29/23 08:37 Intake & Output 07/28/23 07/29/23 07/29/23 18:59 06:59 18:59 Intake Total 4930.399 3428.334 510.194 Output Total 1610 1060 950 Balance 103.317 333.334 -439.806 Weight 136.4 kg 136.5 kg Intake: IV 859 356 92 Normal Saline Pressure 39 36 12 Bag Piperacillin-Tazobactam 3 100 100 .375 gm In Sodium Chloride 0.9% 100 ml @ 25 mls/hr IVPB Q8HR [facility] Rx# :[id number] Sodium Chloride 0.9% 1, 220 220 80 000 ml @ 20 mls/hr IV . Q24H [facility] Rx#:[id number] Vancomycin 2,000 mg In 500 Sodium Chloride 0.9% 500 ml 500 ml @ 167 mls/hr IVPB ONCE ONE Rx#: [id number] Intake, IV Titration 425.317 263.334 160.194 Amount Norepinephrine 4 mg In 150.410 66.006 6.852 Sodium Chloride 0.9% 250 ml @ 0.03 MCG/KG/MIN 15. 613 mls/hr IV .[id number] [facility] Rx#:[id number] Piperacillin-Tazobactam 3 100 .375 gm In Sodium Chloride 0.9% 100 ml @ 25 mls/hr IVPB Q8HR [facility] Rx# :[id number] propofoL 1,000 mg In 274.907 197.328 53.342 Empty Bag 1 bag @ 15 MCG/ KG/MIN 12.294 mls/hr IV . Q8H9M [facility] Rx#:[id number] Tube Feeding 429 684 228 Other 90 30 Output: Urine 1610 1060 950 Other: Voiding Method Indwelling Catheter Indwelling Catheter Indwelling Catheter # Bowel Movements 1 ABP, PAP, CO, CI - Last Documented Arterial Blood Pressure 135/64 - Exam No acute distress, awake and alert, with an orally placed endotracheal tube and NG tube. HEENT examination is grossly unremarkable. Neck supple. Full range of motion. No adenopathy thyromegaly or neck vein distention. Cardiovascular examination reveals regular rhythm rate. S1-S2 normal. No S3 or S4. No discernible murmur noted. Heart sounds are distant. Heart rate 89 bpm. Lungs reveal scattered bilateral rhonchi. Breath sounds are equal bilaterally. No crackles. Saturations are 99 %. Abdomen soft, without bowel sounds. No masses. Extremities are intact. No cyanosis clubbing or edema. Skin is without rash or lesion. Neurologic examination reveals the patient was awake and alert, can follow basic commands. - Labs CBC & Chem 7: 07/29/23 04:20 07/29/23 04:20 Labs: Abnormal Lab Results - Last 24 Hours (Table) 07/28/23 07/28/23 07/28/23 Range/Units 11:50 18:20 23:36 WBC (3.8-10.6) k/uL RBC (4.30-5.90) m/uL Hgb (13.0-17.5) gm/dL Hct (39.0-53.0) % Neutrophils # (1.3-7.7) k/uL ABG pH (7.35-7.45) ABG HCO3 (21-25) mmol/L ABG Total CO2 (19-24) mmol/L ABG O2 Saturation (94-97) % Potassium (3.5-5.1) mmol/L Carbon Dioxide (22-30) mmol/L BUN (9-20) mg/dL Creatinine (0.66-1.25) mg/dL Glucose (74-99) mg/dL POC Glucose (mg/dL) 271 H 346 H 354 H (70-110) mg/dL 07/29/23 07/29/23 07/29/23 Range/Units 04:19 04:20 04:20 WBC 19.5 H (3.8-10.6) k/uL RBC 3.70 L (4.30-5.90) m/uL Hgb 11.7 L (13.0-17.5) gm/dL Hct 36.4 L (39.0-53.0) % Neutrophils # 15.4 H (1.3-7.7) k/uL ABG pH (7.35-7.45) ABG HCO3 (21-25) mmol/L ABG Total CO2 (19-24) mmol/L ABG O2 Saturation (94-97) % Potassium 3.4 L (3.5-5.1) mmol/L Carbon Dioxide 35 H (22-30) mmol/L BUN 56 H (9-20) mg/dL Creatinine 1.49 H (0.66-1.25) mg/dL Glucose 291 H (74-99) mg/dL POC Glucose (mg/dL) 269 H (70-110) mg/dL 07/29/23 Range/Units 06:08 WBC (3.8-10.6) k/uL RBC (4.30-5.90) m/uL Hgb (13.0-17.5) gm/dL Hct (39.0-53.0) % Neutrophils # (1.3-7.7) k/uL ABG pH 7.52 H (7.35-7.45) ABG HCO3 35 H (21-25) mmol/L ABG Total CO2 36 H (19-24) mmol/L ABG O2 Saturation 98.0 H (94-97) % Potassium (3.5-5.1) mmol/L Carbon Dioxide (22-30) mmol/L BUN (9-20) mg/dL Creatinine (0.66-1.25) mg/dL Glucose (74-99) mg/dL POC Glucose (mg/dL) (70-110) mg/dL Microbiology - Last 24 Hours (Table) 07/28/23 04:15 Gram Stain - Preliminary Sputum Assessment and Plan Assessment: Acute hypoxemic and hypercapnic respiratory failure, secondary to cardiac arrest, with a prolonged downtime, with initial intubation, on July 16, and extubation on July 25, and then reintubation on July 28, for worsening respiratory status. S/P re-extubation, on 07/29/2023. Acute coronavirus infection. Chronic atrial fibrillation. Morbid obesity. Type 2 diabetes mellitus. Obstructive sleep apnea syndrome. Recent hospitalization for bilateral pneumonia. Chronic bronchial asthma. Acute kidney injury, secondary to cardiac arrest. Nonspecific pulmonary nodules. Benign essential hypertension. Anoxic brain injury with hypoxemic encephalopathy. Right lower lobe pneumonia/consolidation, secondary to Escherichia coli, and met hicillin-resistant staph aureus. Plan: Plan dated 07/28/2023. The patient was made a DO NOT RESUSCITATE, based on a conversation that I had with his , Vani. In addition, we will resume tube feedings. Unfortunately, for worsening respiratory status, the patient was reintubated on July 28, having been extubated, on July 25. Currently he is on norepinephrine, and propofol. I had a long talk with the patient's , Vani. She was going to talk to the family members about further CODE STATUS changes, including the possibility of comfort care, versus, tracheostomy and PEG tube placement. Labs, x-rays, medications are reviewed. The patient's overall prognosis remains very poor. We will continue to follow and make recommendations along the way. Plan dated 07/29/2023. I had a long conversation with the patient's yesterday. She agreed to make the patient DO NOT RESUSCITATE. Addition, today, prior to extubation, she agreed that the patient would not be reintubated. I believe that's a right decision. I have been asked the patient was awake and alert, off the propofol, if he wanted reintubation, and the patient denied that and nodded, that he did not want reintubation. Labs, x-rays, and medications are reviewed. The patient was placed on pressure support and CPAP, and had more than adequate weaning parameters, including a low rapid shallow breathing index, and a positive cuff leak test. The patient will be extubated, and will not be reintubated, and this was confirmed with the patient's . Labs, x-rays, and medications are all reviewed. The patient remains a DO NOT RESUSCITATE patient. Time with Patient: Greater than 30
[2023-07-29 11:41] LABS: Glucose,Whole Blood 275 mg/dL (70-110)
--- NOTE | 2023-07-29 11:54 | P.PN ---
Subjective Progress Note Date: 07/29/23 So 68-year-old gentleman admitted with acute hypoxic and hypercapnic respiratory failure secondary to cardiac arrest, prolonged downtime reported at 20-30 minutes, anoxic brain injury, hypoxic encephalopathy, acute COVID-19 infection and multiple other medical issues. Remains vent dependent, FiO2 50%/+5 of PEEP. Sedation remains on hold. Chest x-ray reporting increased density right lower lobe may reflect underlying atelectasis, effusion and/or infiltrate, left medial basilar infiltrate/atelectasis unchanged .telemetry sinus,no pressor support at this time .Staff reports patient was following commands and tracking with his eyes yesterday. Repeat Brain CT performed yesterday reported no evidence for intracranial hemorrhage or sulcal effacement, no mass effects, no midline shift, osseous calvarium is intact, focal decreased attenuation right cerebellar hemisphere could reflect acute ischemic insult, correlate with MRI, age-related atrophic and chronic small vessel ischemic change. EEG reported abnormal due to background slowing of moderate degree, suggestive of generalized cerebral dysfun ction seen with toxic metabolic encephalopathy or related to diffuse structural brain abnormality, no obvious epileptiform activity seen. Carotid Doppler reported less than 50% stenosis of bilateral carotid bifurcations, right vertebral artery not visualized. Receiving OT tube feedings of vital high protein. Anticoagulated on Xarelto, continues on Decadron. BUN remains at 57, Creatinine trending down, currently 1.9. 07/22/2023 remains vent dependent on 40% FiO2 +5 of PEEP. Remains off of se dation. Patient spontaneously opens eyes, questionable tracking reported per staff . Tolerating tube feeds at goal, with minimal to no residuals. Chest x- ray reporting moderate pleural effusion with underlying atelectasis and/or consolidation , received Lasix. Creatinine improving decreased to 1.67. Afebrile, normal WBC. 07/23/2023 vent dependent, FiO2 40%/+5 of PEEP. Chest x-ray reporting small right pleural effusion .Sputum culture reporting MRSA , E. coli , vancomycin added in addition to Zosyn for antibiotic coverage. Creatinine improving, decreased to 1.3. T-max 99.3, WBC 11.9. Pro-calcitonin 0.29. Brain CT repeated yesterday, results noted including reporting of previous hypodensity in the right cerebellar hemisphere not as pronounced as on prior study. 07/24/23 sedation remains on hold , maintained on Decadron, diuretics. Anticoagulated on Xarelto. vent dependent FiO2 40%/+5 of PEEP, staff reports patient opening eyes on verbal commands. Continues on Zosyn and vancomycin. T- max 99.3. BUN 54, creatinine 1.34. Magnesium 1.7. Weaning trial pending as per pulmonary. 07/28/23 worsening respiratory failure, reintubated per 's request. Vent dependent, FiO2 50%/+10 of PEEP. Sedated on diprovan, continues on norepinephrine. Maintained on Zosyn and vancomycin, sputum culture reported E. coli, MRSA. Chest x-ray reporting bilateral pleural effusions left greater than right with right lower lobe atelectasis likely infectious or inflammatory etiology. 07/29/23 vent dependent, FiO2 50%/+ of PEEP. Diprovan and norepinephrine weaned off this morning. Chest x-ray reported improving bibasilar infiltrates.Patient appears to be following commands, nodding head to answer questions. Weaning parameters pending. T-max 99.1, WBC 19.5. BUN 56, creatinine 1.49. Potassium 3.4, receiving supplementation. Magnesium 1.9. Objective - Vital Signs Vital signs: Vital Signs Temp 99.1 F 07/29/23 08:00 Pulse 89 07/29/23 11:00 Resp 26 H 07/29/23 11:00 BP 121/108 07/29/23 11:00 Pulse Ox 95 07/29/23 11:00 FiO2 50 07/29/23 08:37 Intake & Output 07/28/23 07/29/23 07/29/23 18:59 06:59 18:59 Intake Total 0896.476 0367.334 510.194 Output Total 1610 1060 950 Balance 103.317 333.334 -439.806 Weight 136.4 kg 136.5 kg Intake: IV 859 356 92 Normal Saline Pressure 39 36 12 Bag Piperacillin-Tazobactam 3 100 100 .375 gm In Sodium Chloride 0.9% 100 ml @ 25 mls/hr IVPB Q8HR [facility] Rx# :[id number] Sodium Chloride 0.9% 1, 220 220 80 000 ml @ 20 mls/hr IV . Q24H [facility] Rx#:[id number] Vancomycin 2,000 mg In 500 Sodium Chloride 0.9% 500 ml 500 ml @ 167 mls/hr IVPB ONCE ONE Rx#: [id number] Intake, IV Titration 425.317 263.334 160.194 Amount Norepinephrine 4 mg In 150.410 66.006 6.852 Sodium Chloride 0.9% 250 ml @ 0.03 MCG/KG/MIN 15. 613 mls/hr IV .[id number] [facility] Rx#:[id number] Piperacillin-Tazobactam 3 100 .375 gm In Sodium Chloride 0.9% 100 ml @ 25 mls/hr IVPB Q8HR [facility] Rx# :[id number] propofoL 1,000 mg In 274.907 197.328 53.342 Empty Bag 1 bag @ 15 MCG/ KG/MIN 12.294 mls/hr IV . Q8H9M [facility] Rx#:[id number] Tube Feeding 429 684 228 Other 90 30 Output: Urine 1610 1060 950 Other: Voiding Method Indwelling Catheter Indwelling Catheter Indwelling Catheter # Bowel Movements 1 ABP, PAP, CO, CI - Last Documented Arterial Blood Pressure 135/64 - Exam - Exam PHYSICAL EXAM: VITAL SIGNS: [As above] GENERAL: Intubated, off sedation, no acute distress HEENT: Normocephalic NECK: Supple No JVD. CARDIOVASCULAR: S1, S2 regular.No murmur RESPIRATION: Equal air entry ,Breath sounds diminished in the bases. No crackles. ABDOMEN: Obese, Soft, No guarding. no masses palpable. Bowel sounds heard. LEGS: No edema. no swelling. Chronic venous stasis changes noted of bilateral lower extremities. PSYCHIATRY/NERVOUS SYSTEM: Limited exam : Sedation off, following simple commands. Skin: Warm and dry, no rash noted. - Labs CBC & Chem 7: 07/29/23 04:20 07/29/23 04:20 Labs: Abnormal Lab Results - Last 24 Hours (Table) 07/28/23 07/28/23 07/28/23 Range/Units 11:50 18:20 23:36 WBC (3.8-10.6) k/uL RBC (4.30-5.90) m/uL Hgb (13.0-17.5) gm/dL Hct (39.0-53.0) % Neutrophils # (1.3-7.7) k/uL ABG pH (7.35-7.45) ABG HCO3 (21-25) mmol/L ABG Total CO2 (19-24) mmol/L ABG O2 Saturation (94-97) % Potassium (3.5-5.1) mmol/L Carbon Dioxide (22-30) mmol/L BUN (9-20) mg/dL Creatinine (0.66-1.25) mg/dL Glucose (74-99) mg/dL POC Glucose (mg/dL) 271 H 346 H 354 H (70-110) mg/dL 07/29/23 07/29/23 07/29/23 Range/Units 04:19 04:20 04:20 WBC 19.5 H (3.8-10.6) k/uL RBC 3.70 L (4.30-5.90) m/uL Hgb 11.7 L (13.0-17.5) gm/dL Hct 36.4 L (39.0-53.0) % Neutrophils # 15.4 H (1.3-7.7) k/uL ABG pH (7.35-7.45) ABG HCO3 (21-25) mmol/L ABG Total CO2 (19-24) mmol/L ABG O2 Saturation (94-97) % Potassium 3.4 L (3.5-5.1) mmol/L Carbon Dioxide 35 H (22-30) mmol/L BUN 56 H (9-20) mg/dL Creatinine 1.49 H (0.66-1.25) mg/dL Glucose 291 H (74-99) mg/dL POC Glucose (mg/dL) 269 H (70-110) mg/dL 07/29/23 07/29/23 Range/Units 06:08 11:40 WBC (3.8-10.6) k/uL RBC (4.30-5.90) m/uL Hgb (13.0-17.5) gm/dL Hct (39.0-53.0) % Neutrophils # (1.3-7.7) k/uL ABG pH 7.52 H (7.35-7.45) ABG HCO3 35 H (21-25) mmol/L ABG Total CO2 36 H (19-24) mmol/L ABG O2 Saturation 98.0 H (94-97) % Potassium (3.5-5.1) mmol/L Carbon Dioxide (22-30) mmol/L BUN (9-20) mg/dL Creatinine (0.66-1.25) mg/dL Glucose (74-99) mg/dL POC Glucose (mg/dL) 275 H (70-110) mg/dL Microbiology - Last 24 Hours (Table) 07/28/23 04:15 Gram Stain - Preliminary Sputum Assessment and Plan Assessment: Acute hypoxic and hypercapnic respiratory failure secondary to cardiac arrest/prolonged downtime, intubated in the field, in a patient with recent hospitalization for bilateral pneumonia 05/02/23. Re-intubated. Acute COVID-19 infection. Sputum positive for E. coli and MRSA Anoxic brain injury with hypoxic encephalopathy, neurology following Nonspecific pulmonary nodules reported per CT Chronic bronchial asthma Mildly enlarged nonspecific peripancreatic lymph node reported per CT Cholelithiasis Acute renal injury secondary to cardiac arrest, improving Diabetes mellitus Chronic Paroxysmal atrial fibrillation, currently sinus Hypertension Hyperlipidemia Morbid obesity, BMI 42 Obstructive sleep apnea Plan: Continue on current medication regime ,monitoring and symptomatic t reatment. Weaning parameters pending. Continues on IV Decadron, diuretics, antibiotics. Anticoagulated on Xarelto. ICU management as per corporate consultant.Prognosis guarded given multiple medical issues. The impression and plan of care has been dictated as directed. : I performed a history and examination of this patient, discussed the same with the dictator. I agree with the dictator's note ,documented as a scribe. Any additional findings or plans will be noted.
[2023-07-29 18:05] LABS: Glucose,Whole Blood 302 mg/dL (70-110)
[2023-07-29 20:06] LABS: Glucose,Whole Blood 286 mg/dL (70-110)
[2023-07-29] MEDS: INSULIN DETEMIR (LEVEMIR) 100 UNIT/ML SYR SQ SCH (21:17)
--- NOTE | 2023-07-29 23:00 | P.PN ---
Subjective Progress Note Date: 07/29/23 07/29/2023: Patient was seen for a follow-up. Patient was extubated again this morning. Patient appears to be in respiratory distress. He is now DO NOT RESUSCITATE, DO NOT INTUBATE. Patient's and patient's sister were also present. They mentioned that patient is doing much better, following directions. 07/28/2023: Patient was seen for a follow-up. Patient apparently decompensated overnight and was intubated. Patient currently sedated on propofol 25 mcg/kg per minute. Examination limited. Patient's was also present, who mentioned that patient was overall doing better neurologically. 07/27/2023: Patient was seen for a follow-up. Patient was last seen 07/19/2023. Subsequently Dr. Feliz was covering neurology service. Please refer to his note for details. Patient now has been extubated since 07/25/2023. Patient's was also present today. Patient is quite alert and awake. He is slightly tremulous, mildly encephalopathic. Objective - Vital Signs Vital signs: Vital Signs Temp 98 F 07/29/23 20:00 Pulse 65 07/29/23 22:00 Resp 14 07/29/23 22:00 BP 114/62 07/29/23 22:00 Pulse Ox 97 07/29/23 22:00 FiO2 50 07/29/23 08:37 Intake & Output 07/29/23 07/29/23 07/30/23 06:59 18:59 06:59 Intake Total 1393.334 651.194 43 Output Total 1060 2240 300 Balance 333.334 -1588.806 -257 Weight 136.5 kg Intake: IV 356 447 43 Normal Saline Pressure 36 27 3 Bag Piperacillin-Tazobactam 3 100 200 .375 gm In Sodium Chloride 0.9% 100 ml @ 25 mls/hr IVPB Q8HR [facility] Rx# :[id number] Sodium Chloride 0.9% 1, 220 220 40 000 ml @ 20 mls/hr IV . Q24H [facility] Rx#:[id number] Intake, IV Titration 263.334 60.194 Amount Norepinephrine 4 mg In 66.006 6.852 Sodium Chloride 0.9% 250 ml @ 0.03 MCG/KG/MIN 15. 613 mls/hr IV .[id number] [facility] Rx#:[id number] propofoL 1,000 mg In 197.328 53.342 Empty Bag 1 bag @ 15 MCG/ KG/MIN 12.294 mls/hr IV . Q8H9M [facility] Rx#:[id number] Tube Feeding 684 114 Other 90 30 Output: Urine 1060 2240 300 Other: Voiding Method Indwelling Catheter Indwelling Catheter Indwelling Catheter # Bowel Movements 1 ABP, PAP, CO, CI - Last Documented Arterial Blood Pressure 119/59 - Exam Patient is now extubated, appears to be in mild to moderate respiratory distress. He gets tired very easily. Patient's pupils are equal, round and reactive to light, face is symmetric. He does have a nonrebreather mask. Patient's ophthalmic medical technician is about 4-, biceps 3+, able to wiggle his feet about 3, and hip flexion 2. He has very significant myoclonic jerks of outstretched hands. He has peripheral edema. Detailed testing cannot be performed because patient appears to be worn out. - Labs CBC & Chem 7: 07/29/23 04:20 07/29/23 04:20 Labs: Abnormal Lab Results - Last 24 Hours (Table) 07/28/23 07/29/23 07/29/23 Range/Units 23:36 04:19 04:20 WBC 19.5 H (3.8-10.6) k/uL RBC 3.70 L (4.30-5.90) m/uL Hgb 11.7 L (13.0-17.5) gm/dL Hct 36.4 L (39.0-53.0) % Neutrophils # 15.4 H (1.3-7.7) k/uL ABG pH (7.35-7.45) ABG HCO3 (21-25) mmol/L ABG Total CO2 (19-24) mmol/L ABG O2 Saturation (94-97) % Potassium (3.5-5.1) mmol/L Carbon Dioxide (22-30) mmol/L BUN (9-20) mg/dL Creatinine (0.66-1.25) mg/dL Glucose (74-99) mg/dL POC Glucose (mg/dL) 354 H 269 H (70-110) mg/dL 07/29/23 07/29/23 07/29/23 Range/Units 04:20 06:08 11:40 WBC (3.8-10.6) k/uL RBC (4.30-5.90) m/uL Hgb (13.0-17.5) gm/dL Hct (39.0-53.0) % Neutrophils # (1.3-7.7) k/uL ABG pH 7.52 H (7.35-7.45) ABG HCO3 35 H (21-25) mmol/L ABG Total CO2 36 H (19-24) mmol/L ABG O2 Saturation 98.0 H (94-97) % Potassium 3.4 L (3.5-5.1) mmol/L Carbon Dioxide 35 H (22-30) mmol/L BUN 56 H (9-20) mg/dL Creatinine 1.49 H (0.66-1.25) mg/dL Glucose 291 H (74-99) mg/dL POC Glucose (mg/dL) 275 H (70-110) mg/dL 07/29/23 07/29/23 Range/Units 17:38 20:04 WBC (3.8-10.6) k/uL RBC (4.30-5.90) m/uL Hgb (13.0-17.5) gm/dL Hct (39.0-53.0) % Neutrophils # (1.3-7.7) k/uL ABG pH (7.35-7.45) ABG HCO3 (21-25) mmol/L ABG Total CO2 (19-24) mmol/L ABG O2 Saturation (94-97) % Potassium (3.5-5.1) mmol/L Carbon Dioxide (22-30) mmol/L BUN (9-20) mg/dL Creatinine (0.66-1.25) mg/dL Glucose (74-99) mg/dL POC Glucose (mg/dL) 302 H 286 H (70-110) mg/dL Microbiology - Last 24 Hours (Table) 07/28/23 04:15 Gram Stain - Preliminary Sputum Sputum Culture - Preliminary Presumptive Staph aureus Assessment and Plan Assessment: * Status post cardiac arrest with prolonged downtime of 30 minutes as per EMS flow sheet documentation. Patient was in asystole. * Ventilator-dependent respiratory failure due to cardiac arrest, status post extubation 07/25/2023 and then reintubation 07/28/2023, and now really extubation this morning 07/29/2023. * Anoxic encephalopathy from previous cardiac arrest, but patient is neurologically improving. * Atrial fibrillation with rapid ventricular rate * Covid-19 infection. * Atrial fibrillation with rapid ventricular rate * Probable aspiration pneumonia * Lactic acidosis * Acute renal failure * Diabetes type 2 * Morbid obesity * Hypertension * Pulmonary nodules. * Obstructive sleep apnea Plan: * Patient is now again extubated as of this morning. He appears to be in res piratory distress. Patient is at present is DO NOT RESUSCITATE, DO NOT INTUBATE. * Patient appears generalized weak. Patient has significant metabolic encephalopathy with myoclonic jerks. * Patient has leukocytosis likely due to right lower lobe pneumonia/consolidation secondary to E. coli and MRSA. * EEG 07/17/2023, was abnormal due to background slowing of moderate degree, suggestive of generalized cerebral dysfunction as can be seen with toxic metabolic encephalopathy. Clinical correlation is recommended. No obvious epileptiform activity was seen. * Initial CT head showed no acute process. Nonspecific white matter changes. * Patient's neurological status was improving gradually. However patient appears to have significant metabolic encephalopathy. * Patient currently on Xarelto for atrial fibrillation. * Other medical management as per IM and critical care. * Discussed with nursing staff and patient's in detail.
[2023-07-29 23:43] LABS: Glucose,Whole Blood 217 mg/dL (70-110)
[2023-07-30 05:49] LABS: Glucose,Whole Blood 178 mg/dL (70-110)
[2023-07-30 06:13] LABS: Basophils % (A) 0 %; Eosinophils # (A) 0.3 k/uL (0-0.7); Eosinophils % (A) 2 %; HCT 36.6 % (39.0-53.0); HGB 11.7 gm/dL (13.0-17.5); Hypochromasia Slight; Lymphocytes # (A) 2.5 k/uL (1.0-4.8); Lymphocytes % (A) 16 %; MCH 32.3 pg (25.0-35.0); MCV 100.9 fL (80.0-100.0); Macrocytosis Slight; Mean Platelet Volume 8.1; Monocytes # (A) 0.5 k/uL (0-1.0); Monocytes % (A) 3 %; Neutrophils # (A) 11.6 k/uL (1.3-7.7); Neutrophils % (A) 77 %; Platelet Count 186 k/uL (150-450); RBC 3.62 m/uL (4.30-5.90); WBC 15.1 k/uL (3.8-10.6)
[2023-07-30 06:20] LABS: African American GFR (CKD) 54 (>60 ml/min/1.73 sqM); Anion Gap 4 mmol/L; Blood Urea Nitrogen 50 mg/dL (9-20); Calcium 9.1 mg/dL (8.4-10.2); Carbon Dioxide 37 mmol/L (22-30); Chloride 105 mmol/L (98-107); Glucose 147 mg/dL (74-99); Non-African American GFR(CKD) 47 (>60 ml/min/1.73 sqM); Potassium 3.5 mmol/L (3.5-5.1); Sodium 146 mmol/L (137-145)
[2023-07-30 06:26] LABS: Vancomycin,Random 17.4 ug/mL
[2023-07-30] MEDS ORDERED: NOREPINEPHRINE 8 MG in SODIUM CHLORIDE 0.9% 250 ML IV SCH (06:30)
[2023-07-30] MEDS: INSULIN ASPART (NovoLOG) 100 UNIT/ML VIAL SQ SCH ×3 (06:40→17:26)
[2023-07-30] MEDS: POTASSIUM CHLORIDE 20 MEQ in WATER FOR INJECTION 1 100ML.BAG IVPB SCH ×2 (06:40→08:43)
[2023-07-30] MEDS: RIVAROXABAN 20 MG TAB PO SCH (06:40)
[2023-07-30] MEDS: SODIUM CHLORIDE 0.9% 1,000 ML IV SCH (06:54)
--- NOTE | 2023-07-30 08:04 | XR ---
EXAMINATION TYPE: XR chest 1V portable DATE OF EXAM: 07/30/2023 Comparison: 07/29/2023 Clinical History: 68-year-old male pneumonia Findings: Left subclavian CVC tip at the mid SVC level. Cardiac/pericardiac silhouette remains moderately enlar ged. Envoy small right pleural effusion and some mild patchy bibasilar densities. Impression: Cardiomegaly with ongoing small right pleural effusion with mild patchy bibasilar atelectasis/consoli dation.
[2023-07-30] MEDS: ALBUTEROL HFA INHALER INHALATION SCH ×4 (08:09→19:44)
[2023-07-30] MEDS: SYMBICORT 160-4.5 MCG INHALER INHALATION SCH ×2 (08:10→19:44)
[2023-07-30] MEDS: PIPERACILLIN-TAZOBACTAM 3.375 GM in SODIUM CHLORIDE 0.9% 100 ML IVPB SCH ×2 (08:43→17:23)
[2023-07-30] MEDS: PANTOPRAZOLE 40 MG/10 ML VIAL IV SCH (08:44)
[2023-07-30] MEDS: DOCUSATE ORAL SOLN 100 MG/10 ML CUP PO SCH (08:44)
[2023-07-30] MEDS: DEXAMETHASONE SOD PHOSPHATE 10 MG/ML 1 ML VIAL IVP SCH (08:44)
[2023-07-30] MEDS: ATORVASTATIN 20 MG TAB PO SCH (08:44)
[2023-07-30] MEDS: FUROSEMIDE 10 MG/ML 4 ML VIAL IV SCH ×2 (08:44→21:17)
[2023-07-30] MEDS: METOPROLOL TARTRATE 50 MG TAB PO SCH ×2 (08:44→21:07)
[2023-07-30] MEDS ORDERED: VANCOMYCIN 2,000 MG in SODIUM CHLORIDE 0.9% 500 ML 500 ML IVPB ONE (09:00)
[2023-07-30 11:36] LABS: Glucose,Whole Blood 186 mg/dL (70-110)
--- NOTE | 2023-07-30 11:56 | P.PN ---
Subjective Progress Note Date: 07/30/23 Principal diagnosis: Respiratory failure. Reevaluated today on 07/24/2023, patient remains in the ICU, intubated and mechanically ventilated. His mental status is waxing and waning, today the patient is opening his eyes on verbal commands, however unable to wiggle toes or squeezing hands, apparently he was doing this earlier when the nurse was examining him. Patient again has waxing and waning mental status. Remains on tidal volume of 500 FiO2 40% rate of 16 PEEP of 5 and that is an assist-control mode of mechanical ventilation. ABG showed a pO2 of 88 pCO2 47 pH of 7.42 with IV fluids at KVO he is still on Zosyn and vancomycin for E. coli and MRSA in the sputum. Remains on vital AF at 69 mL/h and IV fluid at 75 mL per hour. Patient is receiving Lasix 40 mg IV push twice a day today I will give the patient a trial of pressure support of 10 and 5 he is not quite ready for extubation but will try a weaning trial with pressure support and CPAP labs were reviewed, r enal profile showed a BUN of 54 creatinine 1.3, basically about the same compared to yesterday improved compared to the last few days. No chest x-ray was done, last chest x-ray showed improved right-sided pleural effusion and minimal right basilar atelectasis no evidence of significant change Reevaluated today on 07/25/2023, patient remains in the ICU, and mechanically ventilated. However mentation-mc the patient seems to be following all instructions today, much better compared to the last few days. He remains on assist control rate of 16 tidal volume 500 FiO2 40% and PEEP of 5 ABG showed a pO2 of 93 pCO2 46 pH of 7.45. Patient remains on antibiotics in the form of Zosyn and vancomycin for E. coli and MRSA in the sputum. Patient is a negative balance in the last 24 hours 1.6 L. He is on IV fluid at KVO he has been receiving Lasix 40 mg IV push every 12 hours and continues to have a small to moderate sized right-sided pleural effusion. Receiving vital HPI at 69 mL per hour. His IV fluid at KVO. Hence weren't planning today is give the patient a trial of pressure support and CPAP, and if tolerated with excellent gases after 2 hours, may consider extubating the patient to BiPAP. This will be decided upon in the next couple of hours. In the meantime the patient remains r elatively marginal at best. Basic metabolic profile today was normal BUN is 58 creatinine 1.3, steadily improving over the last few days. CBC is relatively normal except for WBC count of 13.4. Reevaluated today on 08/22/2023, patient remains in the ICU, extubated 2 days ago, and he seems to tolerate the extubation well. Slight improvement in mental status, able to follow instructions, however he is developing a significant consolidation in the right lower lobe, and ultrasound failed to show significant pleural effusion for thoracentesis. Patient is not the greatest candidate for bronchoscopy at this point, his CODE STATUS has been changed to DO NOT RESUSCITATE, and he is not to be reintubated if he gets any worse. Hence we'll try with BiPAP, chest PT, bronchodilators hopefully expand his right lower lobe. In the meantime the patient remains on Zosyn and vancomycin, he is also on [place] six twice a day. His sputum has been positive for E. coli and MRSA receiving Zosyn and vancomycin, and again today am recommending this will switch her from 5 L nasal cannula to BiPAP. Continues to have a nasogastric tube in place, and he is receiving enteral feeding via the nasogastric tube. WBC count is 12.2 hemoglobin is 12.3 left lites are normal renal profile is improving creatinine is down to 1.33 Reevaluated today on 07/27/23, patient remains in the ICU, extubated over 3 days ago, tolerated the extubation well. Patient remains on BiPAP 14//50% remains on Zosyn and vancomycin and on Xarelto patient also remains on vital HPI at 69 mL per hour. His IV fluids at KVO, mental status is about the same, patient follows simple instructions, but definitely his mental status is not back to baseline. Continues to have significant component of encephalopathy. Chest x- ray today continues to show right lower lobe consolidation/atelectasis, patient may eventually require bronchoscopy to evaluate the right lower lobe, however considering the family does not want to be back on mechanical ventilation, it will be difficult to perform bronchoscopy on this patient to is marginal to begin with without considering intubation and mechanical ventilation during the bronchoscopy. His WBC count is 16.7 hemoglobin is 12.2 electrolytes are Normal BUN is 53 creatinine down to 1.28. Steadily improving Progress note dated 07/28/2023. This is a 68-year-old male who had an initial cardiac arrest. The patient was initially admitted on July 16, for respiratory failure, and was intubated on the same day, July 16. He was extubated on July 25, but unfortunately last night, he was reintubated, for worsening respiratory failure. He remains on mechanical ventilator, with assist control mode, rate 20, tidal volume 500, FiO2 50%, PEEP of 10. Blood gases show a PaO2 of 258, pCO2 43, and a pH is 7.51. This blood gases were done in the 100%. The patient was reduced on the 70%, and further down to 50%, other respiratory therapist. The patient's getting saline at 20 mL an hour, norepinephrine at 3.4 mcg/m, and propofol at 25 mcg/kg/m. 2 feedings have not yet been started. I did asked the nurses to resume that today. His neurologic status is very poor, and was very poor, acco rding to the nurses, which I have spoken to today. White count 20.5, hemoglobin 12.1, hematocrit 38.9, with a normal platelet count. Sodium 144, potassium 3.9, chlorides 106, CO2 34, BUN 53, creatinine 1.22. Glucose is 271. Sputum shows evidence of Escherichia coli, and methicillin-resistant staph aureus. Currently, he is on Zosyn and vancomycin. Chest x-ray shows bilateral pleural effusions, with some lower lobe atelectasis or infiltrates. Progress note dated 07/29/2023. 68-year-old male, that is post cardiac arrest. The patient was initially admitted to the hospital on July 16 for respiratory failure, and was intubated on the same day, July 16. He was extubated successfully on July 25, but, was reintubated on July 28, for respiratory failure. The patient was on the ventilator this morning, awake and alert, The patient's ventilator settings include a assist control mode, rate 20, tidal volume 500, FiO2 50%, and PEEP of 10. Blood gases showed a pO2 of 101, pCO2 43, and a pH is 7.52. The patient is currently on saline at 20 mL an hour, and both propofol, and norepinephrine, have been turned off. The patient had a set a weaning parameters, on pressure support of 10 and CPAP of 5, that were excellent, including a very low rapid shallow breathing index, and adequate minute volume, and a positive cuff leak. That reason, the patient will be extubated. We confirm with the , that the patient would not require need reintubation, regardless of how he does this time. White count 19.5, hemoglobin 11.7, hematocrit 36.4, and platelet count is normal. Sodium 145, potassium 3.4, chlorides 106, CO2 35, BUN 56, and creatinine 1.49. Chest x-ray shows improving bibasilar infiltrates. Sputum was positive for both Escherichia coli, and, methicillin-resistant staph aureus. Progress note dated 07/30/2023. 68-year-old male status post cardiac arrest, who was successfully extubated for the second time, yesterday. The patient is a DO NOT RESUSCITATE patient. He's currently on 3 L of oxygen. Is getting saline at 20 mL an hour, and he continues on Zosyn and vancomycin. Again, he was successfully extubated, for the second time on July 29. The first time on July 25. He was reintubated the second time, on July 28. White count 15.1, hemoglobin 11.7, hematocrit 36.6, with a normal platelet count. Sodium 146, potassium 3.5, chlorides 105, CO2 37, BUN 50, creatinine 1.5. Chest x-ray shows cardiomegaly, with a small right pleural effusion, and mild patchy bibasilar atelectasis or infiltrate. Sputum sampling was positive for both Escherichia coli, and methicillin-resistant staph aureus. Objective - Vital Signs Vital signs: Vital Signs Temp 97.6 F 07/30/23 08:00 Pulse 53 L 07/30/23 10:00 Resp 15 07/30/23 10:00 BP 123/65 07/30/23 10:00 Pulse Ox 97 07/30/23 10:00 FiO2 50 07/29/23 08:37 Intake & Output 07/29/23 07/30/23 07/30/23 18:59 06:59 18:59 Intake Total 651.194 323 680 Output Total 2240 1600 735 Balance -1588.806 -1277 -55 Weight 133.7 kg Intake: IV 447 323 180 Normal Saline Pressure 27 3 Bag Piperacillin-Tazobactam 3 200 100 100 .375 gm In Sodium Chloride 0.9% 100 ml @ 25 mls/hr IVPB Q8HR [facility] Rx# :[id number] Sodium Chloride 0.9% 1, 220 220 80 000 ml @ 20 mls/hr IV . Q24H [facility] Rx#:[id number] Intake, IV Titration 60.194 500 Amount Norepinephrine 4 mg In 6.852 Sodium Chloride 0.9% 250 ml @ 0.03 MCG/KG/MIN 15. 613 mls/hr IV .[id number] [facility] Rx#:[id number] Vancomycin 2,000 mg In 500 Sodium Chloride 0.9% 500 ml 500 ml @ 167 mls/hr IVPB [facility] Rx#: [id number] propofoL 1,000 mg In 53.342 Empty Bag 1 bag @ 15 MCG/ KG/MIN 12.294 mls/hr IV . Q8H9M [facility] Rx#:[id number] Tube Feeding 114 Other 30 Output: Urine 2240 1600 735 Other: Voiding Method Indwelling Catheter Indwelling Catheter Indwelling Catheter ABP, PAP, CO, CI - Last Documented Arterial Blood Pressure 119/59 - Exam No acute distress, awake and alert, on nasal O2 at 3 L. Saturations are 97%. HEENT examination is grossly unremarkable. Neck supple. Full range of motion. No adenopathy thyromegaly or neck vein distention. Cardiovascular examination reveals regular rhythm rate. S1-S2 normal. No S3 or S4. No discernible murmur noted. Heart sounds are distant. Heart rate 53 bpm. Lungs reveal scattered bilateral rhonchi. Breath sounds are equal bilaterally. No crackles. Saturations are 97 %. Abdomen soft, without bowel sounds. No masses. Extremities are intact. No cyanosis clubbing or edema. Skin is without rash or lesion. Neurologic examination reveals a patient who is awake, but somewhat confused. - Labs CBC & Chem 7: 07/30/23 05:47 07/30/23 05:47 Labs: Abnormal Lab Results - Last 24 Hours (Table) 07/29/23 07/29/23 07/29/23 Range/Units 17:38 20:04 23:42 WBC (3.8-10.6) k/uL RBC (4.30-5.90) m/uL Hgb (13.0-17.5) gm/dL Hct (39.0-53.0) % MCV (80.0-100.0) fL Neutrophils # (1.3-7.7) k/uL Sodium (137-145) mmol/L Carbon Dioxide (22-30) mmol/L BUN (9-20) mg/dL Creatinine (0.66-1.25) mg/dL Glucose (74-99) mg/dL POC Glucose (mg/dL) 302 H 286 H 217 H (70-110) mg/dL 07/30/23 07/30/23 07/30/23 Range/Units 05:47 05:47 05:48 WBC 15.1 H (3.8-10.6) k/uL RBC 3.62 L (4.30-5.90) m/uL Hgb 11.7 L (13.0-17.5) gm/dL Hct 36.6 L (39.0-53.0) % MCV 100.9 H (80.0-100.0) fL Neutrophils # 11.6 H (1.3-7.7) k/uL Sodium 146 H (137-145) mmol/L Carbon Dioxide 37 H (22-30) mmol/L BUN 50 H (9-20) mg/dL Creatinine 1.50 H (0.66-1.25) mg/dL Glucose 147 H (74-99) mg/dL POC Glucose (mg/dL) 178 H (70-110) mg/dL 07/30/23 Range/Units 11:34 WBC (3.8-10.6) k/uL RBC (4.30-5.90) m/uL Hgb (13.0-17.5) gm/dL Hct (39.0-53.0) % MCV (80.0-100.0) fL Neutrophils # (1.3-7.7) k/uL Sodium (137-145) mmol/L Carbon Dioxide (22-30) mmol/L BUN (9-20) mg/dL Creatinine (0.66-1.25) mg/dL Glucose (74-99) mg/dL POC Glucose (mg/dL) 186 H (70-110) mg/dL Microbiology - Last 24 Hours (Table) 07/28/23 04:15 Gram Stain - Final Sputum Sputum Culture - Final Staphylococcus aureus Assessment and Plan Assessment: Acute hypoxemic and hypercapnic respiratory failure, secondary to cardiac arrest, with a prolonged downtime, with initial intubation, on July 16, and extubation on July 25, and then reintubation on July 28, for worsening respiratory status. S/P re-extubation, on 07/29/2023. Acute coronavirus infection. Chronic atrial fibrillation. Morbid obesity. Type 2 diabetes mellitus. Obstructive sleep apnea syndrome. Recent hospitalization for bilateral pneumonia. Chronic bronchial asthma. Acute kidney injury, secondary to cardiac arrest. Nonspecific pulmonary nodules. Benign essential hypertension. Anoxic brain injury with hypoxemic encephalopathy. Right lower lobe pneumonia/consolidation, secondary to Escherichia coli, and methicillin-resistant staph aureus. Plan: Plan dated 07/28/2023. The patient was made a DO NOT RESUSCITATE, based on a conversation that I had with his , Vani. In addition, we will resume tube feedings. Unfortunately, for worsening respiratory status, the patient was reintubated on July 28, having been extubated, on July 25. Currently he is on norepinephrine, and propofol. I had a long talk with the patient's , Vani. She was going to talk to the family members about further CODE STATUS changes, including the possibility of comfort care, versus, tracheostomy and PEG tube placement. Labs, x-rays, medications are reviewed. The patient's overall prognosis remains very poor. We will continue to follow and make recommendations along the way. Plan dated 07/29/2023. I had a long conversation with the patient's yesterday. She agreed to make the patient DO NOT RESUSCITATE. Addition, today, prior to extubation, she agreed that the patient would not be reintubated. I believe that's a right decision. I have been asked the patient was awake and alert, off the propofol, if he wanted reintubation, and the patient denied that and nodded, that he did n ot want reintubation. Labs, x-rays, and medications are reviewed. The patient was placed on pressure support and CPAP, and had more than adequate weaning parameters, including a low rapid shallow breathing index, and a positive cuff leak test. The patient will be extubated, and will not be reintubated, and this was confirmed with the patient's . Labs, x-rays, and medications are all reviewed. The patient remains a DO NOT RESUSCITATE patient. Plan dated 07/30/2023. The patient remains critically ill in the intensive care unit, to 60. He was successfully extubated for the second time, on July 29. He was initially extubated, on July 25, and reintubated on July 28. Currently, labs, x- rays, and medications are reviewed. The patient is a DO NOT RESUSCITATE patient. We clarified that with the patient's , prior to the most recent extubation. Labs, x-rays, and medications are reviewed. The patient continues on antibiotics, he continues on Zosyn and vancomycin. We will continue to follow and make recommendations along the way. Time with Patient: Greater than 30
--- NOTE | 2023-07-30 13:03 | P.PN ---
Subjective Progress Note Date: 07/30/23 So 68-year-old gentleman admitted with acute hypoxic and hypercapnic respiratory failure secondary to cardiac arrest, prolonged downtime reported at 20-30 minutes, anoxic brain injury, hypoxic encephalopathy, acute COVID-19 infection and multiple other medical issues. Remains vent dependent, FiO2 50%/+5 of PEEP. Sedation remains on hold. Chest x-ray reporting increased density right lower lobe may reflect underlying atelectasis, effusion and/or infiltrate, left medial basilar infiltrate/atelectasis unchanged .telemetry sinus,no pressor support at this time .Staff reports patient was following commands and tracking with his eyes yesterday. Repeat Brain CT performed yesterday reported no evidence for intracranial hemorrhage or sulcal effacement, no mass effects, no midline shift, osseous calvarium is intact, focal decreased attenuation right cerebellar hemisphere could reflect acute ischemic insult, correlate with MRI, age-related atrophic and chronic small vessel ischemic change. EEG reported abnormal due to background slowing of moderate degree, suggestive of generalized cerebral dysfun ction seen with toxic metabolic encephalopathy or related to diffuse structural brain abnormality, no obvious epileptiform activity seen. Carotid Doppler reported less than 50% stenosis of bilateral carotid bifurcations, right vertebral artery not visualized. Receiving OT tube feedings of vital high protein. Anticoagulated on Xarelto, continues on Decadron. BUN remains at 57, Creatinine trending down, currently 1.9. 07/22/2023 remains vent dependent on 40% FiO2 +5 of PEEP. Remains off of se dation. Patient spontaneously opens eyes, questionable tracking reported per staff . Tolerating tube feeds at goal, with minimal to no residuals. Chest x- ray reporting moderate pleural effusion with underlying atelectasis and/or consolidation , received Lasix. Creatinine improving decreased to 1.67. Afebrile, normal WBC. 07/23/2023 vent dependent, FiO2 40%/+5 of PEEP. Chest x-ray reporting small right pleural effusion .Sputum culture reporting MRSA , E. coli , vancomycin added in addition to Zosyn for antibiotic coverage. Creatinine improving, decreased to 1.3. T-max 99.3, WBC 11.9. Pro-calcitonin 0.29. Brain CT repeated yesterday, results noted including reporting of previous hypodensity in the right cerebellar hemisphere not as pronounced as on prior study. 07/24/23 sedation remains on hold , maintained on Decadron, diuretics. Anticoagulated on Xarelto. vent dependent FiO2 40%/+5 of PEEP, staff reports patient opening eyes on verbal commands. Continues on Zosyn and vancomycin. T- max 99.3. BUN 54, creatinine 1.34. Magnesium 1.7. Weaning trial pending as per pulmonary. 07/28/23 worsening respiratory failure, reintubated per 's request. Vent dependent, FiO2 50%/+10 of PEEP. Sedated on diprovan, continues on norepinephrine. Maintained on Zosyn and vancomycin, sputum culture reported E. coli, MRSA. Chest x-ray reporting bilateral pleural effusions left greater than right with right lower lobe atelectasis likely infectious or inflammatory etiology. 07/29/23 vent dependent, FiO2 50%/+ of PEEP. Diprovan and norepinephrine weaned off this morning. Chest x-ray reported improving bibasilar infiltrates.Patient appears to be following commands, nodding head to answer questions. Weaning parameters pending. T-max 99.1, WBC 19.5. BUN 56, creatinine 1.49. Potassium 3.4, receiving supplementation. Magnesium 1.9. 07/30/23 extubated yesterday, maintaining O2 sats in the 90s on 3 L nasal cannula. Chest x-ray reporting cardiomegaly with ongoing small right pleural effusion, mild patchy bibasilar atelectasis/consolidation. Repeat sputum cu lture reporting Staphylococcus aureus, sensitivities pending. Maintained on vancomycin, Zosyn. Afebrile, WBC decreased to 15.1. Objective - Vital Signs Vital signs: Vital Signs Temp 97.4 F L 07/30/23 12:00 Pulse 56 L 07/30/23 12:00 Resp 14 07/30/23 12:00 BP 134/70 07/30/23 12:00 Pulse Ox 95 07/30/23 12:00 FiO2 50 07/29/23 08:37 Intake & Output 07/29/23 07/30/23 07/30/23 18:59 06:59 18:59 Intake Total 651.194 323 720 Output Total 2240 1600 1385 Balance -1588.806 -1277 -665 Weight 133.7 kg Intake: IV 447 323 220 Normal Saline Pressure 27 3 Bag Piperacillin-Tazobactam 3 200 100 100 .375 gm In Sodium Chloride 0.9% 100 ml @ 25 mls/hr IVPB Q8HR [facility] Rx# :[id number] Sodium Chloride 0.9% 1, 220 220 120 000 ml @ 20 mls/hr IV . Q24H [facility] Rx#:[id number] Intake, IV Titration 60.194 500 Amount Norepinephrine 4 mg In 6.852 Sodium Chloride 0.9% 250 ml @ 0.03 MCG/KG/MIN 15. 613 mls/hr IV .[id number] [facility] Rx#:[id number] Vancomycin 2,000 mg In 500 Sodium Chloride 0.9% 500 ml 500 ml @ 167 mls/hr IVPB ONCE ONE Rx#: [id number] propofoL 1,000 mg In 53.342 Empty Bag 1 bag @ 15 MCG/ KG/MIN 12.294 mls/hr IV . Q8H9M [facility] Rx#:[id number] Tube Feeding 114 Other 30 Output: Urine 2240 1600 1385 Other: Voiding Method Indwelling Catheter Indwelling Catheter Indwelling Catheter ABP, PAP, CO, CI - Last Documented Arterial Blood Pressure 119/59 - Exam - Exam PHYSICAL EXAM: VITAL SIGNS: [As above] GENERAL: Alert and oriented 1-2, sitting up in bed, no acute distress HEENT: Normocephalic,PERRL NECK: Supple No JVD. CARDIOVASCULAR: S1, S2 irregular.No murmur RESPIRATION: Equal air entry ,Breath sounds diminished in the bases. No crackles. ABDOMEN: Obese, Soft, No guarding. no masses palpable. Bowel sounds heard. LEGS: trace edema, nonpitting. Chronic venous stasis changes noted of bilateral lower extremities. PSYCHIATRY/NERVOUS SYSTEM: Alert and oriented 1-2, following simple commands, positive generalized weakness Skin: Warm and dry. - Labs CBC & Chem 7: 07/30/23 05:47 07/30/23 05:47 Labs: Abnormal Lab Results - Last 24 Hours (Table) 07/29/23 07/29/23 07/29/23 Range/Units 17:38 20:04 23:42 WBC (3.8-10.6) k/uL RBC (4.30-5.90) m/uL Hgb (13.0-17.5) gm/dL Hct (39.0-53.0) % MCV (80.0-100.0) fL Neutrophils # (1.3-7.7) k/uL Sodium (137-145) mmol/L Carbon Dioxide (22-30) mmol/L BUN (9-20) mg/dL Creatinine (0.66-1.25) mg/dL Glucose (74-99) mg/dL POC Glucose (mg/dL) 302 H 286 H 217 H (70-110) mg/dL 07/30/23 07/30/23 07/30/23 Range/Units 05:47 05:47 05:48 WBC 15.1 H (3.8-10.6) k/uL RBC 3.62 L (4.30-5.90) m/uL Hgb 11.7 L (13.0-17.5) gm/dL Hct 36.6 L (39.0-53.0) % MCV 100.9 H (80.0-100.0) fL Neutrophils # 11.6 H (1.3-7.7) k/uL Sodium 146 H (137-145) mmol/L Carbon Dioxide 37 H (22-30) mmol/L BUN 50 H (9-20) mg/dL Creatinine 1.50 H (0.66-1.25) mg/dL Glucose 147 H (74-99) mg/dL POC Glucose (mg/dL) 178 H (70-110) mg/dL 07/30/23 Range/Units 11:34 WBC (3.8-10.6) k/uL RBC (4.30-5.90) m/uL Hgb (13.0-17.5) gm/dL Hct (39.0-53.0) % MCV (80.0-100.0) fL Neutrophils # (1.3-7.7) k/uL Sodium (137-145) mmol/L Carbon Dioxide (22-30) mmol/L BUN (9-20) mg/dL Creatinine (0.66-1.25) mg/dL Glucose (74-99) mg/dL POC Glucose (mg/dL) 186 H (70-110) mg/dL Microbiology - Last 24 Hours (Table) 07/28/23 04:15 Gram Stain - Final Sputum Sputum Culture - Final Staphylococcus aureus Assessment and Plan Assessment: Acute hypoxic and hypercapnic respiratory failure secondary to cardiac arrest/prolonged downtime, intubated in the field, in a patient with recent hospitalization for bilateral pneumonia 6/10/23. Re-intubated, extubated 07/29/2023. Acute COVID-19 infection. Sputum positive for E. coli and MRSA Anoxic brain injury with hypoxic encephalopathy, neurology following Nonspecific pulmonary nodules reported per CT Chronic bronchial asthma Mildly enlarged nonspecific peripancreatic lymph node reported per CT Cholelithiasis Acute renal injury secondary to cardiac arrest, improving Diabetes mellitus Chronic Paroxysmal atrial fibrillation, currently sinus Hypertension Hyperlipidemia Morbid obesity, BMI 42 Obstructive sleep apnea Plan: Continue on current medication regime ,monitoring and symptomatic treatment. Maintained on IV Decadron, diuretics, antibiotics. Repeat sputum culture pending. Anticoagulated on Xarelto. 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 The impression and plan of care has been dictated as directed. : I performed a history and examination of this patient, discussed the same with the dictator. I agree with the dictator's note ,documented as a scribe. Any additional findings or plans will be noted.
[2023-07-30 17:24] LABS: Glucose,Whole Blood 305 mg/dL (70-110)
--- NOTE | 2023-07-30 18:38 | P.PN ---
Subjective Progress Note Date: 07/30/23 07/30/2023: Patient was seen for a follow-up. Patient's was also present today. Patient has worked with physical therapy this morning. Patient has started speaking more, but his voice is very low volume, and he gets frustrated because his is not able to understand. He is still able to speak one to 2 words sentences okay. It is very hard to hear his speech. Patient overall ap pears more comfortable as compared to yesterday. 07/29/2023: Patient was seen for a follow-up. Patient was extubated again this morning. Patient appears to be in respiratory distress. He is now DO NOT RESUSCITATE, DO NOT INTUBATE. Patient's and patient's sister were also present. They mentioned that patient is doing much better, following directions. 07/28/2023: Patient was seen for a follow-up. Patient apparently decompensated overnight and was intubated. Patient currently sedated on propofol 25 mcg/kg per minute. Examination limited. Patient's was also present, who mentioned that patient was overall doing better neurologically. 07/27/2023: Patient was seen for a follow-up. Patient was last seen 07/19/2023. Subsequently Dr. Feliz was covering neurology service. Please refer to his note for details. Patient now has been extubated since 07/25/2023. Patient's was also present today. Patient is quite alert and awake. He is slightly tremulous, mildly encephalopathic. Objective - Vital Signs Vital signs: Vital Signs Temp 98.6 F 07/30/23 16:00 Pulse 74 07/30/23 17:00 Resp 24 07/30/23 17:00 BP 131/80 07/30/23 17:00 Pulse Ox 97 07/30/23 17:00 FiO2 50 07/29/23 08:37 Intake & Output 07/29/23 07/30/23 07/30/23 18:59 06:59 18:59 Intake Total 651.194 323 820 Output Total 2240 1600 2020 Balance -1588.806 -1277 -1200 Weight 133.7 kg Intake: IV 447 323 320 Normal Saline Pressure 27 3 Bag Piperacillin-Tazobactam 3 200 100 100 .375 gm In Sodium Chloride 0.9% 100 ml @ 25 mls/hr IVPB Q8HR [facility] Rx# :[id number] Sodium Chloride 0.9% 1, 220 220 220 000 ml @ 20 mls/hr IV . Q24H [facility] Rx#:[id number] Intake, IV Titration 60.194 500 Amount Norepinephrine 4 mg In 6.852 Sodium Chloride 0.9% 250 ml @ 0.03 MCG/KG/MIN 15. 613 mls/hr IV .[id number] [facility] Rx#:[id number] Vancomycin 2,000 mg In 500 Sodium Chloride 0.9% 500 ml 500 ml @ 167 mls/hr IVPB ONCE ONE Rx#: [id number] propofoL 1,000 mg In 53.342 Empty Bag 1 bag @ 15 MCG/ KG/MIN 12.294 mls/hr IV . Q8H9M [facility] Rx#:[id number] Tube Feeding 114 Other 30 Output: Urine 2240 1600 2020 Other: Voiding Method Indwelling Catheter Indwelling Catheter Indwelling Catheter ABP, PAP, CO, CI - Last Documented Arterial Blood Pressure 119/59 - Exam Patient is now extubated, appears much more comfortable. He has nasal cannula on. Patient's pupils are equal, round and reactive to light, face is symmetric. Patient able to name objects like glasses, ball pen, able to name his [place]. Patient was able to tell the ceiling "on our head", but did not point to the window. He continues to have myoclonic jerks, but better than yesterday. He is able to lift his arms up. Detailed testing deferred because he got tired. Patient times rambles with his speech. Sometimes difficult to understand. Patient has peripheral edema. - Labs CBC & Chem 7: 07/30/23 05:47 07/30/23 13:57 Labs: Abnormal Lab Results - Last 24 Hours (Table) 07/29/23 07/29/23 07/30/23 Range/Units 20:04 23:42 05:47 WBC (3.8-10.6) k/uL RBC (4.30-5.90) m/uL Hgb (13.0-17.5) gm/dL Hct (39.0-53.0) % MCV (80.0-100.0) fL Neutrophils # (1.3-7.7) k/uL Sodium 146 H (137-145) mmol/L Carbon Dioxide 37 H (22-30) mmol/L BUN 50 H (9-20) mg/dL Creatinine 1.50 H (0.66-1.25) mg/dL Glucose 147 H (74-99) mg/dL POC Glucose (mg/dL) 286 H 217 H (70-110) mg/dL 07/30/23 07/30/23 07/30/23 Range/Units 05:47 05:48 11:34 WBC 15.1 H (3.8-10.6) k/uL RBC 3.62 L (4.30-5.90) m/uL Hgb 11.7 L (13.0-17.5) gm/dL Hct 36.6 L (39.0-53.0) % MCV 100.9 H (80.0-100.0) fL Neutrophils # 11.6 H (1.3-7.7) k/uL Sodium (137-145) mmol/L Carbon Dioxide (22-30) mmol/L BUN (9-20) mg/dL Creatinine (0.66-1.25) mg/dL Glucose (74-99) mg/dL POC Glucose (mg/dL) 178 H 186 H (70-110) mg/dL 07/30/23 Range/Units 17:23 WBC (3.8-10.6) k/uL RBC (4.30-5.90) m/uL Hgb (13.0-17.5) gm/dL Hct (39.0-53.0) % MCV (80.0-100.0) fL Neutrophils # (1.3-7.7) k/uL Sodium (137-145) mmol/L Carbon Dioxide (22-30) mmol/L BUN (9-20) mg/dL Creatinine (0.66-1.25) mg/dL Glucose (74-99) mg/dL POC Glucose (mg/dL) 305 H (70-110) mg/dL Microbiology - Last 24 Hours (Table) 07/28/23 04:15 Gram Stain - Final Sputum Sputum Culture - Final Staphylococcus aureus Assessment and Plan Assessment: * Status post cardiac arrest with prolonged downtime of 30 minutes as per EMS flow sheet documentation. Patient was in asystole. * Ventilator-dependent respiratory failure due to cardiac arrest, status post extubation 07/25/2023 and then reintubation 07/28/2023, and re-extubation 07/29/2023. * Anoxic encephalopathy from previous cardiac arrest, but patient is neurologically improving gradually. * Dysarthria due to above. * Atrial fibrillation with rapid ventricular rate * Covid-19 infection. * Atrial fibrillation with rapid ventricular rate * Probable aspiration pneumonia * Lactic acidosis * Acute renal failure * Diabetes type 2 * Morbid obesity * Hypertension * Pulmonary nodules. * Obstructive sleep apnea Plan: * Patient is clinically better as compared to yesterday. He appears more comfortable. Patient is at present is DO NOT RESUSCITATE, DO NOT INTUBATE. * Patient appears generalized weak. Patient has significant metabolic encephalopathy with myoclonic jerks. * Patient has leukocytosis likely due to right lower lobe pneumonia/consolidation secondary to E. coli and MRSA. * EEG 07/17/2023, was abnormal due to background slowing of moderate degree, suggestive of generalized cerebral dysfunction as can be seen with toxic metabolic encephalopathy. Clinical correlation is recommended. No obvious epileptiform activity was seen. * Repeat CT head from 07/22/2023 revealed mild patchy burden of chronic small vessel ischemic disease. No acute intracranial abnormality seen. The previous hypodensity in the right cerebellar hemisphere is not pronounced as on prior study and may have been artifactual. MRI if clinically indicated. Moderate chronic ethmoid and right sphenoid sinus disease. Fluid throughout the right mastoid air cells and right middle ear cavity. Correlate to exclude otomastoiditis. I personally reviewed CT head, agree with the findings. Patient currently on Zosyn and vancomycin, which hopefully will cover the infection. * Patient's inquired about MRI of the brain. It appears patient is still not stable from cardiopulmonary standpoint. Patient probably will not be able to lay flat for 45 minutes for MRI. If he aspirates, then could be potentially fatal. MRI probably will not give more information than what we already know with CT scans. She agreed to hold off on it. * Patient's neurological status was improving gradually. However patient appears to have significant metabolic encephalopathy. * Patient currently on Xarelto for atrial fibrillation. * Other medical management as per IM and critical care. * Discussed with patient's in detail.
[2023-07-30 20:48] LABS: Glucose,Whole Blood 219 mg/dL (70-110)
[2023-07-30] MEDS: INSULIN DETEMIR (LEVEMIR) 100 UNIT/ML SYR SQ SCH (21:17)
[2023-07-30 23:49] LABS: Glucose,Whole Blood 198 mg/dL (70-110)
[2023-07-31] MEDS: INSULIN ASPART (NovoLOG) 100 UNIT/ML VIAL SQ SCH ×6 (00:23→23:57)
[2023-07-31] MEDS: PIPERACILLIN-TAZOBACTAM 3.375 GM in SODIUM CHLORIDE 0.9% 100 ML IVPB SCH ×3 (00:23→17:07)
[2023-07-31] MEDS: SODIUM CHLORIDE 0.9% 1,000 ML IV SCH (05:52)
[2023-07-31 06:18] LABS: Glucose,Whole Blood 127 mg/dL (70-110)
[2023-07-31 08:01] LABS: African American GFR (CKD) 65 (>60 ml/min/1.73 sqM); Non-African American GFR(CKD) 56 (>60 ml/min/1.73 sqM)
[2023-07-31] MEDS: ALBUTEROL HFA INHALER INHALATION SCH ×4 (08:25→21:06)
[2023-07-31] MEDS: SYMBICORT 160-4.5 MCG INHALER INHALATION SCH ×2 (08:25→21:06)
[2023-07-31] MEDS: ATORVASTATIN 20 MG TAB PO SCH ×2 (08:56→13:12)
[2023-07-31] MEDS: METOPROLOL TARTRATE 50 MG TAB PO SCH ×3 (08:56→20:33)
[2023-07-31] MEDS: RIVAROXABAN 20 MG TAB PO SCH ×2 (08:57→12:40)
[2023-07-31] MEDS: PANTOPRAZOLE 40 MG/10 ML VIAL IV SCH (08:57)
[2023-07-31] MEDS: DOCUSATE ORAL SOLN 100 MG/10 ML CUP PO SCH (08:57)
[2023-07-31] MEDS: FUROSEMIDE 10 MG/ML 4 ML VIAL IV SCH ×2 (08:57→20:38)
[2023-07-31] MEDS: DEXAMETHASONE SOD PHOSPHATE 10 MG/ML 1 ML VIAL IVP SCH (08:58)
[2023-07-31 11:08] LABS: Glucose,Whole Blood 186 mg/dL (70-110)
--- NOTE | 2023-07-31 12:34 | P.PN ---
Subjective Progress Note Date: 07/31/23 Progress note dated 07/28/2023. This is a 68-year-old male who had an initial cardiac arrest. The patient was initially admitted on July 16, for respiratory failure, and was intubated on the same day, July 16. He was extubated on July 25, but unfortunately last night, he was reintubated, for worsening respiratory failure. He remains on mechanical ventilator, with assist control mode, rate 20, tidal volume 500, FiO2 50%, PEEP of 10. Blood gases show a PaO2 of 258, pCO2 43, and a pH is 7.51 . This blood gases were done in the 100%. The patient was reduced on the 70%, and further down to 50%, other respiratory therapist. The patient's getting saline at 20 mL an hour, norepinephrine at 3.4 mcg/m, and propofol at 25 mcg/kg/m. 2 feedings have not yet been started. I did asked the nurses to resume that today. His neurologic status is very poor, and was very poor, according to the nurses, which I have spoken to today. White count 20.5, hemoglobin 12.1, hematocrit 38.9, with a normal platelet count. Sodium 144, potassium 3.9, chlorides 106, CO2 34, BUN 53, creatinine 1.22. Glucose is 271. Sputum shows evidence of Escherichia coli, and methicillin-resistant staph aureus. Currently, he is on Zosyn and vancomycin. Chest x-ray shows bilateral pleural effusions, with some lower lobe atelectasis or infiltrates. Progress note dated 07/29/2023. 68-year-old male, that is post cardiac arrest. The patient was initially admitted to the hospital on July 16 for respiratory failure, and was intubated on the same day, July 16. He was extubated successfully on July 25, but, was reintubated on July 28, for respiratory failure. The patient was on the ventilator this morning, awake and alert, The patient's ventilator settings include a assist control mode, rate 20, tidal volume 500, FiO2 50%, and PEEP of 10. Blood gases showed a pO2 of 101, pCO2 43, and a pH is 7.52. The patient is currently on saline at 20 mL an hour, and both propofol, and norepinephrine, have been turned off. The patient had a set a weaning parameters, on pressure support of 10 and CPAP of 5, that were excellent, including a very low rapid shallow breathing index, and adequate minute volume, and a positive cuff leak. That reason, the patient will be extubated. We confirm with the , that the patient would not require need reintubation, regardless of how he does this time. White count 19.5, hemoglobin 11.7, hematocrit 36.4, and platelet count is normal. Sodium 145, potassium 3.4, chlorides 106, CO2 35, BUN 56, and creatinine 1.49. Chest x-ray shows improving bibasilar infiltrates. Sputum was positive for both Escherichia coli, and, methicillin-resistant staph aureus. Progress note dated 07/30/2023. 68-year-old male status post cardiac arrest, who was successfully extubated for the second time, yesterday. The patient is a DO NOT RESUSCITATE patient. He's currently on 3 L of oxygen. Is getting saline at 20 mL an hour, and he continues on Zosyn and vancomycin. Again, he was successfully extubated, for the second time on July 29. The first time on July 25. He was reintubated the second time, on July 28. White count 15.1, hemoglobin 11.7, hematocrit 36.6, with a normal platelet count. Sodium 146, potassium 3.5, chlorides 105, CO2 37, BUN 50, creatinine 1.5. Chest x-ray shows cardiomegaly, with a small right pleural effusion, and mild patchy bibasilar atelectasis or infiltrate. Sputum sampling was positive for both Escherichia coli, and methicillin-resistant staph aureus. The patient is seen today 07/31/2023 in follow-up on the regular medical floor. He is currently resting comfortably in bed. Awake and alert in no acute di stress. He is maintaining O2 saturations in the high 90s on 3 L/m per nasal cannula. He is afebrile. Hemodynamically stable. Follow-up sputum cultures positive for oxacillin sensitive staph aureus. Creatinine 1.29. Glucose 127. He is continued on Symbicort, albuterol, Decadron. Antibiotics in the form of vancomycin and Zosyn. Anticoagulated with Xarelto. Remains on IV diuretics. Currently in a -2.7 L balance. Objective - Vital Signs Vital signs: Vital Signs Temp 98.9 F 07/31/23 07:41 Pulse 72 07/31/23 07:41 Resp 20 07/31/23 08:34 BP 124/85 07/31/23 07:41 Pulse Ox 98 07/31/23 08:30 FiO2 50 07/29/23 08:37 Intake & Output 07/30/23 07/31/23 07/31/23 18:59 06:59 18:59 Intake Total 860 Output Total 2145 1435 Balance -1285 -1435 Weight 127 kg Intake: IV 360 Piperacillin-Tazobactam 3 100 .375 gm In Sodium Chloride 0.9% 100 ml @ 25 mls/hr IVPB Q8HR [facility] Rx# :[id number] Sodium Chloride 0.9% 1, 260 000 ml @ 20 mls/hr IV . Q24H [facility] Rx#:[id number] Intake, IV Titration 500 Amount Vancomycin 2,000 mg In 500 Sodium Chloride 0.9% 500 ml 500 ml @ 167 mls/hr IVPB ONCE ONE Rx#: [id number] Output: Urine 2145 1435 Other: Voiding Method Indwelling Catheter Indwelling Catheter Indwelling Catheter # Bowel Movements 1 1 ABP, PAP, CO, CI - Last Documented Arterial Blood Pressure 119/59 - Exam 68-year-old male patient. No acute distress, awake and alert, on nasal O2 at 3 L. Saturations are 98%. HEENT examination is grossly unremarkable. Neck supple. Full range of motion. No adenopathy thyromegaly or neck vein distention. Cardiovascular examination reveals regular rhythm rate. S1-S2 normal. No S3 or S4. No discernible murmur noted. Heart sounds are distant. Lungs reveal scattered bilateral rhonchi. Breath sounds are equal bilaterally. No crackles. Saturations are 97 %. Abdomen soft, without bowel sounds. No masses. Extremities are intact. No cyanosis clubbing or edema. Skin is without rash or lesion. Neurologic examination reveals a patient who is awake, but somewhat confused. - Labs CBC & Chem 7: 07/30/23 05:47 07/31/23 06:22 Labs: Abnormal Lab Results - Last 24 Hours (Table) 07/30/23 07/30/23 07/30/23 Range/Units 17:23 20:44 23:46 Creatinine (0.66-1.25) mg/dL POC Glucose (mg/dL) 305 H 219 H 198 H (70-110) mg/dL 07/31/23 07/31/23 07/31/23 Range/Units 06:16 06:22 11:07 Creatinine 1.29 H (0.66-1.25) mg/dL POC Glucose (mg/dL) 127 H 186 H (70-110) mg/dL Microbiology - Last 24 Hours (Table) 07/28/23 04:15 Gram Stain - Final Sputum Sputum Culture - Final Staphylococcus aureus Assessment and Plan Assessment: Acute hypoxemic and hypercapnic respiratory failure, secondary to cardiac arrest, with a prolonged downtime, with initial intubation, on July 16, and extubation on July 25, and then reintubation on July 28, for worsening respiratory status. S/P re-extubation, on 07/29/2023. Currently stable and on 3 L nasal cannula. Acute coronavirus infection. Chronic atrial fibrillation. Morbid obesity. Type 2 diabetes mellitus. Obstructive sleep apnea syndrome. Recent hospitalization for bilateral pneumonia. Chronic bronchial asthma. Acute kidney injury, secondary to cardiac arrest. Nonspecific pulmonary nodules. Benign essential hypertension. Anoxic brain injury with hypoxemic encephalopathy. Right lower lobe pneumonia/consolidation, secondary to Escherichia coli, and methicillin-resistant staph aureus. Plan: The patient was seen and evaluated Labs and medications reviewed Currently stable and on 3 L nasal cannula Plan will be for discharge to subacute rehabilitation DO NOT RESUSCITATE/DO NOT INTUBATE CODE STATUS I have personally seen and examined the patient, performed the documentation and the assessment and plan as written. Number of minutes spent on the visit: 10.
--- NOTE | 2023-07-31 13:19 | P.PN ---
Subjective Progress Note Date: 07/31/23 * 68-year-old male who had an initial cardiac arrest. The patient was initially admitted on July 16, for respiratory failure, and was intubated on the same day, July 16. He was extubated on July 25, but unfortunately last night, he was reintubated, for worsening respiratory failure. Patient was eventually extubated on 07/29 and transferred out of ICU * 07/31: Patient evaluated and bedside, plan discussed with family. Notified covering Dr. Rhodes through the weekend. Patient worked with physical therapy. Continue to have dysarthria. We're system limited secondary to mentation Objective - Vital Signs Vital signs: Vital Signs Temp 98.9 F 07/31/23 07:41 Pulse 72 07/31/23 07:41 Resp 20 07/31/23 08:34 BP 124/85 07/31/23 07:41 Pulse Ox 98 07/31/23 08:30 FiO2 50 07/29/23 08:37 Intake & Output 07/30/23 07/31/23 07/31/23 18:59 06:59 18:59 Intake Total 860 Output Total 2145 1435 Balance -1285 -1435 Weight 127 kg Intake: IV 360 Piperacillin-Tazobactam 3 100 .375 gm In Sodium Chloride 0.9% 100 ml @ 25 mls/hr IVPB Q8HR [facility] Rx# :[id number] Sodium Chloride 0.9% 1, 260 000 ml @ 20 mls/hr IV . Q24H [facility] Rx#:[id number] Intake, IV Titration 500 Amount Vancomycin 2,000 mg In 500 Sodium Chloride 0.9% 500 ml 500 ml @ 167 mls/hr IVPB ONCE ONE Rx#: [id number] Output: Urine 2145 1435 Other: Voiding Method Indwelling Catheter Indwelling Catheter Indwelling Catheter # Bowel Movements 1 1 ABP, PAP, CO, CI - Last Documented Arterial Blood Pressure 119/59 - Exam PHYSICAL EXAMINATION: GENERAL: The patient is alert and oriented x1 , ill appearance, disoriented HEENT: Pupils are round and equally reacting to light. EOMI. CARDIOVASCULAR: S1 and S2 present. No murmurs, rubs, or gallops. PULMONARY: Increased breath sounds bilaterally. ABDOMEN: Soft, nontender, nondistended, normoactive bowel sounds. No palpable organomegaly. MUSCULOSKELETAL: No joint swelling or deformity. EXTREMITIES: No cyanosis, clubbing, or pedal edema. NEUROLOGICAL: Limited secondary to disorientation, anoxic encephalopathy - Labs CBC & Chem 7: 07/30/23 05:47 07/31/23 06:22 Labs: Abnormal Lab Results - Last 24 Hours (Table) 07/30/23 07/30/23 07/30/23 Range/Units 17:23 20:44 23:46 Creatinine (0.66-1.25) mg/dL POC Glucose (mg/dL) 305 H 219 H 198 H (70-110) mg/dL 07/31/23 07/31/23 07/31/23 Range/Units 06:16 06:22 11:07 Creatinine 1.29 H (0.66-1.25) mg/dL POC Glucose (mg/dL) 127 H 186 H (70-110) mg/dL Microbiology - Last 24 Hours (Table) 07/28/23 04:15 Gram Stain - Final Sputum Sputum Culture - Final Staphylococcus aureus Assessment and Plan Assessment: * Acute hypoxemic and hypercapnic respiratory failure, secondary to cardiac arrest, with a prolonged downtime, with initial intubation, on July 16, and extubation on July 25, and then reintubation on July 28, for worsening respiratory status. S/P re-extubation, on 07/29/2023. Currently stable and on 3 L nasal cannula. * Acute coronavirus infection. * Chronic atrial fibrillation. * Right lower lobe pneumonia secondary to MRSA and E. coli * Anoxic brain injury with hypoxic encephalopathy * Acute kidney injury secondary to cardiac arrest * History of hypertension * Obstructive sleep apnea * Morbid obesity * Prolonged hospitalization with complicated course requiring reintubation. Extubated 07/29. Continue patient on oxygen supplementation CODE STATUS is DO NOT RESUSCITATE limited interventions * In regards to arterial pneumonia continue Zosyn and pharmacy to dose vancomycin and infectious disease team following * In regards to history of asthma continue patient on breathing treatments on Symbicort, albuterol as needed * In regards to history of diabetes mellitus continue patient on NovoLog and correctional insulin * In regards to history affective fibrillation continue metoprolol, continues xarelto * Patient will need intensive physical therapy and occupational therapy prognosis remains guarded
--- NOTE | 2023-07-31 14:44 | FL ---
Exam Date: 07/31/2023 2:31 PM. Modified barium swallow for dysphagia. Consistencies administered: Various consistency of barium. Fluoro time: 2 minutes 24 seconds No images were sent to PACS. Please see speech pathology report. DAP: [id number]
[2023-07-31 16:40] LABS: Glucose,Whole Blood 252 mg/dL (70-110)
--- NOTE | 2023-07-31 17:32 | P.PN ---
Subjective Progress Note Date: 07/31/23 07/31/2023: Patient was seen for a follow-up. Patient is laying comfortably in the bed. He has oxygen by nasal cannular. Patient's was also present today. Patient states he feels tired. He has been undergoing swallow evaluation, and has been recommended thickened meals. Patient is getting physical therapy as well. He has hard time sitting up. Once he is sitting up, then he can hold his head. 07/30/2023: Patient was seen for a follow-up. Patient's was also present today. Patient has worked with physical therapy this morning. Patient has started speaking more, but his voice is very low volume, and he gets frustrated because his is not able to understand. He is still able to speak one to 2 words sentences okay. It is very hard to hear his speech. Patient overall appears more comfortable as compared to yesterday. 07/29/2023: Patient was seen for a follow-up. Patient was extubated again this morning. Patient appears to be in respiratory distress. He is now DO NOT RESUSCITATE, DO NOT INTUBATE. Patient's and patient's sister were also present. They mentioned that patient is doing much better, following di rections. 07/28/2023: Patient was seen for a follow-up. Patient apparently decompensated overnight and was intubated. Patient currently sedated on propofol 25 mcg/kg per minute. Examination limited. Patient's was also present, who mentioned that patient was overall doing better neurologically. 07/27/2023: Patient was seen for a follow-up. Patient was last seen 07/19/2023. Subsequently Dr. Feliz was covering neurology service. Please refer to his note for details. Patient now has been extubated since 07/25/2023. Patient's was also present today. Patient is quite alert and awake. He is slightly tremulous, mildly encephalopathic. Objective - Vital Signs Vital signs: Vital Signs Temp 98.9 F 07/31/23 07:41 Pulse 72 07/31/23 07:41 Resp 20 07/31/23 08:34 BP 124/85 07/31/23 07:41 Pulse Ox 98 07/31/23 08:30 FiO2 50 07/29/23 08:37 Intake & Output 09/06/1407/31/23 07/31/23 18:59 06:59 18:59 Intake Total 860 Output Total 2145 1435 Balance -1285 -1435 Weight 127 kg 127 kg Intake: IV 360 Piperacillin-Tazobactam 3 100 .375 gm In Sodium Chloride 0.9% 100 ml @ 25 mls/hr IVPB Q8HR [facility] Rx# :[id number] Sodium Chloride 0.9% 1, 260 000 ml @ 20 mls/hr IV . Q24H [facility] Rx#:[id number] Intake, IV Titration 500 Amount Vancomycin 2,000 mg In 500 Sodium Chloride 0.9% 500 ml 500 ml @ 167 mls/hr IVPB ONCE ONE Rx#: [id number] Output: Urine 2145 1435 Other: Voiding Method Indwelling Catheter Indwelling Catheter Indwelling Catheter # Bowel Movements 1 1 ABP, PAP, CO, CI - Last Documented Arterial Blood Pressure 119/59 - Exam Patient is now extubated, appears much more comfortable. He has nasal cannula on. Patient's pupils are equal, round and reactive to light, face is symmetric. Patient speaks with a whisper at times. Sometimes mumbles. Often speaks more intelligible speech. Face is symmetric. On muscle strength testing, the block handler is 4+/4+, biceps 4/4, triceps 4+/4+, deltoids 4/4, ankle dorsiflexion 4+, hip flexion 3-/2. Deep tendon reflexes are 1 at the biceps, 0 brachioradialis, trace at the knees, 0 ankles, plantars are flat. Patient has peripheral edema. - Labs CBC & Chem 7: 07/30/23 05:47 07/31/23 06:22 Labs: Abnormal Lab Results - Last 24 Hours (Table) 07/30/23 07/30/23 07/30/23 Range/Units 17:23 20:44 23:46 Creatinine (0.66-1.25) mg/dL POC Glucose (mg/dL) 305 H 219 H 198 H (70-110) mg/dL 07/31/23 07/31/23 07/31/23 Range/Units 06:16 06:22 11:07 Creatinine 1.29 H (0.66-1.25) mg/dL POC Glucose (mg/dL) 127 H 186 H (70-110) mg/dL Assessment and Plan Assessment: * Status post cardiac arrest with prolonged downtime of 30 minutes as per EMS flow sheet documentation. Patient was in asystole. * Ventilator-dependent respiratory failure due to cardiac arrest, status post extubation 07/25/2023 and then reintubation 07/28/2023, and then re-extubation 07/29/2023. * Anoxic encephalopathy from previous cardiac arrest, but patient is neurologically improving gradually. * Dysarthria due to above. * Atrial fibrillation with rapid ventricular rate * Covid-19 infection. * Atrial fibrillation with rapid ventricular rate * Probable aspiration pneumonia * Lactic acidosis * Acute renal failure * Diabetes type 2 * Morbid obesity * Hypertension * Pulmonary nodules. * Obstructive sleep apnea Plan: * Patient is clinically getting better slowly. He appears more comfortable. * Patient's muscle strength also seems to be better as compared to previous examination. Patient has less metabolic myoclonic jerks. * Patient has leukocytosis likely due to right lower lobe pneumonia/consolidation secondary to E. coli and MRSA. Patient on Zosyn and vancomycin. * EEG 07/17/2023, was abnormal due to background slowing of moderate degree, suggestive of generalized cerebral dysfunction as can be seen with toxic metabolic encephalopathy. Clinical correlation is recommended. No obvious epileptiform activity was seen. * Repeat CT head from 07/22/2023 revealed mild patchy burden of chronic small vessel ischemic disease. No acute intracranial abnormality seen. The previous hypodensity in the right cerebellar hemisphere is not pronounced as on prior study and may have been artifactual. MRI if clinically indicated. Moderate chronic ethmoid and right sphenoid sinus disease. Fluid throughout the right mastoid air cells and right middle ear cavity. Correlate to exclude otomastoiditis. I personally reviewed CT head, agree with the findings. Patient currently on Zosyn and vancomycin, which hopefully will cover the infection. Consider ENT consultation. * Patient's inquired about MRI of the brain. It appears patient is still not stable from cardiopulmonary standpoint. Patient probably will not be able to lay flat for 45 minutes for MRI. If he aspirates, then could be potentially fatal. MRI probably will not give more information than what we already know with CT scans. She agreed to hold off on it. May consider at a later time, when clinically stable. * Patient currently on Xarelto for atrial fibrillation. * Other medical management as per IM and critical care. * Discussed with patient's in detail. Dr. Joyce will be available for any neurological concerns over the weekend, Dr. Vlad Feliz will resume neurology service from Thursday.
[2023-07-31 19:46] LABS: Glucose,Whole Blood 179 mg/dL (70-110)
[2023-07-31] MEDS: INSULIN DETEMIR (LEVEMIR) 100 UNIT/ML SYR SQ SCH (20:38)
[2023-08-01 00:07] LABS: Glucose,Whole Blood 150 mg/dL (70-110)
[2023-08-01 05:06] LABS: Glucose,Whole Blood 114 mg/dL (70-110)
[2023-08-01] MEDS: INSULIN ASPART (NovoLOG) 100 UNIT/ML VIAL SQ SCH ×4 (05:19→23:45)
[2023-08-01] MEDS: SODIUM CHLORIDE 0.9% 1,000 ML IV SCH (06:42)
[2023-08-01 08:18] LABS: HCT 40.3 % (39.0-53.0); HGB 12.6 gm/dL (13.0-17.5); MCH 31.6 pg (25.0-35.0); MCHC 31.2 g/dL (31.0-37.0); MCV 101.4 fL (80.0-100.0); Macrocytosis Slight; Mean Platelet Volume 8.9; Platelet Count 172 k/uL (150-450); RBC 3.98 m/uL (4.30-5.90); RDW 14.7 % (11.5-15.5); WBC 12.1 k/uL (3.8-10.6)
[2023-08-01] MEDS: ALBUTEROL HFA INHALER INHALATION SCH ×4 (08:30→20:22)
[2023-08-01] MEDS: SYMBICORT 160-4.5 MCG INHALER INHALATION SCH ×2 (08:30→20:22)
[2023-08-01] MEDS: PIPERACILLIN-TAZOBACTAM 3.375 GM in SODIUM CHLORIDE 0.9% 100 ML IVPB SCH ×3 (08:35)
[2023-08-01] MEDS: DEXAMETHASONE SOD PHOSPHATE 10 MG/ML 1 ML VIAL IVP SCH (08:36)
[2023-08-01] MEDS: DOCUSATE ORAL SOLN 100 MG/10 ML CUP PO SCH (08:36)
[2023-08-01] MEDS: RIVAROXABAN 20 MG TAB PO SCH (08:36)
[2023-08-01] MEDS: PANTOPRAZOLE 40 MG/10 ML VIAL IV SCH (08:36)
[2023-08-01] MEDS: METOPROLOL TARTRATE 50 MG TAB PO SCH ×2 (08:36→21:17)
[2023-08-01] MEDS: ATORVASTATIN 20 MG TAB PO SCH (08:36)
[2023-08-01] MEDS: FUROSEMIDE 10 MG/ML 4 ML VIAL IV SCH (08:37)
[2023-08-01 09:23] LABS: African American GFR (CKD) 60 (>60 ml/min/1.73 sqM); Anion Gap 5 mmol/L; Blood Urea Nitrogen 46 mg/dL (9-20); C Reactive Protein 1.9 mg/dL (<1.0); Calcium 9.2 mg/dL (8.4-10.2); Carbon Dioxide 39 mmol/L (22-30); Chloride 104 mmol/L (98-107); Glucose 127 mg/dL (74-99); Non-African American GFR(CKD) 52 (>60 ml/min/1.73 sqM); Potassium 3.3 mmol/L (3.5-5.1); Sodium 148 mmol/L (137-145)
[2023-08-01 09:25] LABS: Vancomycin,Random 14.8 ug/mL
--- NOTE | 2023-08-01 11:30 | P.PN ---
Subjective Progress Note Date: 08/01/23 Progress note dated 07/28/2023. This is a 68-year-old male who had an initial cardiac arrest. The patient was initially admitted on July 16, for respiratory failure, and was intubated on the same day, July 16. He was extubated on July 25, but unfortunately last night, he was reintubated, for worsening respiratory failure. He remains on mechanical ventilator, with assist control mode, rate 20, tidal volume 500, FiO2 50%, PEEP of 10. Blood gases show a PaO2 of 258, pCO2 43, and a pH is 7.51 . This blood gases were done in the 100%. The patient was reduced on the 70%, and further down to 50%, other respiratory therapist. The patient's getting saline at 20 mL an hour, norepinephrine at 3.4 mcg/m, and propofol at 25 mcg/kg/m. 2 feedings have not yet been started. I did asked the nurses to resume that today. His neurologic status is very poor, and was very poor, according to the nurses, which I have spoken to today. White count 20.5, hemoglobin 12.1, hematocrit 38.9, with a normal platelet count. Sodium 144, potassium 3.9, chlorides 106, CO2 34, BUN 53, creatinine 1.22. Glucose is 271. Sputum shows evidence of Escherichia coli, and methicillin-resistant staph aureus. Currently, he is on Zosyn and vancomycin. Chest x-ray shows bilateral pleural effusions, with some lower lobe atelectasis or infiltrates. Progress note dated 07/29/2023. 68-year-old male, that is post cardiac arrest. The patient was initially admitted to the hospital on July 16 for respiratory failure, and was intubated on the same day, July 16. He was extubated successfully on July 25, but, was reintubated on July 28, for respiratory failure. The patient was on the ventilator this morning, awake and alert, The patient's ventilator settings include a assist control mode, rate 20, tidal volume 500, FiO2 50%, and PEEP of 10. Blood gases showed a pO2 of 101, pCO2 43, and a pH is 7.52. The patient is currently on saline at 20 mL an hour, and both propofol, and norepinephrine, have been turned off. The patient had a set a weaning parameters, on pressure support of 10 and CPAP of 5, that were excellent, including a very low rapid shallow breathing index, and adequate minute volume, and a positive cuff leak. That reason, the patient will be extubated. We confirm with the , that the patient would not require need reintubation, regardless of how he does this time. White count 19.5, hemoglobin 11.7, hematocrit 36.4, and platelet count is normal. Sodium 145, potassium 3.4, chlorides 106, CO2 35, BUN 56, and creatinine 1.49. Chest x-ray shows improving bibasilar infiltrates. Sputum was positive for both Escherichia coli, and, methicillin-resistant staph aureus. Progress note dated 07/30/2023. 68-year-old male status post cardiac arrest, who was successfully extubated for the second time, yesterday. The patient is a DO NOT RESUSCITATE patient. He's currently on 3 L of oxygen. Is getting saline at 20 mL an hour, and he continues on Zosyn and vancomycin. Again, he was successfully extubated, for the second time on July 29. The first time on July 25. He was reintubated the second time, on July 28. White count 15.1, hemoglobin 11.7, hematocrit 36.6, with a normal platelet count. Sodium 146, potassium 3.5, chlorides 105, CO2 37, BUN 50, creatinine 1.5. Chest x-ray shows cardiomegaly, with a small right pleural effusion, and mild patchy bibasilar atelectasis or infiltrate. Sputum sampling was positive for both Escherichia coli, and methicillin-resistant staph aureus. The patient is seen today 07/31/2023 in follow-up on the regular medical floor. He is currently resting comfortably in bed. Awake and alert in no acute di stress. He is maintaining O2 saturations in the high 90s on 3 L/m per nasal cannula. He is afebrile. Hemodynamically stable. Follow-up sputum cultures positive for oxacillin sensitive staph aureus. Creatinine 1.29. Glucose 127. He is continued on Symbicort, albuterol, Decadron. Antibiotics in the form of vancomycin and Zosyn. Anticoagulated with Xarelto. Remains on IV diuretics. Currently in a -2.7 L balance. The patient is seen today 08/01/2023 in follow-up on the regular medical floor. He is awake and alert in no acute distress. He is currently maintaining O2 saturations in the 90s on 3 L/m per nasal cannula. No IV fluids. He remains on Zosyn and vancomycinfor E. coli and MSSA in the sputum cultures. White count 12.1. Hemoglobin 12.6. Platelets 172. Sodium 148. Potassium 3.3. Potassium bicarb 39. BUN 46. Creatinine 1.38. Glucose 127. Random vancomycin 14.8. He did undergo swallow evaluation. He remains on a level I pureed diet. [place] thick liquids. He is continued on Symbicort, albuterol, Decadron. Anticoagulated with Xarelto. Remains on IV diuretics. Currently in a -2.4 L balance. Objective - Vital Signs Vital signs: Vital Signs Temp 97.4 F L 08/01/23 08:06 Pulse 83 08/01/23 08:06 Resp 19 08/01/23 08:06 BP 117/75 08/01/23 08:06 Pulse Ox 100 08/01/23 08:06 FiO2 50 07/29/23 08:37 Intake & Output 07/31/23 08/01/23 08/01/23 18:59 06:59 18:59 Output Total 1600 800 Balance -1600 -800 Weight 127 kg 127 kg Output: Urine 1600 800 Uretheral (Mcconnell) 800 Other: Voiding Method Indwelling Catheter External Catheter # Voids 1 # Bowel Movements 1 ABP, PAP, CO, CI - Last Documented Arterial Blood Pressure 119/59 - Exam Gen. appearance: Reveals a 68-year-old male patient. No acute distress, awake and alert, on nasal O2 at 3 L. Saturations are 100%. HEENT examination is grossly unremarkable. Neck supple. Full range of motion. No adenopathy thyromegaly or neck vein distention. Cardiovascular examination reveals regular rhythm rate. S1-S2 normal. No S3 or S4. No discernible murmur noted. Heart sounds are distant. Lungs reveal scattered bilateral rhonchi. Breath sounds are equal bilaterally. No crackles. Abdomen soft, without bowel sounds. No masses. Extremities are intact. No cyanosis clubbing or edema. Skin is without rash or lesion. Neurologic examination reveals a patient who is awake, but somewhat confused. - Labs CBC & Chem 7: 08/01/23 06:30 08/01/23 06:30 Labs: Abnormal Lab Results - Last 24 Hours (Table) 07/31/23 07/31/23 07/31/23 Range/Units 16:39 19:45 23:54 WBC (3.8-10.6) k/uL RBC (4.30-5.90) m/uL Hgb (13.0-17.5) gm/dL MCV (80.0-100.0) fL Sodium (137-145) mmol/L Potassium (3.5-5.1) mmol/L Carbon Dioxide (22-30) mmol/L BUN (9-20) mg/dL Creatinine (0.66-1.25) mg/dL Glucose (74-99) mg/dL POC Glucose (mg/dL) 252 H 179 H 150 H (70-110) mg/dL C-Reactive Protein (<1.0) mg/dL 08/01/23 08/01/23 08/01/23 Range/Units 05:05 06:30 06:30 WBC 12.1 H (3.8-10.6) k/uL RBC 3.98 L (4.30-5.90) m/uL Hgb 12.6 L (13.0-17.5) gm/dL MCV 101.4 H (80.0-100.0) fL Sodium 148 H (137-145) mmol/L Potassium 3.3 L (3.5-5.1) mmol/L Carbon Dioxide 39 H (22-30) mmol/L BUN 46 H (9-20) mg/dL Creatinine 1.38 H (0.66-1.25) mg/dL Glucose 127 H (74-99) mg/dL POC Glucose (mg/dL) 114 H (70-110) mg/dL C-Reactive Protein 1.9 H (<1.0) mg/dL Assessment and Plan Assessment: Acute hypoxemic and hypercapnic respiratory failure, secondary to cardiac arrest, with a prolonged downtime, with initial intubation, on July 16, and extubation on July 25, and then reintubation on July 28, for worsening respiratory status. S/P re-extubation, on 07/29/2023. Currently stable and on 3 L nasal cannula. Acute coronavirus infection. Chronic atrial fibrillation. Morbid obesity. Type 2 diabetes mellitus. Obstructive sleep apnea syndrome. Recent hospitalization for bilateral pneumonia. Chronic bronchial asthma. Acute kidney injury, secondary to cardiac arrest. Nonspecific pulmonary nodules. Benign essential hypertension. Anoxic brain injury with hypoxemic encephalopathy. Right lower lobe pneumonia/consolidation, secondary to Escherichia coli, and methicillin-resistant staph aureus. Plan: The patient was seen and evaluated Labs and medications reviewed Currently stable and on 3 L nasal cannula Titrate down the FiO2 as tolerated Discontinue Decadron Discontinue IV Lasix, add Lasix by mouth 40 mg daily Discontinue antibiotics Plan will be for discharge to subacute rehabilitation DO NOT RESUSCITATE/DO NOT INTUBATE CODE STATUS I have personally seen and examined the patient, performed the documentation and the assessment and plan as written. Number of minutes spent on the visit: 10.
[2023-08-01 11:47] LABS: Glucose,Whole Blood 184 mg/dL (70-110)
--- NOTE | 2023-08-01 12:46 | P.PN ---
Subjective Progress Note Date: 08/01/23 * 68-year-old male who had an initial cardiac arrest. The patient was initially admitted on July 16, for respiratory failure, and was intubated on the same day, July 16. He was extubated on July 25, but unfortunately last night, he was reintubated, for worsening respiratory failure. Patient was eventually extubated on 07/29 and transferred out of ICU * 07/31: Patient evaluated and bedside, plan discussed with family. Notified covering Dr. Rhodes through the weekend. Patient worked with physical therapy. Continue to have dysarthria. We're system limited secondary to mentation * 08/01: Patient seen and everted bedside, mentation seems to be improving patient following commands able to whisper. Blood work reviewed potassium replaced Objective - Vital Signs Vital signs: Vital Signs Temp 97.4 F L 08/01/23 08:06 Pulse 83 08/01/23 08:06 Resp 19 08/01/23 08:06 BP 117/75 08/01/23 08:06 Pulse Ox 100 08/01/23 08:06 FiO2 50 07/29/23 08:37 Intake & Output 07/31/23 08/01/23 08/01/23 18:59 06:59 18:59 Output Total 1600 800 Balance -1600 -800 Weight 127 kg 127 kg Output: Urine 1600 800 Uretheral (M[place]onnell) 800 Other: Voiding Method Indwelling Catheter External Catheter External Catheter # Voids 1 # Bowel Movements 1 ABP, PAP, CO, CI - Last Documented Arterial Blood Pressure 119/59 - Exam PHYSICAL EXAMINATION: GENERAL: The patient is alert and oriented x1 , ill appearance, following commands mentation improved HEENT: Pupils are round and equally reacting to light. EOMI. CARDIOVASCULAR: S1 and S2 present. No murmurs, rubs, or gallops. PULMONARY: Increased breath sounds bilaterally. ABDOMEN: Soft, nontender, nondistended, normoactive bowel sounds. No palpable organomegaly. MUSCULOSKELETAL: No joint swelling or deformity. EXTREMITIES: No lower extremity edema NEUROLOGICAL: Patient slightly better, anoxic encephalopathy able to move upper and lower extremities - Labs CBC & Chem 7: 08/01/23 06:30 08/01/23 06:30 Labs: Abnormal Lab Results - Last 24 Hours (Table) 07/31/23 07/31/23 07/31/23 Range/Units 16:39 19:45 23:54 WBC (3.8-10.6) k/uL RBC (4.30-5.90) m/uL Hgb (13.0-17.5) gm/dL MCV (80.0-100.0) fL Sodium (137-145) mmol/L Potassium (3.5-5.1) mmol/L Carbon Dioxide (22-30) mmol/L BUN (9-20) mg/dL Creatinine (0.66-1.25) mg/dL Glucose (74-99) mg/dL POC Glucose (mg/dL) 252 H 179 H 150 H (70-110) mg/dL C-Reactive Protein (<1.0) mg/dL 08/01/23 08/01/23 08/01/23 Range/Units 05:05 06:30 06:30 WBC 12.1 H (3.8-10.6) k/uL RBC 3.98 L (4.30-5.90) m/uL Hgb 12.6 L (13.0-17.5) gm/dL MCV 101.4 H (80.0-100.0) fL Sodium 148 H (137-145) mmol/L Potassium 3.3 L (3.5-5.1) mmol/L Carbon Dioxide 39 H (22-30) mmol/L BUN 46 H (9-20) mg/dL Creatinine 1.38 H (0.66-1.25) mg/dL Glucose 127 H (74-99) mg/dL POC Glucose (mg/dL) 114 H (70-110) mg/dL C-Reactive Protein 1.9 H (<1.0) mg/dL 08/01/23 Range/Units 11:45 WBC (3.8-10.6) k/uL RBC (4.30-5.90) m/uL Hgb (13.0-17.5) gm/dL MCV (80.0-100.0) fL Sodium (137-145) mmol/L Potassium (3.5-5.1) mmol/L Carbon Dioxide (22-30) mmol/L BUN (9-20) mg/dL Creatinine (0.66-1.25) mg/dL Glucose (74-99) mg/dL POC Glucose (mg/dL) 184 H (70-110) mg/dL C-Reactive Protein (<1.0) mg/dL Assessment and Plan Assessment: * Acute hypoxemic and hypercapnic respiratory failure, secondary to cardiac arrest, with a prolonged downtime, with initial intubation, on July 16, and extubation on July 25, and then reintubation on July 28, for worsening respiratory status. S/P re-extubation, on 07/29/2023. Currently stable and on 3 L nasal cannula. * Acute coronavirus infection. * Chronic atrial fibrillation. * Right lower lobe pneumonia secondary to MRSA and E. coli * Anoxic brain injury with hypoxic encephalopathy * Acute kidney injury secondary to cardiac arrest * History of hypertension * Obstructive sleep apnea * Morbid obesity * Prolonged hospitalization with complicated course requiring reintubation. Extubated 07/29. Continue patient on oxygen supplementation CODE STATUS is DO NOT RESUSCITATE limited interventions * In regards to arterial pneumonia continue Zosyn , >> vancomycin discontinued per ID * In regards to history of asthma continue patient on breathing treatments on Symbicort, albuterol as needed * In regards to history of diabetes mellitus continue patient on NovoLog and correctional insulin * In regards to history affective fibrillation continue metoprolol, continues xarelto * Patient will need intensive physical therapy and occupational therapy prognosis remains guarded
[2023-08-01] MEDS: POTASSIUM CHLORIDE 10 MEQ in WATER FOR INJECTION 1 100ML.BAG IVPB SCH ×2 (14:28→14:29)
[2023-08-01 16:37] LABS: Glucose,Whole Blood 199 mg/dL (70-110)
[2023-08-01] MEDS: INSULIN DETEMIR (LEVEMIR) 100 UNIT/ML SYR SQ SCH (21:17)
[2023-08-01 23:43] LABS: Glucose,Whole Blood 145 mg/dL (70-110)
[2023-08-02 00:39] LABS: Glucose,Whole Blood 144 mg/dL (70-110)
[2023-08-02] MEDS: SODIUM CHLORIDE 0.9% 1,000 ML IV SCH (03:32)
[2023-08-02 06:12] LABS: Glucose,Whole Blood 126 mg/dL (70-110)
[2023-08-02] MEDS: INSULIN ASPART (NovoLOG) 100 UNIT/ML VIAL SQ SCH ×3 (06:23→17:11)
[2023-08-02] MEDS: RIVAROXABAN 20 MG TAB PO SCH (06:28)
[2023-08-02] MEDS: SYMBICORT 160-4.5 MCG INHALER INHALATION SCH ×2 (08:00→20:27)
[2023-08-02] MEDS: ALBUTEROL HFA INHALER INHALATION SCH ×4 (08:00→20:27)
[2023-08-02] MEDS ORDERED: FUROSEMIDE 10 MG/ML 2 ML VIAL IV STA (08:14)
[2023-08-02 08:56] LABS: HCT 40.2 % (39.0-53.0); HGB 13.5 gm/dL (13.0-17.5); MCH 33.3 pg (25.0-35.0); MCHC 33.7 g/dL (31.0-37.0); MCV 98.7 fL (80.0-100.0); Mean Platelet Volume 9.8; Platelet Count 146 k/uL (150-450); RBC 4.07 m/uL (4.30-5.90); RDW 14.7 % (11.5-15.5); WBC 14.7 k/uL (3.8-10.6)
[2023-08-02] MEDS: ATORVASTATIN 20 MG TAB PO SCH (08:56)
[2023-08-02] MEDS: FUROSEMIDE 40 MG TAB PO SCH (08:56)
[2023-08-02] MEDS: METOPROLOL TARTRATE 50 MG TAB PO SCH ×2 (08:56→21:13)
[2023-08-02] MEDS: PANTOPRAZOLE 40 MG/10 ML VIAL IV SCH (08:56)
[2023-08-02 08:58] LABS: African American GFR (CKD) 79 (>60 ml/min/1.73 sqM); Anion Gap 6 mmol/L; Blood Urea Nitrogen 48 mg/dL (9-20); Calcium 9.3 mg/dL (8.4-10.2); Carbon Dioxide 34 mmol/L (22-30); Chloride 108 mmol/L (98-107); Glucose 131 mg/dL (74-99); Non-African American GFR(CKD) 68 (>60 ml/min/1.73 sqM); Potassium 4.8 mmol/L (3.5-5.1); Sodium 148 mmol/L (137-145)
[2023-08-02] MEDS: NYSTATIN 100,000 UNIT/ML SUSP 500,000 UNIT/5 ML CUP PO SCH ×4 (09:42→21:13)
--- NOTE | 2023-08-02 11:13 | P.PN ---
Subjective Progress Note Date: 08/02/23 Progress note dated 07/28/2023. This is a 68-year-old male who had an initial cardiac arrest. The patient was initially admitted on July 16, for respiratory failure, and was intubated on the same day, July 16. He was extubated on July 25, but unfortunately last night, he was reintubated, for worsening respiratory failure. He remains on mechanical ventilator, with assist control mode, rate 20, tidal volume 500, FiO2 50%, PEEP of 10. Blood gases show a PaO2 of 258, pCO2 43, and a pH is 7.51 . This blood gases were done in the 100%. The patient was reduced on the 70%, and further down to 50%, other respiratory therapist. The patient's getting saline at 20 mL an hour, norepinephrine at 3.4 mcg/m, and propofol at 25 mcg/kg/m. 2 feedings have not yet been started. I did asked the nurses to resume that today. His neurologic status is very poor, and was very poor, according to the nurses, which I have spoken to today. White count 20.5, hemoglobin 12.1, hematocrit 38.9, with a normal platelet count. Sodium 144, potassium 3.9, chlorides 106, CO2 34, BUN 53, creatinine 1.22. Glucose is 271. Sputum shows evidence of Escherichia coli, and methicillin-resistant staph aureus. Currently, he is on Zosyn and vancomycin. Chest x-ray shows bilateral pleural effusions, with some lower lobe atelectasis or infiltrates. Progress note dated 07/29/2023. 68-year-old male, that is post cardiac arrest. The patient was initially admitted to the hospital on July 16 for respiratory failure, and was intubated on the same day, July 16. He was extubated successfully on July 25, but, was reintubated on July 28, for respiratory failure. The patient was on the ventilator this morning, awake and alert, The patient's ventilator settings include a assist control mode, rate 20, tidal volume 500, FiO2 50%, and PEEP of 10. Blood gases showed a pO2 of 101, pCO2 43, and a pH is 7.52. The patient is currently on saline at 20 mL an hour, and both propofol, and norepinephrine, have been turned off. The patient had a set a weaning parameters, on pressure support of 10 and CPAP of 5, that were excellent, including a very low rapid shallow breathing index, and adequate minute volume, and a positive cuff leak. That reason, the patient will be extubated. We confirm with the , that the patient would not require need reintubation, regardless of how he does this time. White count 19.5, hemoglobin 11.7, hematocrit 36.4, and platelet count is normal. Sodium 145, potassium 3.4, chlorides 106, CO2 35, BUN 56, and creatinine 1.49. Chest x-ray shows improving bibasilar infiltrates. Sputum was positive for both Escherichia coli, and, methicillin-resistant staph aureus. Progress note dated 07/30/2023. 68-year-old male status post cardiac arrest, who was successfully extubated for the second time, yesterday. The patient is a DO NOT RESUSCITATE patient. He's currently on 3 L of oxygen. Is getting saline at 20 mL an hour, and he continues on Zosyn and vancomycin. Again, he was successfully extubated, for the second time on July 29. The first time on July 25. He was reintubated the second time, on July 28. White count 15.1, hemoglobin 11.7, hematocrit 36.6, with a normal platelet count. Sodium 146, potassium 3.5, chlorides 105, CO2 37, BUN 50, creatinine 1.5. Chest x-ray shows cardiomegaly, with a small right pleural effusion, and mild patchy bibasilar atelectasis or infiltrate. Sputum sampling was positive for both Escherichia coli, and methicillin-resistant staph aureus. The patient is seen today 07/31/2023 in follow-up on the regular medical floor. He is currently resting comfortably in bed. Awake and alert in no acute di stress. He is maintaining O2 saturations in the high 90s on 3 L/m per nasal cannula. He is afebrile. Hemodynamically stable. Follow-up sputum cultures positive for oxacillin sensitive staph aureus. Creatinine 1.29. Glucose 127. He is continued on Symbicort, albuterol, Decadron. Antibiotics in the form of vancomycin and Zosyn. Anticoagulated with Xarelto. Remains on IV diuretics. Currently in a -2.7 L balance. The patient is seen today 08/01/2023 in follow-up on the regular medical floor. He is awake and alert in no acute distress. He is currently maintaining O2 saturations in the 90s on 3 L/m per nasal cannula. No IV fluids. He remains on Zosyn and vancomycinfor E. coli and MSSA in the sputum cultures. White count 12.1. Hemoglobin 12.6. Platelets 172. Sodium 148. Potassium 3.3. Potassium bicarb 39. BUN 46. Creatinine 1.38. Glucose 127. Random vancomycin 14.8. He did undergo swallow evaluation. He remains on a level I pureed diet. [place] thick liquids. He is continued on Symbicort, albuterol, Decadron. Anticoagulated with Xarelto. Remains on IV diuretics. Currently in a -2.4 L balance. The patient is seen today 08/02/2023 in follow-up on the regular medical floor. He is currently resting in bed. Awake and alert in no acute distress. Maintaining O2 saturations in the 90s on 3 L/m per nasal cannula. He has normal saline and 20 ML's per hour. White count 14.7. Hemoglobin 13.5. Platelets 146. Sodium 148. Bicarb 34. BUN 48. Creatinine 1.09. Glucose 131. He is continued on Symbicort, albuterol HFA. Anticoagulated with Xarelto. Remains on oral diuretics. Currently in a -1.2 L balance. Objective - Vital Signs Vital signs: Vital Signs Temp 98.2 F 08/02/23 07:52 Pulse 77 08/02/23 07:52 Resp 20 08/02/23 07:52 BP 130/86 08/02/23 07:52 Pulse Ox 95 08/02/23 07:52 FiO2 50 07/29/23 08:37 Intake & Output 08/01/23 08/02/23 08/02/23 18:59 06:59 18:59 Output Total 750 500 Balance -750 -500 Weight 126 kg Output: Urine 750 500 Other: Voiding Method External Catheter External Catheter External Catheter ABP, PAP, CO, CI - Last Documented Arterial Blood Pressure 119/59 - Exam Gen. appearance: Reveals a 68-year-old male patient. Sitting up in bed. No acute distress, awake and alert, on O2 at 3 L nasal cannula. HEENT examination is grossly unremarkable. Neck supple. Full range of motion. No adenopathy thyromegaly or neck vein distention. Cardiovascular examination reveals regular rhythm rate. S1-S2 normal. No S3 or S4. No discernible murmur noted. Heart sounds are distant. Lungs reveal scattered bilateral rhonchi. Breath sounds are equal bilaterally. No crackles. Abdomen soft, without bowel sounds. No masses. Extremities are intact. No cyanosis clubbing or edema. Skin is without rash or lesion. Neurologic examination reveals a patient who is awake, but somewhat confused. - Labs CBC & Chem 7: 08/02/23 07:16 08/02/23 07:16 Labs: Abnormal Lab Results - Last 24 Hours (Table) 08/01/23 08/01/23 08/01/23 Range/Units 11:45 16:35 23:41 WBC (3.8-10.6) k/uL RBC (4.30-5.90) m/uL Plt Count (150-450) k/uL Sodium (137-145) mmol/L Chloride (98-107) mmol/L Carbon Dioxide (22-30) mmol/L BUN (9-20) mg/dL Glucose (74-99) mg/dL POC Glucose (mg/dL) 184 H 199 H 145 H (70-110) mg/dL 08/02/23 08/02/23 08/02/23 Range/Units 00:38 06:10 07:16 WBC (3.8-10.6) k/uL RBC (4.30-5.90) m/uL Plt Count (150-450) k/uL Sodium 148 H (137-145) mmol/L Chloride 108 H (98-107) mmol/L Carbon Dioxide 34 H (22-30) mmol/L BUN 48 H (9-20) mg/dL Glucose 131 H (74-99) mg/dL POC Glucose (mg/dL) 144 H 126 H (70-110) mg/dL 08/02/23 Range/Units 07:16 WBC 14.7 H (3.8-10.6) k/uL RBC 4.07 L (4.30-5.90) m/uL Plt Count 146 L (150-450) k/uL Sodium (137-145) mmol/L Chloride (98-107) mmol/L Carbon Dioxide (22-30) mmol/L BUN (9-20) mg/dL Glucose (74-99) mg/dL POC Glucose (mg/dL) (70-110) mg/dL Assessment and Plan Assessment: Acute hypoxemic and hypercapnic respiratory failure, secondary to cardiac arrest, with a prolonged downtime, with initial intubation, on July 16, and extubation on July 25, and then reintubation on July 28, for worsening respiratory status. S/P re-extubation, on 07/29/2023. Currently stable and on 3 L nasal cannula. Acute coronavirus infection. Chronic atrial fibrillation. Morbid obesity. Type 2 diabetes mellitus. Obstructive sleep apnea syndrome. Recent hospitalization for bilateral pneumonia. Chronic bronchial asthma. Acute kidney injury, secondary to cardiac arrest. Nonspecific pulmonary nodules. Benign essential hypertension. Anoxic brain injury with hypoxemic encephalopathy. Right lower lobe pneumonia/consolidation, secondary to Escherichia coli, and methicillin-resistant staph aureus. Plan: The patient was seen and evaluated Labs and medications reviewed Currently stable and on 3 L nasal cannula Titrate down the FiO2 as tolerated Cleared for discharge to subacute rehabilitation DO NOT RESUSCITATE/DO NOT INTUBATE CODE STATUS I have personally seen and examined the patient, performed the documentation and the assessment and plan as written. Number of minutes spent on the visit: 10.
[2023-08-02 11:52] LABS: Glucose,Whole Blood 179 mg/dL (70-110)
--- NOTE | 2023-08-02 11:58 | P.PN ---
Subjective Progress Note Date: 08/02/23 * 68-year-old male who had an initial cardiac arrest. The patient was initially admitted on July 16, for respiratory failure, and was intubated on the same day, July 16. He was extubated on July 25, but unfortunately last night, he was reintubated, for worsening respiratory failure. Patient was eventually extubated on 07/29 and transferred out of ICU * 07/31: Patient evaluated and bedside, plan discussed with family. Notified covering Dr. Rhodes through the weekend. Patient worked with physical therapy. Continue to have dysarthria. We're system limited secondary to mentation * 08/01: Patient seen and everted bedside, mentation seems to be improving patient following commands able to whisper. Blood work reviewed potassium replaced * 08/02: Patient seen and evaluated bedside. Patient started on oral nystatin for thrush. Noted to have hypernatremia overnight patient was given 1 dose of Lasix continue to monitor serum sodium levels encouraged increase oral intake Objective - Vital Signs Vital signs: Vital Signs Temp 98.7 F 08/01/23 20:00 Pulse 89 08/01/23 20:00 Resp 17 08/01/23 20:00 BP 118/76 08/01/23 20:00 Pulse Ox 93 L 08/01/23 13:54 FiO2 50 07/29/23 08:37 Intake & Output 08/01/23 08/01/23 08/02/23 06:59 18:59 06:59 Output Total 800 750 Balance -800 -750 Weight 127 kg Output: Urine 800 750 Other: Voiding Method External Catheter External Catheter External Catheter # Voids 1 ABP, PAP, CO, CI - Last Documented Arterial Blood Pressure 119/59 - Exam PHYSICAL EXAMINATION: GENERAL: The patient is alert and oriented x1 , ill appearance, following commands mentation improved HEENT: Pupils are round and equally reacting to light. EOMI. CARDIOVASCULAR: S1 and S2 present. No murmurs, rubs, or gallops. PULMONARY: Increased breath sounds bilaterally. ABDOMEN: Soft, nontender, nondistended, normoactive bowel sounds. No palpable organomegaly. MUSCULOSKELETAL: No joint swelling or deformity. EXTREMITIES: No lower extremity edema NEUROLOGICAL: Patient slightly better, anoxic encephalopathy able to move upper and lower extremities - Labs CBC & Chem 7: 08/02/23 07:16 08/02/23 07:16 Labs: Abnormal Lab Results - Last 24 Hours (Table) 08/01/23 08/01/23 08/01/23 Range/Units 05:05 06:30 06:30 WBC 12.1 H (3.8-10.6) k/uL RBC 3.98 L (4.30-5.90) m/uL Hgb 12.6 L (13.0-17.5) gm/dL MCV 101.4 H (80.0-100.0) fL Sodium 148 H (137-145) mmol/L Potassium 3.3 L (3.5-5.1) mmol/L Carbon Dioxide 39 H (22-30) mmol/L BUN 46 H (9-20) mg/dL Creatinine 1.38 H (0.66-1.25) mg/dL Glucose 127 H (74-99) mg/dL POC Glucose (mg/dL) 114 H (70-110) mg/dL C-Reactive Protein 1.9 H (<1.0) mg/dL 08/01/23 08/01/23 08/01/23 Range/Units 11:45 16:35 23:41 WBC (3.8-10.6) k/uL RBC (4.30-5.90) m/uL Hgb (13.0-17.5) gm/dL MCV (80.0-100.0) fL Sodium (137-145) mmol/L Potassium (3.5-5.1) mmol/L Carbon Dioxide (22-30) mmol/L BUN (9-20) mg/dL Creatinine (0.66-1.25) mg/dL Glucose (74-99) mg/dL POC Glucose (mg/dL) 184 H 199 H 145 H (70-110) mg/dL C-Reactive Protein (<1.0) mg/dL 08/02/23 Range/Units 00:38 WBC (3.8-10.6) k/uL RBC (4.30-5.90) m/uL Hgb (13.0-17.5) gm/dL MCV (80.0-100.0) fL Sodium (137-145) mmol/L Potassium (3.5-5.1) mmol/L Carbon Dioxide (22-30) mmol/L BUN (9-20) mg/dL Creatinine (0.66-1.25) mg/dL Glucose (74-99) mg/dL POC Glucose (mg/dL) 144 H (70-110) mg/dL C-Reactive Protein (<1.0) mg/dL Assessment and Plan Assessment: * Acute hypoxemic and hypercapnic respiratory failure, secondary to cardiac arrest, with a prolonged downtime, with initial intubation, on July 16, and extubation on July 25, and then reintubation on July 28, for worsening respiratory status. S/P re-extubation, on 07/29/2023. Currently stable and on 3 L nasal cannula. * Acute coronavirus infection. * Chronic atrial fibrillation. * Right lower lobe pneumonia secondary to MRSA and E. coli * Anoxic brain injury with hypoxic encephalopathy * Acute kidney injury secondary to cardiac arrest * History of hypertension * Obstructive sleep apnea * Morbid obesity * Prolonged hospitalization with complicated course requiring reintubation. Extubated 07/29. Continue patient on oxygen supplementation CODE STATUS is DO NOT RESUSCITATE limited interventions * In regards to arterial pneumonia continue Zosyn , >> vancomycin discontinued per ID * In regards to history of asthma continue patient on breathing treatments on Symbicort, albuterol as needed * In regards to history of diabetes mellitus continue patient on NovoLog and correctional insulin * In regards to history affective fibrillation continue metoprolol, continues xarelto * Patient will need intensive physical therapy and occupational therapy prognos is remains guarded
[2023-08-02 17:04] LABS: Glucose,Whole Blood 168 mg/dL (70-110)
[2023-08-02] MEDS: INSULIN DETEMIR (LEVEMIR) 100 UNIT/ML SYR SQ SCH (21:14)
[2023-08-02 22:01] LABS: Glucose,Whole Blood 172 mg/dL (70-110)
[2023-08-03 00:08] LABS: Glucose,Whole Blood 153 mg/dL (70-110)
[2023-08-03] MEDS: INSULIN ASPART (NovoLOG) 100 UNIT/ML VIAL SQ SCH ×4 (00:56→18:35)
[2023-08-03 06:19] LABS: Glucose,Whole Blood 154 mg/dL (70-110)
[2023-08-03] MEDS: RIVAROXABAN 20 MG TAB PO SCH (06:31)
[2023-08-03] MEDS: SODIUM CHLORIDE 0.9% 1,000 ML IV SCH (06:31)
[2023-08-03 07:20] LABS: African American GFR (CKD) >90 (>60 ml/min/1.73 sqM); Anion Gap 4 mmol/L; Blood Urea Nitrogen 45 mg/dL (9-20); Calcium 9.3 mg/dL (8.4-10.2); Carbon Dioxide 37 mmol/L (22-30); Chloride 107 mmol/L (98-107); Glucose 172 mg/dL (74-99); Non-African American GFR(CKD) 79 (>60 ml/min/1.73 sqM); Sodium 148 mmol/L (137-145)
[2023-08-03 07:21] LABS: Potassium 3.8 mmol/L (3.5-5.1)
[2023-08-03] MEDS: ALBUTEROL HFA INHALER INHALATION SCH ×4 (08:49→20:45)
[2023-08-03] MEDS: SYMBICORT 160-4.5 MCG INHALER INHALATION SCH ×2 (08:50→20:45)
[2023-08-03] MEDS: METOPROLOL TARTRATE 50 MG TAB PO SCH ×2 (09:27→22:08)
[2023-08-03] MEDS: FUROSEMIDE 40 MG TAB PO SCH (09:27)
[2023-08-03] MEDS: DOCUSATE ORAL SOLN 100 MG/10 ML CUP PO SCH (09:28)
[2023-08-03] MEDS: ATORVASTATIN 20 MG TAB PO SCH (09:28)
[2023-08-03] MEDS: NYSTATIN 100,000 UNIT/ML SUSP 500,000 UNIT/5 ML CUP PO SCH ×4 (09:28→22:07)
[2023-08-03] MEDS: PANTOPRAZOLE 40 MG/10 ML VIAL IV SCH (09:28)
[2023-08-03 10:44] LABS: Glucose,Whole Blood 148 mg/dL (70-110)
[2023-08-03 10:55] LABS: HCT 42.9 % (39.6-50.0); MCHC 30.3 d/dL (32.0-37.0); MCV 102.1 FL (80.0-97.0); Mean Platelet Volume 11.9 FL (9.5-12.2); NRBC Per 100 WBC 0.02 X 10*3/uL (0.00-0.01); Platelet Count 128 X 10*3/uL (140-440); RDW 14.5 % (11.5-14.5); WBC 17.06 X 10*3/uL (4.50-10.00)
--- NOTE | 2023-08-03 14:39 | P.PN ---
Subjective Progress Note Date: 08/03/23 On today's evaluation of 08/03/2023, I'm seeing the patient for a follow-up. The patient is post cardiac arrest. The patient is resting comfortably in bed. He is doing limited amount of communication. Overall, he remains quite weak and debilitated. He has successfully survived his cardiac arrest and the patient was extubated and the patient is currently on 3 L O2 nasal cannula. Note that the patient was also diagnosed having a Covid 19 infection during this current hospitalization. He has diabetes mellitus type 2, obstructive sleep apnea, bronchial asthma, and hypertension. His blood work today shows a white cell count of 17, hemoglobin of 13, platelets of 128, BUN is at 45 with a creatinine of 0.98. The sodium level is at 148. The patient is on albuterol HFA 4 times a day, Symbicort as maintenance, Lasix 40 mg by mouth daily, metoprolol 50 mg twice a day and is also on anticoagulations with Xarelto. His oral intake is quite diminished although I was told by the nursing staff that he's been progressively eating better. His sputum culture was positive for staph aureus. I have 2 samples of sputum, the earlier sputum sample that was obtained on 07/21/2023 was positive for E. coli and MRSA. Patient completed his antibiotic course. Most recent chest x-ray done on 07/30/2023 showed cardiomegaly and a small right-sided pleural effusion along with some atelectatic changes in the lung bases bilaterally. The patient otherwise is resting comfortably in bed. The is at the bedside. Objective - Vital Signs Vital signs: Vital Signs Temp 97.4 F L 08/03/23 07:25 Pulse 95 08/03/23 07:25 Resp 16 08/03/23 07:25 BP 139/88 08/03/23 07:25 Pulse Ox 95 08/03/23 08:50 FiO2 50 07/29/23 08:37 Intake & Output 08/02/23 08/03/23 08/03/23 18:59 06:59 18:59 Output Total 550 400 Balance -550 -400 Weight 124.5 kg Output: Urine 550 400 Other: Voiding Method External Catheter External Catheter ABP, PAP, CO, CI - Last Documented Arterial Blood Pressure 119/59 - Exam Gen. appearance: Reveals a 68-year-old male patient. Sitting up in bed. No acute distress, awake and alert, on O2 at 3 L nasal cannula. HEENT examination is grossly unremarkable. Neck supple. Full range of motion. No adenopathy thyromegaly or neck vein distention. Cardiovascular examination reveals regular rhythm rate. S1-S2 normal. No S3 or S4. No discernible murmur noted. Heart sounds are distant. Lungs reveal scattered bilateral rhonchi. Breath sounds are equal bilaterally. No crackles. Abdomen soft, without bowel sounds. No masses. Extremities are intact. No cyanosis clubbing or edema. Skin is without rash or lesion. Neurologic examination reveals a patient who is awake, but somewhat confused. He is able to communicate short sentences. He is not following commands consistently. There is generalized motor weakness in all 4 extremities. - Labs CBC & Chem 7: 08/03/23 06:38 08/03/23 06:38 Labs: Abnormal Lab Results - Last 24 Hours (Table) 08/02/23 08/02/23 08/02/23 Range/Units 11:50 17:03 22:00 WBC (4.50-10.00) X 10*3/uL RBC (4.40-5.60) X 10*6/uL MCV (80.0-97.0) FL MCHC (32.0-37.0) d/dL Plt Count (140-440) X 10*3/uL NRBC/100 WBC Diff (0.00-0.01) X 10*3/uL Sodium (137-145) mmol/L Carbon Dioxide (22-30) mmol/L BUN (9-20) mg/dL Glucose (74-99) mg/dL POC Glucose (mg/dL) 179 H 168 H 172 H (70-110) mg/dL 08/03/23 08/03/23 08/03/23 Range/Units 00:06 06:18 06:38 WBC (4.50-10.00) X 10*3/uL RBC (4.40-5.60) X 10*6/uL MCV (80.0-97.0) FL MCHC (32.0-37.0) d/dL Plt Count (140-440) X 10*3/uL NRBC/100 WBC Diff (0.00-0.01) X 10*3/uL Sodium 148 H (137-145) mmol/L Carbon Dioxide 37 H (22-30) mmol/L BUN 45 H (9-20) mg/dL Glucose 172 H (74-99) mg/dL POC Glucose (mg/dL) 153 H 154 H (70-110) mg/dL 08/03/23 08/03/23 Range/Units 06:38 10:43 WBC 17.06 H (4.50-10.00) X 10*3/uL RBC 4.20 L (4.40-5.60) X 10*6/uL MCV 102.1 H (80.0-97.0) FL MCHC 30.3 L (32.0-37.0) d/dL Plt Count 128 L (140-440) X 10*3/uL NRBC/100 WBC Diff 0.02 H (0.00-0.01) X 10*3/uL Sodium (137-145) mmol/L Carbon Dioxide (22-30) mmol/L BUN (9-20) mg/dL Glucose (74-99) mg/dL POC Glucose (mg/dL) 148 H (70-110) mg/dL Assessment and Plan Plan: Acute hypoxemic and hypercapnic respiratory failure, secondary to cardiac arrest, with a prolonged downtime, with initial intubation, on July 16, and extubation on July 25, and then reintubation on July 28, for worsening respiratory status. S/P re-extubation, on 07/29/2023. Currently stable and on 3 L nasal cannula. Acute coronavirus infection, treated and the patient is recovered Chronic atrial fibrillation. The rate is controlled and the patient is currently on anticoagulation Encephalopathy post cardiac arrest, continues to have generalized motor weakness in all 4 extremities. Morbid obesity. Type 2 diabetes mellitus. Obstructive sleep apnea syndrome. Recent hospitalization for bilateral pneumonia. infection was secondary to E. coli and MRSA, treated with a combination of Zosyn and vancomycin. Chronic bronchial asthma. Acute kidney injury, secondary to cardiac arrest. Nonspecific pulmonary nodules. Benign essential hypertension. Anoxic brain injury with hypoxemic encephalopathy. Right lower lobe pneumonia/consolidation, secondary to Escherichia coli, and methicillin-resistant staph aureus. Plan: Repeat chest x-ray in the morning Physical therapy Advance diet Incentive spirometer Monitor electrolytes DO NOT RESUSCITATE/DO NOT INTUBATE CODE STATUS
[2023-08-03 16:13] LABS: Glucose,Whole Blood 205 mg/dL (70-110)
[2023-08-03 18:16] LABS: Glucose,Whole Blood 188 mg/dL (70-110)
[2023-08-03] MEDS: INSULIN DETEMIR (LEVEMIR) 100 UNIT/ML SYR SQ SCH (22:08)
[2023-08-03 22:09] LABS: Glucose,Whole Blood 201 mg/dL (70-110)
[2023-08-03 23:46] LABS: Glucose,Whole Blood 203 mg/dL (70-110)
[2023-08-04] MEDS: INSULIN ASPART (NovoLOG) 100 UNIT/ML VIAL SQ SCH ×5 (00:59→23:55)
[2023-08-04 06:11] LABS: Glucose,Whole Blood 144 mg/dL (70-110)
[2023-08-04] MEDS: SODIUM CHLORIDE 0.9% 1,000 ML IV SCH (06:34)
[2023-08-04] MEDS: METOPROLOL TARTRATE 50 MG TAB PO SCH ×2 (08:17→21:09)
[2023-08-04] MEDS: PANTOPRAZOLE 40 MG/10 ML VIAL IV SCH (08:17)
[2023-08-04] MEDS: FUROSEMIDE 40 MG TAB PO SCH (08:17)
[2023-08-04] MEDS: RIVAROXABAN 20 MG TAB PO SCH (08:17)
[2023-08-04] MEDS: ATORVASTATIN 20 MG TAB PO SCH (08:17)
[2023-08-04] MEDS: DOCUSATE ORAL SOLN 100 MG/10 ML CUP PO SCH (08:18)
[2023-08-04] MEDS: NYSTATIN 100,000 UNIT/ML SUSP 500,000 UNIT/5 ML CUP PO SCH ×4 (08:18→22:02)
--- NOTE | 2023-08-04 08:35 | P.PN ---
Subjective Progress Note Date: 08/03/23 Pt seen and evaluated at bedside. He feels his mouth is better. Voice remains very hoarse and pt complains of sore throat. He is on 3 LPM O2. Afebrile and cough is improved. Objective - Vital Signs Vital signs: Vital Signs Temp 98.4 F 08/04/23 07:48 Pulse 88 08/04/23 07:48 Resp 20 08/04/23 07:48 BP 126/75 08/04/23 07:48 Pulse Ox 97 08/04/23 07:48 FiO2 50 07/29/23 08:37 Intake & Output 08/03/23 08/04/23 08/04/23 18:59 06:59 18:59 Intake Total 200 240 Output Total 310 Balance 200 -70 Weight 124.5 kg 126 kg Intake: IV 240 Sodium Chloride 0.9% 1, 240 000 ml @ 20 mls/hr IV . Q24H ELIEZER Rx#:[id number] Oral 200 Output: Urine 310 Other: Voiding Method External Catheter External Catheter ABP, PAP, CO, CI - Last Documented Arterial Blood Pressure 119/59 - Exam Gen: well developed, NAD CV: RRR Lungs: Expiratory wheezing, no rales Skin: warm and dry - Labs CBC & Chem 7: 08/03/23 06:38 08/03/23 06:38 Labs: Abnormal Lab Results - Last 24 Hours (Table) 08/03/23 08/03/23 08/03/23 Range/Units 06:38 10:43 16:12 WBC 17.06 H (4.50-10.00) X 10*3/uL RBC 4.20 L (4.40-5.60) X 10*6/uL MCV 102.1 H (80.0-97.0) FL MCHC 30.3 L (32.0-37.0) d/dL Plt Count 128 L (140-440) X 10*3/uL NRBC/100 WBC Diff 0.02 H (0.00-0.01) X 10*3/uL POC Glucose (mg/dL) 148 H 205 H (70-110) mg/dL 08/03/23 08/03/23 08/03/23 Range/Units 18:15 22:06 23:44 WBC (4.50-10.00) X 10*3/uL RBC (4.40-5.60) X 10*6/uL MCV (80.0-97.0) FL MCHC (32.0-37.0) d/dL Plt Count (140-440) X 10*3/uL NRBC/100 WBC Diff (0.00-0.01) X 10*3/uL POC Glucose (mg/dL) 188 H 201 H 203 H (70-110) mg/dL 08/04/23 Range/Units 06:09 WBC (4.50-10.00) X 10*3/uL RBC (4.40-5.60) X 10*6/uL MCV (80.0-97.0) FL MCHC (32.0-37.0) d/dL Plt Count (140-440) X 10*3/uL NRBC/100 WBC Diff (0.00-0.01) X 10*3/uL POC Glucose (mg/dL) 144 H (70-110) mg/dL Assessment and Plan Plan: Wean O2 as tolerated. Incentive spirometry PT and OT. Continue nystatin
[2023-08-04] MEDS: ALBUTEROL HFA INHALER INHALATION SCH ×4 (09:54→21:39)
[2023-08-04] MEDS: SYMBICORT 160-4.5 MCG INHALER INHALATION SCH ×2 (09:54→21:38)
--- NOTE | 2023-08-04 11:10 | XR ---
EXAMINATION TYPE: XR chest 1V DATE OF EXAM: 08/04/2023 COMPARISON: 07/30/2023 HISTORY: 68-year-old male follow-up pneumonia TECHNIQUE: Single frontal view of the chest is obtained. FINDINGS: Left subclavian CVC tip at the upper to mid SVC. Heart is mildly enlarged. Ongoing small r ight pleural effusion with a mild patchy bibasilar opacities. Slightly low lung volumes are similar. IMPRESSION: Ongoing small right pleural effusion with adjacent atelectasis and/or consolidation. Mil d patchy left basilar atelectasis/infiltrate is also similar. Unchanged mild cardiomegaly.
[2023-08-04 11:26] LABS: Glucose,Whole Blood 184 mg/dL (70-110)
--- NOTE | 2023-08-04 11:49 | P.PN ---
Subjective Progress Note Date: 08/04/23 On today's evaluation of 08/03/2023, I'm seeing the patient for a follow-up. The patient is post cardiac arrest. The patient is resting comfortably in bed. He is doing limited amount of communication. Overall, he remains quite weak and debilitated. He has successfully survived his cardiac arrest and the patient was extubated and the patient is currently on 3 L O2 nasal cannula. Note that the patient was also diagnosed having a Covid 19 infection during this current hospitalization. He has diabetes mellitus type 2, obstructive sleep apnea, bronchial asthma, and hypertension. His blood work today shows a white cell count of 17, hemoglobin of 13, platelets of 128, BUN is at 45 with a creatinine of 0.98. The sodium level is at 148. The patient is on albuterol HFA 4 times a day, Symbicort as maintenance, Lasix 40 mg by mouth daily, metoprolol 50 mg twice a day and is also on anticoagulations with Xarelto. His oral intake is quite diminished although I was told by the nursing staff that he's been progressively eating better. His sputum culture was positive for staph aureus. I have 2 samples of sputum, the earlier sputum sample that was obtained on 07/21/2023 was positive for E. coli and MRSA. Patient completed his antibiotic course. Most recent chest x-ray done on 07/30/2023 showed cardiomegaly and a small right-sided pleural effusion along with some atelectatic changes in the lung bases bilaterally. The patient otherwise is resting comfortably in bed. The is at the bedside. On today's evaluation of 08/04/2023, the patient continues to show signs of anoxic encephalopathy. He is lethargic, not communicating at this point in time. Does not any seizures. Diffuse motor weakness in all 4 extremities. Has adequate cough. He is currently on 3 L of oxygen by nasal cannula. Repeat chest x-ray shows no interval change. Probably some atelectatic change in left lung base. Remains on Lasix 40 mg by mouth daily. He is being fed applesauce and soft criteria. His oral intake is quite diminished. I do not appreciate any significant change in his condition or improvement over the past 24 hours. Objective - Vital Signs Vital signs: Vital Signs Temp 98.4 F 08/04/23 07:48 Pulse 88 08/04/23 07:48 Resp 20 08/04/23 07:48 BP 126/75 08/04/23 07:48 Pulse Ox 97 08/04/23 07:48 FiO2 50 07/29/23 08:37 Intake & Output 08/03/23 08/04/23 08/04/23 18:59 06:59 18:59 Intake Total 200 240 Output Total 310 Balance 200 -70 Weight 124.5 kg 126 kg Intake: IV 240 Sodium Chloride 0.9% 1, 240 000 ml @ 20 mls/hr IV . Q24H [facility] Rx#:[id number] Oral 200 Output: Urine 310 Other: Voiding Method External Catheter External Catheter ABP, PAP, CO, CI - Last Documented Arterial Blood Pressure 119/59 - Exam Gen. appearance: Reveals a 68-year-old male patient. Sitting up in bed. No acute distress, awake and alert, on O2 at 3 L nasal cannula. HEENT examination is grossly unremarkable. Neck supple. Full range of motion. No adenopathy thyromegaly or neck vein distention. Cardiovascular examination reveals regular rhythm rate. S1-S2 normal. No S3 or S4. No discernible murmur noted. Heart sounds are distant. Lungs reveal scattered bilateral rhonchi. Breath sounds are equal bilaterally. No crackles. Abdomen soft, without bowel sounds. No masses. Extremities are intact. No cyanosis clubbing or edema. Skin is without rash or lesion. Neurologic examination reveals a patient who is awake, but somewhat confused. He is able to communicate short sentences. He is not following commands consistently. There is generalized motor weakness in all 4 extremities. - Labs CBC & Chem 7: 08/03/23 06:38 08/03/23 06:38 Labs: Abnormal Lab Results - Last 24 Hours (Table) 08/03/23 08/03/23 08/03/23 Range/Units 06:38 10:43 16:12 WBC 17.06 H (4.50-10.00) X 10*3/uL RBC 4.20 L (4.40-5.60) X 10*6/uL MCV 102.1 H (80.0-97.0) FL MCHC 30.3 L (32.0-37.0) d/dL Plt Count 128 L (140-440) X 10*3/uL NRBC/100 WBC Diff 0.02 H (0.00-0.01) X 10*3/uL POC Glucose (mg/dL) 148 H 205 H (70-110) mg/dL 08/03/23 08/03/23 08/03/23 Range/Units 18:15 22:06 23:44 WBC (4.50-10.00) X 10*3/uL RBC (4.40-5.60) X 10*6/uL MCV (80.0-97.0) FL MCHC (32.0-37.0) d/dL Plt Count (140-440) X 10*3/uL NRBC/100 WBC Diff (0.00-0.01) X 10*3/uL POC Glucose (mg/dL) 188 H 201 H 203 H (70-110) mg/dL 08/04/23 Range/Units 06:09 WBC (4.50-10.00) X 10*3/uL RBC (4.40-5.60) X 10*6/uL MCV (80.0-97.0) FL MCHC (32.0-37.0) d/dL Plt Count (140-440) X 10*3/uL NRBC/100 WBC Diff (0.00-0.01) X 10*3/uL POC Glucose (mg/dL) 144 H (70-110) mg/dL Assessment and Plan Plan: Acute hypoxemic and hypercapnic respiratory failure, secondary to cardiac arrest, with a prolonged downtime, with initial intubation, on July 16, and extubation on July 25, and then reintubation on July 28, for worsening respiratory status. S/P re-extubation, on 07/29/2023. Currently stable and on 3 L nasal cannula. Acute coronavirus infection, treated and the patient is recovered Chronic atrial fibrillation. The rate is controlled and the patient is currently on anticoagulation Encephalopathy post cardiac arrest, continues to have generalized motor weakness in all 4 extremities. This is likely an anoxic encephalopathy post cardiac ar rest. Encephalopathy due to a Covid 19 infection cannot be completely ruled out. Morbid obesity. Type 2 diabetes mellitus. Obstructive sleep apnea syndrome. Recent hospitalization for bilateral pneumonia. infection was secondary to E. coli and MRSA, treated with a combination of Zosyn and vancomycin. Chronic bronchial asthma. Acute kidney injury, secondary to cardiac arrest. Nonspecific pulmonary nodules. Benign essential hypertension. Anoxic brain injury with hypoxemic encephalopathy. Right lower lobe pneumonia/consolidation, secondary to Escherichia coli, and methicillin-resistant staph aureus. Plan: Repeat chest x-ray in the morning and the findings of essentially stable, most signs of any significant respiratory distress. The patient has small atelectatic changes and small effusion in lung bases which and the right. Physical therapy Advance diet Incentive spirometer Monitor electrolytes DO NOT RESUSCITATE/DO NOT INTUBATE CODE STATUS
[2023-08-04 17:00] LABS: Glucose,Whole Blood 157 mg/dL (70-110)
--- NOTE | 2023-08-04 17:25 | P.PN ---
Subjective Progress Note Date: 08/04/23 I am following-up seeing the patient and I personally seen the patient last on 07/25/23 then was under care of Dr. Cottrell. Please refer to Dr. Cottrell notes for further details. His who is at bedside, she states he was doing well until later today where he required higher oxygen level and was sleepy during the day. She felt since, I saw him last visit he has been more responsive and interactive. Today his oxygen saturation was 92% and reported 4L at 1pm. Per was increased to 6L. Objective - Vital Signs Vital signs: Vital Signs Temp 98.3 F 08/04/23 13:54 Pulse 82 08/04/23 13:54 Resp 19 08/04/23 13:54 BP 124/69 08/04/23 13:54 Pulse Ox 92 L 08/04/23 13:54 FiO2 50 07/29/23 08:37 Intake & Output 08/03/23 08/04/23 08/04/23 18:59 06:59 18:59 Intake Total 200 240 Output Total 310 350 Balance 200 -70 -350 Weight 124.5 kg 126 kg Intake: IV 240 Sodium Chloride 0.9% 1, 240 000 ml @ 20 mls/hr IV . Q24H [facility] Rx#:[id number] Oral 200 Output: Urine 310 350 Other: Voiding Method External Catheter External Catheter ABP, PAP, CO, CI - Last Documented Arterial Blood Pressure 119/59 - Exam General the patient is lying and is not in acute distress Neuro: Drowsy but is briefly awakeable to verbal stimuli. Follow minimal simple commands wiggling toes but most part was drowsy. Pupils are round, equal, 4mm bilaterally. Is tracking. Motor: Moving bilateral uppers above gravity while feet is wiggling toes. - Labs CBC & Chem 7: 08/03/23 06:38 08/03/23 06:38 Labs: Abnormal Lab Results - Last 24 Hours (Table) 08/03/23 08/03/23 08/03/23 Range/Units 18:15 22:06 23:44 POC Glucose (mg/dL) 188 H 201 H 203 H (70-110) mg/dL 08/04/23 08/04/23 08/04/23 Range/Units 06:09 11:25 16:58 POC Glucose (mg/dL) 144 H 184 H 157 H (70-110) mg/dL Assessment and Plan Assessment: * Status post cardiac arrest with prolonged downtime of 30 minutes as per EMS flow sheet documentation. Patient was in asystole. * Ventilator-dependent respiratory failure due to cardiac arrest, status post extubation 07/25/2023 and then reintubation 07/28/2023, and then re-extubation 07/29/2023. * Altered mental status due to Anoxic encephalopathy from previous cardiac arrest, but patient is neurologically improving gradually. Also component of hypoxic encephalopahy requiring higher oxygen and metabolic encephalopathy. * Hypernatremia likely due to dehydration--currently 148 * Dysarthria due to above. * Atrial fibrillation with rapid ventricular rate * Covid-19 infection. * Probable aspiration pneumonia * Acute renal failure--resolved * Diabetes type 2 * Morbid obesity * Hypertension * Pulmonary nodules. * Obstructive sleep apnea Plan: * EEG 07/17/2023, was reported as abnormal due to background slowing of moderate degree, suggestive of generalized cerebral dysfunction as can be seen with toxic metabolic encephalopathy. Clinical correlation is recommended. No obv ious epileptiform activity was seen. * Repeat CT head on 07/22/23 reported as mild patchy burden of chronic small vessel ischemic disease. No acute intracranial abnormality seen. The previous hypodensity in the right cerebellar hemisphere is not pronounced as on prior study and may have been artifactual. MRI if clinically indicated. Moderate chronic ethmoid and right sphenoid sinus disease. Fluid throughout the right mastoid air cells and right middle ear cavity. Correlate to exclude otomastoiditis. * Carotid duplex: <50% stenosis of the bilateral carotid bifurcations. The right vertebral artery is not visualized. * Per Dr. Cottrell, patient's inquired about MRI of the brain. It appears patient is still not stable from cardiopulmonary standpoint. Patient probably will not be able to lay flat for 45 minutes for MRI. If he aspirates, then could be potentially fatal. MRI probably will not give more information than what we already know with CT scans. I agree that MRI will likely not [employer]. May consider at a later time, when clinically stable. * Patient currently on Xarelto for atrial fibrillation. * Other medical management as per IM and other specialist. The plan was discussed with his who is at bedside and his nurse. We'll continue to follow. Time with Patient: Less than 30
[2023-08-04] MEDS: INSULIN DETEMIR (LEVEMIR) 100 UNIT/ML SYR SQ SCH (21:09)
[2023-08-04 23:36] LABS: Glucose,Whole Blood 144 mg/dL (70-110)
[2023-08-05 06:13] LABS: Glucose,Whole Blood 128 mg/dL (70-110)
[2023-08-05] MEDS: INSULIN ASPART (NovoLOG) 100 UNIT/ML VIAL SQ SCH ×3 (06:19→18:51)
[2023-08-05] MEDS: SODIUM CHLORIDE 0.9% 1,000 ML IV SCH (06:20)
[2023-08-05] MEDS: ALBUTEROL HFA INHALER INHALATION SCH ×4 (07:41→19:59)
[2023-08-05] MEDS: SYMBICORT 160-4.5 MCG INHALER INHALATION SCH ×2 (07:41→19:59)
[2023-08-05] MEDS: ATORVASTATIN 20 MG TAB PO SCH (07:54)
[2023-08-05] MEDS: METOPROLOL TARTRATE 50 MG TAB PO SCH ×2 (07:55→20:43)
[2023-08-05] MEDS: FUROSEMIDE 40 MG TAB PO SCH (07:55)
[2023-08-05] MEDS: DOCUSATE ORAL SOLN 100 MG/10 ML CUP PO SCH (07:55)
[2023-08-05] MEDS: PANTOPRAZOLE 40 MG/10 ML VIAL IV SCH (07:55)
[2023-08-05] MEDS: NYSTATIN 100,000 UNIT/ML SUSP 500,000 UNIT/5 ML CUP PO SCH ×4 (07:55→20:43)
[2023-08-05] MEDS: RIVAROXABAN 20 MG TAB PO SCH (07:55)
[2023-08-05] MEDS ORDERED: ACETAMINOPHEN IV (For NPO) 1,000 MG in EMPTY BAG 1 BAG IVPB PRN (08:20)
--- NOTE | 2023-08-05 08:39 | P.PN ---
Subjective Progress Note Date: 08/04/23 He is about the same today, remains lethargic and weak. He is eating apple sauce. Afebrile last 24 hours. Objective - Vital Signs Vital signs: Vital Signs Temp 100.9 F H 08/05/23 07:10 Pulse 103 H 08/05/23 07:10 Resp 17 08/05/23 07:10 BP 157/89 08/05/23 07:10 Pulse Ox 92 L 08/05/23 07:10 FiO2 50 07/29/23 08:37 Intake & Output 08/04/23 08/05/23 08/05/23 18:59 06:59 18:59 Output Total 350 400 Balance -350 -400 Weight 129 kg Output: Urine 350 400 Other: Voiding Method External Catheter ABP, PAP, CO, CI - Last Documented Arterial Blood Pressure 119/59 - Exam Gen: well developed, NAD CV: RRR Lungs: Expiratory wheezing, no rales Skin: warm and dry Neuro: lethargic, follows commands - Labs CBC & Chem 7: 08/03/23 06:38 08/03/23 06:38 Labs: Abnormal Lab Results - Last 24 Hours (Table) 08/04/23 08/04/23 08/04/23 Range/Units 11:25 16:58 23:34 POC Glucose (mg/dL) 184 H 157 H 144 H (70-110) mg/dL 08/05/23 Range/Units 06:11 POC Glucose (mg/dL) 128 H (70-110) mg/dL Assessment and Plan Plan: Wean O2 as tolerated. Incentive spirometry. PT and OT. Continue nystatin and remainder of current medications and treatments
[2023-08-05] MEDS ORDERED: SODIUM CHLORIDE 0.45% 1,000 ML IV SCH (11:15)
[2023-08-05 11:29] LABS: Glucose,Whole Blood 122 mg/dL (70-110)
--- NOTE | 2023-08-05 11:48 | XR ---
EXAMINATION TYPE: XR chest 1V DATE OF EXAM: 08/05/2023 COMPARISON: 08/04/2023 INDICATION: Short of breath TECHNIQUE: Single frontal view of the chest is obtained. FINDINGS: The heart size is normal. The pulmonary vasculature is normal. The lungs are clear. PICC line enters on the left with the tip in the superior vena cava region. Small to moderate right p leural effusion is present. IMPRESSION: 1. Small to moderate right pleural effusion
[2023-08-05 12:45] LABS: African American GFR (CKD) 77 (>60 ml/min/1.73 sqM); Anion Gap 5 mmol/L; Blood Urea Nitrogen 43 mg/dL (9-20); Calcium 9.5 mg/dL (8.4-10.2); Carbon Dioxide 34 mmol/L (22-30); Chloride 115 mmol/L (98-107); Glucose 138 mg/dL (74-99); Non-African American GFR(CKD) 66 (>60 ml/min/1.73 sqM); Sodium 154 mmol/L (137-145)
--- NOTE | 2023-08-05 13:23 | P.PN ---
Subjective Progress Note Date: 08/05/23 On today's evaluation of 08/03/2023, I'm seeing the patient for a follow-up. The patient is post cardiac arrest. The patient is resting comfortably in bed. He is doing limited amount of communication. Overall, he remains quite weak and debilitated. He has successfully survived his cardiac arrest and the patient was extubated and the patient is currently on 3 L O2 nasal cannula. Note that the patient was also diagnosed having a Covid 19 infection during this current hospitalization. He has diabetes mellitus type 2, obstructive sleep apnea, bronchial asthma, and hypertension. His blood work today shows a white cell count of 17, hemoglobin of 13, platelets of 128, BUN is at 45 with a creatinine of 0.98. The sodium level is at 148. The patient is on albuterol HFA 4 times a day, Symbicort as maintenance, Lasix 40 mg by mouth daily, metoprolol 50 mg twice a day and is also on anticoagulations with Xarelto. His oral intake is quite diminished although I was told by the nursing staff that he's been progressively eating better. His sputum culture was positive for staph aureus. I have 2 samples of sputum, the earlier sputum sample that was obtained on 07/21/2023 was positive for E. coli and MRSA. Patient completed his antibiotic course. Most recent chest x-ray done on 07/30/2023 showed cardiomegaly and a small right-sided pleural effusion along with some atelectatic changes in the lung bases bilaterally. The patient otherwise is resting comfortably in bed. The is at the bedside. On today's evaluation of 08/04/2023, the patient continues to show signs of anoxic encephalopathy. He is lethargic, not communicating at this point in time. Does not any seizures. Diffuse motor weakness in all 4 extremities. Has adequate cough. He is currently on 3 L of oxygen by nasal cannula. Repeat chest x-ray shows no interval change. Probably some atelectatic change in left lung base. Remains on Lasix 40 mg by mouth daily. He is being fed applesauce and soft criteria. His oral intake is quite diminished. I do not appreciate any significant change in his condition or improvement over the past 24 hours. On 08/05/2023, the patient spiked a low-grade fever. The chest x-ray was repeated and the patient has some atelectasis and small effusion the right lung base. Otherwise no airspace consolidation. The patient is more interactive today. His oral intake remains quite diminished. He needs another set of electrolytes as the most recent sodium level from 2 days ago was 148. At the same time, the patient's oral intake is diminished and the patient is taking d iuretics. No other new complaints otherwise for now. Recommended starting the patient on half-normal saline at rate of 50 mL an hour. Objective - Vital Signs Vital signs: Vital Signs Temp 100.9 F H 08/05/23 07:10 Pulse 103 H 08/05/23 07:10 Resp 17 08/05/23 07:10 BP 157/89 08/05/23 07:10 Pulse Ox 92 L 08/05/23 07:10 FiO2 50 07/29/23 08:37 Intake & Output 08/04/23 08/05/23 08/05/23 18:59 06:59 18:59 Output Total 350 400 Balance -350 -400 Weight 129 kg Output: Urine 350 400 Other: Voiding Method External Catheter ABP, PAP, CO, CI - Last Documented Arterial Blood Pressure 119/59 - Exam Gen. appearance: Reveals a 68-year-old male patient. Sitting up in bed. No acute distress, awake and alert, on O2 at 3 L nasal cannula. HEENT examination is grossly unremarkable. Neck supple. Full range of motion. No adenopathy thyromegaly or neck vein distention. Cardiovascular examination reveals regular rhythm rate. S1-S2 normal. No S3 or S4. No discernible murmur noted. Heart sounds are distant. Lungs reveal scattered bilateral rhonchi. Breath sounds are equal bilaterally. No crackles. Abdomen soft, without bowel sounds. No masses. Extremities are intact. No cyanosis clubbing or edema. Skin is without rash or lesion. Neurologic examination reveals a patient who is awake, but somewhat confused. He is able to communicate short sentences. He is not following commands consistently. There is generalized motor weakness in all 4 extremities. - Labs CBC & Chem 7: 08/03/23 06:38 08/05/23 11:32 Labs: Abnormal Lab Results - Last 24 Hours (Table) 08/04/23 08/04/23 08/04/23 Range/Units 11:25 16:58 23:34 POC Glucose (mg/dL) 184 H 157 H 144 H (70-110) mg/dL 08/05/23 Range/Units 06:11 POC Glucose (mg/dL) 128 H (70-110) mg/dL Assessment and Plan Plan: Acute hypoxemic and hypercapnic respiratory failure, secondary to cardiac arrest, with a prolonged downtime, with initial intubation, on July 16, and extubation on July 25, and then reintubation on July 28, for worsening respiratory status. S/P re-extubation, on 07/29/2023. Currently stable and on 3 L nasal cannula. Acute coronavirus infection, treated and the patient is recovered Chronic atrial fibrillation. The rate is controlled and the patient is currently on anticoagulation Encephalopathy post cardiac arrest, continues to have generalized motor weakness in all 4 extremities. This is likely an anoxic encephalopathy post cardiac arrest. Encephalopathy due to a Covid 19 infection cannot be completely ruled out. Morbid obesity. Type 2 diabetes mellitus. Obstructive sleep apnea syndrome. Recent hospitalization for bilateral pneumonia. infection was secondary to E. coli and MRSA, treated with a combination of Zosyn and vancomycin. Chronic bronchial asthma. Acute kidney injury, secondary to cardiac arrest. Nonspecific pulmonary nodules. Benign essential hypertension. Anoxic brain injury with hypoxemic encephalopathy. Right lower lobe pneumonia/consolidation, secondary to Escherichia coli, and methicillin-resistant staph aureus. Hyperchloremic hypernatremia Plan: Monitor the fever pattern Chest x-ray findings remain unchanged No evidence of any pneumonia Patient has developed hypernatremia and the patient will be started on D5 water at 75 mL an hour Encourage increase oral intake Stop Lasix Physical therapy Advance diet Incentive spirometer Monitor electrolytes DO NOT RESUSCITATE/DO NOT INTUBATE CODE STATUS
[2023-08-05] MEDS: DEXTROSE 5% IN WATER 1,000 ML IV SCH ×2 (14:12→23:28)
--- NOTE | 2023-08-05 16:19 | P.PN ---
Subjective Progress Note Date: 08/05/23 I am following up seeing the patient and per nurse he is about the same. Objective - Vital Signs Vital signs: Vital Signs Temp 97.4 F L 08/05/23 15:39 Pulse 108 H 08/05/23 15:39 Resp 18 08/05/23 15:39 BP 151/92 08/05/23 15:39 Pulse Ox 96 08/05/23 15:39 FiO2 50 07/29/23 08:37 Intake & Output 08/04/23 08/05/23 08/05/23 18:59 06:59 18:59 Output Total 350 400 Balance -350 -400 Weight 129 kg Output: Urine 350 400 Other: Voiding Method External Catheter ABP, PAP, CO, CI - Last Documented Arterial Blood Pressure 119/59 - Exam General the patient is lying and is not in acute distress Lung: coughing and has coarse lungs. Neuro: Slightly drowsy but is awakeable to voice (more awake today). He is oriented to self. He knoded he was in the hospital. He is following commands (thumbs up, wiggling toes, attempts to stick tongue out). Pupils are round, equal and reactive to light. EOM is tracking. No facial weakness. Is very hoarse. Motor: Strength is unable to assess individual muscle strength. Moves bilateral upper extremities above gravity. Wiggling toes symmetrically. - Labs CBC & Chem 7: 08/03/23 06:38 08/05/23 11:32 Labs: Abnormal Lab Results - Last 24 Hours (Table) 08/04/23 08/04/23 08/05/23 Range/Units 16:58 23:34 06:11 Sodium (137-145) mmol/L Chloride (98-107) mmol/L Carbon Dioxide (22-30) mmol/L BUN (9-20) mg/dL Glucose (74-99) mg/dL POC Glucose (mg/dL) 157 H 144 H 128 H (70-110) mg/dL 08/05/23 08/05/23 Range/Units 11:28 11:32 Sodium 154 H (137-145) mmol/L Chloride 115 H (98-107) mmol/L Carbon Dioxide 34 H (22-30) mmol/L BUN 43 H (9-20) mg/dL Glucose 138 H (74-99) mg/dL POC Glucose (mg/dL) 122 H (70-110) mg/dL Assessment and Plan Assessment: * Status post cardiac arrest with prolonged downtime of 30 minutes as per EMS flow sheet documentation. Patient was in asystole. * Ventilator-dependent respiratory failure due to cardiac arrest, status post extubation 07/25/2023 and then reintubation 07/28/2023, and then re-extubation 07/29/2023. * Altered mental status due to Anoxic encephalopathy from previous cardiac arrest, but patient is neurologically improving gradually. Also component of hypoxic encephalopahy requiring higher oxygen and metabolic encephalopathy. Today seems better compared to yesterday but felt having more coarse lungs/coughing an possible has pneumonia that leading to confusion. * Hypernatremia likely due to dehydration--currently 148 * Dysarthria due to above. * Atrial fibrillation with rapid ventricular rate * Covid-19 infection. * Probable aspiration pneumonia * Acute renal failure--resolved * Diabetes type 2 * Morbid obesity * Hypertension * Pulmonary nodules. * Obstructive sleep apnea Plan: * EEG 07/17/2023, was reported as abnormal due to background slowing of moderate degree, suggestive of generalized cerebral dysfunction as can be seen with toxic metabolic encephalopathy. Clinical correlation is recommended. No obvious epileptiform activity was seen. * Repeat CT head on 07/22/23 reported as mild patchy burden of chronic small vessel ischemic disease. No acute intracranial abnormality seen. The previous hypodensity in the right cerebellar hemisphere is not pronounced as on prior study and may have been artifactual. MRI if clinically indicated. Moderate chronic ethmoid and right sphenoid sinus disease. Fluid throughout the right mastoid air cells and right middle ear cavity. Correlate to exclude otomastoiditis. * Carotid duplex: <50% stenosis of the bilateral carotid bifurcations. The right vertebral artery is not visualized. * Per Dr. Cottrell, patient's inquired about MRI of the brain. It appears patient is still not stable from cardiopulmonary standpoint. Patient probably will not be able to lay flat for 45 minutes for MRI. If he aspirates, then could be potentially fatal. MRI probably will not give more information than what we already know with CT scans. I agree that MRI will likely not change analyst. May consider at a later time, when clinically stable. * Patient currently on Xarelto for atrial fibrillation. * Other medical management as per IM and other specialist. The plan was discussed with his who is at bedside and his nurse. We'll continue to follow sporadically. Time with Patient: Less than 30
[2023-08-05 16:48] LABS: Glucose,Whole Blood 178 mg/dL (70-110)
[2023-08-05] MEDS: INSULIN DETEMIR (LEVEMIR) 100 UNIT/ML SYR SQ SCH (20:43)
[2023-08-05 21:05] LABS: Glucose,Whole Blood 218 mg/dL (70-110)
[2023-08-06 00:09] LABS: Glucose,Whole Blood 184 mg/dL (70-110)
[2023-08-06] MEDS: INSULIN ASPART (NovoLOG) 100 UNIT/ML VIAL SQ SCH ×4 (01:32→17:33)
[2023-08-06 06:24] LABS: Glucose,Whole Blood 198 mg/dL (70-110)
[2023-08-06] MEDS: ALBUTEROL HFA INHALER INHALATION SCH ×5 (07:34→19:45)
[2023-08-06] MEDS: SYMBICORT 160-4.5 MCG INHALER INHALATION SCH ×2 (07:34→19:45)
[2023-08-06] MEDS: METOPROLOL TARTRATE 50 MG TAB PO SCH ×2 (08:35→21:12)
[2023-08-06] MEDS: RIVAROXABAN 20 MG TAB PO SCH (08:35)
[2023-08-06] MEDS: NYSTATIN 100,000 UNIT/ML SUSP 500,000 UNIT/5 ML CUP PO SCH ×4 (08:35→21:12)
[2023-08-06] MEDS: ATORVASTATIN 20 MG TAB PO SCH (08:35)
[2023-08-06] MEDS: DOCUSATE ORAL SOLN 100 MG/10 ML CUP PO SCH (08:35)
[2023-08-06] MEDS: PANTOPRAZOLE 40 MG/10 ML VIAL IV SCH (08:35)
[2023-08-06] MEDS: DEXTROSE 5% IN WATER 1,000 ML IV SCH ×2 (08:36→18:29)
[2023-08-06] MEDS ORDERED: HYDROmorphone 0.5 MG/0.5 ML SYRINGE IVP PRN (08:36)
--- NOTE | 2023-08-06 08:38 | P.PN ---
Subjective Progress Note Date: 08/05/23 Pt with low grade fever today, CXR repeated showing R sided atelectasis. He remains weak and lethargic. Repeat sodium is up to 154 today. Objective - Vital Signs Vital signs: Vital Signs Temp 98.0 F 08/06/23 07:25 Pulse 57 L 08/06/23 07:25 Resp 17 08/06/23 07:25 BP 107/64 08/06/23 07:25 Pulse Ox 96 08/06/23 07:37 FiO2 50 07/29/23 08:37 Intake & Output 08/05/23 08/06/23 08/06/23 18:59 06:59 18:59 Output Total 300 200 Balance -300 -200 Weight 126 kg Output: Urine 300 200 Other: Voiding Method External Catheter ABP, PAP, CO, CI - Last Documented Arterial Blood Pressure 119/59 - Exam Gen: well developed, NAD CV: RRR Lungs: Expiratory wheezing, no rales Skin: warm and dry Neuro: lethargic, follows commands - Labs CBC & Chem 7: 08/03/23 06:38 08/05/23 11:32 Labs: Abnormal Lab Results - Last 24 Hours (Table) 08/05/23 08/05/23 08/05/23 Range/Units 11:28 11:32 16:46 Sodium 154 H (137-145) mmol/L Chloride 115 H (98-107) mmol/L Carbon Dioxide 34 H (22-30) mmol/L BUN 43 H (9-20) mg/dL Glucose 138 H (74-99) mg/dL POC Glucose (mg/dL) 122 H 178 H (70-110) mg/dL 08/05/23 08/06/23 08/06/23 Range/Units 21:03 00:08 06:23 Sodium (137-145) mmol/L Chloride (98-107) mmol/L Carbon Dioxide (22-30) mmol/L BUN (9-20) mg/dL Glucose (74-99) mg/dL POC Glucose (mg/dL) 218 H 184 H 198 H (70-110) mg/dL Assessment and Plan Plan: Continue current medications and continue to work with therapy as tolerated. D5W started for hypernatremia. Continue to wean O2 as tolerated
[2023-08-06 09:33] LABS: African American GFR (CKD) 69 (>60 ml/min/1.73 sqM); Blood Urea Nitrogen 35 mg/dL (9-20); Chloride 103 mmol/L (98-107); Glucose 206 mg/dL (74-99); Non-African American GFR(CKD) 59 (>60 ml/min/1.73 sqM); Potassium 2.8 mmol/L (3.5-5.1); Sodium 148 mmol/L (137-145)
[2023-08-06 09:39] LABS: Anion Gap 11 mmol/L; Carbon Dioxide 34 mmol/L (22-30)
[2023-08-06 11:12] LABS: Glucose,Whole Blood 200 mg/dL (70-110)
--- NOTE | 2023-08-06 12:31 | P.PN ---
Subjective Progress Note Date: 08/06/23 On today's evaluation of 08/03/2023, I'm seeing the patient for a follow-up. The patient is post cardiac arrest. The patient is resting comfortably in bed. He is doing limited amount of communication. Overall, he remains quite weak and debilitated. He has successfully survived his cardiac arrest and the patient was extubated and the patient is currently on 3 L O2 nasal cannula. Note that the patient was also diagnosed having a Covid 19 infection during this current hospitalization. He has diabetes mellitus type 2, obstructive sleep apnea, bronchial asthma, and hypertension. His blood work today shows a white cell count of 17, hemoglobin of 13, platelets of 128, BUN is at 45 with a creatinine of 0.98. The sodium level is at 148. The patient is on albuterol HFA 4 times a day, Symbicort as maintenance, Lasix 40 mg by mouth daily, metoprolol 50 mg twice a day and is also on anticoagulations with Xarelto. His oral intake is quite diminished although I was told by the nursing staff that he's been progressively eating better. His sputum culture was positive for staph aureus. I have 2 samples of sputum, the earlier sputum sample that was obtained on 07/21/2023 was positive for E. coli and MRSA. Patient completed his antibiotic course. Most recent chest x-ray done on 07/30/2023 showed cardiomegaly and a small right-sided pleural effusion along with some atelectatic changes in the lung bases bilaterally. The patient otherwise is resting comfortably in bed. The is at the bedside. On today's evaluation of 08/04/2023, the patient continues to show signs of anoxic encephalopathy. He is lethargic, not communicating at this point in time. Does not any seizures. Diffuse motor weakness in all 4 extremities. Has adequate cough. He is currently on 3 L of oxygen by nasal cannula. Repeat chest x-ray shows no interval change. Probably some atelectatic change in left lung base. Remains on Lasix 40 mg by mouth daily. He is being fed applesauce and soft criteria. His oral intake is quite diminished. I do not appreciate any significant change in his condition or improvement over the past 24 hours. On 08/05/2023, the patient spiked a low-grade fever. The chest x-ray was repeated and the patient has some atelectasis and small effusion the right lung base. Otherwise no airspace consolidation. The patient is more interactive today. His oral intake remains quite diminished. He needs another set of electrolytes as the most recent sodium level from 2 days ago was 148. At the same time, the patient's oral intake is diminished and the patient is taking d iuretics. No other new complaints otherwise for now. Recommended starting the patient on half-normal saline at rate of 50 mL an hour. On today's evaluation of 08/06/2023, the patient is essentially the same. Slightly more interactive compared to yesterday. He was found to have hyperchloremic hypernatremia the patient was started on D5 water and his sodium level is improving for now. Urine operas also improving. He was taken off the Lasix. He is afebrile for now. His oral intake is minimal. I think the patient's height on nourished and if ongoing treatment is needed, the patient will likely need a PEG tube insertion. He is post anoxic encephalopathy and cardiac arrest. Hemodynamically stable. Sodium level is at 148, potassium level is at 2.8 which is being replaced. BUN is at 35 with a creatinine of 1.23. He remains on oxygen at 4 L with a pulse ox of 94%. Neurology is on the case. Objective - Vital Signs Vital signs: Vital Signs Temp 98.0 F 08/06/23 07:25 Pulse 57 L 08/06/23 07:25 Resp 17 08/06/23 07:25 BP 107/64 08/06/23 07:25 Pulse Ox 96 08/06/23 07:37 FiO2 50 07/29/23 08:37 Intake & Output 08/05/23 08/06/23 08/06/23 18:59 06:59 18:59 Output Total 300 200 Balance -300 -200 Weight 126 kg Output: Urine 300 200 Other: Voiding Method External Catheter ABP, PAP, CO, CI - Last Documented Arterial Blood Pressure 119/59 - Exam Gen. appearance: Reveals a 68-year-old male patient. Sitting up in bed. No acute distress, awake and alert, on O2 at 3 L nasal cannula. HEENT examination is grossly unremarkable. Neck supple. Full range of motion. No adenopathy thyromegaly or neck vein distention. Cardiovascular examination reveals regular rhythm rate. S1-S2 normal. No S3 or S4. No discernible murmur noted. Heart sounds are distant. Lungs reveal scattered bilateral rhonchi. Breath sounds are equal bilaterally. No crackles. Abdomen soft, without bowel sounds. No masses. Extremities are intact. No cyanosis clubbing or edema. Skin is without rash or lesion. Neurologic examination reveals a patient who is awake, but somewhat confused. He is able to communicate short sentences. He is not following commands consistently. There is generalized motor weakness in all 4 extremities. - Labs CBC & Chem 7: 08/03/23 06:38 08/06/23 09:00 Labs: Abnormal Lab Results - Last 24 Hours (Table) 08/05/23 08/05/23 08/05/23 Range/Units 11:28 11:32 16:46 Sodium 154 H (137-145) mmol/L Potassium (3.5-5.1) mmol/L Chloride 115 H (98-107) mmol/L Carbon Dioxide 34 H (22-30) mmol/L BUN 43 H (9-20) mg/dL Glucose 138 H (74-99) mg/dL POC Glucose (mg/dL) 122 H 178 H (70-110) mg/dL 08/05/23 08/06/23 08/06/23 Range/Units 21:03 00:08 06:23 Sodium (137-145) mmol/L Potassium (3.5-5.1) mmol/L Chloride (98-107) mmol/L Carbon Dioxide (22-30) mmol/L BUN (9-20) mg/dL Glucose (74-99) mg/dL POC Glucose (mg/dL) 218 H 184 H 198 H (70-110) mg/dL 08/06/23 Range/Units 09:00 Sodium 148 H (137-145) mmol/L Potassium 2.8 L (3.5-5.1) mmol/L Chloride (98-107) mmol/L Carbon Dioxide 34 H (22-30) mmol/L BUN 35 H (9-20) mg/dL Glucose 206 H (74-99) mg/dL POC Glucose (mg/dL) (70-110) mg/dL Assessment and Plan Plan: Acute hypoxemic and hypercapnic respiratory failure, secondary to cardiac arrest, with a prolonged downtime, with initial intubation, on July 16, and extubation on July 25, and then reintubation on July 28, for worsening respiratory status. S/P re-extubation, on 07/29/2023. Currently stable and on 3 L nasal cannula. Acute coronavirus infection, treated and the patient is recovered Chronic atrial fibrillation. The rate is controlled and the patient is currently on anticoagulation Encephalopathy post cardiac arrest, continues to have generalized motor weakness in all 4 extremities. This is likely an anoxic encephalopathy post cardiac arrest. Encephalopathy due to a Covid 19 infection cannot be completely ruled out. Morbid obesity. Type 2 diabetes mellitus. Obstructive sleep apnea syndrome. Recent hospitalization for bilateral pneumonia. infection was secondary to E. coli and MRSA, treated with a combination of Zosyn and vancomycin. Chronic bronchial asthma. Acute kidney injury, secondary to cardiac arrest. Nonspecific pulmonary nodules. Benign essential hypertension. Anoxic brain injury with hypoxemic encephalopathy. Right lower lobe pneumonia/consolidation, secondary to Escherichia coli, and methicillin-resistant staph aureus. Hyperchloremic hypernatremia, improving Plan: Monitor the fever pattern Chest x-ray findings remain unchanged No evidence of any pneumonia Patient has developed hypernatremia and the patient will be started on D5 water at 75 mL an hour, and follow-up sodium level shows improvement in the patient's sodium level is down to 148. Encourage increase oral intake oral intake is minimal and the patient is obviously not meeting his caloric requirements. I am recommending a PEG tube insertion if ongoing treatment is requested by family. This will be discussed with the primary care team also. As noted, the patient's oral intake is minimal . The patient will need PEG tube feeding for enteral feeding and nutritional support. Keep the Lasix and hold Continue D5 water Replace potassium Physical therapy Advance diet Incentive spirometer Monitor electrolytes DO NOT RESUSCITATE/DO NOT INTUBATE CODE STATUS Signs of anoxic encephalopathy with limited recovered over the past few days.
[2023-08-06] MEDS: POTASSIUM CHLORIDE ER 20 MEQ TAB.ER PO SCH ×3 (12:37→15:40)
[2023-08-06 16:41] LABS: Glucose,Whole Blood 198 mg/dL (70-110)
[2023-08-06 20:47] LABS: Glucose,Whole Blood 205 mg/dL (70-110)
[2023-08-06] MEDS: INSULIN DETEMIR (LEVEMIR) 100 UNIT/ML SYR SQ SCH (21:44)
[2023-08-07 01:33] LABS: Glucose,Whole Blood 181 mg/dL (70-110)
[2023-08-07] MEDS: INSULIN ASPART (NovoLOG) 100 UNIT/ML VIAL SQ SCH ×5 (01:34→23:30)
[2023-08-07 06:10] LABS: Glucose,Whole Blood 174 mg/dL (70-110)
[2023-08-07] MEDS: DEXTROSE 5% IN WATER 1,000 ML IV SCH ×2 (06:33→15:33)
[2023-08-07] MEDS: METOPROLOL TARTRATE 50 MG TAB PO SCH ×2 (07:46→21:19)
[2023-08-07] MEDS: ATORVASTATIN 20 MG TAB PO SCH (07:46)
[2023-08-07] MEDS: PANTOPRAZOLE 40 MG/10 ML VIAL IV SCH (07:46)
[2023-08-07] MEDS: RIVAROXABAN 20 MG TAB PO SCH (07:46)
[2023-08-07] MEDS: DOCUSATE ORAL SOLN 100 MG/10 ML CUP PO SCH (07:46)
[2023-08-07] MEDS: NYSTATIN 100,000 UNIT/ML SUSP 500,000 UNIT/5 ML CUP PO SCH ×4 (07:46→23:21)
--- NOTE | 2023-08-07 08:30 | P.PN ---
Subjective Progress Note Date: 08/06/23 He is feeling about the same today, continues to endorse weakness and cough. He remains on 4 LPM O2. Pt with poor PO intake. Sodium trending down to 148 today. Objective - Vital Signs Vital signs: Vital Signs Temp 98.1 F 08/07/23 00:55 Pulse 81 08/07/23 07:35 Resp 19 08/07/23 07:35 BP 131/77 08/07/23 07:35 Pulse Ox 96 08/07/23 07:35 FiO2 50 07/29/23 08:37 Intake & Output 08/06/23 08/07/23 08/07/23 18:59 06:59 18:59 Intake Total 200 Output Total 100 100 Balance 100 -100 Weight 125.5 kg Intake: Oral 200 Output: Urine 100 100 Other: Voiding Method External Catheter External Catheter # Voids 0 ABP, PAP, CO, CI - Last Documented Arterial Blood Pressure 119/59 - Exam Gen: well developed, NAD CV: RRR Lungs: Expiratory wheezing, no rales Skin: warm and dry Neuro: lethargic, follows commands - Labs CBC & Chem 7: 08/03/23 06:38 08/06/23 09:00 Labs: Abnormal Lab Results - Last 24 Hours (Table) 08/06/23 08/06/23 08/06/23 Range/Units 09:00 11:11 16:40 Sodium 148 H (137-145) mmol/L Potassium 2.8 L (3.5-5.1) mmol/L Carbon Dioxide 34 H (22-30) mmol/L BUN 35 H (9-20) mg/dL Glucose 206 H (74-99) mg/dL POC Glucose (mg/dL) 200 H 198 H (70-110) mg/dL 08/06/23 08/07/23 08/07/23 Range/Units 20:44 01:31 06:08 Sodium (137-145) mmol/L Potassium (3.5-5.1) mmol/L Carbon Dioxide (22-30) mmol/L BUN (9-20) mg/dL Glucose (74-99) mg/dL POC Glucose (mg/dL) 205 H 181 H 174 H (70-110) mg/dL Assessment and Plan Plan: Continue current medications and continue to work with therapy as tolerated. Continue D5W for hypernatremia. Continue to wean O2 as tolerated. Surgery consulted for PEG placement
[2023-08-07] MEDS: ALBUTEROL HFA INHALER INHALATION SCH ×4 (08:37→20:39)
[2023-08-07] MEDS: SYMBICORT 160-4.5 MCG INHALER INHALATION SCH ×2 (08:37→20:39)
[2023-08-07 11:02] LABS: BUN/Creat Ratio 21.77 Ratio (12.00-20.00); Blood Urea Nitrogen 28.3 mg/dL (9.0-27.0); Calcium 9.2 mg/dL (8.7-10.3); Carbon Dioxide 36.3 mmol/L (21.6-31.8); Chloride 110 mmol/L (96-109); Glucose 196 mg/dL (70-110); Potassium 3.2 mmol/L (3.5-5.5); Sodium 151 mmol/L (135-145)
[2023-08-07 11:37] LABS: Glucose,Whole Blood 203 mg/dL (70-110)
--- NOTE | 2023-08-07 12:49 | P.PN ---
Subjective Progress Note Date: 08/07/23 On today's evaluation of 08/03/2023, I'm seeing the patient for a follow-up. The patient is post cardiac arrest. The patient is resting comfortably in bed. He is doing limited amount of communication. Overall, he remains quite weak and debilitated. He has successfully survived his cardiac arrest and the patient was extubated and the patient is currently on 3 L O2 nasal cannula. Note that the patient was also diagnosed having a Covid 19 infection during this current hospitalization. He has diabetes mellitus type 2, obstructive sleep apnea, bronchial asthma, and hypertension. His blood work today shows a white cell count of 17, hemoglobin of 13, platelets of 128, BUN is at 45 with a creatinine of 0.98. The sodium level is at 148. The patient is on albuterol HFA 4 times a day, Symbicort as maintenance, Lasix 40 mg by mouth daily, metoprolol 50 mg twice a day and is also on anticoagulations with Xarelto. His oral intake is quite diminished although I was told by the nursing staff that he's been progressively eating better. His sputum culture was positive for staph aureus. I have 2 samples of sputum, the earlier sputum sample that was obtained on 07/21/2023 was positive for E. coli and MRSA. Patient completed his antibiotic course. Most recent chest x-ray done on 07/30/2023 showed cardiomegaly and a small right-sided pleural effusion along with some atelectatic changes in the lung bases bilaterally. The patient otherwise is resting comfortably in bed. The is at the bedside. On today's evaluation of 08/04/2023, the patient continues to show signs of anoxic encephalopathy. He is lethargic, not communicating at this point in time. Does not any seizures. Diffuse motor weakness in all 4 extremities. Has adequate cough. He is currently on 3 L of oxygen by nasal cannula. Repeat chest x-ray shows no interval change. Probably some atelectatic change in left lung base. Remains on Lasix 40 mg by mouth daily. He is being fed applesauce and soft criteria. His oral intake is quite diminished. I do not appreciate any significant change in his condition or improvement over the past 24 hours. On 08/05/2023, the patient spiked a low-grade fever. The chest x-ray was repeated and the patient has some atelectasis and small effusion the right lung base. Otherwise no airspace consolidation. The patient is more interactive today. His oral intake remains quite diminished. He needs another set of electrolytes as the most recent sodium level from 2 days ago was 148. At the same time, the patient's oral intake is diminished and the patient is taking d iuretics. No other new complaints otherwise for now. Recommended starting the patient on half-normal saline at rate of 50 mL an hour. On today's evaluation of 08/06/2023, the patient is essentially the same. Slightly more interactive compared to yesterday. He was found to have hyperchloremic hypernatremia the patient was started on D5 water and his sodium level is improving for now. Urine operas also improving. He was taken off the Lasix. He is afebrile for now. His oral intake is minimal. I think the patient's height on nourished and if ongoing treatment is needed, the patient will likely need a PEG tube insertion. He is post anoxic encephalopathy and cardiac arrest. Hemodynamically stable. Sodium level is at 148, potassium level is at 2.8 which is being replaced. BUN is at 35 with a creatinine of 1.23. He remains on oxygen at 4 L with a pulse ox of 94%. Neurology is on the case. On today's evaluation of 08/07/2023, the patient mumbles and his speech is not clear. Not following commands consistently. Not meeting his caloric requirements and not eating enough. I made recommendations to have a PEG tube inserted for nutritional support. The declined the procedure. Otherwise, the patient is currently on D5 water running at 100 mL an hour. The patient is also on oxygen at 3 L. No respiratory distress. Overall condition is essentially unchanged compared to yesterday. Repeat blood work from today shows a sodium level of 151, potassium is at 3.2 which is being replaced and the BUN is at 28 with a creatinine of 1.3 and a serum bicarb is at 36. Blood sugars of 23. Calcium levels at 9.2. Objective - Vital Signs Vital signs: Vital Signs Temp 98.1 F 08/07/23 00:55 Pulse 81 08/07/23 07:35 Resp 19 08/07/23 07:35 BP 131/77 08/07/23 07:35 Pulse Ox 96 09/15/23 08:40 FiO2 50 07/29/23 08:37 Intake & Output 08/06/23 08/07/23 08/07/23 18:59 06:59 18:59 Intake Total 200 Output Total 100 100 Balance 100 -100 Weight 125.5 kg Intake: Oral 200 Output: Urine 100 100 Other: Voiding Method External Catheter External Catheter # Voids 0 ABP, PAP, CO, CI - Last Documented Arterial Blood Pressure 119/59 - Exam Gen. appearance: Reveals a 68-year-old male patient. Sitting up in bed. No a cute distress, awake and alert, on O2 at 3 L nasal cannula. HEENT examination is grossly unremarkable. Neck supple. Full range of motion. No adenopathy thyromegaly or neck vein distention. Cardiovascular examination reveals regular rhythm rate. S1-S2 normal. No S3 or S4. No discernible murmur noted. Heart sounds are distant. Lungs reveal scattered bilateral rhonchi. Breath sounds are equal bilaterally. No crackles. Abdomen soft, without bowel sounds. No masses. Extremities are intact. No cyanosis clubbing or edema. Skin is without rash or lesion. Neurologic examination reveals a patient who is awake, but somewhat confused. He is able to communicate short sentences. He is not following commands consistently. There is generalized motor weakness in all 4 extremities. - Labs CBC & Chem 7: 08/03/23 06:38 08/07/23 06:39 Labs: Abnormal Lab Results - Last 24 Hours (Table) 08/06/23 08/06/23 08/06/23 Range/Units 11:11 16:40 20:44 POC Glucose (mg/dL) 200 H 198 H 205 H (70-110) mg/dL 08/07/23 08/07/23 Range/Units 01:31 06:08 POC Glucose (mg/dL) 181 H 174 H (70-110) mg/dL Assessment and Plan Plan: Acute hypoxemic and hypercapnic respiratory failure, secondary to cardiac arrest, with a prolonged downtime, with initial intubation, on July 16, and extubation on July 25, and then reintubation on July 28, for worsening respiratory status. S/P re-extubation, on 07/29/2023. Currently stable and on 3 L nasal cannula. Acute coronavirus infection, treated and the patient is recovered Chronic atrial fibrillation. The rate is controlled and the patient is currently on anticoagulation Encephalopathy post cardiac arrest, continues to have generalized motor weakness in all 4 extremities. This is likely an anoxic encephalopathy post cardiac arrest. Encephalopathy due to a Covid 19 infection cannot be completely ruled out. Morbid obesity. Type 2 diabetes mellitus. Obstructive sleep apnea syndrome. Recent hospitalization for bilateral pneumonia. infection was secondary to E. coli and MRSA, treated with a combination of Zosyn and vancomycin. Chronic bronchial asthma. Acute kidney injury, secondary to cardiac arrest. Nonspecific pulmonary nodules. Benign essential hypertension. Anoxic brain injury with hypoxemic encephalopathy. Right lower lobe pneumonia/consolidation, secondary to Escherichia coli, and methicillin-resistant staph aureus. Hyperchloremic hypernatremia, improving Plan: Obviously, this patient is not meeting his caloric requirements and not eating enough. has declined effective resection of this point in time. The procedure will not be done accordingly. Will not be done accordingly. Meanwhile, we'll continue replacing electrolytes revealed potassium and the patient will be kept on D5 water as the patient a component of hyperchloremic hypernatremia. Encourage increase in oral intake. Monitor the fever pattern Chest x-ray findings remain unchanged Continue D5 water Replace potassium Physical therapy Advance diet Incentive spirometer Monitor electrolytes DO NOT RESUSCITATE/DO NOT INTUBATE CODE STATUS Signs of anoxic encephalopathy with limited recovered over the past few days.
[2023-08-07 15:31] VITALS: BMI 37.5
[2023-08-07] MEDS: POTASSIUM CHLORIDE ER 20 MEQ TAB.ER PO SCH ×2 (15:35→16:55)
--- NOTE | 2023-08-07 16:06 | P.GSCN ---
History of Present Illness Consult date: 08/07/23 History of present illness: CHIEF COMPLAINT: Cardiac arrest HISTORY OF PRESENT ILLNESS: This is a 68-year-old male who presented to the hospital with cardiac arrest and respiratory failure and required mechanical ventilation. He had been extubated and is currently in regular medical floor. He has anoxic brain injury, pneumonia and was Covid positive. Patient has had poor oral intake. He has evidence of protein calorie malnutrition. Patient is not meeting his calorie needs therefore surgical service was consulted for PEG tube placement. PAST MEDICAL HISTORY: See below PAST SURGICAL HISTORY: See below MEDICATIONS: See below ALLERGIES: See below SOCIAL HISTORY: No illicit drug use. REVIEW OF SYSTEMS: CONSTITUTIONAL: Denies fever or chills. HEENT: Denies blurred vision, vision changes, or eye pain. Denies hemoptysis CARDIOVASCULAR: Denies chest pain or pressure. RESPIRATORY: No shortness of breath. GASTROINTESTINAL: See HPI for pertinent findings HEMATOLOGIC: Denies bleeding disorders. GENITOURINARY: Denies any blood in urine or increased urinary frequency. SKIN: Denies pruitis. Denies rash. PHYSICAL EXAM: VITAL SIGNS: Reviewed GENERAL: Well-developed in no acute distress. ABDOMEN: Soft. Nondistended. Nontender NEUROLOGIC: Alert and oriented. Cranial nerves II through XII grossly intact. LABORATORY DATA: WBC 17 Hgb 13 sodium 141 potassium 3.2 creatinine 1.3 IMAGING: ASSESSMENT: 1. Severe protein calorie malnutrition and poor oral intake PLAN: -Patient's family has declined PEG tube placement -No surgical intervention planned at this time Physician Spanish Speaking Babysitter note has been reviewed by physician. Signing provider agrees with the documented findings, assessment, and plan of care. Past Medical History Past Medical History: Atrial Fibrillation, Asthma, Diabetes Mellitus, Hypertension, Sleep Apnea/CPAP/BIPAP Additional Past Medical History / Comment(s): Tachycardia History of Any Multi-Drug Resistant Organisms: MRSA Year Discovered:: 07/21/23 MDRO Source:: Sputum Past Surgical History: Hernia Repair Additional Past Surgical History / Comment(s): CARDIOVERSION,YANIRA Past Anesthesia/Blood Transfusion Reactions: No Reported Reaction Past Alcohol Use History: None Reported, Rare - Past Family History Father Additional Family Medical History / Comment(s): HEART MURMUR Mother Family Medical History: No Reported History Medications and Allergies Home Medications Medication Instructions Recorded Confirmed Type Ipratropium/Albuterol Sulfate 2 puff INHALATION RT-QID PRN 03/30/15 07/16/23 History [Combivent Respimat Inhaler] Pioglitazone [Actos] 45 mg PO DAILY 03/30/15 07/16/23 History Rivaroxaban [Xarelto] 20 mg PO DAILY 03/30/15 07/16/23 History Ipratropium-Albuterol Nebulize 1 inhalation INHALATION RT-TID 05/22/15 07/16/23 History [Duoneb 0.5 mg-3 mg/3 ml Soln] Atorvastatin [Lipitor] 20 mg PO DAILY 05/02/23 07/16/23 History Metoprolol Tartrate [Lopressor] 100 mg PO BID 05/02/23 07/16/23 History Tirzepatide [Mounjaro] 5 mg SQ TU 05/02/23 07/16/23 History glyBURIDE/METFORMIN HCL 1 tab PO BID 05/02/23 07/16/23 History [Glucovance 5-500 mg] Fluticasone/Vilanterol [Breo 1 puff INHALATION RT-DAILY 07/16/23 07/16/23 History Ellipta 200-25 Mcg Inhaler] Furosemide [Lasix] 20 mg PO DAILY 07/16/23 07/16/23 History Potassium Chloride [Klor-Con M10] 10 meq PO DAILY 07/16/23 07/16/23 History Allergies Allergy/AdvReac Type Severity Reaction Status Date / Time No Known Allergies Allergy Unverified 07/16/23 12:41 Surgical - Exam Vital Signs Temp Pulse Resp BP Pulse Ox FiO2 95.0 F L 70 14 112/72 98 100 07/16/23 11:02 07/16/23 11:02 07/16/23 11:02 07/16/23 11:02 07/16/23 11:02 07/16/23 11:02 Results - Labs 08/03/23 06:38 08/07/23 06:39 Abnormal Lab Results - Last 24 Hours (Table) 08/06/23 08/06/23 08/07/23 Range/Units 16:40 20:44 01:31 Sodium (135-145) mmol/L Potassium (3.5-5.5) mmol/L Chloride (96-109) mmol/L Carbon Dioxide (21.6-31.8) mmol/L BUN (9.0-27.0) mg/dL Est GFR (CKD-EPI) (>=60) BUN/Creatinine Ratio (12.00-20.00) Ratio Glucose (70-110) mg/dL POC Glucose (mg/dL) 198 H 205 H 181 H (70-110) mg/dL 08/07/23 08/07/23 08/07/23 Range/Units 06:08 06:39 11:35 Sodium 151 H (135-145) mmol/L Potassium 3.2 L (3.5-5.5) mmol/L Chloride 110 H (96-109) mmol/L Carbon Dioxide 36.3 H (21.6-31.8) mmol/L BUN 28.3 H (9.0-27.0) mg/dL Est GFR (CKD-EPI) 59 L (>=60) BUN/Creatinine Ratio 21.77 H (12.00-20.00) Ratio Glucose 196 H (70-110) mg/dL POC Glucose (mg/dL) 174 H 203 H (70-110) mg/dL Diabetes panel 08/07/23 Range/Units 06:39 Sodium 151 H (135-145) mmol/L Potassium 3.2 L (3.5-5.5) mmol/L Chloride 110 H (96-109) mmol/L Carbon Dioxide 36.3 H (21.6-31.8) mmol/L BUN 28.3 H (9.0-27.0) mg/dL Creatinine 1.3 (0.6-1.5) mg/dL Glucose 196 H (70-110) mg/dL Calcium 9.2 (8.7-10.3) mg/dL Calcium panel 08/07/23 Range/Units 06:39 Calcium 9.2 (8.7-10.3) mg/dL Pituitary panel 08/07/23 Range/Units 06:39 Sodium 151 H (135-145) mmol/L Potassium 3.2 L (3.5-5.5) mmol/L Chloride 110 H (96-109) mmol/L Carbon Dioxide 36.3 H (21.6-31.8) mmol/L BUN 28.3 H (9.0-27.0) mg/dL Creatinine 1.3 (0.6-1.5) mg/dL Glucose 196 H (70-110) mg/dL Calcium 9.2 (8.7-10.3) mg/dL Adrenal panel 08/07/23 Range/Units 06:39 Sodium 151 H (135-145) mmol/L Potassium 3.2 L (3.5-5.5) mmol/L Chloride 110 H (96-109) mmol/L Carbon Dioxide 36.3 H (21.6-31.8) mmol/L BUN 28.3 H (9.0-27.0) mg/dL Creatinine 1.3 (0.6-1.5) mg/dL Glucose 196 H (70-110) mg/dL Calcium 9.2 (8.7-10.3) mg/dL
[2023-08-07 16:45] LABS: Glucose,Whole Blood 238 mg/dL (70-110)
[2023-08-07 20:38] LABS: Glucose,Whole Blood 241 mg/dL (70-110)
[2023-08-07] MEDS: INSULIN DETEMIR (LEVEMIR) 100 UNIT/ML SYR SQ SCH (21:19)
[2023-08-07 23:28] LABS: Glucose,Whole Blood 220 mg/dL (70-110)
[2023-08-08] MEDS: DEXTROSE 5% IN WATER 1,000 ML IV SCH ×2 (01:29→10:17)
[2023-08-08 06:46] LABS: Glucose,Whole Blood 185 mg/dL (70-110)
[2023-08-08] MEDS: RIVAROXABAN 20 MG TAB PO SCH (06:54)
[2023-08-08] MEDS: INSULIN ASPART (NovoLOG) 100 UNIT/ML VIAL SQ SCH ×6 (06:54→23:38)
[2023-08-08] MEDS: ALBUTEROL HFA INHALER INHALATION SCH ×4 (08:33→22:10)
[2023-08-08] MEDS: SYMBICORT 160-4.5 MCG INHALER INHALATION SCH ×2 (08:33→22:10)
[2023-08-08] MEDS: ATORVASTATIN 20 MG TAB PO SCH (09:33)
[2023-08-08] MEDS: NYSTATIN 100,000 UNIT/ML SUSP 500,000 UNIT/5 ML CUP PO SCH ×4 (09:33→20:27)
[2023-08-08] MEDS: METOPROLOL TARTRATE 50 MG TAB PO SCH ×2 (09:33→20:27)
[2023-08-08] MEDS: DOCUSATE ORAL SOLN 100 MG/10 ML CUP PO SCH (09:33)
[2023-08-08] MEDS: PANTOPRAZOLE 40 MG/10 ML VIAL IV SCH (09:34)
[2023-08-08 10:02] LABS: Basophils % (A) 0 %; Eosinophils # (A) 0.3 k/uL (0-0.7); Eosinophils % (A) 2 %; HCT 38.5 % (39.0-53.0); Hypochromasia Moderate; Lymphocytes # (A) 1.1 k/uL (1.0-4.8); Lymphocytes % (A) 8 %; MCHC 31.3 g/dL (31.0-37.0); MCV 102.1 fL (80.0-100.0); Macrocytosis Slight; Mean Platelet Volume 8.6; Monocytes # (A) 0.8 k/uL (0-1.0); Monocytes % (A) 6 %; Neutrophils # (A) 11.4 k/uL (1.3-7.7); Neutrophils % (A) 82 %; Platelet Count 183 k/uL (150-450); RBC 3.77 m/uL (4.30-5.90); WBC 13.8 k/uL (3.8-10.6)
[2023-08-08 10:19] LABS: African American GFR (CKD) 80 (>60 ml/min/1.73 sqM); Anion Gap 1 mmol/L; Blood Urea Nitrogen 24 mg/dL (9-20); Calcium 8.7 mg/dL (8.4-10.2); Carbon Dioxide 39 mmol/L (22-30); Chloride 102 mmol/L (98-107); Glucose 198 mg/dL (74-99); Magnesium 1.9 mg/dL (1.6-2.3); Non-African American GFR(CKD) 69 (>60 ml/min/1.73 sqM); Potassium 3.5 mmol/L (3.5-5.1); Sodium 142 mmol/L (137-145)
[2023-08-08] MEDS ORDERED: SCOPOLAMINE 1 MG/72 HR PATCH TRANSDERM SCH (10:30)
[2023-08-08 11:31] LABS: Glucose,Whole Blood 201 mg/dL (70-110)
--- NOTE | 2023-08-08 12:34 | P.PN ---
Subjective Progress Note Date: 08/08/23 On today's evaluation of 08/03/2023, I'm seeing the patient for a follow-up. The patient is post cardiac arrest. The patient is resting comfortably in bed. He is doing limited amount of communication. Overall, he remains quite weak and debilitated. He has successfully survived his cardiac arrest and the patient was extubated and the patient is currently on 3 L O2 nasal cannula. Note that the patient was also diagnosed having a Covid 19 infection during this current hospitalization. He has diabetes mellitus type 2, obstructive sleep apnea, bronchial asthma, and hypertension. His blood work today shows a white cell count of 17, hemoglobin of 13, platelets of 128, BUN is at 45 with a creatinine of 0.98. The sodium level is at 148. The patient is on albuterol HFA 4 times a day, Symbicort as maintenance, Lasix 40 mg by mouth daily, metoprolol 50 mg twice a day and is also on anticoagulations with Xarelto. His oral intake is quite diminished although I was told by the nursing staff that he's been progressively eating better. His sputum culture was positive for staph aureus. I have 2 samples of sputum, the earlier sputum sample that was obtained on 07/21/2023 was positive for E. coli and MRSA. Patient completed his antibiotic course. Most recent chest x-ray done on 07/30/2023 showed cardiomegaly and a small right-sided pleural effusion along with some atelectatic changes in the lung bases bilaterally. The patient otherwise is resting comfortably in bed. The is at the bedside. On today's evaluation of 08/04/2023, the patient continues to show signs of anoxic encephalopathy. He is lethargic, not communicating at this point in time. Does not any seizures. Diffuse motor weakness in all 4 extremities. Has adequate cough. He is currently on 3 L of oxygen by nasal cannula. Repeat chest x-ray shows no interval change. Probably some atelectatic change in left lung base. Remains on Lasix 40 mg by mouth daily. He is being fed applesauce and soft criteria. His oral intake is quite diminished. I do not appreciate any significant change in his condition or improvement over the past 24 hours. On 08/05/2023, the patient spiked a low-grade fever. The chest x-ray was repeated and the patient has some atelectasis and small effusion the right lung base. Otherwise no airspace consolidation. The patient is more interactive today. His oral intake remains quite diminished. He needs another set of electrolytes as the most recent sodium level from 2 days ago was 148. At the same time, the patient's oral intake is diminished and the patient is taking d iuretics. No other new complaints otherwise for now. Recommended starting the patient on half-normal saline at rate of 50 mL an hour. On today's evaluation of 08/06/2023, the patient is essentially the same. Slightly more interactive compared to yesterday. He was found to have hyperchloremic hypernatremia the patient was started on D5 water and his sodium level is improving for now. Urine operas also improving. He was taken off the Lasix. He is afebrile for now. His oral intake is minimal. I think the patient's height on nourished and if ongoing treatment is needed, the patient will likely need a PEG tube insertion. He is post anoxic encephalopathy and cardiac arrest. Hemodynamically stable. Sodium level is at 148, potassium level is at 2.8 which is being replaced. BUN is at 35 with a creatinine of 1.23. He remains on oxygen at 4 L with a pulse ox of 94%. Neurology is on the case. On today's evaluation of 08/07/2023, the patient mumbles and his speech is not clear. Not following commands consistently. Not meeting his caloric requirements and not eating enough. I made recommendations to have a PEG tube inserted for nutritional support. The declined the procedure. Otherwise, the patient is currently on D5 water running at 100 mL an hour. The patient is also on oxygen at 3 L. No respiratory distress. Overall condition is essentially unchanged compared to yesterday. Repeat blood work from today shows a sodium level of 151, potassium is at 3.2 which is being replaced and the BUN is at 28 with a creatinine of 1.3 and a serum bicarb is at 36. Blood sugars of 23. Calcium levels at 9.2. 08/08/2023, the patient is essentially the same. He is communicating briefly. Most of the time he is in bed, lethargic and sleepy and his oral intake remains minimal although I was told that he was taken some liquid and soft diet by nursing assistance. Family has declined PEG tube feeding. He has some respiratory secretions which is probably in his upper airway. His sodium level is down to 142 with a BUN of 24 and a creatinine 1.08. Hemoglobin 15.8 with a white cell count of 12. Remains on anticoagulation with Xarelto, the patient is also on Levemir insulin 15 units plus a sliding scale coverage. He is on D5 water which can be kept on to 50 mL an hour Objective - Vital Signs Vital signs: Vital Signs Temp 98.3 F 08/08/23 06:58 Pulse 94 08/08/23 06:58 Resp 19 08/08/23 06:58 BP 138/79 08/08/23 06:58 Pulse Ox 93 L 08/08/23 08:34 FiO2 50 07/29/23 08:37 Intake & Output 08/07/23 08/08/23 08/08/23 18:59 06:59 18:59 Intake Total 600 Output Total 300 450 Balance 300 -450 Weight 125.5 kg 128.5 kg Intake: Oral 600 Output: Urine 300 450 Other: Voiding Method External Catheter External Catheter External Catheter # Voids 2 # Bowel Movements 0 ABP, PAP, CO, CI - Last Documented Arterial Blood Pressure 119/59 - Exam Gen. appearance: Reveals a 68-year-old male patient. Sitting up in bed. No acute distress, awake and alert, on O2 at 3 L nasal cannula. HEENT examination is grossly unremarkable. Neck supple. Full range of motion. No adenopathy thyromegaly or neck vein distention. Cardiovascular examination reveals regular rhythm rate. S1-S2 normal. No S3 or S4. No discernible murmur noted. Heart sounds are distant. Lungs reveal scattered bilateral rhonchi. Breath sounds are equal bilaterally. No crackles. Abdomen soft, without bowel sounds. No masses. Extremities are intact. No cyanosis clubbing or edema. Skin is without rash or lesion. Neurologic examination reveals a patient who is awake, but somewhat confused. He is able to communicate short sentences. He is not following commands consistently. There is generalized motor weakness in all 4 extremities. - Labs CBC & Chem 7: 08/08/23 09:46 08/08/23 09:46 Labs: Abnormal Lab Results - Last 24 Hours (Table) 08/07/23 08/07/23 08/07/23 Range/Units 06:39 11:35 16:44 WBC (3.8-10.6) k/uL RBC (4.30-5.90) m/uL Hgb (13.0-17.5) gm/dL Hct (39.0-53.0) % MCV (80.0-100.0) fL Neutrophils # (1.3-7.7) k/uL Sodium 151 H (135-145) mmol/L Potassium 3.2 L (3.5-5.5) mmol/L Chloride 110 H (96-109) mmol/L Carbon Dioxide 36.3 H (21.6-31.8) mmol/L BUN 28.3 H (9.0-27.0) mg/dL Est GFR (CKD-EPI) 59 L (>=60) BUN/Creatinine Ratio 21.77 H (12.00-20.00) Ratio Glucose 196 H (70-110) mg/dL POC Glucose (mg/dL) 203 H 238 H (70-110) mg/dL 08/07/23 08/07/23 08/08/23 Range/Units 20:36 23:27 06:38 WBC (3.8-10.6) k/uL RBC (4.30-5.90) m/uL Hgb (13.0-17.5) gm/dL Hct (39.0-53.0) % MCV (80.0-100.0) fL Neutrophils # (1.3-7.7) k/uL Sodium (135-145) mmol/L Potassium (3.5-5.5) mmol/L Chloride (96-109) mmol/L Carbon Dioxide (21.6-31.8) mmol/L BUN (9.0-27.0) mg/dL Est GFR (CKD-EPI) (>=60) BUN/Creatinine Ratio (12.00-20.00) Ratio Glucose (70-110) mg/dL POC Glucose (mg/dL) 241 H 220 H 185 H (70-110) mg/dL 08/08/23 08/08/23 Range/Units 09:46 09:46 WBC 13.8 H (3.8-10.6) k/uL RBC 3.77 L (4.30-5.90) m/uL Hgb 12.0 L (13.0-17.5) gm/dL Hct 38.5 L (39.0-53.0) % MCV 102.1 H (80.0-100.0) fL Neutrophils # 11.4 H (1.3-7.7) k/uL Sodium (135-145) mmol/L Potassium (3.5-5.5) mmol/L Chloride (96-109) mmol/L Carbon Dioxide 39 H (21.6-31.8) mmol/L BUN 24 H (9.0-27.0) mg/dL Est GFR (CKD-EPI) (>=60) BUN/Creatinine Ratio (12.00-20.00) Ratio Glucose 198 H (70-110) mg/dL POC Glucose (mg/dL) (70-110) mg/dL Assessment and Plan Plan: Acute hypoxemic and hypercapnic respiratory failure, secondary to cardiac arrest, with a prolonged downtime, with initial intubation, on July 16, and extubation on July 25, and then reintubation on July 28, for worsening respiratory status. S/P re-extubation, on 07/29/2023. Currently stable and on 3 L nasal cannula. Acute coronavirus infection, treated and the patient is recovered Chronic atrial fibrillation. The rate is controlled and the patient is currently on anticoagulation Encephalopathy post cardiac arrest, continues to have generalized motor weakness in all 4 extremities. This is likely an anoxic encephalopathy post cardiac arrest. Encephalopathy due to a Covid 19 infection cannot be completely ruled out. Morbid obesity. Type 2 diabetes mellitus. Obstructive sleep apnea syndrome. Recent hospitalization for bilateral pneumonia. infection was secondary to E. coli and MRSA, treated with a combination of Zosyn and vancomycin. Chronic bronchial asthma. Acute kidney injury, secondary to cardiac arrest. Nonspecific pulmonary nodules. Benign essential hypertension. Anoxic brain injury with hypoxemic encephalopathy. Right lower lobe pneumonia/consolidation, secondary to Escherichia coli, and methicillin-resistant staph aureus. Hyperchloremic hypernatremia, improving Plan: Obviously, this patient is not meeting his caloric requirements and not eating enough. has declined effective resection of this point in time. The procedure will not be done accordingly. Will not be done accordingly. Monitor electrolytes Reduce D5 water to 50 mL an hour Monitor the fever pattern, currently afebrile Chest x-ray findings remain unchanged Physical therapy Advance diet Incentive spirometer Monitor electrolytes DO NOT RESUSCITATE/DO NOT INTUBATE CODE STATUS Signs of anoxic encephalopathy with limited recovered over the past few days.
--- NOTE | 2023-08-08 13:16 | XR ---
EXAMINATION TYPE: XR chest 1V portable DATE OF EXAM: 08/08/2023 CLINICAL HISTORY: Difficulty breathing . TECHNIQUE: Single AP portable upright view of the chest is obtained. COMPARISON: Chest x-ray from 3 days earlier FINDINGS: Stable left-sided subclavian central venous catheter. Persistent cardiomegaly with small t o moderate size right pleural effusion. Mild central vascular congestion redemonstrated. Osseous stru ctures are intact. IMPRESSION: Cardiomegaly with small to moderate size right pleural effusion mild central vascular con gestion redemonstrated. No significant change from prior.
[2023-08-08] MEDS ORDERED: MAGNESIUM SULFATE-D5W PMX 1 GM in DEXTROSE/WATER 1 100ML.BAG IVPB ONE (14:00)
[2023-08-08] MEDS: POTASSIUM CHLORIDE 10 MEQ in WATER FOR INJECTION 1 100ML.BAG IVPB SCH ×4 (15:10→18:14)
[2023-08-08 18:00] LABS: Glucose,Whole Blood 340 mg/dL (70-110)
[2023-08-08] MEDS: INSULIN DETEMIR (LEVEMIR) 100 UNIT/ML SYR SQ SCH (20:27)
--- NOTE | 2023-08-08 21:37 | P.PN ---
Subjective Progress Note Date: 08/08/23 This is a 68 year old male patient of Dr. Rhodes. Patient admitted for cardiac arrest has been extubated and weaned to 3 L of nasal cannula. Patient having waxing and waning mentation. Has mostly been lethargic today. Per family at the bedside he was more awake yesterday and was responding and talking. Today he is lethargic. He is following commands. He has diffuse generalized weakness. There is concern for an anoxic brain injury from the cardiac arrest and prolonged down time. He was also found to be positive for COVID has since been taken out of isolation. He is congested. Chest xray today showing cardiomegaly with small to moderate size right pleural effusion mild central vascular congestion re demonstrated. Stable from prior. Recommendations made for PEG tube placement at this time family is refusing. They are hoping patient will make a turn around. Labs today are showing white count of 13.8, hgb 12.0, sodium 142, potassium 3.5, BUN 24, creatinine 1.08. proBNP 1170. He remains in aspiration precaution and dysphagia 1 diet. Overall prognosis remains guarded. Review of Systems Unable to obtain patient is lethargic and barely arousable. PHYSICAL EXAMINATION: GENERAL: The patient is alert and oriented x1, not in any acute distress. Well developed, well nourished. Obese. HEENT: Pupils are round and equally reacting to light. EOMI. No scleral icterus. No conjunctival pallor. Normocephalic, atraumatic. No pharyngeal erythema. No thyromegaly. CARDIOVASCULAR: S1 and S2 present. No murmurs, rubs, or gallops. PULMONARY: Scattered ronchi through and congestion. ABDOMEN: Soft, nontender, nondistended, normoactive bowel sounds. No palpable organomegaly. MUSCULOSKELETAL: No joint swelling or deformity. EXTREMITIES: No cyanosis, clubbing, or pedal edema. NEUROLOGICAL: Gross neurological examination did not reveal any focal deficits. Diffuse generalized weakness. SKIN: No rashes. Assessment Cardiac arrest with prolonged down time and acute hypoxemic and hypercapnic respiratory failure patient is extubated on jul 25. He is currently on 3 L of oxygen Acute covid infection out of isolation; underlying bacterial pneumonia with E.Coli, Staph and MRSA. Patient treated with IV zosyn, IV vancomycin. Right side pleural effusion secondary to vascular congestion and volume overload currently off lasix and being hydrated Hypernatremia improved with D5 gtt. . Severe protein calorie malnutrition and poor oral intake family declining PEG tube at this time. Encephalopathy post cardiac arrest with concern for anoxic brain injury and component of covid related encephalopathy patient is diffusely weak with periods of lethargy. Acute kidney injury has resolved Hypertension Hx of asthma Diabetes Mellitus type 2 Sleep apnea Former smoker GI prophylaxis DVT prophylaxis anticoagulated with Xarelto Do Not Resuscitate/Do Not Intubate Plan Repeat labs in the AM if white count continues to trend up will work this up Patient remains off antibiotics at this time was treated for the bacterial pneumonia Patient remains on 3L of oxygen Family has declined PEG tube he is high risk for aspiration and remains in aspiration precautions with 1:1 feeding supervision and dysphagia 1 puree diet he is on nectar thick liquids Family would like patient to be re-evaluated by speech therapy when he is more awake this will take place thursday when ST available. Today patient was lethargic without much oral intake. Prognosis is guarded at this time. PT/OT are following. The impression and plan of care has been dictated by Kate Medrano, Nurse Practitioner as directed. Dr. Simona MD I have performed a history and physical examination and medical decision making of this patient, discussed the same with the dictator, and agree with the dictators assessment and plan as written, documented as a scribe. Based on total visit time, I have performed more than 50% of this visit. Objective - Vital Signs Vital signs: Vital Signs Temp 98.3 F 08/08/23 06:58 Pulse 94 08/08/23 06:58 Resp 19 08/08/23 06:58 BP 138/79 08/08/23 06:58 Pulse Ox 93 L 08/08/23 08:34 FiO2 50 07/29/23 08:37 Intake & Output 08/07/23 08/08/23 08/08/23 18:59 06:59 18:59 Intake Total 600 Output Total 300 450 Balance 300 -450 Weight 125.5 kg 128.5 kg Intake: Oral 600 Output: Urine 300 450 Other: Voiding Method External Catheter External Catheter # Voids 2 # Bowel Movements 0 ABP, PAP, CO, CI - Last Documented Arterial Blood Pressure 119/59 - Labs CBC & Chem 7: 08/08/23 09:46 08/08/23 09:46 Labs: Abnormal Lab Results - Last 24 Hours (Table) 08/07/23 08/07/23 08/07/23 Range/Units 06:39 11:35 16:44 Sodium 151 H (135-145) mmol/L Potassium 3.2 L (3.5-5.5) mmol/L Chloride 110 H (96-109) mmol/L Carbon Dioxide 36.3 H (21.6-31.8) mmol/L BUN 28.3 H (9.0-27.0) mg/dL Est GFR (CKD-EPI) 59 L (>=60) BUN/Creatinine Ratio 21.77 H (12.00-20.00) Ratio Glucose 196 H (70-110) mg/dL POC Glucose (mg/dL) 203 H 238 H (70-110) mg/dL 08/07/23 08/07/23 08/08/23 Range/Units 20:36 23:27 06:38 Sodium (135-145) mmol/L Potassium (3.5-5.5) mmol/L Chloride (96-109) mmol/L Carbon Dioxide (21.6-31.8) mmol/L BUN (9.0-27.0) mg/dL Est GFR (CKD-EPI) (>=60) BUN/Creatinine Ratio (12.00-20.00) Ratio Glucose (70-110) mg/dL POC Glucose (mg/dL) 241 H 220 H 185 H (70-110) mg/dL Assessment and Plan Time with Patient: Greater than 30
[2023-08-08 23:31] LABS: Glucose,Whole Blood 136 mg/dL (70-110)
[2023-08-09] MEDS ORDERED: FUROSEMIDE 10 MG/ML 4 ML VIAL IV STA (03:07)
[2023-08-09] MEDS ORDERED: IPRATROPIUM-ALBUTEROL 3 ML NEB INHALATION PRN (03:08)
[2023-08-09] MEDS ORDERED: IPRATROPIUM-ALBUTEROL 3 ML NEB IH STA (03:09)
[2023-08-09 03:10] LABS: Glucose,Whole Blood 217 mg/dL (70-110)
--- NOTE | 2023-08-09 03:24 | XR ---
EXAM: XR Chest, 1 View CLINICAL HISTORY: Hypoxia TECHNIQUE: Frontal view of the chest. COMPARISON: 08/08/2023 at 12:43 hours FINDINGS: Lungs: Central vascular congestion remains. Pleural space: The right pleural effusion appears minimally larger from the previous examination. No large left pleural effusion. No pneumothorax. Heart: The cardiac silhouette is thought to be stable, accounting for slight obliquity. Mediastinum: The mediastinal contours are thought to be stable, accounting for alteration in projection technique. No tracheal deviation. Bones/joints: Unremarkable. Tubes, lines and devices: A left subclavian central line remains stable in the confluence of brachiocephalic veins. IMPRESSION: The right pleural effusion appears minimally larger from the previous examination. Otherwise similar appearance to the prior examination.
[2023-08-09] MEDS: ATROPINE OPHTH SOLN 1% 5ML BTL SUBLINGUAL SCH ×5 (03:40→21:18)
[2023-08-09] MEDS ORDERED: MORPHINE SULFATE 2 MG/ML SYRINGE IV PRN (04:05)
[2023-08-09] MEDS ORDERED: GLYCOPYRROLATE 0.2 MG/ML 2 ML VIAL IVP PRN (04:05)
[2023-08-09] MEDS ORDERED: MORPHINE SULFATE (100 MG/2 ML) 100 MG in SODIUM CHLORIDE 0.9% 100 ML IV SCH (04:30)
[2023-08-09] MEDS: INSULIN ASPART (NovoLOG) 100 UNIT/ML VIAL SQ SCH ×2 (04:50→04:51)
[2023-08-09] MEDS: RIVAROXABAN 20 MG TAB PO SCH (04:51)
[2023-08-09] MEDS: DEXTROSE 5% IN WATER 1,000 ML IV SCH (04:51)
[2023-08-09] MEDS: ALBUTEROL HFA INHALER INHALATION SCH ×4 (07:31→19:41)
[2023-08-09] MEDS: SYMBICORT 160-4.5 MCG INHALER INHALATION SCH ×2 (07:32→19:41)
[2023-08-09 07:43] VITALS: RESP 19
[2023-08-09] MEDS: ATORVASTATIN 20 MG TAB PO SCH (08:35)
[2023-08-09] MEDS: DOCUSATE ORAL SOLN 100 MG/10 ML CUP PO SCH (08:35)
[2023-08-09] MEDS: METOPROLOL TARTRATE 50 MG TAB PO SCH (08:35)
[2023-08-09] MEDS: PANTOPRAZOLE 40 MG/10 ML VIAL IV SCH (08:36)
[2023-08-09] MEDS: NYSTATIN 100,000 UNIT/ML SUSP 500,000 UNIT/5 ML CUP PO SCH (08:36)
--- NOTE | 2023-08-09 12:15 | P.PN ---
Subjective Progress Note Date: 08/09/23 On today's evaluation of 08/03/2023, I'm seeing the patient for a follow-up. The patient is post cardiac arrest. The patient is resting comfortably in bed. He is doing limited amount of communication. Overall, he remains quite weak and debilitated. He has successfully survived his cardiac arrest and the patient was extubated and the patient is currently on 3 L O2 nasal cannula. Note that the patient was also diagnosed having a Covid 19 infection during this current hospitalization. He has diabetes mellitus type 2, obstructive sleep apnea, bronchial asthma, and hypertension. His blood work today shows a white cell count of 17, hemoglobin of 13, platelets of 128, BUN is at 45 with a creatinine of 0.98. The sodium level is at 148. The patient is on albuterol HFA 4 times a day, Symbicort as maintenance, Lasix 40 mg by mouth daily, metoprolol 50 mg twice a day and is also on anticoagulations with Xarelto. His oral intake is quite diminished although I was told by the nursing staff that he's been progressively eating better. His sputum culture was positive for staph aureus. I have 2 samples of sputum, the earlier sputum sample that was obtained on 07/21/2023 was positive for E. coli and MRSA. Patient completed his antibiotic course. Most recent chest x-ray done on 07/30/2023 showed cardiomegaly and a small right-sided pleural effusion along with some atelectatic changes in the lung bases bilaterally. The patient otherwise is resting comfortably in bed. The is at the bedside. On today's evaluation of 08/04/2023, the patient continues to show signs of anoxic encephalopathy. He is lethargic, not communicating at this point in time. Does not any seizures. Diffuse motor weakness in all 4 extremities. Has adequate cough. He is currently on 3 L of oxygen by nasal cannula. Repeat chest x-ray shows no interval change. Probably some atelectatic change in left lung base. Remains on Lasix 40 mg by mouth daily. He is being fed applesauce and soft criteria. His oral intake is quite diminished. I do not appreciate any significant change in his condition or improvement over the past 24 hours. On 08/05/2023, the patient spiked a low-grade fever. The chest x-ray was repeated and the patient has some atelectasis and small effusion the right lung base. Otherwise no airspace consolidation. The patient is more interactive today. His oral intake remains quite diminished. He needs another set of electrolytes as the most recent sodium level from 2 days ago was 148. At the same time, the patient's oral intake is diminished and the patient is taking d iuretics. No other new complaints otherwise for now. Recommended starting the patient on half-normal saline at rate of 50 mL an hour. On today's evaluation of 08/06/2023, the patient is essentially the same. Slightly more interactive compared to yesterday. He was found to have hyperchloremic hypernatremia the patient was started on D5 water and his sodium level is improving for now. Urine operas also improving. He was taken off the Lasix. He is afebrile for now. His oral intake is minimal. I think the patient's height on nourished and if ongoing treatment is needed, the patient will likely need a PEG tube insertion. He is post anoxic encephalopathy and cardiac arrest. Hemodynamically stable. Sodium level is at 148, potassium level is at 2.8 which is being replaced. BUN is at 35 with a creatinine of 1.23. He remains on oxygen at 4 L with a pulse ox of 94%. Neurology is on the case. On today's evaluation of 08/07/2023, the patient mumbles and his speech is not clear. Not following commands consistently. Not meeting his caloric requirements and not eating enough. I made recommendations to have a PEG tube inserted for nutritional support. The declined the procedure. Otherwise, the patient is currently on D5 water running at 100 mL an hour. The patient is also on oxygen at 3 L. No respiratory distress. Overall condition is essentially unchanged compared to yesterday. Repeat blood work from today shows a sodium level of 151, potassium is at 3.2 which is being replaced and the BUN is at 28 with a creatinine of 1.3 and a serum bicarb is at 36. Blood sugars of 23. Calcium levels at 9.2. 08/08/2023, the patient is essentially the same. He is communicating briefly. Most of the time he is in bed, lethargic and sleepy and his oral intake remains minimal although I was told that he was taken some liquid and soft diet by nursing assistance. Family has declined PEG tube feeding. He has some respiratory secretions which is probably in his upper airway. His sodium level is down to 142 with a BUN of 24 and a creatinine 1.08. Hemoglobin 15.8 with a white cell count of 12. Remains on anticoagulation with Xarelto, the patient is also on Levemir insulin 15 units plus a sliding scale coverage. He is on D5 water which can be kept on to 50 mL an hour On today's evaluation of August 09 2023, the patient is on a morphine drip and the family the bedside and the patient is undergoing hospice care. The patient is resting comfortably in bed. Overnight, the patient had an episode of desaturation. Family was contacted and his CODE STATUS is unchanged to comfort care measures. Objective - Vital Signs Vital signs: Vital Signs Temp 99.7 F H 08/09/23 07:41 Pulse 107 H 08/09/23 07:41 Resp 19 08/09/23 07:41 BP 118/74 08/09/23 07:41 Pulse Ox 99 08/09/23 07:41 FiO2 50 07/29/23 08:37 Intake & Output 08/08/23 08/09/23 08/09/23 18:59 06:59 18:59 Output Total 500 250 Balance -500 -250 Weight 126.5 kg Output: Urine 500 250 Other: Voiding Method External Catheter External Catheter ABP, PAP, CO, CI - Last Documented Arterial Blood Pressure 119/59 - Exam Gen. appearance: Reveals a 68-year-old male patient. Sitting up in bed. No acute distress, awake and alert, on O2 at 3 L nasal cannula. HEENT examination is grossly unremarkable. Neck supple. Full range of motion. No adenopathy thyromegaly or neck vein distention. Cardiovascular examination reveals regular rhythm rate. S1-S2 normal. No S3 or S4. No discernible murmur noted. Heart sounds are distant. Lungs reveal scattered bilateral rhonchi. Breath sounds are equal bilaterally. No crackles. Abdomen soft, without bowel sounds. No masses. Extremities are intact. No cyanosis clubbing or edema. Skin is without rash or lesion. Neurologic examination reveals a patient who is awake, but somewhat confused. He is able to communicate short sentences. He is not following commands consistently. There is generalized motor weakness in all 4 extremities. - Labs CBC & Chem 7: 08/08/23 09:46 08/08/23 22:00 Labs: Abnormal Lab Results - Last 24 Hours (Table) 08/08/23 08/08/23 08/08/23 Range/Units 11:29 17:59 23:27 POC Glucose (mg/dL) 201 H 340 H 136 H (70-110) mg/dL 08/09/23 Range/Units 03:09 POC Glucose (mg/dL) 217 H (70-110) mg/dL Assessment and Plan Plan: Acute hypoxemic and hypercapnic respiratory failure, secondary to cardiac arrest, with a prolonged downtime, with initial intubation, on July 16, and extubation on July 25, and then reintubation on July 28, for worsening respiratory status. S/P re-extubation, on 07/29/2023. Currently stable and on 3 L nasal cannula. Patient opted another episode desaturation yesterday and family has decided to proceed with comfort care measures. Acute coronavirus infection, treated and the patient is recovered Chronic atrial fibrillation. The rate is controlled and the patient is cu rrently on anticoagulation Encephalopathy post cardiac arrest, continues to have generalized motor weakness in all 4 extremities. This is likely an anoxic encephalopathy post cardiac arrest. Encephalopathy due to a Covid 19 infection cannot be completely ruled out. Morbid obesity. Type 2 diabetes mellitus. Obstructive sleep apnea syndrome. Recent hospitalization for bilateral pneumonia. infection was secondary to E. coli and MRSA, treated with a combination of Zosyn and vancomycin. Chronic bronchial asthma. Acute kidney injury, secondary to cardiac arrest. Nonspecific pulmonary nodules. Benign essential hypertension. Anoxic brain injury with hypoxemic encephalopathy. Right lower lobe pneumonia/consolidation, secondary to Escherichia coli, and methicillin-resistant staph aureus. Hyperchloremic hypernatremia, improving Plan: Estimated on multiple occasions, the patient's prognosis poor. The family has declined PEG tube feeding. The family has opted to go with comfort care measures. The patient is currently on a morphine drip. I'll leave the rest of the management to the medical team. The patient is on room and all. The patient is on oxygen. The patient is receiving morphine. Patient is on scopolamine patch. He seems to be quite comfortable at this point in time.
--- NOTE | 2023-08-09 14:11 | P.PN ---
Subjective Progress Note Date: 08/09/23 This is a 68 year old male patient of Dr. Rhodes. Patient admitted for cardiac arrest has been extubated and weaned to 3 L of nasal cannula. Patient having waxing and waning mentation. Has mostly been lethargic today. Per family at the bedside he was more awake yesterday and was responding and talking. Today he is lethargic. He is following commands. He has diffuse generalized weakness. There is concern for an anoxic brain injury from the cardiac arrest and prolonged down time. He was also found to be positive for COVID has since been taken out of isolation. He is congested. Chest xray today showing cardiomegaly with small to moderate size right pleural effusion mild central vascular congestion re demonstrated. Stable from prior. Recommendations made for PEG tube placement at this time family is refusing. They are hoping patient will make a turn around. Labs today are showing white count of 13.8, hgb 12.0, sodium 142, potassium 3.5, BUN 24, creatinine 1.08. proBNP 1170. He remains in aspiration precaution and dysphagia 1 diet. Overall prognosis remains guarded. 08/09/2023 Patient is evaluated today resting in bed comfortably with family at the bedside. He had chest xray 3am showing minimally larger right pleural effusion from the chest xray later in the day. He was given IV lasix and taken off the D5 Gtt. He was requiring 15L non rebreather and was agitated in the bed. Family had decided to make him comfortable and he has been started on morphine gtt over the night. scopalamine patch for the secretions. Review of Systems Unable to obtain patient is lethargic and barely arousable. PHYSICAL EXAMINATION: GENERAL: The patient is alert and oriented x1, not in any acute distress. Well developed, well nourished. Obese. HEENT: Pupils are round and equally reacting to light. EOMI. No scleral icterus. No conjunctival pallor. Normocephalic, atraumatic. No pharyngeal erythema. No thyromegaly. CARDIOVASCULAR: S1 and S2 present. No murmurs, rubs, or gallops. PULMONARY: Scattered ronchi through and congestion. ABDOMEN: Soft, nontender, nondistended, normoactive bowel sounds. No palpable organomegaly. MUSCULOSKELETAL: No joint swelling or deformity. EXTREMITIES: No cyanosis, clubbing, or pedal edema. NEUROLOGICAL: Gross neurological examination did not reveal any focal deficits. Diffuse generalized weakness. SKIN: No rashes. Assessment Acute hypoxemic respiratory failure worsening requiring 15 L non rebreather did get a dose of IV lasix without much improvement. Family decided on comfort care. Cardiac arrest with prolonged down time and acute hypoxemic and hypercapnic respiratory failure patient is extubated on jul 25. Acute covid infection out of isolation; underlying bacterial pneumonia with E.Coli, Staph and MRSA. Patient treated with IV zosyn, IV vancomycin. Right side pleural effusion secondary to vascular congestion and volume overload currently off lasix and being hydrated Hypernatremia improved with D5 gtt. . Severe protein calorie malnutrition and poor oral intake family declining PEG tube at this time. Encephalopathy post cardiac arrest with concern for anoxic brain injury and component of covid related encephalopathy patient is diffusely weak with periods of lethargy. Acute kidney injury has resolved Hypertension Hx of asthma Diabetes Mellitus type 2 Sleep apnea Former smoker GI prophylaxis DVT prophylaxis anticoagulated with Xarelto Do Not Resuscitate/Do Not Intubate Plan Patient required 15L hi flow cannula given IV lasix x 1 and family had decided to make patient comfortable and comfort care orders have been initiated. Patient remains off antibiotics at this time was treated for the bacterial pneumonia Family has declined PEG tube he is high risk for aspiration and remains in aspiration precautions with 1:1 feeding supervision and dysphagia 1 puree diet he is on nectar thick liquids Patient has remained lethargic and barely arousable over the last few days. He has been made comfortable family at the bedside. The impression and plan of care has been dictated by Kate Medrano, Nurse Practitioner as directed. Dr. Simona MD I have performed a history and physical examination and medical decision making of this patient, discussed the same with the dictator, and agree with the dictators assessment and plan as written, documented as a scribe. Based on total visit time, I have performed more than 50% of this visit. Objective - Vital Signs Vital signs: Vital Signs Temp 99.7 F H 08/09/23 07:41 Pulse 107 H 08/09/23 07:41 Resp 19 08/09/23 07:41 BP 118/74 08/09/23 07:41 Pulse Ox 99 08/09/23 07:41 FiO2 50 07/29/23 08:37 Intake & Output 0908/09/23 08/09/23 18:59 06:59 18:59 Output Total 500 250 Balance -500 -250 Weight 126.5 kg Output: Urine 500 250 Other: Voiding Method External Catheter External Catheter ABP, PAP, CO, CI - Last Documented Arterial Blood Pressure 119/59 - Labs CBC & Chem 7: 08/08/23 09:46 08/08/23 22:00 Labs: Abnormal Lab Results - Last 24 Hours (Table) 08/08/23 08/08/23 08/08/23 Range/Units 09:46 09:46 11:29 WBC 13.8 H (3.8-10.6) k/uL RBC 3.77 L (4.30-5.90) m/uL Hgb 12.0 L (13.0-17.5) gm/dL Hct 38.5 L (39.0-53.0) % MCV 102.1 H (80.0-100.0) fL Neutrophils # 11.4 H (1.3-7.7) k/uL Carbon Dioxide 39 H (22-30) mmol/L BUN 24 H (9-20) mg/dL Glucose 198 H (74-99) mg/dL POC Glucose (mg/dL) 201 H (70-110) mg/dL 08/08/23 08/08/23 08/09/23 Range/Units 17:59 23:27 03:09 WBC (3.8-10.6) k/uL RBC (4.30-5.90) m/uL Hgb (13.0-17.5) gm/dL Hct (39.0-53.0) % MCV (80.0-100.0) fL Neutrophils # (1.3-7.7) k/uL Carbon Dioxide (22-30) mmol/L BUN (9-20) mg/dL Glucose (74-99) mg/dL POC Glucose (mg/dL) 340 H 136 H 217 H (70-110) mg/dL Assessment and Plan Time with Patient: Less than 30
[2023-08-09 20:12] VITALS: BP 133/84; PULSE 119; TEMP 97.7
[2023-08-09 21:08] LABS: Glucose,Whole Blood 214 mg/dL (70-110)
--- NOTE | 2023-08-11 13:21 | P.DS ---
Providers Date of admission: 07/16/23 12:32 Attending physician: Patrick Rhodes MD Consults: 07/16/23 12:30 Consult Physician Stat Consulting Provider: Aura Plasencia Consult Reason/Comments: Preliminary care,: 19, respiratory failure Do you want consulting provider notified?: Yes 07/17/23 15:06 Consult Physician Stat Consulting Provider: Porsche Cottrell Consult Reason/Comments: post cardiac arrest Do you want consulting provider notified?: Already Contacted Primary care physician: Gardenia Rhodes Hospital Course: Final Diagnosis Acute hypoxemic respiratory failure worsening requiring 15 L non rebreather. Family decided on comfort care. Cardiac arrest with prolonged down time and acute hypoxemic and hypercapnic respiratory failure patient is extubated on jul 25. Acute covid infection out of isolation; underlying bacterial pneumonia with E.Coli, Staph and MRSA. Patient treated with IV zosyn, IV vancomycin. Right side pleural effusion secondary to vascular congestion and volume overload currently off lasix and being hydrated Hypernatremia improved with D5 gtt. . Severe protein calorie malnutrition and poor oral intake family declining PEG tube at this time. Encephalopathy post cardiac arrest with concern for anoxic brain injury and component of covid related encephalopathy patient is diffusely weak with periods of lethargy. Acute kidney injury has resolved Hypertension Hx of asthma Diabetes Mellitus type 2 Sleep apnea Former smoker GI prophylaxis DVT prophylaxis anticoagulated with Xarelto Do Not Resuscitate/Do Not Intubate Patient on 08/09/[id number] Hospital Course This is a 68 year old male patient of Dr. Rhodes. Patient admitted for cardiac arrest has been extubated and weaned to 3 L of nasal cannula. Patient having waxing and waning mentation. Has mostly been lethargic. There is concern for an anoxic brain injury from the cardiac arrest and prolonged down time. He was also found to be positive for COVID has since been taken out of isolation. He is c ongested. Patient was also treated for Pneumonia with sputum showing E.Coli, staph and MRSA. Patient was treated with IV zosyn and IV vancomycin. Most recent chest xray today showing cardiomegaly with small to moderate size right pleural effusion mild central vascular congestion redemonstrated. Stable from prior. Recommendations made for PEG tube placement at this time family is refusing. They are hoping patient will make a turn around. Most recent labs showing white count of 13.8, hgb 12.0, sodium 142, potassium 3.5, BUN 24, creatinine 1.08. proBNP 1170. He remains in aspiration precaution and dysphagia 1 diet. Patient has worsening respiratory failure up to 15L Hi Flow cannula was given a dose of IV lasix without much improvement. Family came in and decided to make him comfort care. Patient on 08/09/20238. Thank you for allowing us to participate in the are of this patient. The impression and plan of care has been dictated by Kate Medrano, Nurse Pr actitioner as directed. Dr. Simona MD I have performed a history and physical examination and medical decision making of this patient, discussed the same with the dictator, and agree with the dicta tors assessment and plan as written, documented as a scribe. Based on total visit time, I have performed more than 50% of this visit. Plan - Discharge Summary New Discharge Prescriptions: No Action Ipratropium/Albuterol Sulfate [Combivent Respimat Inhaler] 2 puff INHALATION RT-QID PRN PRN Reason: Shortness Of Breath Pioglitazone [Actos] 45 mg PO DAILY Rivaroxaban [Xarelto] 20 mg PO DAILY Ipratropium-Albuterol Nebulize [Duoneb 0.5 mg-3 mg/3 ml Soln] 1 inhalation INHALATION RT-TID Atorvastatin [Lipitor] 20 mg PO DAILY Metoprolol Tartrate [Lopressor] 100 mg PO BID Potassium Chloride [Klor-Con M10] 10 meq PO DAILY Fluticasone/Vilanterol [Breo Ellipta 200-25 Mcg Inhaler] 1 puff INHALATION RT-DAILY Furosemide [Lasix] 20 mg PO DAILY glyBURIDE/METFORMIN HCL [Glucovance 5-500 mg] 1 tab PO BID Tirzepatide [Mounjaro] 5 mg SQ TU Discharge Medication List Ipratropium/Albuterol Sulfate [Combivent Respimat Inhaler] 2 puff INHALATION RT- QID PRN 03/30/15 [History] Pioglitazone [Actos] 45 mg PO DAILY 03/30/15 [History] Rivaroxaban [Xarelto] 20 mg PO DAILY 03/30/15 [History] Ipratropium-Albuterol Nebulize [Duoneb 0.5 mg-3 mg/3 ml Soln] 1 inhalation INHALATION RT-TID 05/22/15 [History] Atorvastatin [Lipitor] 20 mg PO DAILY 05/02/23 [History] Metoprolol Tartrate [Lopressor] 100 mg PO BID 05/02/23 [History] Tirzepatide [Mounjaro] 5 mg SQ TU 05/02/23 [History] glyBURIDE/METFORMIN HCL [Glucovance 5-500 mg] 1 tab PO BID 05/02/23 [History] Fluticasone/Vilanterol [Breo Ellipta 200-25 Mcg Inhaler] 1 puff INHALATION RT- DAILY 07/16/23 [History] Furosemide [Lasix] 20 mg PO DAILY 07/16/23 [History] Potassium Chloride [Klor-Con M10] 10 meq PO DAILY 07/16/23 [History] Follow up Appointment(s)/Referral(s): Gardenia Rhodes DO [Primary Care Provider] - 1-2 days Discharge Disposition: - Preliminary Cause of Preliminary Cause of : Acute hypoxemic respiratory failure and covid pneumonia
--- NOTE | 2023-08-12 16:08 | CDI ---
Documentation Clarification Form Date: 08/12/2023 03:44:18 PM From: Amparo Lopez RN, CCDS Email: [email or web address] Admit Date: 07/16/2023 12:32:00 PM Patient Name: Anthony Grijalva Visit Number: [id number] Discharge Date: 08/10/2023 12:15:00 AM ATTENTION: The Clinical Documentation Specialists (CDI) and [facility] Coding Staff appreciate your assistance in clarifying documentation. Please respond to the clarification below the line at the bottom and electronically sign. The CDI & [facility] Coding staff will review the response and follow-up if needed. Please note: Queries are made part of the Legal Health Record. If you have any questions, please contact the author of this message via ITS. Dr. Patrick Rhodes The patient presented post cardiac arrest and was found to have Covid. Based on this information and the findings below, is there an additional diagnosis that is clinically appropriate for this patient? History/Risk Factors: atrial fibrillation, T2DM, DANE, morbid obesity who was brought to the ED with cardiac arrest. The patient was at home and he was complaining of some shortness of breath when he became unresponsive. Clinical Indicators: 07/17-08/08 WBC: 15.7-14.2-8.4-13.4-20.5 07/16 Lactic acid: 1.2 07/16- Cr: 2.41-2.95-2.77-1.90-1.30-1.38 07/21 Sputum culture: E. coli and MRSA 07/28 Sputum culture: Staph aureus 07/16 Temp 95.0; 08/05 [id number] 07/17 HR 101; 08/05 HR 108 Discharge summary: "Acute Covid infection; underlying bacterial pneumonia with E.Coli, Staph and MRSA. Patient treated with IV Zosyn and IV Vancomycin. Cardiac arrest with prolonged down time and acute hypoxemic and hypercapnic respiratory failure. Patient was extubated on Jul 25. Treatment: IV Levophed titrated 07/28-07/30; mechanical ventilation 07/16-07/25 and 07/28-07/29 Antibiotics: IV Zosyn 3.375gm Q8H 07/23-08/01; IV Vancomycin 2500mg x1 on 07/23 then Q18H 07/24-07/27; IV Vancomycin 2000mg on 07/28; IV Vancomycin 2000mg on 07/30 IV Bolus: 2L 0.9 NS IV bolus on 07/17; 1L 0.9 NS IV bolus on 07/28 then 0.45NS @50ml/hr 08/05-08/06 Is there an additional diagnosis that is clinically appropriate for this patient? [ ] Sepsis, present on admission [ ] Sepsis, developed during stay, not present on admission [ ] Severe Sepsis with organ failure [ ] Septic Shock [ ] Other, please specify [ ] Unable to determine SIRS Criteria: 2 or more of the following may indicate SIRS Temperature < 96.8F (36C) or > 101.0F (38.3C) Heart Rate > 90 bpm Respiratory Rate > 20 breaths/min or PaCO2 < 32 mmHg White Blood Cell Count > 12,000 or < 4,000 cells/mm3 or > 10% bands MTDD
== END 2023-08-10 00:15 | disposition expired | DRG 207 ==
LOC: EC 11:02 → 2SICU 12:32 → 4SSUR 07-30 21:02
PROVIDERS: ADMIT Family Medicine; ATTEND Family Medicine
PROC: 5A1955Z Respiratory Ventilation, Greater than 96 Consecutive Hours (ICD-10-PCS; principal; 2023-07-16)
PROC: 02HV33Z Insertion of Infusion Device into Superior Vena Cava, Percutaneous Approach (ICD-10-PCS; 2023-07-16)
PROC: 4A133J1 Monitoring of Arterial Pulse, Peripheral, Percutaneous Approach (ICD-10-PCS; 2023-07-16)
PROC: 4A133B1 Monitoring of Arterial Pressure, Peripheral, Percutaneous Approach (ICD-10-PCS; 2023-07-16)
PROC: 03HY32Z Insertion of Monitoring Device into Upper Artery, Percutaneous Approach (ICD-10-PCS; 2023-07-16)
PROC: 0D9670Z Drainage of Stomach with Drainage Device, Via Natural or Artificial Opening (ICD-10-PCS; 2023-07-16)
PROC: 3E0G76Z Introduction of Nutritional Substance into Upper GI, Via Natural or Artificial Opening (ICD-10-PCS; 2023-07-18)
PROC: 5A09457 Assistance with Respiratory Ventilation, 24-96 Consecutive Hours, Continuous Positive Airway Pressure (ICD-10-PCS; 2023-07-25)
PROC: 5A1945Z Respiratory Ventilation, 24-96 Consecutive Hours (ICD-10-PCS; 2023-07-28)
PROC: 0BH17EZ Insertion of Endotracheal Airway into Trachea, Via Natural or Artificial Opening (ICD-10-PCS; 2023-07-28)
PROC: 3E033XZ Introduction of Vasopressor into Peripheral Vein, Percutaneous Approach (ICD-10-PCS; 2023-07-28)
DX: U07.1 COVID-19 (principal); E43 Unspecified severe protein-calorie malnutrition; J12.82 Pneumonia due to coronavirus disease 2019; J15.212 Pneumonia due to Methicillin resistant Staphylococcus aureus; J15.5 Pneumonia due to Escherichia coli; J69.0 Pneumonitis due to inhalation of food and vomit; J96.01 Acute respiratory failure with hypoxia; J96.02 Acute respiratory failure with hypercapnia; G92.8 Other toxic encephalopathy; B37.0 Candidal stomatitis; J45.901 Unspecified asthma with (acute) exacerbation; Z68.41 Body mass index [BMI] 40.0-44.9, adult; E87.0 Hyperosmolality and hypernatremia; G93.1 Anoxic brain damage, not elsewhere classified; J98.11 Atelectasis; N17.9 Acute kidney failure, unspecified; Z43.1 Encounter for attention to gastrostomy; J90 Pleural effusion, not elsewhere classified; E87.21 Acute metabolic acidosis; I46.8 Cardiac arrest due to other underlying condition; E66.01 Morbid (severe) obesity due to excess calories; E11.9 Type 2 diabetes mellitus without complications; I48.0 Paroxysmal atrial fibrillation; Z66 Do not resuscitate; Z51.5 Encounter for palliative care; E78.5 Hyperlipidemia, unspecified; E86.0 Dehydration; E87.70 Fluid overload, unspecified; E87.8 Other disorders of electrolyte and fluid balance, not elsewhere classified; G47.33 Obstructive sleep apnea (adult) (pediatric); G93.89 Other specified disorders of brain; I11.9 Hypertensive heart disease without heart failure; K80.20 Calculus of gallbladder without cholecystitis without obstruction; I95.9 Hypotension, unspecified; R47.1 Dysarthria and anarthria; R91.1 Solitary pulmonary nodule; Z79.51 Long term (current) use of inhaled steroids; Z79.84 Long term (current) use of oral hypoglycemic drugs; Z79.01 Long term (current) use of anticoagulants; Z79.85 Long-term (current) use of injectable non-insulin antidiabetic drugs; Z79.899 Other long term (current) drug therapy; Z86.14 Personal history of Methicillin resistant Staphylococcus aureus infection; Z71.3 Dietary counseling and surveillance
CPT/HCPCS: 36600; 70450; 71045; 71275; 74230; 76604; 80048; 80053; 80061; 80202; 82565; 82805; 83036; 83605; 83735; 83880; 84132; 84145; 84484; 85025; 85027; 86140; 87070; 87077; 87186; 87205; 93306; 93880; 94002; 94003; 94640; 94660; 94760; 95822; 96374; 99291